=== PATIENT | female | born 1985 ===

== ENCOUNTER 2019-12-12 15:04 | Outpatient (REF) | payer MEDICAID, SELFPAY ==
--- NOTE | 2019-12-12 | MR_ITS ---
EXAMINATION: MR BRAIN WITHOUT CONTRAST CLINICAL INFORMATION: Arnold-Chiari malformation. COMPARISON: Brain MRI 06/09/2018. TECHNIQUE: Multiplanar, multisequence imaging of the brain was performed without intravenous contrast. FINDINGS: There is redemonstration of Chiari low-lying cerebellar tonsils which mildly narrow the cervicomedullary CSF. The appearance is stable compared with 06/09/2018. No upper cervical cord syrinx is seen. There is no acute infarction, hemorrhage, or extra-axial fluid collection. The ventricles are normal in size and configuration without evidence of hydrocephalus. Allowing for a stable punctate focus of T2 hyperintensity within the left parietal lobe the brain parenchyma signal appears normal. The major arterial flow voids are preserved at the skull base. The orbital contents appear normal. The paranasal sinuses and mastoid air cells are clear. IMPRESSION: Stable exam compared with 06/09/2018. Low-lying cerebellar tonsils.
== END 2019-12-12 15:05 | disposition home or self-care (01) ==
LOC: HO.MRI 15:04
PROVIDERS: PCP Internal Medicine; Visit Provider Internal Medicine
DX: Q07.00 Arnold-Chiari syndrome without spina bifida or hydrocephalus (principal)
CPT/HCPCS: 70551

== ENCOUNTER 2020-03-29 09:21 | Outpatient (REF) | payer OTHER, SELFPAY ==
[2020-03-29 09:59] LABS: MANUAL DIFF FLAG NO
[2020-03-29 10:12] LABS: Basophils Percent Auto 0.3 % (0-2); Eosinophils Absolute Auto 0.1 X10*3/uL (0.0-0.4); Eosinophils Percent Auto 1.2 % (0-4); Hematocrit 43.4 % (37-47); Imm Gran Abs Auto 0.01 X10*3/uL (0.00-0.03); Imm Gran Pct Auto 0.1 % (0.0-0.4); Lymphocytes Absolute Auto 2.1 X10*3/uL (1.2-4.9); Lymphocytes Percent Auto 27.2 % (20-40); Mean Corpuscular HGB Conc 32.3 g/dl (31.0-35.0); Mean Corpuscular Hemoglobin 28.4 pg (27.0-33.0); Mean Platelet Volume 9.4 fL (9.4-12.3); Monocytes Absolute Auto 0.6 X10*3/uL (0.1-1.2); Monocytes Percent Auto 7.2 % (2-11); Platelet Count 272 X10*3/uL (160-400); Red Blood Count 4.93 X10*6/uL (4.20-5.50); Red Cell Distribution Width 13.2 % (11.0-16.0); White Blood Count 7.8 X10*3/uL (4.8-10.8)
== END 2020-03-29 09:22 | disposition home or self-care (01) ==
LOC: HO.LAB 09:21
PROVIDERS: PCP Internal Medicine; Visit Provider Internal Medicine
DX: G62.9 Polyneuropathy, unspecified (principal)
CPT/HCPCS: 36415; 85025

== ENCOUNTER 2020-04-01 11:09 | Outpatient (REF) | payer OTHER, SELFPAY ==
--- NOTE | ~2020-04-01 | XR_ITS ---
EXAMINATION: XR LUMBOSACRAL SPINE CLINICAL INFORMATION: Right-sided sciatica. COMPARISON: Most recent lumbar spine radiographs dated 11/12/2017. TECHNIQUE: Three views of the lumbosacral spine. FINDINGS: Normal vertebral body alignment. The lumbar lordosis is maintained. No acute fracture or subluxation. No loss of vertebral body or intervertebral disc height. Tiny anterior endplate osteophytes at L2-L3, new when compared to the prior examination. No lytic or blastic osseous lesion. Right upper quadrant surgical clips. XR/XR lumbar spine 2-3V IMPRESSION: Minimal degenerative disc disease at L2-L3, new when compared to the prior examination.
== END 2020-04-01 11:10 | disposition home or self-care (01) ==
LOC: HO.XRAY 11:09
PROVIDERS: PCP Internal Medicine; Visit Provider Internal Medicine
DX: M54.31 Sciatica, right side (principal)
CPT/HCPCS: 72100

== ENCOUNTER 2020-07-31 08:04 | Outpatient (REF) | payer OTHER, SELFPAY ==
--- NOTE | 2020-07-31 08:07 | EMG_ITS ---
This is a 35-year-old woman with a 4-year history of right upper extremity pain and numbness with the recent symptoms that are milder affecting the left upper extremity. Neurological examination is normal. IMPRESSION: Rule out carpal tunnel syndrome. Nerve conduction EMG study: Normal electrodiagnostic study of both upper extremities with no evidence of carpal tunnel syndrome. Normal EMG of the right C5-T1 innervated muscles. MD TUCKER Singer/[place] / [id number]
== END 2020-07-31 08:05 | disposition home or self-care (01) ==
LOC: HO.NEURO 08:04
PROVIDERS: Visit Provider Internal Medicine
DX: G56.00 Carpal tunnel syndrome, unspecified upper limb (principal)
CPT/HCPCS: 95885; 95913

== ENCOUNTER 2020-12-14 15:11 | Emergency (ER) | payer OTHER, SELFPAY ==
[2020-12-14 16:03] VITALS: BP 143/92; PULSE 91; RESP 18; TEMP 37; O2SAT 97; BMI 44.4
--- NOTE | 2020-12-14 16:48 | ED_ITS ---
HPI - General Adult General Chief complaint: Ear Problems Stated complaint: Earache Time Seen by Provider: 12/14/20 16:48 Source: patient Mode of arrival: ambulatory Limitations: language barrier History of Present Illness HPI narrative: 35-year-old female is here today for complaining of sore throat and right ear pain. 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 Patient denies any ill contacts. Patient reports that she has a history of ear infections usually around that time. Patient reports rhinorrhea and mild congestion. Denies any hearing difficulties. Patient reports that she is allergic to prednisone and had a history of swelling with that and some rash. Patient denies dysphagia, odynophagia. Denies any shortness of breath or any respiratory symptoms. Patient has not taking anything for it. Patient denies any dizziness, headache, nausea or vomiting. Onset (ago): day(s) Related Data Home Medications Medication Instructions Recorded Confirmed alcohol swabs pad TOPICAL QID PRN 01/15/20 09/03/20 blood sugar diagnostic #10 ea 01/15/20 09/03/20 clonazepam 1 mg tablet 1 mg PO BID PRN 01/15/20 09/03/20 lancets 33 gauge #100 ea 01/15/20 09/03/20 amitriptyline 25 mg tablet 75 mg PO DAILY tab 09/03/20 09/03/20 Previous Rx's Medication Instructions Recorded lisinopril 10 mg tablet 10 mg PO DAILY 90 Days #90 tab 01/15/20 folic acid 1 mg tablet 1 mg PO DAILY 90 Days #90 tab 04/03/20 pregabalin 150 mg capsule 150 mg PO BID 30 Days #60 cap 08/20/20 cyanocobalamin (vitamin B-12) 1,000 mcg PO DAILY #30 tab 11/03/20 1,000 mcg tablet (Vitamin B-12) amoxicillin 875 mg-potassium 1 tab PO BID 10 Days #20 tab 12/14/20 clavulanate 125 mg tablet (Augmentin) fluticasone propionate 50 1 spray INTRANASAL BID #16 g 12/14/20 mcg/actuation nasal spray,suspension (Flonase Allergy Relief) ibuprofen 600 mg tablet 600 mg PO Q8H PRN #20 tab 12/14/20 loratadine 10 mg tablet (Claritin) 10 mg PO DAILY PRN #20 tab 12/14/20 Allergies Allergy/AdvReac Type Severity Reaction Status Date / Time aspirin [ASPIRIN] Allergy Intermediate SWELLING Verified 09/03/20 16:01 latex [LATEX] Allergy Intermediate Rash Verified 09/03/20 16:01 prednisone [PREDNISONE] Allergy Intermediate swelling Verified 09/03/20 16:01 and hives, swelling tramadol Allergy Intermediate loopiness Verified 09/03/20 16:01 Review of Systems Review of Systems: Constitutional : No Weight loss, No Fever, No Chills, No Night Sweats, No Fatigue, No Malaise ENT/Mouth : No Hearing loss, R Ear Pain, Nasal Congestion, No Sinus Pain, No Hoarseness, sore throat, Rhinorrhea, No Swallowing Difficulty Eyes: No Eye Pain, No Swelling, No Redness, No Foreign Body, No Discharge, No Vision Changes Cardiovascular : No Chest Pain, No SOB, No Dyspnea on Exertion, No Orthopnea, No Edema, No Palpitations Respiratory : No Cough, No Sputum, No Wheezing, No Smoke Exposure, No Dyspnea Gastrointestinal : No Nausea, No Vomiting, No Diarrhea, No Constipation, No abdominal Pain, No Hematochezia, No Melena Genitourinary : no irregular bleeding, No Dysuria, No Urinary Frequency, No Hematuria, No Urinary Incontinence, No Urgency, No Flank Pain, No Urinary Flow Changes, No Hesitancy Musculoskeletal : No joint pain, No Myalgias, No Joint Swelling Skin : No Skin Lesions, No rash Neuro : No Weakness, No Numbness, No Paresthesias, No Loss of Consciousness, No Dizziness, No Headache Yes all other systems are reviewed and are negative [facility] Past Medical History Medical History Anxiety Arnold-Chiari malformation B12 deficiency Carpal tunnel syndrome Chronic thoracic spine pain Essential hypertension Fibromyalgia Neck pain Neuropathy Right sided sciatica Surgical History History of section History of cholecystectomy History of D&C Family History Family History (Updated 09/03/20 @ 15:46 by SWATHI Kennedy) Father Hypertension CVD (cardiovascular disease) Diabetes Mother Hypertension Chronic mental illness Depression Mental health disorder Paternal Aunt Breast cancer Brother Colon cancer Stomach cancer Social History Social History Housing: Apartment Alcohol intake: never Patient Tobacco Use Status: Never used Tobacco e-Cigarette/Vaping Use: Never Used Second Hand Smoke Exposure: No Advance Directives: No Advance Directives Information Provided: No Patient : No service: No Current occupational status: employed Physical Exam Vital Signs: Vital Signs: Last Vital Signs Temp 98.6 F 12/14/20 16:03 Pulse 91 12/14/20 16:03 Resp 18 12/14/20 16:03 BP 143/92 H 12/14/20 16:03 Pulse Ox 97 12/14/20 16:03 Body Mass Index 44.4 Const: General: healthy appearing, no acute distress and well developed Nutritional Appearance: well nourished Orientation/consciousness: patient oriented x3 HENMT: Head: Yes normal to inspection, Yes normocephalic and Yes atraumatic Ears: hearing grossly normal bilaterally, TM normal on the left and TM abnormal (Right) with fluid behind the TM on the right General nose exam: Normal external nose present Face and sinus: Yes sinuses nontender Mouth: Normal oral and palatal mucosa present and tongue normal Throat: Yes uvula midline, Yes abnormal tonsil (Stage IV on the right stage III on the left, denies dysphagia.), No uvular edema and No cobblestoning Neck: Neck: Yes normal visual inspection, Yes full ROM and Yes trachea midline Thyroid: Thyroid normal Resp: Auscultation: clear to auscultation bilaterally Cardio: Rate: regular rate Rhythm: regular rhythm GI: Inspection: Yes normal to inspection and No distended Palpation (GI): No hepatosplenomegaly present Auscultation: normal bowel sounds Skin: General skin exam: elasticity normal, turgor normal and dry skin Neuro: General: patient oriented x3 Course Course Course Narrative: 35-year-old female is here today for complaining of right ear pain and sore throat. Patient has a history of enlarged tonsils and is awaiting to see ENT. Patient denies dysphagia or odynophagia. Patient denies any recent respiratory symptoms. Patient reports that she usually has your infection around that time every year. She reports that she is allergic to prednisone I will put her on Decadron will give her 1 time dose and will monitor her in the ER for hour after medicating her with that. She will get Augmentin and Claritin. I will send her home with Augmentin for 7 days, Claritin daily and Flonase twice a day for the next 7 days then daily. Patient is agreeable to this plan and verbalizes understanding of instructions. She was given the opportunity ask questions and all questions answered. Discharge Plan Discharge Clinical Impression: Tonsillitis Otitis media Qualifiers: Otitis media type: allergic Chronicity: unspecified Laterality: right Qualified Code(s): H65.91 - Unspecified nonsuppurative otitis media, right ear Patient Disposition: Home, Self-Care Instructions: Ear Infection (ED), Tonsillitis (ED) Additional Instructions: Lo vieron aqu? hoy por dolor de garganta y dolor de o?do derecho. Tiene eyad infecci?n del o?do medio y le comenzamos a jen antibi?ticos. Tambi?n le administraron medicamentos esteroides para ayudar con la inflamaci?n de las am?gdalas. Jackson antihistam?nicos ok Claritin a diario. Tambi?n le dieron un shazia?n para Flonase y puede tomarlo dos veces al d?a karlie 7 d?as y luego todos los d?as. Rashida un seguimiento con un especialista en o?do, nariz y garganta. Puede regresar al departamento de emergencias si praneeth s?ntomas empeoran o si experimenta alg?n s?ntoma preocupante adicional. Prescriptions: New ibuprofen 600 mg tablet 600 mg PO Q8H PRN (Reason: pain) Qty: 20 RF: 0 fluticasone propionate [Flonase Allergy Relief] 50 mcg/actuation spray,suspension 1 spray intranasal BID Qty: 16 RF: 0 loratadine [Claritin] 10 mg tablet 10 mg PO DAILY PRN (Reason: allergy symptoms) Qty: 20 RF: 0 amoxicillin-pot clavulanate [Augmentin] 875-125 mg tablet 1 tab PO BID 10 Days Qty: 20 RF: 0 No Action pregabalin 150 mg capsule 150 mg PO BID 30 Days Qty: 60 RF: 0 cyanocobalamin (vitamin B-12) [Vitamin B-12] 1,000 mcg tablet 1,000 mcg PO DAILY Qty: 30 RF: 5 folic acid 1 mg tablet 1 mg PO DAILY 90 Days Qty: 90 RF: 3 clonazepam 1 mg tablet 1 mg PO BID PRNRF: 0 (DME) lancets 33 gauge misc See Rx Instructions ea Not Applicable QID Qty: 100 RF: 0 alcohol swabs Pads, Medicated topical QID PRN (Reason: diabetes mellitus) RF: 0 (DME) FreeStyle Lite Strips Strip See Rx Instructions ea Not Applicable QID Qty: 10 RF: 0 lisinopril 10 mg tablet 10 mg PO DAILY 90 Days Qty: 90 RF: 3 amitriptyline 25 mg tablet 75 mg PO DAILY RF: 0 Referrals: Brian Leavitt MD [Physician] - 2 days (Tonsillitis) Mague Brantley MD [Primary Care Provider] - 2 days
[2020-12-14] MEDS: dexAMETHasone 2 MG TABLET 10 MG PO (17:18)
[2020-12-14] MEDS: Amoxicillin/Potassium Clav 875 MG TABLET PO (17:18)
[2020-12-14] MEDS: Loratadine 10 MG TABLET PO (17:19)
== END 2020-12-14 18:47 | disposition home or self-care (01) ==
PROVIDERS: Emergency Provider Emergency Medicine; PCP Internal Medicine
DX: J03.90 Acute tonsillitis, unspecified (principal); H65.91 Unspecified nonsuppurative otitis media, right ear; Z79.899 Other long term (current) drug therapy
CPT/HCPCS: 99283; J8540

== ENCOUNTER 2020-12-30 08:49 | Outpatient (REF) | payer OTHER, SELFPAY ==
--- NOTE | ~2020-12-30 | XR_ITS ---
EXAMINATION: XR C-SPINE XR THORACIC SPINE XR LUMBOSACRAL SPINE CLINICAL INFORMATION: Chronic cervical, thoracic and lumbar pain. COMPARISON: None TECHNIQUE: 5 views of the cervical spine, 2 views, 3 images of the thoracic spine and 2 views, 3 images of the lumbosacral spine were obtained. FINDINGS: Cervical spine: There is nonspecific straightening of the cervical spine present. The heights and alignments are intact. Intervertebral disc heights are well-maintained. The posterior appendages are intact. No evidence of any foraminal narrowing present on either side. The C1-C2 alignment is intact. The prespinal as well as paraspinal soft tissues are unremarkable. Thoracic spine: The heights of the thoracic vertebrae are well-maintained. Intervertebral disc heights are well-maintained. Endplate osteophyte formations are however present at the mid thoracic spine, consistent with mild degenerative spondylosis. The paraspinal soft tissues are unremarkable. Lumbosacral spine: Mild thoracolumbar levoscoliosis is present. The heights of the lumbar vertebrae are well-maintained. Intervertebral disc heights are well-maintained. The posterior appendages are intact. The paraspinal soft tissues are remarkable for postsurgical changes of prior cholecystectomy. XR/XR cervical spine 5V IMPRESSION: 1. The cervical spine shows nonspecific straightening, otherwise unremarkable. 2. The thoracic spine shows mild degenerative spondylosis at the mid thoracic spine. 3. The lumbosacral spine shows mild thoracolumbar levoscoliosis, otherwise unremarkable.
--- NOTE | ~2020-12-30 | XR_ITS ---
EXAMINATION: XR C-SPINE XR THORACIC SPINE XR LUMBOSACRAL SPINE CLINICAL INFORMATION: Chronic cervical, thoracic and lumbar pain. COMPARISON: None TECHNIQUE: 5 views of the cervical spine, 2 views, 3 images of the thoracic spine and 2 views, 3 images of the lumbosacral spine were obtained. FINDINGS: Cervical spine: There is nonspecific straightening of the cervical spine present. The heights and alignments are intact. Intervertebral disc heights are well-maintained. The posterior appendages are intact. No evidence of any foraminal narrowing present on either side. The C1-C2 alignment is intact. The prespinal as well as paraspinal soft tissues are unremarkable. Thoracic spine: The heights of the thoracic vertebrae are well-maintained. Intervertebral disc heights are well-maintained. Endplate osteophyte formations are however present at the mid thoracic spine, consistent with mild degenerative spondylosis. The paraspinal soft tissues are unremarkable. Lumbosacral spine: Mild thoracolumbar levoscoliosis is present. The heights of the lumbar vertebrae are well-maintained. Intervertebral disc heights are well-maintained. The posterior appendages are intact. The paraspinal soft tissues are remarkable for postsurgical changes of prior cholecystectomy. XR/XR lumbar spine 2-3V IMPRESSION: 1. The cervical spine shows nonspecific straightening, otherwise unremarkable. 2. The thoracic spine shows mild degenerative spondylosis at the mid thoracic spine. 3. The lumbosacral spine shows mild thoracolumbar levoscoliosis, otherwise unremarkable.
--- NOTE | ~2020-12-30 | XR_ITS ---
EXAMINATION: XR C-SPINE XR THORACIC SPINE XR LUMBOSACRAL SPINE CLINICAL INFORMATION: Chronic cervical, thoracic and lumbar pain. COMPARISON: None TECHNIQUE: 5 views of the cervical spine, 2 views, 3 images of the thoracic spine and 2 views, 3 images of the lumbosacral spine were obtained. FINDINGS: Cervical spine: There is nonspecific straightening of the cervical spine present. The heights and alignments are intact. Intervertebral disc heights are well-maintained. The posterior appendages are intact. No evidence of any foraminal narrowing present on either side. The C1-C2 alignment is intact. The prespinal as well as paraspinal soft tissues are unremarkable. Thoracic spine: The heights of the thoracic vertebrae are well-maintained. Intervertebral disc heights are well-maintained. Endplate osteophyte formations are however present at the mid thoracic spine, consistent with mild degenerative spondylosis. The paraspinal soft tissues are unremarkable. Lumbosacral spine: Mild thoracolumbar levoscoliosis is present. The heights of the lumbar vertebrae are well-maintained. Intervertebral disc heights are well-maintained. The posterior appendages are intact. The paraspinal soft tissues are remarkable for postsurgical changes of prior cholecystectomy. XR/XR thoracic spine 2V IMPRESSION: 1. The cervical spine shows nonspecific straightening, otherwise unremarkable. 2. The thoracic spine shows mild degenerative spondylosis at the mid thoracic spine. 3. The lumbosacral spine shows mild thoracolumbar levoscoliosis, otherwise unremarkable.
[2020-12-30 09:20] LABS: MANUAL DIFF FLAG NO
[2020-12-30 09:42] LABS: Basophils Percent Auto 0.2 % (0-2); Eosinophils Absolute Auto 0.1 X10*3/uL (0.0-0.4); Eosinophils Percent Auto 2.2 % (0-4); Hematocrit 41.1 % (37.0-47.0); Hemoglobin 13.3 g/dl (12.0-16.0); Imm Gran Abs Auto 0.03 X10*3/uL (0.00-0.03); Imm Gran Pct Auto 0.5 % (0.0-0.4); Lymphocytes Percent Auto 31.5 % (20-40); Mean Corpuscular HGB Conc 32.4 g/dl (31.0-35.0); Mean Corpuscular Hemoglobin 28.2 pg (27.0-33.0); Mean Corpuscular Volume 87.3 fL (80.0-98.0); Mean Platelet Volume 9.5 fL (9.4-12.3); Monocytes Absolute Auto 0.4 X10*3/uL (0.1-1.2); Neutrophils Absolute Auto 3.8 x10*3/uL (2.0-8.3); Neutrophils Percent Auto 59.6 % (45-73); Platelet Count 302 X10*3/uL (160-400); Red Blood Count 4.71 X10*6/uL (4.20-5.50); White Blood Count 6.4 X10*3/uL (4.8-10.8)
[2020-12-30 10:11] LABS: Alanine Aminotransferase 16 U/L (0-31); Albumin Level 3.8 g/dL (3.5-5.0); Alkaline Phosphatase 82 U/L (39-117); Anion Gap 11 (12-20); Aspartate Amino Transferase 11 U/L (5-31); Bilirubin Total 0.4 mg/dL (0.0-1.0); Blood Urea Nitrogen 10 mg/dL (9-16); Carbon Dioxide 25 mmol/L (22-29); Chloride 106 mmol/L (96-108); Cholesterol 208 mg/dL; Estimated Glomerular Filt Rate > 60; Glucose Fasting 107 mg/dL (60-99); HDL Cholesterol 42 mg/dL; LDL Cholesterol Calculated 147 mg/dl; Potassium 4.2 mmol/L (3.3-5.1); Sodium 138 mmol/L (135-145); Total Protein 6.9 g/dL (6.5-8.0); Triglycerides 99 mg/dL
[2020-12-30 11:15] LABS: Folate 13.8 ng/mL (> or = 4.0); Vitamin B12 371 pg/mL (200-900)
[2021-01-02 12:06] LABS: Parietal Cell Antibody <=20.0 Unit (<=20.0)
[2021-01-03 13:12] LABS: Vitamin D 25-OH, D2 <4 ng/mL; Vitamin D 25-OH, D3 19 ng/mL; Vitamin D 25-OH, Total 19 ng/mL (30-100)
[2021-01-03 23:36] LABS: Intrinsic Factor Antibodies Negative (Negative)
== END 2020-12-30 08:50 | disposition home or self-care (01) ==
LOC: HO.LAB 08:49
PROVIDERS: PCP Internal Medicine; Visit Provider Internal Medicine
DX: G89.29 Other chronic pain (principal); M54.2 Cervicalgia; M54.6 Pain in thoracic spine; M54.31 Sciatica, right side; D64.9 Anemia, unspecified; I10 Essential (primary) hypertension; E78.5 Hyperlipidemia, unspecified; E53.8 Deficiency of other specified B group vitamins
CPT/HCPCS: 36415; 72050; 72070; 72100; 80053; 80061; 82306; 82607; 82746; 83516; 85025; 86340

== ENCOUNTER 2021-01-22 12:38 | Outpatient (REF) | payer OTHER, SELFPAY ==
--- NOTE | ~2021-01-22 | MR_ITS ---
EXAMINATION: MRI OF THE BRAIN WITHOUT CONTRAST CLINICAL INFORMATION: Chiari malformation without spina bifida. COMPARISON: Multiple prior MRI scans, the most recent from 12/12/2019.. TECHNIQUE: MRI of the brain was obtained using routine sequences without contrast. FINDINGS: No diffusion abnormalities are identified to suggest an acute or subacute infarct. No mass effect or midline shift is seen. The ventricles and sulci appear normal. There is a small focus of increased T2/STIR signal bilaterally in the left parietal lobe, which is slightly less prominent compared to prior imaging. Brain parenchymal signal is otherwise unremarkable. No extra-axial fluid collections are seen. The brainstem appears normal. No pathologic magnetic susceptibility artifact is identified on the gradient refocused acquisition. The study redemonstrates low-lying cerebellar tonsil with mildly pointed configurations extending approximately 4 mm below the level of foramen magnum, unchanged. Marrow signal and midline structures are normal. The major intracranial flow-voids at the level of the [place] are preserved. The dural venous sinus flow-voids are maintained. The mastoid air cells and paranasal sinuses are well-aerated. MR/MR head/brain wo con IMPRESSION: 1. The study redemonstrates low-lying cerebellar tonsils which have slightly pointed configurations, consistent with Chiari I malformation. The findings are stable. 2. There are no acute bleeds or infarcts. No masses are demonstrated.
== END 2021-01-22 12:39 | disposition home or self-care (01) ==
LOC: HO.MRI 12:38
PROVIDERS: Visit Provider Internal Medicine
DX: Q07.00 Arnold-Chiari syndrome without spina bifida or hydrocephalus (principal)
CPT/HCPCS: 70551

== ENCOUNTER 2021-02-01 14:30 | Emergency (ER) | payer OTHER, SELFPAY ==
[2021-02-01 14:35] VITALS: BP 128/93; PULSE 93; RESP 18; TEMP 36.8; O2SAT 96; BMI 46.5
[2021-02-01 16:01] LABS: Basophils Percent Auto 0.2 % (0-2); Eosinophils Absolute Auto 0.1 X10*3/uL (0.0-0.4); Hematocrit 40.1 % (37.0-47.0); Hemoglobin 13.1 g/dl (12.0-16.0); Imm Gran Abs Auto 0.04 X10*3/uL (0.00-0.03); Imm Gran Pct Auto 0.4 % (0.0-0.4); Lymphocytes Absolute Auto 2.2 X10*3/uL (1.2-4.9); Lymphocytes Percent Auto 23.2 % (20-40); MANUAL DIFF FLAG SCAN; Mean Corpuscular HGB Conc 32.7 g/dl (31.0-35.0); Mean Corpuscular Hemoglobin 29.3 pg (27.0-33.0); Mean Corpuscular Volume 89.7 fL (80.0-98.0); Mean Platelet Volume 10.5 fL (9.4-12.3); Monocytes Absolute Auto 0.5 X10*3/uL (0.1-1.2); Monocytes Percent Auto 5.3 % (2-11); Neutrophils Absolute Auto 6.6 x10*3/uL (2.0-8.3); Neutrophils Percent Auto 69.9 % (45-73); PLT CLUMP 1; Red Blood Count 4.47 X10*6/uL (4.20-5.50); Red Cell Distribution Width 13.7 % (11.0-16.0); SCAN SMEAR FLAG 1
[2021-02-01 16:09] LABS: Alanine Aminotransferase 19 U/L (0-31); Albumin Level 3.8 g/dL (3.5-5.0); Alkaline Phosphatase 76 U/L (39-117); Anion Gap 11 (12-20); Aspartate Amino Transferase 16 U/L (5-31); Bilirubin Total 0.2 mg/dL (0.0-1.0); Blood Urea Nitrogen 10 mg/dL (9-16); Calcium 10.2 mg/dL (8.4-10.2); Carbon Dioxide 25 mmol/L (22-29); Chloride 106 mmol/L (96-108); Creatinine Clr Calc Pharmacy 143.7; Estimated Glomerular Filt Rate > 60; Glucose Fasting 87 mg/dL (60-99); Potassium 4.3 mmol/L (3.3-5.1); Sodium 138 mmol/L (135-145); Total Protein 7.1 g/dL (6.5-8.0)
[2021-02-01 16:20] LABS: SLIDE REVIEW VERIFIED; White Blood Count 9.4 X10*3/uL (4.8-10.8)
[2021-02-01 16:53] LABS: HCG Quantitative 30960 mIU/mL
== END 2021-02-01 22:31 | disposition left against medical advice (07) ==
LOC: HO.ED 22:30
PROVIDERS: Emergency Provider Emergency Medicine; PCP Internal Medicine
DX: R10.9 Unspecified abdominal pain (principal)
CPT/HCPCS: 36415; 80053; 84702; 85025; 99281; 99283

== ENCOUNTER 2022-02-01 12:30 | Emergency (ER) | payer OTHER, SELFPAY ==
--- NOTE | ~2022-02-01 | XR_ITS ---
EXAMINATION: XR CHEST CLINICAL INFORMATION: Chest discomfort, fever and cough. COMPARISON: Chest and rib radiographs dated 07/25/2018. TECHNIQUE: 2 views of the chest were obtained. FINDINGS: No significant abnormality is noted involving the heart, lungs, mediastinum, bony thorax or soft tissues. XR/XR chest 2V IMPRESSION: No acute cardiopulmonary process.
[2022-02-01 13:03] VITALS: BP 147/88; PULSE 98; RESP 18; TEMP 36.8; O2SAT 98; BMI 40.9
--- NOTE | 2022-02-01 13:05 | ED_ITS ---
HPI - General Adult General Chief complaint: Upper Respiratory Symptoms <JOSE CARLOS Ovalle - Last Filed: 02/01/22 13:07> Stated complaint: flu like symptoms. fever ,cp, cough <JOSE CARLOS Ovalle - Last Filed: 02/01/22 13:07> Time Seen by Provider: 02/01/22 16:00 <JOSE CARLOS Ovalle - Last Filed: 02/01/22 13:07> Source: patient and email designer <Gopal Miller MD - Last Filed: 02/01/22 16:07> Mode of arrival: ambulatory <Gopal Miller MD - Last Filed: 02/01/22 16:07> Limitations: no limitations <Gopal Miller MD - Last Filed: 02/01/22 16:07> History of Present Illness HPI narrative: 37-year-old female came in for evaluation of body aches, congestion, coughing, generalized joint pain, subjective low-grade fever. No known sick contact exposure. <Gopal Miller MD - Last Filed: 02/01/22 16:07> Related Data Home medications: Home Medications Medication Instructions Recorded Confirmed clonazepam 1 mg tablet 1 mg PO BID PRN 01/15/20 10/20/21 amitriptyline 25 mg tablet 100 mg PO DAILY 01/01/21 10/20/21 Previous Rx's Medication Instructions Recorded cholecalciferol (vitamin D3) 25 25 mcg PO DAILY 90 days #90 caps 01/03/21 mcg (1,000 unit) capsule cyanocobalamin (vitamin B-12) 1,000 mcg PO DAILY #30 tabs 05/06/21 1,000 mcg tablet (Vitamin B-12) oseltamivir 75 mg capsule (Tamiflu) 75 mg PO BID 5 days #10 caps 02/01/22 <JOSE CARLOS Ovalle - Last Filed: 02/01/22 13:07> Allergies/adverse reactions: Allergies Allergy/AdvReac Type Severity Reaction Status Date / Time aspirin [ASPIRIN] Allergy Intermediate SWELLING Verified 10/20/21 13:40 latex [LATEX] Allergy Intermediate Rash Verified 10/20/21 13:40 prednisone [PREDNISONE] Allergy Intermediate swelling Verified 10/20/21 13:40 and hives, swelling tramadol Allergy Intermediate loopiness Verified 10/20/21 13:40 <JOSE CARLOS Ovalle - Last Filed: 02/01/22 13:07> Review of Systems Review of Systems: All other systems are reviewed and are negative Constitutional: Reports as per HPI and Reports no additional constitutional complaints Eyes: Reports as per HPI and Reports no additional eye complaints Reports system reviewed and no additional complaints, except as documented Cardiovascular: Reports as per HPI and Reports no additional cardiovascular complaints Respiratory: Reports as per HPI and Reports no additional respiratory complaints Gastrointestinal: Reports as per HPI and Reports no additional gastrointestinal complaints Genitourinary: Reports no additional female genitourinary complaints Musculoskeletal: Reports no additional musculoskeletal complaints Skin/Breast: Reports system reviewed and no additional complaints, except as docu Psychiatric: Reports no additional psychiatric complaints Endocrine: Reports no additional endocrine complaints Hematologic/Lymphatic: Reports no additional hematologic/lymphatic complaints Allergic/Immunologic: Reports no additional allergic/immunologic complaints Reports system reviewed and no additional complaints, except as documented and Reports Abnormal speech present <Gopal Miller MD - Last Filed: 02/01/22 16:07> FOR[facility]LY [facility], [facility] Past Medical History Medical History: Medical History Anxiety Arnold-Chiari malformation B12 deficiency Carpal tunnel syndrome Chronic thoracic spine pain Essential hypertension Fibromyalgia Gestational diabetes mellitus Moderate recurrent major depression Morbid obesity due to excess calories Neck pain Neuropathy Right sided sciatica <JOSE CARLOS Ovalle - Last Filed: 02/01/22 13:07> Surgical History: Surgical History History of section History of cholecystectomy History of D&C <JOSE CARLOS Ovalle - Last Filed: 02/01/22 13:07> Family History Family History: Family History Father Hypertension CVD (cardiovascular disease) Diabetes Mother Hypertension Chronic mental illness Depression Mental health disorder Paternal Aunt Breast cancer Brother Colon cancer Stomach cancer <JOSE CARLOS Ovalle - Last Filed: 02/01/22 13:07> Social History Social History: Social History Housing: Apartment Alcohol intake: never Patient Tobacco Use Status: Never used Tobacco e-Cigarette/Vaping Use: Never Used Second Hand Smoke Exposure: No Advance Directives: No Advance Directives Information Provided: No service: No Current occupational status: unemployed Cognitive needs: No Hearing needs: No Vision needs: No <JOSE CARLOS Ovalle - Last Filed: 02/01/22 13:07> Physical Exam ED Vital Signs: Vital Signs - 24 hr 02/01/22 13:03 Temperature 98.3 F Pulse Rate 98 Respiratory Rate 18 Blood Pressure 147/88 H Pulse Oximetry 98 Oxygen Delivery Method Room Air BMI result Body Mass Index 40.9 <JOSE CARLOS Ovalle - Last Filed: 02/01/22 13:07> Vital Signs - 24 hr 02/01/22 13:03 Temperature 98.3 F Pulse Rate 98 Respiratory Rate 18 Blood Pressure 147/88 H Pulse Oximetry 98 Oxygen Delivery Method Room Air BMI result Body Mass Index 40.9 Vital signs have been reviewed as appeared to be correct. Blood pressure normal. Heart rate normal. Respiration rate normal. Temperature normal. Oxygen saturation normal. <Gopal Miller MD - Last Filed: 02/01/22 16:07> Appearance: Alert. Oriented X3. No acute distress. Head: Normal external exam. Normocephalic. Atraumatic. No Theodore signs noted. No raccoon eyes noted Eyes: PERRLA. EOMI. Conjunctiva and sclera normal. Eyelids normal. ENT: TM's Normal. Pharynx normal. Uvula midline. Moist mucous membranes. No trismus noted. No drooling noted. No muffled voice noted. Neck: Normal inspection. Neck supple. FROM. No adenopathy. Thyroid Normal. No meningeal signs. No neck mass noted. CVS: Normal heart rate and rhythm. Heart sound normal. No murmurs noted. Pulses normal throughout. Respiratory: No respiratory distress. Painless inspiration. Breath sounds normal. No wheezes/rales/rhonchi noted. Chest nontender. No accessory muscle usage noted or decreased air movement noted. Abdomen: Soft and nontender. Bowel sounds normal in all 4 quadrants. No distention noted. No organomegaly noted. No visible injury noted. Back: No CVA tenderness. Full range of motion noted. Skin: Skin warm and dry. Normal skin color. Normal skin turgor. No rashes/lesions/lacerations noted. Extremities: No lower extremity edema. Extremities exhibit normal range of motion. Extremities nontender. Neuro: Oriented X 3. Cranial nerve exam: II-XII are grossly intact No motor deficit. No sensory deficit. Reflexes normal. <Gopal Miller MD - Last Filed: 02/01/22 16:07> Course Course Course Narrative: RME - 37 yo female with hx morbid obesity, depression, fibromyalgia, HTN, sciatica, anxiety presenting with flu like symptoms for 2 days. Afebrile and slightly tachycardic on arrival, lungs are clear. will get CXR and swabs. <JOSE CARLOS Ovalle - Last Filed: 02/01/22 13:07> Reevaluation(s) Reevaluation #1: Flu-like symptoms patient is positive for flu A, start the patient on Tamiflu. <Gopal Miller MD - Last Filed: 02/01/22 16:07> Time: 16:06 <Gopal Miller MD - Last Filed: 02/01/22 16:07> Medical Decision Making Medical Decision Making Differential Diagnoses: Differential diagnosis (Pneumonia, influenza, RSV, COVID-19 infection.) <Gopal Miller MD - Last Filed: 02/01/22 16:07> Lab Attestation: I reviewed the patient's lab results. <Gopal Miller MD - Last Filed: 02/01/22 16:07> Independent interpretation of EKG, rhythm strip, radiology study: Independent interp EKG,rhythm strip, radiology study I performed an independent interpretation of the: Plain X-Ray (Chest) My interpretation is no acute intra thoracic pathology. <Gopal Miller MD - Last Filed: 02/01/22 16:07> Discharge Plan Discharge Clinical Impression: Influenza A <JOSE CARLOS Ovalle - Last Filed: 02/01/22 13:07> Patient Disposition: Home, Self-Care <JOSE CARLOS Ovalle - Last Filed: 02/01/22 13:07> Instructions: Influenza (ED) <JOSE CARLOS Ovalle - Last Filed: 02/01/22 13:07> Prescriptions: New oseltamivir [Tamiflu] 75 mg capsule 75 mg PO BID 5 Days Qty: 10 0RF No Action cholecalciferol (vitamin D3) 25 mcg (1,000 unit) capsule 25 mcg PO DAILY 90 Days Qty: 90 2RF cyanocobalamin (vitamin B-12) [Vitamin B-12] 1,000 mcg tablet 1,000 mcg PO DAILY Qty: 30 5RF clonazepam 1 mg tablet 1 mg PO BID PRN amitriptyline 25 mg tablet 100 mg PO DAILY <JOSE CARLOS Ovalle - Last Filed: 02/01/22 13:07> Referrals: Mague Brantley MD [Primary Care Provider] - <JOSE CARLOS Ovalle - Last Filed: 02/01/22 13:07>
--- OUTSIDE RECORDS SUMMARY | 2022-02-01 15:35 | XMS_ITS | Continuity of Care Document ---
:1985 Author Organization [facility] ic Address [address] [place] [id number]- Care Team Providers Name Role Phone Kelvin Irby MD, Mague Rodriguez Primary Care Physician Encounter [facility] [id number] Date(s): 08/13/20 - 09/12/[address] [address]- Allergies, Adverse Reactions, Alerts Substance Reaction Severity Status aspirin Swelling Active predniSONE Swelling Active Latex Rash Active traMADol Confusion Active Immunizations Given and Recorded Vaccine Date Status Refusal Reason tetanus/diphtheria/pertussis, acel(Tdap) 07/12/19 Given Medications amiTRIPTYLINE By Mouth, Daily at bedtime, 0 Refills, Maintenance, 09/22/19 16:34:00 EDT Start Date: 09/22/19 Status: OrderedClonazepam = 1 mg, By Mouth, 2 times a day, 0 Refills, Maintenance, 09/22/19 16:33:00 EDT Start Date: 09/22/19 Status: Orderedlabetalol 100 mg oral tablet 1 tablet, By Mouth, Daily, # 30 tablet, 1 Refills, Maintenance, 06/02/20 9:24:00 EDT, [facility], 160, cm, 10/25/19 12:24:00 EDT, Height, 128.4, kg, 09/13/19 21:34:00 EDT, Dry Weight Start Date: 06/02/20 Status: OrderedOrtho Micronor 0.35 mg oral tablet 1 tablet = 0.35 mg, By Mouth, Daily, # 28 tablet, 11 Refills, Maintenance, 09/17/19 12:26:00 EDT, Tablet, [facility], 160, cm, 09/17/19 9:49:00 EDT, Height, 128.4, kg, 09/13/19 21:34:00 EDT, Dry Weight Start Date: 09/17/19 Status: Ordered Problem List Condition Effective Dates Status Health Status Informant Carpal tunnel syndrome(Confirmed) Active Cervical radiculopathy(Confirmed) Active 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) H/O Macrosomia(Confirmed)1 Active Fibromyalgia(Confirmed) Active GERD (gastroesophageal reflux Active disease)(Confirmed) Gestational diabetes mellitus, class Active A1(Confirmed) Non-Greenlandic speaking Active patient(Confirmed)2 Migraine(Confirmed) Active Mild intermittent asthma(Confirmed) Active Obesity(Confirmed) Active Anxiety/depression/panic Active disorder(Confirmed) Chronic hypertension in Active (Confirmed) Retinopathy(Confirmed) Active Fatty liver(Confirmed) Active Fibroid uterus(Confirmed) Active 1Last baby 10 [id number] Speaking Social History Social History Type Response Smoking Status Never (less than 100 in life time) entered on: 07/04/19 Sex
--- OUTSIDE RECORDS SUMMARY | 2022-02-01 15:35 | XMS_ITS | Continuity of Care Document ---
:1985 Author Organization [facility] Address [address] [place] [id number]- Care Team Providers Name Role Phone Kelvin Irby MD, Kanika Rodriguez Primary Care Physician Encounter [facility] Date(s): 09/06/19 - 09/06/[address] [address]- [facility] Discharge Disposition: A-D/C Home Attending Physician: Jessi Ferrari MD Admitting Physician: Jessi Ferrari MD Referring Physician: Jessi Ferrari MD Allergies, Adverse Reactions, Alerts Substance Reaction Severity Status aspirin Swelling Active predniSONE Swelling Active Latex Rash Active traMADol Confusion Active Immunizations Given and Recorded Vaccine Date Status Refusal Reason tetanus/diphtheria/pertussis, acel(Tdap) 07/12/19 Given Medications albuterol 90 mcg/inh inhalation powder 2 puffs, Inhalation, Every 6 hours, PRN as needed, # 1 each, 0 Refills, Maintenance, 03/22/19 16:48:00 EST, Powder, [facility] - , 2 puffs Inhalation Every 6 hours,PRN:as needed, 165, cm, 03/22/19 15:11:00 EST, Height, 110.2, kg,... Start Date: 03/22/19 Status: OrderedAlcohol Pads See Instructions, # 1 pack/packet, Refills 2, Tot. Refills 2, Maintenance, Gestational diabetes: [id number] Please check blood sugars 4 times a day and as needed., 07/21/19 16:55:00 EDT, Supply, 160, cm, 07/12/19 13:14:00 EDT, Height, 118.4, kg, 05/... Start Date: 07/21/19 Status: OrderedBP Monitoring Unit BP Monitoring Unit, See Instructions, # 1 each, Refills 0, Tot. Refills 0, Maintenance, BP monitoring unit, 07/12/19 14:43:00 EDT, Supply Start Date: 07/12/19 Status: OrderedColace sodium 100 mg oral capsule 100 mg, 1, capsule, By Mouth, 2 times a day, PRN, # 20 capsule, Refills 3, Tot. Refills 3, Maintenance, for constipation, 06/30/19 17:34:00 EDT, Route to Pharmacy Electronically, [facility], 160, cm, 06/29/19 5:42:00 EDT, Height, 1... Start Date: 06/30/19 Status: OrderedFreestyle Lite Lancets See Instructions, # 1 pack/packet, Refills 2, Tot. Refills 2, Maintenance, Gestational diabetes: [id number] Please check blood sugars 4 times a day and as needed., 07/21/19 16:55:00 EDT, Supply, 160, cm, 07/12/19 13:14:00 EDT, Height, 118.4, kg, 05/... Start Date: 07/21/19 Status: OrderedFreestyle Lite Monitor See Instructions, # 1 each, Maintenance, Gestational diabetes: DX: 024.419 Please check blood sugars4 times a day and as needed., 07/21/19 16:55:00 EDT, Supply, 160, cm, 07/12/19 13:14:00 EDT, Height,118.4, kg, 06/29/19 5:49:00 EDT, Dry Weight Start Date: 07/21/19 Status: OrderedFreestyle Lite Test Strips See Instructions, # 1 pack/packet, Refills 2, Tot. Refills 2, Maintenance, Gestational diabetes: [id number] Please check blood sugars 4 times a day and as needed., 07/21/19 16:55:00 EDT, Supply, 160, cm, 07/12/19 13:14:00 EDT, Height, 118.4, kg, 05/... Start Date: 07/21/19 Status: Orderedlabetalol 100 mg oral tablet 1 tablet = 100 mg, By Mouth, Daily, # 30 tablet, 1 Refills, Maintenance, 08/14/19 9:57:00 EDT, Tablet, [facility], 160, cm, 08/14/19 9:04:00 EDT, Height, 122.2, kg, 08/01/19 11:39:00 EDT, Dry Weight Start Date: 08/14/19 Status: OrderedMultivitamin, 1, By Mouth, Daily, 0 Refills, Maintenance, 08/01/19 12:12:00 EDT Start Date: 08/01/19 Status: OrderedPeak Flow Meter (Adult) See Instructions, # 1 each, Maintenance, Check once a day., 03/22/19 16:47:00 EST, Compound, 165, cm, 03/22/19 15:11:00 EST, Height, 110.2, kg, 09/14/17 1:17:00 EDT, Dry Weight Start Date: 03/22/19 Status: OrderedRx: LSO for lower back pain Rx: LSO for lower back pain, See Instructions, # 1 each, Refills 0, Tot. Refills 0, Maintenance, [employer] prosthetic and orthotic solutions, 07/12/19 14:41:00 EDT, Supply Start Date: 07/12/19 Status: OrderedVistaril pamoate 25 mg oral capsule 1 capsule = 25 mg, By Mouth, 4 times a day, PRN for anxiety, # 40 capsule, 0 Refills, Maintenance, 07/12/19 17:29:00 EDT, Capsule, [facility], 160, cm, 07/12/19 13:14:00 EDT, Height, 118.4, kg, 06/29/19 5:49:00 EDT, Dry Weight Start Date: 07/12/19 Status: Ordered Problem List Condition Effective Dates Status Health Status Informant Elevated glucose tolerance Active test(Confirmed) Carpal tunnel syndrome(Confirmed) Active Cervical radiculopathy(Confirmed) Active 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) H/O Macrosomia(Confirmed)1 Active Fibromyalgia(Confirmed) Active GERD (gastroesophageal reflux Active disease)(Confirmed) 35 weeks gestation of Active (Confirmed) Non-Tuvaluan speaking Active patient(Confirmed)2 Migraine(Confirmed) Active Mild intermittent asthma(Confirmed) Active Advanced maternal age in Active multigravida(Confirmed) Obesity(Confirmed) Active Anxiety/depression/panic Active disorder(Confirmed) Chronic hypertension in Active (Confirmed) Retinopathy(Confirmed) Active Fatty liver(Confirmed) Active Uterine scar from previous Active delivery(Confirmed) 1Last baby 10 [id number] Speaking Vital Signs Most recent to oldest 1 2 3 [Reference Range]: Weight 126.8 kg (09/06/19 3:22 PM) Blood Pressure [90-138/55-84 mm 126/61 mm Hg 128/79 mm Hg 119/60 mm Hg Hg] (09/06/19 7:23 PM) (09/06/19 4:43 PM) (09/06/19 3:2 2 PM) Respiratory Rate [16-30 br/min] 18 br/min (09/06/19 6:05 PM) Temperature [96.8-100.4 DegF] 98.8 DegF 98.1 DegF (09/06/19 7:23 PM) (09/06/19 3:22 PM) Temperature Route Oral Oral (09/06/19 7:23 PM) (09/06/19 3:22 PM) Dry Weight 126.8 kg (09/06/19 3:22 PM) Weight Obtained Via Standing scale (09/06/19 3:22 PM) Dry Weight Obtained Via Standing scale (09/06/19 3:22 PM) Social History Social History Type Response Smoking Status Never (less than 100 in life time) entered on: 07/04/19 Sex Female
--- OUTSIDE RECORDS SUMMARY | 2022-02-01 15:35 | XMS_ITS | Continuity of Care Document ---
:1985 Author Organization [facility] ic Address [address] [place] [id number]- Care Team Providers Name Role Phone Kelvin Irby MD, Mague Rodriguez Primary Care Physician Encounter [facility] Date(s): 07/22/21 - 08/21/[address] [id number] Allergies, Adverse Reactions, Alerts Substance Reaction Severity Status aspirin Swelling Active Latex Rash Active traMADol Confusion Active predniSONE Swelling Active Immunizations Given and Recorded Vaccine Date Status Refusal Reason SARS-CoV-2 mRNA ([id number]) vax 08/04/21 Given tetanus/diphtheria/pertussis, acel(Tdap) 07/07/21 Given tetanus/diphtheria/pertussis, acel(Tdap) 07/12/19 Given SARS-CoV-2 (COVID-19) mRNA-1273 vaccine 07/10/20 Recorded SARS-CoV-2 (COVID-19) mRNA-1273 vaccine 06/12/20 Recorded Influenza Virus Vaccine (oldterm) 02/23/20 Recorded Medications Alcohol Wipes See Instructions, # 200 each, Refills 5, Tot. Refills 5, Maintenance, Please use as directed for four times daily blood glucose testing, 03/25/21 8:17:00 EST, Supply, 160, cm, 03/11/21 8:20:00 EST, Height, 128.4, kg, 09/13/19 21:34:00 EDT, Dry Weight Start Date: 03/25/21 Status: OrderedamiTRIPTYLINE By Mouth, Daily at bedtime, 0 Refills, Maintenance, 09/22/19 16:34:00 EDT Start Date: 09/22/19 Status: OrderedBD MINI PEN NDL [id number] 31 GX05/07 NEDL BD MINI PEN NDL [id number] 31 GX05/07 NEDL, See Instructions, # 100 Unknown, 1 Refills, USE KATE INDICADO CUATRO VECES AL RULA CON LA INSULINA, 160, cm, 08/04/21 10:35:00 EDT, Height, 128.4, kg, 09/13/19 21:34:00 EDT, Dry Weight Start Date: 08/21/21 Status: OrderedClonazepam = 1 mg, By Mouth, 2 times a day, 0 Refills, Maintenance, 09/22/19 16:33:00 EDT Start Date: 09/22/19 Status: Orderedfamotidine 10 mg oral tablet 1 tablet, By Mouth, 2 times a day, # 28 each, 0 Refills, [facility], 160, cm, 05/05/21 10:59:00 EDT, Height, 128.4, kg, 09/13/19 21:34:00 EDT, Dry Weight Start Date: 05/06/21 Status: OrderedFREESTYLE LITE GLUCOSE METER FREESTYLE LITE GLUCOSE METER, See Instructions, # 1 each, Refills 0, Tot. Refills 0, Maintenance, FOR GLUCOSE MONITORING DURING THE , 03/25/21 8:17:00 DERREK SUAREZ PATIENT, AFGHAN SPEAKING, PLEASE COMPLETE GLUCOMETER TEACHING WITH PATIENT, Supp... Start Date: 03/25/21 Status: OrderedFREESTYLE LITE LANCETS FREESTYLE LITE LANCETS, See Instructions, # 200 each, Refills 5, Tot. Refills 5, Maintenance, GLUCOSE MONITORING 4 TIMES A DAY DURING , 03/25/21 8:17:00 ESTDERREK PATIENT, AFGHAN SPEAKING, PLEASE COMPLETE GLUCOMETER TEACHING WITH PATIENT, Espinal... Start Date: 03/25/21 Status: OrderedFREESTYLE LITE STRIPS FREESTYLE LITE STRIPS, See Instructions, # 200 each, Refills 5, Tot. Refills 5, Maintenance, GLUCOSEMONITORING 4 TIMES PER DAY DURING THE , 03/25/21 8:17:00 DERREK SUAREZ PATIENT, AFGHAN SPEAKING, PLEASE COMPLETE GLUCOMETER TEACHING WITH PATIEN... Start Date: 03/25/21 Status: Orderedinsulin lispro 100 u/ml subcutaneous injection = 20 units, Subcutaneous Injection, 3 times a day before meals, # 10 mL, 6 Refills, Maintenance, 07/11/21 9:18:00 EDT, Solution, [facility], 160, cm, 07/07/21 10:22:00 EDT, Height, 128.4,kg, 09/13/19 21:34:00 EDT, Dry Weight Start Date: 07/11/21 Status: OrderedLantus 100 u/ml subcutaneous solution = 50 units, Subcutaneous Injection, Daily at bedtime, # 10 mL, 3 Refills, Maintenance, 07/11/21 13:39:00 EDT, Solution, [facility], Please do insulin teaching, 160, cm, 07/07/21 10:22:00 EDT, Height, 128.4, kg, 09/13/19 21:34:00 EDT, Dry... Start Date: 07/11/21 Status: OrderedPen [place], 31 G x 5 mm BD Ultra Fine III See Instructions, # 300 each, Refills 2, Tot. Refills 2, Maintenance, use as directed for Type 2 Diabetes Mellitus, 08/12/21 9:40:00 EDT, Supply, 160, cm, 08/04/21 10:35:00 EDT, Height, 128.4, kg, 09/13/19 21:34:00 EDT, Dry Weight Start Date: 08/12/21 Stop Date: 05/09/22 Status: OrderedPrenatal Multivitamins with Folic Acid 1 mg oral tablet 1 tablet, By Mouth, Daily, # 90 tablet, 2 Refills, Maintenance, 02/05/21 15:03:00 EST, Tablet, [facility], Partial fill upon patient request if the prescription is for a schedule IIopioid drug., 1 tablet By Mouth Daily, 160, cm, 1... Start Date: 02/05/21 Status: Ordered Problem List Condition Effective Dates Status Health Status Informant Anxiety(Confirmed) Active Carpal tunnel syndrome(Confirmed) Active Cervical radiculopathy(Confirmed) Active Chiari I malformation(Confirmed) Active Fibromyalgia(Confirmed) Active GERD (gastroesophageal reflux Active disease)(Confirmed) Gestational diabetes requiring Active insulin(Confirmed) H/O: (Confirmed) Active HTN (hypertension)(Confirmed) Active Non-Welsh speaking Active patient(Confirmed)1 Migraine(Confirmed) Active Mild intermittent asthma(Confirmed) Active AMA (advanced maternal age) Active multigravida 35+(Confirmed) Chronic hypertension in Active (Confirmed) Retinopathy(Confirmed) Active Rubella non-immune status, Active antepartum(Confirmed) Severe obesity(Confirmed) Active Request for sterilization(Confirmed) Active Fibroid uterus(Confirmed) Active 1Spanish Speaking Social History Social History Type Response Smoking Status Never smoker entered on: 12/29/14 Sex
--- OUTSIDE RECORDS SUMMARY | 2022-02-01 15:35 | XMS_ITS | Continuity of Care Document ---
:1985 Author Organization [facility] ic Address [address] [place] [address]- Care Team Providers Name Role Phone Kelvin Irby MD, Kanika Rodriguez [id number] 09/22/19 - 10/22/[address] [address]- [facility] Attending Physician: Romeo Carlisle Admitting Physician: AdmRomeo hernandez Referring Physician: AdmtrRomeo Allergies, Adverse Reactions, Alerts Substance Reaction Severity Status aspirin Swelling Active predniSONE Swelling Active Latex Rash Active traMADol Confusion Active Immunizations Given and Recorded Vaccine Date Status Refusal Reason tetanus/diphtheria/pertussis, acel(Tdap) 07/12/19 Given Medications albuterol 90 mcg/inh inhalation powder 2 puffs, Inhalation, Every 6 hours, PRN as needed, # 1 each, 0 Refills, Maintenance, 03/22/19 16:48:00 EST, Powder, [facility] - , 2 puffs Inhalation Every 6 hours,PRN:as needed, 165, cm, 03/22/19 15:11:00 EST, Height, 110.2, kg,... Start Date: 03/22/19 Status: OrderedamiTRIPTYLINE By Mouth, Daily at bedtime, 0 Refills, Maintenance, 09/22/19 16:34:00 EDT Start Date: 09/22/19 Status: OrderedBP Monitoring Unit BP Monitoring Unit, See Instructions, # 1 each, Refills 0, Tot. Refills 0, Maintenance, BP monitoring unit, 07/12/19 14:43:00 EDT, Supply Start Date: 07/12/19 Status: OrderedClonazepam = 1 mg, By Mouth, 2 times a day, 0 Refills, Maintenance, 09/22/19 16:33:00 EDT Start Date: 09/22/19 Status: OrderedColace sodium 100 mg oral capsule 100 mg, 1, capsule, By Mouth, 2 times a day, PRN, # 60 capsule, Refills 0, Tot. Refills 0, Maintenance, for constipation, 09/17/19 12:26:00 EDT, Route to Pharmacy Electronically, [facility], 160, cm, 09/17/19 9:49:00 EDT, Height, 1... Start Date: 09/17/19 Status: OrderedFioricet oral capsule 1 capsule, By Mouth, Every 4 hours, PRN Headache, # 30 capsule, 0 Refills, Maintenance, 09/08/19 9:17:00 EDT, Capsule, [facility], 1 capsule By Mouth Every 4 hours,PRN:Headache, 160, cm, 09/05/19 15:39:00 EDT, Height, 126.8, kg, 07... Start Date: 09/08/19 Status: OrderedHome Blood Pressure Monitor See Instructions, # 1 each, Maintenance, Use to monitor blood pressure as directed. Arm circumference 47 cm. Please dispense appropriate size cuff. Dx: chronic hypertension, 09/22/19 16:15:00 EDT, Supply Start Date: 09/22/19 Status: Orderedlabetalol 100 mg oral tablet 1 tablet = 100 mg, By Mouth, Daily, # 30 tablet, 1 Refills, Maintenance, 08/14/19 9:57:00 EDT, Tablet, [facility], 160, cm, 08/14/19 9:04:00 EDT, Height, 122.2, kg, 08/01/19 11:39:00 EDT, Dry Weight Start Date: 08/14/19 Status: OrderedMultivitamin, 1, By Mouth, Daily, 0 Refills, Maintenance, 08/01/19 12:12:00 EDT Start Date: 08/01/19 Status: OrderedOrtho Micronor 0.35 mg oral tablet 1 tablet = 0.35 mg, By Mouth, Daily, # 28 tablet, 11 Refills, Maintenance, 09/17/19 12:26:00 EDT, Tablet, [facility], 160, cm, 09/17/19 9:49:00 EDT, Height, 128.4, kg, 09/13/19 21:34:00 EDT, Dry Weight Start Date: 09/17/19 Status: OrderedVistaril pamoate 25 mg oral capsule 1 capsule = 25 mg, By Mouth, 4 times a day, PRN for anxiety, # 40 capsule, 0 Refills, Maintenance, 07/12/19 17:29:00 EDT, Capsule, [facility], 160, cm, 07/12/19 13:14:00 EDT, Height, [...] disease)(Confirmed) Gestational diabetes mellitus, class Active A1(Confirmed) 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 Non-Marshallese speaking Active patient(Confirmed)2 Migraine(Confirmed) Active Mild intermittent asthma(Confirmed) Active Advanced maternal age in Active multigravida(Confirmed) Obesity(Confirmed) Active Anxiety/depression/panic Active disorder(Confirmed) Chronic hypertension in Active (Confirmed) Retinopathy(Confirmed) Active Fatty liver(Confirmed) Active Fibroid uterus(Confirmed) Active Uterine scar from previous Active delivery(Confirmed) 1Last baby 10 [id number] Speaking Social History Social History Type Response Smoking Status Never (less than 100 in life time) entered on: 07/04/19 Sex
--- OUTSIDE RECORDS SUMMARY | 2022-02-01 15:35 | XMS_ITS | Continuity of Care Document ---
:1985 Author Organization [facility] Address [address] [place] [address]- Care Team Providers Name Role Phone Kelvin Irby MD, Mague Rodriguez Primary Care Physician [place] [facility] [place] Date[place]s): 07/10/21 - 07/10/[address] [id number] Discharge Disposition: A-D/C Home Attending Physician: Shashank Hayes MD Admitting Physician: Shashank Hayes MD Referring Physician: Suzette Menchaca DO Allergies, Adverse Reactions, Alerts Substance Reaction Severity Status aspirin Swelling Active predniSONE Swelling Active Latex Rash Active traMADol Confusion Active Immunizations Given and Recorded Vaccine Date Status Refusal Reason tetanus/diphtheria/pertussis, acel(Tdap) 07/07/21 Given tetanus/diphtheria/pertussis, acel(Tdap) 07/12/19 [...] a day, # 28 each, 0 Refills, [facility], 160, cm, 05/05/21 10:59:00 EDT, Height, 128.4, kg, 09/13/19 21:34:00 EDT, Dry Weight Start Date: 05/06/21 Status: OrderedFREESTYLE LITE GLUCOSE METER FREESTYLE LITE GLUCOSE METER, See Instructions, # 1 each, Refills 0, Tot. Refills 0, Maintenance, FOR GLUCOSE MONITORING DURING THE , 03/25/21 8:17:00 EST, WWCL PATIENT, CHADIAN SPEAKING, PLEASE COMPLETE GLUCOMETER TEACHING WITH PATIENT, Supp... Start Date: 03/25/21 Status: OrderedFREESTYLE LITE LANCETS FREESTYLE LITE LANCETS, See Instructions, # 200 each, Refills 5, Tot. Refills 5, Maintenance, GLUCOSE MONITORING 4 TIMES A DAY DURING , 03/25/21 8:17:00 EST, WWCL PATIENT, CHADIAN SPEAKING, PLEASE COMPLETE GLUCOMETER TEACHING WITH PATIENT, Espinal... Start Date: 03/25/21 Status: OrderedFREESTYLE LITE STRIPS FREESTYLE LITE STRIPS, See Instructions, # 200 each, Refills 5, Tot. Refills 5, Maintenance, GLUCOSEMONITORING 4 TIMES PER DAY DURING THE , 03/25/21 8:17:00 EST, WWCL PATIENT, CHADIAN SPEAKING, PLEASE COMPLETE GLUCOMETER TEACHING WITH PATIEN... Start Date: 03/25/21 Status: Orderedinsulin lispro 100 u/ml subcutaneous injection = 15 units, Subcutaneous Injection, 3 times a day before meals, # 3 mL, 1 Refills, Maintenance, 05/05/21 11:42:00 EDT, Solution, [facility], Please do insulin teaching. [facility], 160, cm, 05/05/21 10:59:00 EDT, Height, 128.4, kg, 09/13/19... Start Date: 05/05/21 Status: OrderedLantus 100 u/ml subcutaneous solution = 45 units, Subcutaneous Injection, Daily at bedtime, # 12 mL, 1 Refills, Maintenance, 05/05/21 11:42:00 EDT, Solution, [facility], Please do insulin teaching, 160, cm, 05/05/21 10:59:00 EDT, Height, 128.4, kg, 09/13/19 21:34:00 EDT, Dry... Start Date: 05/05/21 Status: OrderedPrenatal Multivitamins with Folic Acid 1 mg oral tablet 1 tablet, By Mouth, Daily, # 90 tablet, 2 Refills, Maintenance, 02/05/21 15:03:00 EST, Tablet, [facility], Partial fill upon patient request [...] insulin(Confirmed) H/O: (Confirmed) Active HTN (hypertension)(Confirmed) Active Non-Wolof speaking Active patient(Confirmed)1 Migraine(Confirmed) Active Mild intermittent asthma(Confirmed) Active Chronic hypertension in Active (Confirmed) Retinopathy(Confirmed) Active Rubella non-immune status, Active antepartum(Confirmed) Severe obesity(Confirmed) Active Request for sterilization(Confirmed) Active Fibroid uterus(Confirmed) Active 1Spanish Speaking Vital Signs Most recent to oldest 1 2 3 [Reference Range]: Oxygen Saturation [94-100 %] 97 % 96 % 96 % (07/10/21 12:05 PM) (07/10/21 11:41 AM) (07/10/21 1 1:26 AM) Social History Social History Type Response Smoking Status Never smoker entered on: 12/29/14 Sex
--- OUTSIDE RECORDS SUMMARY | 2022-02-01 15:36 | XMS_ITS | Continuity of Care Document ---
:1985 Author Organization [facility] ic Address [address] [place] [id number]- Care Team Providers Name Role Phone Kelvin Irby MD, Mague Rodriguez Primary Care Physician [place] [facility] [place] 10/12/[address] [address]- Attending Physician: Not on Staff, Attending MD Allergies, Adverse Reactions, Alerts Substance Reaction Severity Status aspirin Swelling Active predniSONE Swelling Active traMADol Confusion Active Latex Rash Active Immunizations Given and Recorded Vaccine Date Status Refusal Reason SARS-CoV-2 mRNA ([id number]) vax 08/04/21 Given tetanus/diphtheria/pertussis, acel(Tdap) 07/07/21 Given tetanus/diphtheria/pertussis, acel(Tdap) 07/12/19 Given SARS-CoV-2 (COVID-19) mRNA-1273 vaccine 07/10/20 Recorded SARS-CoV-2 (COVID-19) mRNA-1273 vaccine 06/12/20 Recorded Influenza Virus Vaccine (oldterm) 02/23/20 Recorded Medications acetaminophen 325 mg oral tablet 650 mg, 2, tablet, By Mouth, Every 4 hours, PRN, # 50 tablet, Refills 0, Tot. Refills 0, Maintenance, as needed for pain, 09/13/21 14:35:00 EDT, Route to Pharmacy Electronically, [facility][id number], Partial fill upon patient request if the prescriptio... Start Date: 09/13/21 Status: OrderedamiTRIPTYLINE By Mouth, Daily at bedtime, 0 Refills, Maintenance, 09/22/19 16:34:00 EDT Start Date: 09/22/19 Status: OrderedClonazepam = 1 mg, By Mouth, 2 times a day, 0 Refills, Maintenance, 09/22/19 16:33:00 EDT Start Date: 09/22/19 Status: OrderedColace sodium 100 mg oral capsule 100 mg, 1, capsule, By Mouth, 2 times a day, PRN, # 20 capsule, Refills 0, Tot. Refills 0, Maintenance, for constipation, 09/13/21 14:36:00 EDT, Route to Pharmacy Electronically, [id number], Partial fill upon patient request if the prescriptio... Start Date: 09/13/21 Status: Orderedibuprofen 600 mg oral tablet 600 mg, 1, tablet, By Mouth, Every 6 hours, # 50 tablet, Refills 0, Tot. Refills 0, Maintenance, 09/13/21 14:35:00 EDT, Route to Pharmacy Electronically, [id number], Partial fill upon patient request if the prescription is for a schedule II op... Start Date: 09/13/21 Status: OrderedoxyCODONE 5 mg oral tablet 5 mg, 1, tablet, By Mouth, Every 6 hours, PRN, # 10 tablet, Refills 0, Tot. Refills 0, Maintenance, as needed for pain, 09/13/21 14:35:00 EDT, Route to Pharmacy Electronically, [id number], Partial fill upon patient request if the prescription... Start Date: 09/13/21 Status: OrderedPrenatal Multivitamins with Folic Acid 1 mg oral tablet 1 tablet, By Mouth, Daily, # 90 tablet, 2 Refills, Maintenance, 02/05/21 15:03:00 EST, Tablet, [facility], Partial fill upon patient request if the prescription is for a schedule IIopioid drug., 1 tablet By Mouth Daily, 160, cm, 1... Start Date: 02/05/21 Status: Orderedsimethicone 80 mg oral tablet, chewable 80 mg, 1, tablet, Chew, 4 times a day, PRN, # 36 tablet, Refills 0, Tot. Refills 0, Maintenance, as needed for gas, 09/13/21 14:36:00 EDT, Route to Pharmacy Electronically, [id number], Partial fill upon patient request if the prescription is f... Start Date: 09/13/21 Status: Ordered Problem List Condition Effective Dates Status Health Status Informant Anxiety(Confirmed) Active Carpal tunnel syndrome(Confirmed) Active Cervical radiculopathy(Confirmed) Active Chiari I malformation(Confirmed) Active Fibromyalgia(Confirmed) Active GERD (gastroesophageal reflux Active disease)(Confirmed) Gestational diabetes requiring Active insulin(Confirmed) H/O: (Confirmed) Active HTN (hypertension)(Confirmed) Active Non-Israeli speaking Active patient(Confirmed)1 Migraine(Confirmed) Active Mild intermittent asthma(Confirmed) Active AMA (advanced maternal age) Active multigravida 35+(Confirmed) Chronic hypertension in Active (Confirmed) Retinopathy(Confirmed) Active Rubella non-immune status, Active antepartum(Confirmed) Severe obesity(Confirmed) Active Request for sterilization(Confirmed) Active Fibroid uterus(Confirmed) Active 1Spanish Speaking Social History Social History Type Response Smoking Status Never smoker entered on: 12/29/14 Sex
--- OUTSIDE RECORDS SUMMARY | 2022-02-01 15:36 | XMS_ITS | Continuity of Care Document ---
:1985 Author Organization [facility] ic Address [address] [place] [address]- Care Team Providers Name Role Phone Kelvin Irby MD, Chary Primary Care Physician Encounter [facility] [place] Date(s): 07/31/21 - 09/28/[address] [address]- Attending Physician: Not on Staff, Attending MD Allergies, Adverse Reactions, Alerts Substance Reaction Severity Status aspirin Swelling Active predniSONE Swelling Active Latex Rash Active traMADol Confusion Active Immunizations Given and Recorded Vaccine Date Status Refusal Reason SARS-CoV-2 mRNA ([id number]) vax 08/04/21 Given tetanus/diphtheria/pertussis, acel(Tdap) 07/07/21 Given [...] 09/13/21 14:35:00 EDT, Route to Pharmacy Electronically, [facility]acy #[id number], Partial fill upon patient request if the [...] 2 Refills, Maintenance, 02/05/21 15:03:00 EST, Tablet, [facility], Partial fill upon patient [...] insulin(Confirmed) H/O: (Confirmed) Active HTN (hypertension)(Confirmed) Active Non-Nigerien speaking Active patient(Confirmed)1 Migraine(Confirmed) Active Mild intermittent asthma(Confirmed) Active AMA (advanced maternal age) Active multigravida 35+(Confirmed) Chronic hypertension in Active (Confirmed) Retinopathy(Confirmed) Active Rubella non-immune status, Active antepartum(Confirmed) Severe obesity(Confirmed) Active Request for sterilization(Confirmed) Active Fibroid uterus(Confirmed) Active 1Spanish Speaking Social History Social History Type Response Smoking Status Never smoker entered on: 12/29/14 Sex
--- OUTSIDE RECORDS SUMMARY | 2022-02-01 15:36 | XMS_ITS | Continuity of Care Document ---
:1985 Author Organization [address] [address]- Care Team Providers Name Role Phone Kelvin Irby MD, Kanika Rodriguez Primary Care Physician [place] [facility] [place] - 12/01/19 [place] [address]- [facility] Allergies, Adverse Reactions, Alerts Substance Reaction Severity [...] Daily, # 30 tablet, 1 Refills, Maintenance, 11/08/19 21:03:00 EDT, [facility], 160, cm, 10/25/19 12:24:00 EDT, Height, 128.4, kg, 09/13/19 21:34:00 EDT, Dry Weight Start Date: 11/08/19 Status: OrderedOrtho Micronor 0.35 mg oral tablet 1 tablet = 0.35 mg, By Mouth, Daily, # 28 tablet, 11 Refills, Maintenance, 09/17/19 12:26:00 EDT, Tablet, [facility], 160, cm, 09/17/19 9:49:00 EDT, Height, 128.4, kg, 09/13/19 21:34:00 EDT, Dry Weight Start Date: 09/17/19 Status: Ordered Problem List Condition Effective Dates Status Health Status Informant Carpal tunnel syndrome(Confirmed) Active Cervical radiculopathy(Confirmed) Active 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) H/O Macrosomia(Confirmed)1 Active Fibromyalgia(Confirmed) Active GERD (gastroesophageal reflux Active disease)(Confirmed) Gestational diabetes mellitus, class Active A1(Confirmed) Non-Telugu speaking Active patient(Confirmed)2 Migraine(Confirmed) Active Mild intermittent asthma(Confirmed) Active Obesity(Confirmed) Active Anxiety/depression/panic Active disorder(Confirmed) Chronic hypertension in Active (Confirmed) Retinopathy(Confirmed) Active Fatty liver(Confirmed) Active Fibroid uterus(Confirmed) Active 1Last baby 10 [id number] Speaking Social History Social History Type Response Smoking Status Never (less than 100 in life time) entered on: 07/04/19 Sex
--- OUTSIDE RECORDS SUMMARY | 2022-02-01 15:36 | XMS_ITS | Continuity of Care Document ---
:1985 Author Organization [facility] Address [address] [place] [address]- Care Team Providers Name Role Phone Kelvin Irby MD, Mague Rodriguez Primary Care Physician Encounter [facility] [id number] Date(s): 07/28/21 - 07/28/[address] [address]- Discharge Disposition: A-D/C Walkout Attending Physician: Prince Cruz MD Admitting Physician: Prince Cruz MD Referring Physician: Prince Cruz MD Allergies, Adverse Reactions, Alerts Substance Reaction [...] a day, # 28 each, 0 Refills, [facility], 160, cm, 05/05/21 10:59:00 EDT, Height, 128.4, kg, 09/13/19 21:34:00 EDT, Dry Weight Start Date: 05/06/21 Status: OrderedFREESTYLE LITE GLUCOSE METER FREESTYLE LITE GLUCOSE METER, See Instructions, # 1 each, Refills 0, Tot. Refills 0, Maintenance, FOR GLUCOSE MONITORING DURING THE , 03/25/21 8:17:00 EST, WWCL PATIENT, SWAZI SPEAKING, PLEASE COMPLETE GLUCOMETER TEACHING WITH PATIENT, Supp... Start Date: 03/25/21 Status: OrderedFREESTYLE LITE LANCETS FREESTYLE LITE LANCETS, See Instructions, # 200 each, Refills 5, Tot. Refills 5, Maintenance, GLUCOSE MONITORING 4 TIMES A DAY DURING , 03/25/21 8:17:00 EST, WWCL PATIENT, SWAZI SPEAKING, PLEASE COMPLETE GLUCOMETER TEACHING WITH PATIENT, Espinal... Start Date: 03/25/21 Status: OrderedFREESTYLE LITE STRIPS FREESTYLE LITE STRIPS, See Instructions, # 200 each, Refills 5, Tot. Refills 5, Maintenance, GLUCOSEMONITORING 4 TIMES PER DAY DURING THE , 03/25/21 8:17:00 EST, WWCL PATIENT, SWAZI SPEAKING, PLEASE COMPLETE GLUCOMETER TEACHING WITH PATIEN... Start Date: 03/25/21 Status: Orderedinsulin lispro 100 u/ml subcutaneous injection = 20 units, Subcutaneous Injection, 3 times a day before meals, # 10 mL, 6 Refills, Maintenance, 07/11/21 9:18:00 EDT, Solution, [facility], 160, cm, 07/07/21 10:22:00 EDT, Height, 128.4,kg, 09/13/19 21:34:00 EDT, Dry Weight Start Date: 07/11/21 Status: OrderedLantus 100 u/ml subcutaneous solution = 50 units, Subcutaneous Injection, Daily at bedtime, # 10 mL, 3 Refills, Maintenance, 07/11/21 13:39:00 EDT, Solution, [facility], Please do insulin teaching, 160, cm, 07/07/21 10:22:00 EDT, Height, 128.4, kg, 09/13/19 21:34:00 EDT, Dry... Start Date: 07/11/21 Status: OrderedPrenatal Multivitamins with Folic Acid 1 mg oral tablet 1 tablet, By Mouth, Daily, # 90 tablet, 2 Refills, Maintenance, 02/05/21 15:03:00 EST, Tablet, [facility], Partial fill upon patient request [...] insulin(Confirmed) H/O: (Confirmed) Active HTN (hypertension)(Confirmed) Active Non-Tajik speaking Active patient(Confirmed)1 Migraine(Confirmed) Active Mild intermittent asthma(Confirmed) Active Chronic hypertension in Active (Confirmed) Retinopathy(Confirmed) Active Rubella non-immune status, Active antepartum(Confirmed) Severe obesity(Confirmed) Active Request for sterilization(Confirmed) Active Fibroid uterus(Confirmed) Active 1Spanish Speaking Social History Social History Type Response Smoking Status Never smoker entered on: 12/29/14 Sex
--- OUTSIDE RECORDS SUMMARY | 2022-02-01 15:36 | XMS_ITS | Continuity of Care Document ---
:1985 Author Organization [facility] ic Address [address] [place] [address]- Care Team Providers Name Role Phone Kelvin Irby MD, Mague Rodriguez Primary Care Physician Encounter [facility] Date(s): 08/12/21 - 09/11/[address] [address]- Allergies, Adverse Reactions, Alerts Substance Reaction Severity Status aspirin Swelling Active predniSONE Swelling Active Latex Rash Active traMADol Confusion Active Immunizations Given and Recorded Vaccine Date Status Refusal Reason SARS-CoV-2 mRNA ([id number]) vax 08/04/21 Given tetanus/diphtheria/pertussis, acel(Tdap) 07/07/21 Given [...] Date: 09/22/19 Status: OrderedBD MINI PEN NDL 01Hm5an 31 GX05/07 NEDL BD MINI PEN NDL 58At4og 31 GX05/07 NEDL, See Instructions, # 100 [...] a day, # 28 each, 0 Refills, [facility], 160, cm, 05/05/21 10:59:00 EDT, Height, 128.4, kg, 09/13/19 21:34:00 EDT, Dry Weight Start Date: 05/06/21 Status: OrderedFREESTYLE LITE GLUCOSE METER FREESTYLE LITE GLUCOSE METER, See Instructions, # 1 each, Refills 0, Tot. Refills 0, Maintenance, FOR GLUCOSE MONITORING DURING THE , 03/25/21 8:17:00 ESTDERREK PATIENT, [place]OOK ISLANDER SPEAKING, PLEASE COMPLETE GLUCOMETER TEACHING WITH PATIENT, Supp... Start Date: 03/25/21 Status: OrderedFREESTYLE LITE LANCETS FREESTYLE LITE LANCETS, See Instructions, # 200 each, Refills 5, Tot. Refills 5, Maintenance, GLUCOSE MONITORING 4 TIMES A DAY DURING , 03/25/21 8:17:00 ESTDERREK PATIENT, [place] SPEAKING, PLEASE COMPLETE GLUCOMETER TEACHING WITH PATIENT, Espinal... Start Date: 03/25/21 Status: OrderedFREESTYLE LITE STRIPS FREESTYLE LITE STRIPS, See Instructions, # 200 each, Refills 5, Tot. Refills 5, Maintenance, GLUCOSEMONITORING 4 TIMES PER DAY DURING THE , 03/25/21 8:17:00 ESTDERREK PATIENT, [place] SPEAKING, PLEASE COMPLETE GLUCOMETER TEACHING WITH PATIEN... Start Date: 03/25/21 Status: Orderedinsulin lispro 100 u/ml subcutaneous injection = 28 units, Subcutaneous Injection, 2 times a day with meals, 28u with lunch and diner. 24u with breakfast, # 10 mL, 6 Refills, Maintenance, 07/11/21 9:18:00 EDT, Solution, [facility], 160, cm, 07/07/21 10:22:00 EDT, Height, 128.4, kg, 0... Start Date: 07/11/21 Status: OrderedLantus 100 u/ml subcutaneous solution = 50 units, Subcutaneous Injection, Daily at bedtime, # 10 mL, 3 Refills, Maintenance, 07/11/21 13:39:00 EDT, Solution, [facility], Please do insulin teaching, 160, cm, 07/07/21 10:22:00 EDT, Height, 128.4, kg, 09/13/19 21:34:00 EDT, Dry... Start Date: 07/11/21 Status: OrderedPen Pray, 31 G x 5 mm BD Ultra [...] 2 Refills, Maintenance, 02/05/21 15:03:00 EST, Tablet, [facility], Partial fill upon patient [...] insulin(Confirmed) H/O: (Confirmed) Active HTN (hypertension)(Confirmed) Active Non-Macedonian speaking Active patient(Confirmed)1 Migraine(Confirmed) Active Mild intermittent asthma(Confirmed) Active AMA (advanced maternal age) Active multigravida 35+(Confirmed) Chronic hypertension in Active (Confirmed) Retinopathy(Confirmed) Active Rubella non-immune status, Active antepartum(Confirmed) Severe obesity(Confirmed) Active Request for sterilization(Confirmed) Active Fibroid uterus(Confirmed) Active 1Spanish Speaking Social History Social History Type Response Smoking Status Never smoker entered on: 12/29/14 Sex
--- OUTSIDE RECORDS SUMMARY | 2022-02-01 15:36 | XMS_ITS | Continuity of Care Document ---
:1985 Author Organization [facility] Address [address] [place] [id number]- Care Team Providers Name Role Phone Kelvin Irby MD, Mague Rodriguez Primary Care Physician Encounter [facility] [place] Date(s): 07/31/21 - 07/31/[address] [address] Discharge Disposition: A-D/C Home Attending Physician: Jessi Ferrari MD Admitting Physician: Jessi Ferrari MD Referring Physician: Suzette Menchaca DO Allergies, [...] a day, # 28 each, 0 Refills, [facility], 160, cm, 05/05/21 10:59:00 EDT, Height, 128.4, kg, 09/13/19 21:34:00 EDT, Dry Weight Start Date: 05/06/21 Status: OrderedFREESTYLE LITE GLUCOSE METER FREESTYLE LITE GLUCOSE METER, See Instructions, # 1 each, Refills 0, Tot. Refills 0, Maintenance, FOR GLUCOSE MONITORING DURING THE , 03/25/21 8:17:00 EST, WWANNIA PATIENT, CROATIAN SPEAKING, PLEASE COMPLETE GLUCOMETER TEACHING WITH PATIENT, Supp... Start Date: 03/25/21 Status: OrderedFREESTYLE LITE LANCETS FREESTYLE LITE LANCETS, See Instructions, # 200 each, Refills 5, Tot. Refills 5, Maintenance, GLUCOSE MONITORING 4 TIMES A DAY DURING , 03/25/21 8:17:00 EST, WWCL PATIENT, CROATIAN SPEAKING, PLEASE COMPLETE GLUCOMETER TEACHING WITH PATIENT, Espinal... Start Date: 03/25/21 Status: OrderedFREESTYLE LITE STRIPS FREESTYLE LITE STRIPS, See Instructions, # 200 each, Refills 5, Tot. Refills 5, Maintenance, GLUCOSEMONITORING 4 TIMES PER DAY DURING THE , 03/25/21 8:17:00 EST, WWCL PATIENT, CROATIAN SPEAKING, PLEASE COMPLETE GLUCOMETER TEACHING WITH PATIEN... Start Date: 03/25/21 Status: Orderedinsulin lispro 100 u/ml subcutaneous injection = 20 units, Subcutaneous Injection, 3 times a day before meals, # 10 mL, 6 Refills, Maintenance, 07/11/21 9:18:00 EDT, Solution, [facility], 160, cm, 07/07/21 10:22:00 EDT, Height, 128.4,kg, 09/13/19 21:34:00 EDT, Dry Weight Start Date: 07/11/21 Status: OrderedLantus 100 u/ml subcutaneous solution = 50 units, Subcutaneous Injection, Daily at bedtime, # 10 mL, 3 Refills, Maintenance, 07/11/21 13:39:00 EDT, Solution, [facility] [facility], Please do insulin teaching, 160, cm, 07/07/21 10:22:00 EDT, Height, 128.4, kg, 09/13/19 21:34:00 EDT, Dry... Start Date: 07/11/21 Status: OrderedPrenatal Multivitamins with Folic Acid 1 mg oral tablet 1 tablet, By Mouth, Daily, # 90 tablet, 2 Refills, Maintenance, 02/05/21 15:03:00 EST, Tablet, [facility], Partial fill upon patient request [...] insulin(Confirmed) H/O: (Confirmed) Active HTN (hypertension)(Confirmed) Active Non-Indonesian speaking Active patient(Confirmed)1 Migraine(Confirmed) Active Mild intermittent asthma(Confirmed) Active Chronic hypertension in Active (Confirmed) Retinopathy(Confirmed) Active Rubella non-immune status, Active antepartum(Confirmed) Severe obesity(Confirmed) Active Request for sterilization(Confirmed) Active Fibroid uterus(Confirmed) Active 1Spanish Speaking Social History Social History Type Response Smoking Status Never smoker entered on: 12/29/14 Sex
--- OUTSIDE RECORDS SUMMARY | 2022-02-01 15:36 | XMS_ITS | Continuity of Care Document ---
:1985 Author Organization [facility] Address [address] [place] [id number]- Care Team Providers Name Role Phone Kelvin Irby MD, Kanika Rodriguez Primary Care Physician En[place] [facility] [place] Date(s): 10/25/19 - 11/24/[address] [address]- [facility] Attending Physician: Romeo Carlisle Admitting Physician: AdmRomeo hernandez Referring Physician: AdmtrRomeo Allergies, Adverse Reactions, Alerts Substance Reaction Severity Status aspirin Swelling Active traMADol Confusion Active Latex Rash Active predniSONE Swelling Active Immunizations Given and [...] tablet, 1 Refills, Maintenance, 11/08/19 21:03:00 EDT, [facility], 160, cm, 10/25/19 12:24:00 EDT, Height, 128.4, kg, 09/13/19 21:34:00 EDT, Dry Weight Start Date: 11/08/19 Status: OrderedOrtho Micronor 0.35 mg oral tablet 1 tablet = 0.35 mg, By Mouth, Daily, # 28 tablet, 11 Refills, Maintenance, 09/17/19 12:26:00 EDT, Tablet, [facility], 160, cm, 09/17/19 9:49:00 EDT, Height, 128.4, kg, 09/13/19 21:34:00 EDT, Dry Weight Start Date: 09/17/19 Status: Ordered Problem List Condition Effective Dates Status Health Status Informant Carpal tunnel syndrome(Confirmed) Active Cervical radiculopathy(Confirmed) Active 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) H/O Macrosomia(Confirmed)1 Active Fibromyalgia(Confirmed) Active GERD (gastroesophageal reflux Active disease)(Confirmed) Gestational diabetes mellitus, class Active A1(Confirmed) Non-Portuguese speaking Active patient(Confirmed)2 Migraine(Confirmed) Active Mild intermittent asthma(Confirmed) Active Obesity(Confirmed) Active Anxiety/depression/panic Active disorder(Confirmed) Chronic hypertension in Active (Confirmed) Retinopathy(Confirmed) Active Fatty liver(Confirmed) Active Fibroid uterus(Confirmed) Active 1Last baby 10 [id number] Speaking Social History Social History Type Response Smoking Status Never (less than 100 in life time) entered on: 07/04/19 Sex
--- OUTSIDE RECORDS SUMMARY | 2022-02-01 15:36 | XMS_ITS | Continuity of Care Document ---
:1985 Author Organization [facility] Address [address] [place] [address]- Care Team Providers Name Role Phone Kelvin Irby MD, Kanika Rodriguez Primary Care Physician [place] [facility] [place] Date(s): 08/31/19 - 09/07/[address] [address]- [facility] Encounter Diagnosis False labor before 37 completed weeks of gestation, third trimester (Final) - Discharge Disposition: A-D/C Home Attending Physician: Jessi Ferrari MD Admitting Physician: Jessi Ferrari MD Allergies, Adverse Reactions, Alerts Substance Reaction Severity Status aspirin Swelling Active predniSONE Swelling Active Latex Rash Active traMADol Confusion Active Immunizations Given and Recorded Vaccine Date Status Refusal Reason tetanus/diphtheria/pertussis, acel(Tdap) 07/12/19 Given Medications albuterol 90 mcg/inh inhalation powder 2 puffs, Inhalation, Every 6 hours, PRN as needed, # 1 each, 0 Refills, Maintenance, 03/22/19 16:48:00 EST, Powder, [facility] - , 2 puffs Inhalation [...] 06/30/19 17:34:00 EDT, Route to Pharmacy Electronically, [facility], 160, cm, 06/29/19 5:42:00 EDT, [...] 1 Refills, Maintenance, 08/14/19 9:57:00 EDT, Tablet, [facility], 160, cm, 08/14/19 9:04:00 EDT, [...] 0 Refills, Maintenance, 07/12/19 17:29:00 EDT, Capsule, [facility], 160, cm, 07/12/19 13:14:00 EDT, [...] disease)(Confirmed) 35 weeks gestation of Active (Confirmed) Non-Niuean speaking Active patient(Confirmed)2 Migraine(Confirmed) Active Mild intermittent asthma(Confirmed) Active Advanced maternal age in Active multigravida(Confirmed) Obesity(Confirmed) Active Anxiety/depression/panic Active disorder(Confirmed) Chronic hypertension in Active (Confirmed) Retinopathy(Confirmed) Active Fatty liver(Confirmed) Active Uterine scar from previous Active delivery(Confirmed) 1Last baby 10 [id number] Speaking Vital Signs Most recent to oldest [Reference 1 2 3 Range]: Height 160 cm (08/31/19 1:45 PM) Weight 126.3 kg (08/31/19 1:45 PM) Oxygen Saturation [94-100 %] 99 % (08/31/19 1:45 PM) Pulse Rate [55-90 bpm] 98 bpm *H* (08/31/19 1:45 PM) Body Mass Index [18.5-24.99] 49.34 *>HHI* (08/31/19 1:45 PM) Blood Pressure [90-138/55-84 mm 129/70 mm Hg 128/71 mm Hg 128/86 mm Hg Hg] (08/31/19 6:38 PM) (08/31/19 6:02 PM) (08/31/19 5:36 P M) Respiratory Rate [16-30 br/min] 16 br/min (08/31/19 1:45 PM) Temperature [96.8-100.4 DegF] 98.1 DegF (08/31/19 1:45 PM) Blood pressure sites Arm, right (08/31/19 1:45 PM) Temperature Route Oral (08/31/19 1:45 PM) Social History Social History Type Response Smoking Status Never (less than 100 in life time) entered on: 07/04/19 Sex Female
--- OUTSIDE RECORDS SUMMARY | 2022-02-01 15:36 | XMS_ITS | Continuity of Care Document ---
:1985 Author Organization [facility] ic Address [address] [place] [id number]- Care Team Providers Name Role Phone Kelvin Irby MD, Mague Rodriguez Primary Care Physician [place] [facility] [place] - 10/19/[address] [address]- Attending Physician: Not on Staff, Attending MD Allergies, Adverse Reactions, Alerts Substance Reaction Severity Status aspirin Swelling Active traMADol Confusion Active predniSONE Swelling Active Latex Rash Active Immunizations Given and Recorded Vaccine Date Status Refusal Reason SARS-CoV-2 mRNA ([id number]) vax 08/04/21 Given tetanus/diphtheria/pertussis, acel(Tdap) 07/07/21 Given [...] 09/13/21 14:35:00 EDT, Route to Pharmacy Electronically, [facility]/pharmacy #[id number], Partial fill upon patient request if the [...] 2 Refills, Maintenance, 02/05/21 15:03:00 EST, Tablet, [facility], Partial fill upon patient request [...] insulin(Confirmed) H/O: (Confirmed) Active HTN (hypertension)(Confirmed) Active Non-Albanian speaking Active patient(Confirmed)1 Migraine(Confirmed) Active Mild intermittent asthma(Confirmed) Active AMA (advanced maternal age) Active multigravida 35+(Confirmed) Chronic hypertension in Active (Confirmed) Retinopathy(Confirmed) Active Rubella non-immune status, Active antepartum(Confirmed) Severe obesity(Confirmed) Active Request for sterilization(Confirmed) Active Fibroid uterus(Confirmed) Active 1Spanish Speaking Social History Social History Type Response Smoking Status Never smoker entered on: 12/29/14 Sex Care Team PersonnelName: Kelvin Irby MD , Mague Rodriguez Address: [address] [place] [address]
--- OUTSIDE RECORDS SUMMARY | 2022-02-01 15:36 | XMS_ITS | Continuity of Care Document ---
:1985 Author Organization [facility] ic Address [address] [place] [address]- Care Team Providers Name Role Phone Kelvin Irby MD, Chary Primary Care Physician [id number] Date(s): 08/16/20 - 09/15/[address] [address] Attending Physician: Romeo Carlisle Admitting Physician: AdmRomeo hernandze Referring Physician: AdmtrRomeo Allergies, Adverse Reactions, Alerts [...] tablet, 1 Refills, Maintenance, 06/02/20 9:24:00 EDT, [facility], 160, cm, 10/25/19 12:24:00 EDT, Height, 128.4, kg, 09/13/19 21:34:00 EDT, Dry Weight Start Date: 06/02/20 Status: OrderedOrtho Micronor 0.35 mg oral tablet 1 tablet = 0.35 mg, By Mouth, Daily, # 28 tablet, 11 Refills, Maintenance, 09/17/19 12:26:00 EDT, Tablet, [facility], 160, cm, 09/17/19 9:49:00 EDT, Height, 128.4, kg, 09/13/19 21:34:00 EDT, Dry Weight Start Date: 09/17/19 Status: Ordered Problem List Condition Effective Dates Status Health Status Informant Carpal tunnel syndrome(Confirmed) Active Cervical radiculopathy(Confirmed) Active 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) H/O Macrosomia(Confirmed)1 Active Fibromyalgia(Confirmed) Active GERD (gastroesophageal reflux Active disease)(Confirmed) Gestational diabetes mellitus, class Active A1(Confirmed) Non-Sami speaking Active patient(Confirmed)2 Migraine(Confirmed) Active Mild intermittent asthma(Confirmed) Active Obesity(Confirmed) Active Anxiety/depression/panic Active disorder(Confirmed) Chronic hypertension in Active (Confirmed) Retinopathy(Confirmed) Active Fatty liver(Confirmed) Active Fibroid uterus(Confirmed) Active 1Last baby 10 [id number] Speaking Social History Social History Type Response Smoking Status Never (less than 100 in life time) entered on: 07/04/19 Sex
--- OUTSIDE RECORDS SUMMARY | 2022-02-01 15:36 | XMS_ITS | Continuity of Care Document ---
:1985 Author Organization [facility] Address [address] [place] [address]- Care Team Providers Name Role Phone Kelvin Irby MD, Mague Rodriguez Primary Care Physician Encounter [facility] Date(s): 09/10/21 - 09/13/[address] [address] Discharge Disposition: A-D/C Home Attending Physician: Gloria Liriano DO Admitting Physician: Gloria Liriano DO Referring Physician: Gloria Liriano DO Allergies, Adverse Reactions, Alerts Substance Reaction Severity Status aspirin Swelling Active predniSONE Swelling Active Latex Rash Active traMADol Confusion Active Immunizations Given and Recorded Vaccine Date Status Refusal Reason SARS-CoV-2 mRNA ([id number]) vax 08/04/21 Given tetanus/diphtheria/pertussis, acel(Tdap) 07/07/21 Given [...] 09/13/21 14:35:00 EDT, Route to Pharmacy Electronically, [facility]/pharmacy #[id number], Partial fill upon patient request if the prescriptio... Start Date: 09/13/21 Status: OrderedAcetaminophen Tablet 650 mg, Tablet, By Mouth, (1-3), may give 325mg per patient preference and re- dose with 325mg within4 hours if needed. Patient should only receive a total of 650mg of Acetaminophen every 4 hours., 09/13/21 9:00:00 EDT Start Date: 09/13/21 Stop Date: 09/13/21 Status: CompletedamiTRIPTYLINE By Mouth, Daily at bedtime, 0 Refills, [...] 09/13/21 14:36:00 EDT, Route to Pharmacy Electronically, [facility]/pharmacy #[id number], Partial fill upon patient request if the prescriptio... Start Date: 09/13/21 Status: OrderedDilaudid 2 mg oral tablet 2 mg, Tablet, By Mouth, Every 3 hours, PRN for Pain , Moderate, Routine, 09/12/21 6:09:00 EDT Start Date: 09/12/21 Stop Date: 09/19/21 Status: Orderedibuprofen 600 mg oral tablet 600 mg, 1, tablet, By Mouth, Every 6 hours, # 50 tablet, Refills 0, Tot. Refills 0, Maintenance, 09/13/21 14:35:00 EDT, Route to Pharmacy Electronically, [facility]/pharmacy #[id number], Partial fill upon patient request if the prescription is for a schedule II op... Start Date: 09/13/21 Status: OrderedoxyCODONE 5 mg oral tablet 5 mg, 1, tablet, By Mouth, Every 6 hours, PRN, # 10 tablet, Refills 0, Tot. Refills 0, Maintenance, as needed for pain, 09/13/21 14:35:00 EDT, Route to Pharmacy Electronically, [facility]/pharmacy #[id number], Partial fill upon patient request if the prescription... Start Date: 09/13/21 Status: OrderedPrenatal Multivitamins with Folic Acid 1 mg oral tablet 1 tablet, By Mouth, Daily, # 90 tablet, 2 Refills, Maintenance, 02/05/21 15:03:00 EST, Tablet, [facility], Partial fill upon patient request if the prescription is for a schedule IIopioid drug., 1 tablet By Mouth Daily, 160, cm, 1... Start Date: 02/05/21 Status: Orderedsimethicone 80 mg oral tablet, chewable 80 mg, 1, tablet, Chew, 4 times a day, PRN, # 36 tablet, Refills 0, Tot. Refills 0, Maintenance, as needed for gas, 09/13/21 14:36:00 EDT, Route to Pharmacy Electronically, [facility]/pharmacy #[id number], Partial fill upon patient request if the prescription is f... Start Date: 09/13/21 Status: Ordered Problem List Condition Effective Dates Status Health Status Informant Anxiety(Confirmed) Active Carpal tunnel syndrome(Confirmed) Active Cervical radiculopathy(Confirmed) Active Chiari I malformation(Confirmed) Active Fibromyalgia(Confirmed) Active GERD (gastroesophageal reflux Active disease)(Confirmed) Gestational diabetes requiring Active insulin(Confirmed) H/O: (Confirmed) Active HTN (hypertension)(Confirmed) Active Non-Setswana speaking Active patient(Confirmed)1 Migraine(Confirmed) Active Mild intermittent asthma(Confirmed) Active AMA (advanced maternal age) Active multigravida 35+(Confirmed) Chronic hypertension in Active (Confirmed) Retinopathy(Confirmed) Active Rubella non-immune status, Active antepartum(Confirmed) Severe obesity(Confirmed) Active Request for sterilization(Confirmed) Active Fibroid uterus(Confirmed) Active 1Spanish Speaking Procedures Procedure Date Related Diagnosis Body Site Status delivery only; 09/10/21 Comp leted Vital Signs Most recent to oldest 1 2 3 [Reference Range]: Height 165 cm 165 cm 165 cm (09/13/21 12:49 PM) (09/13/21 10:30 AM) (09/13/21 8 :00 AM) Weight 131 kg (09/09/21 9:41 PM) Oxygen Saturation [94-100 %] 95 % 100 % 99 % (09/13/21 12:49 PM) (09/13/21 8:00 AM) (09/13/21 12 :05 AM) Pulse Rate [55-90 bpm] 92 bpm 87 bpm 108 bpm *H* (09/13/21 10:30 AM) *H* (09/13/21 12:49 PM) (09/13/21 8:00 AM) Body Mass Index [18.5-24.99] 48.12 *>HHI* (09/09/21 9:41 PM) Blood Pressure [90-138/55-84 140/84 mm Hg 148/90 mm Hg 152 /86 mm Hg mm Hg] *H* *H* *H* (09/13/21 12:49 PM) (09/13/21 10:30 AM) (09/13/21 8 :00 AM) Respiratory Rate [16-30 18 br/min 18 br/min 18 br/mi n br/min] (09/13/21 3:22 PM) (09/13/21 2:22 PM) (09/13/21 12: 57 PM) Temperature [96.8-100.4 98.3 DegF 98.3 DegF 98.1 Deg F DegF] (09/13/21 8:00 AM) (09/13/21 12:05 AM) (09/12/21 8: 36 PM) Mode of Delivery (Oxygen) Room air Room air Room a ir (09/13/21 8:00 AM) (09/13/21 12:05 AM) (09/12/21 8: 36 PM) Blood pressure sites Arm, right Arm, right Arm, left (09/13/21 8:00 AM) (09/13/21 12:05 AM) (09/12/21 8: 36 PM) Temperature Route Oral Oral Oral (09/13/21 8:00 AM) (09/13/21 12:05 AM) (09/12/21 8: 36 PM) Dry Weight 131 kg (09/09/21 9:41 PM) Social History Social History Type Response Smoking Status Never smoker entered on: 12/29/14 Sex
--- OUTSIDE RECORDS SUMMARY | 2022-02-01 15:36 | XMS_ITS | Continuity of Care Document ---
:1985 Author Organization [facility] ic Address [address] [place] [address]- Care Team Providers Name Role Phone Kelvin Irby MD, Kanika Rodriguez [id number] Date(s): 09/13/19 - 10/19/[address] [address] Attending Physician: Jf Armstrong MD Admitting Physician: Jf Armstrong MD Referring Physician: Thad MOREL, Jeannie New Allergies, Adverse Reactions, Alerts Substance Reaction Severity Status aspirin Swelling Active predniSONE Swelling Active traMADol Confusion Active Latex Rash Active Immunizations Given and Recorded Vaccine Date Status Refusal Reason tetanus/diphtheria/pertussis, acel(Tdap) 07/12/19 Given Medications albuterol 90 mcg/inh inhalation powder 2 puffs, Inhalation, Every 6 hours, PRN as needed, # 1 each, 0 Refills, Maintenance, 03/22/19 16:48:00 EST, Powder, [facility] - , 2 puffs Inhalation [...] 09/17/19 12:26:00 EDT, Route to Pharmacy Electronically, [facility], 160, cm, 09/17/19 9:49:00 EDT, Height, 1... Start Date: 09/17/19 Status: OrderedFioricet oral capsule 1 capsule, By Mouth, Every 4 hours, PRN Headache, # 30 capsule, 0 Refills, Maintenance, 09/08/19 9:17:00 EDT, Capsule, [facility], 1 capsule By Mouth Every [...] 1 Refills, Maintenance, 08/14/19 9:57:00 EDT, Tablet, [facility], 160, cm, 08/14/19 9:04:00 EDT, Height, 122.2, kg, 08/01/19 11:39:00 EDT, Dry Weight Start Date: 08/14/19 Status: OrderedMultivitamin, 1, By Mouth, Daily, 0 Refills, Maintenance, 08/01/19 12:12:00 EDT Start Date: 08/01/19 Status: OrderedOrtho Micronor 0.35 mg oral tablet 1 tablet = 0.35 mg, By Mouth, Daily, # 28 tablet, 11 Refills, Maintenance, 09/17/19 12:26:00 EDT, Tablet, [facility], 160, cm, 09/17/19 9:49:00 EDT, Height, 128.4, kg, 09/13/19 21:34:00 EDT, Dry Weight Start Date: 09/17/19 Status: OrderedVistaril pamoate 25 mg oral capsule 1 capsule = 25 mg, By Mouth, 4 times a day, PRN for anxiety, # 40 capsule, 0 Refills, Maintenance, 07/12/19 17:29:00 EDT, Capsule, 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
--- OUTSIDE RECORDS SUMMARY | 2022-02-01 15:36 | XMS_ITS | Continuity of Care Document ---
:1985 Author Organization [facility] Address [address] [place] [address]- Care Team Providers Name Role Phone Kelvin Irby MD, Kanika Rodriguez Primary Care Physician Encounter [facility] [place] Date(s): 09/13/19 - 09/17/[address] [address]- [facility] Discharge Disposition: A-D/C Home Attending Physician: Jah Mark MD Admitting Physician: Jah Mark MD Referring Physician: Jah Mark MD Allergies, Adverse Reactions, Alerts Substance Reaction [...] Height, 110.2, kg,... Start Date: 03/22/19 Status: OrderedBP Monitoring Unit BP Monitoring Unit, [...] 126.8, kg, 07... Start Date: 09/08/19 Status: Orderedibuprofen 600 mg oral tablet 600 mg, 1, tablet, By Mouth, 4 times a day, PRN, # 40 tablet, Refills 0, Tot. Refills 0, Acute 10/19/19 12:26:00 EDT, for pain, 09/17/19 12:26:00 EDT, Route to Pharmacy Electronically, [facility], 160, cm, 09/17/19 9:49:00 EDT, Hei... Start Date: 09/17/19 Stop Date: 10/19/19 Status: Orderedlabetalol 100 mg oral tablet 1 [...] EDT, Dry Weight Start Date: 09/17/19 Status: OrderedTylenol 325 mg oral capsule 2 capsule = 650 mg, By Mouth, Every 4 hours, PRN as needed for pain, not to exceed 4000 mg/day, # 90capsule, 0 Refills, Acute 10/19/19 12:26:00 EDT, 09/17/19 12:26:00 EDT, Capsule, [facility], 160, cm, 09/17/19 9:49:00 EDT, Height... 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 Non-Bruneian speaking Active patient(Confirmed)2 Migraine(Confirmed) Active Mild intermittent asthma(Confirmed) Active Advanced maternal age in Active multigravida(Confirmed) Obesity(Confirmed) Active Anxiety/depression/panic Active disorder(Confirmed) Chronic hypertension in Active (Confirmed) Retinopathy(Confirmed) Active Fatty liver(Confirmed) Active Fibroid uterus(Confirmed) Active Uterine scar from previous Active delivery(Confirmed) 1Last baby 10 [id number] Speaking Vital Signs Most recent to oldest 1 2 3 4 [Reference Range]: Height 160 cm 160 cm 160 cm (09/17/19 9:00 AM) (09/17/19 12:00 AM) (09/16/19 5:06 PM) Weight 128.4 kg (09/13/19 9:34 PM) Oxygen Saturation 99 % 97 % 95 % [94-100 %] (09/17/19 12:00 AM) (09/15/19 6:42 AM) (09/15/19 2:45 AM) Pulse Rate [55-90 bpm] 102 bpm 102 bpm 85 bpm *H* *H* (09/17/19 12:00 AM) (09/17/19 9:02 AM) (09/17/19 9:00 AM) Body Mass Index 50.16 [18.5-24.99] *>HHI* (09/13/19 9:34 PM) Blood Pressure 140/67 mm Hg 140/67 mm Hg 120/66 mm Hg [90-138/55-84 mm Hg] *H* *H* (09/17/19 12:00 AM) (09/17/19 9:02 AM) (09/17/19 9:00 AM) Respiratory Rate [16-30 18 br/min 18 br/min 18 br/min 18 b r/min br/min] (09/17/19 12:55 PM) (09/17/19 9:00 AM) (09/17/19 9:00 AM) (09/17/19 9:00 AM) Temperature [96.8-100.4 98.6 DegF 98.5 DegF 97.8 DegF DegF] (09/17/19 9:00 AM) (09/17/19 12:00 AM) (09/16/19 5:06 PM) Mode of Delivery Room air Room air Room air (Oxygen) (09/17/19 12:00 AM) (09/15/19 6:42 AM) (09/15/19 2:45 AM) Blood pressure sites Arm, left Arm, right Arm, right (09/17/19 9:00 AM) (09/16/19 5:06 PM) (09/16/19 8:30 AM) Temperature Route Oral Oral Oral (09/17/19 9:00 AM) (09/17/19 12:00 AM) (09/16/19 5:06 PM) Dry Weight 128.4 kg (09/13/19 9:34 PM) Social History Social History Type Response Smoking Status Never (less than 100 in life time) entered on: 07/04/19 Sex Female
--- OUTSIDE RECORDS SUMMARY | 2022-02-01 15:36 | XMS_ITS | Continuity of Care Document ---
:1985 Author Organization [facility] ic Address [address] [place] [address]- Care Team Providers Name Role Phone Kelvin Irby MD, Kanika Rodriguez Primary Care Physician Encounter [facility] Date(s): 09/06/19 - 10/06/[address] [address]- [facility] Allergies, Adverse Reactions, Alerts Substance Reaction Severity Status aspirin Swelling Active predniSONE Swelling Active Latex Rash Active traMADol Confusion Active Immunizations Given and Recorded Vaccine Date Status Refusal Reason tetanus/diphtheria/pertussis, acel(Tdap) 07/12/19 Given Medications albuterol 90 mcg/inh inhalation powder 2 puffs, Inhalation, Every 6 hours, PRN as needed, # 1 each, 0 Refills, Maintenance, 03/22/19 16:48:00 EST, Powder, [facility] - , 2 puffs Inhalation Every [...] 09/17/19 12:26:00 EDT, Route to Pharmacy Electronically, [facility], 160, cm, 09/17/19 9:49:00 EDT, Height, 1... Start Date: 09/17/19 Status: OrderedFioricet oral capsule 1 capsule, By Mouth, Every 4 hours, PRN Headache, # 30 capsule, 0 Refills, Maintenance, 09/08/19 9:17:00 EDT, Capsule, [facility], 1 capsule By Mouth Every 4 hours,PRN:Headache, 160, cm, 09/05/19 15:39:00 EDT, Height, 126.8, kg, 07... Start Date: 09/08/19 Status: OrderedHome Blood Pressure Monitor See Instructions, # 1 each, Maintenance, Use to monitor blood pressure as directed. Arm circumference 47 cm. Please dispense appropriate size cuff. Dx: chronic hypertension, 09/22/19 16:15:00 EDT, Supply Start Date: 09/22/19 Status: Orderedibuprofen 600 mg oral tablet 600 mg, 1, tablet, By Mouth, 4 times a day, PRN, # 40 tablet, Refills 0, Tot. Refills 0, Acute 10/19/19 12:26:00 EDT, for pain, 09/17/19 12:26:00 EDT, Route to Pharmacy Electronically, [facility], 160, cm, 09/17/19 9:49:00 EDT, Hei... Start Date: 09/17/19 Stop Date: 10/19/19 Status: Orderedlabetalol 100 mg oral tablet 1 tablet = 100 mg, By Mouth, Daily, # 30 tablet, 1 Refills, Maintenance, 08/14/19 9:57:00 EDT, Tablet, [facility], 160, cm, 08/14/19 9:04:00 EDT, Height, 122.2, kg, 08/01/19 11:39:00 EDT, Dry Weight Start Date: 08/14/19 Status: OrderedMultivitamin, 1, By Mouth, Daily, 0 Refills, Maintenance, 08/01/19 12:12:00 EDT Start Date: 08/01/19 Status: OrderedOrtho Micronor 0.35 mg oral tablet 1 tablet = 0.35 mg, By Mouth, Daily, # 28 tablet, 11 Refills, Maintenance, 09/17/19 12:26:00 EDT, Tablet, [facility], 160, cm, 09/17/19 9:49:00 EDT, Height, 128.4, kg, 09/13/19 21:34:00 EDT, Dry Weight Start Date: 09/17/19 Status: OrderedTylenol 325 mg oral capsule 2 capsule = 650 mg, By Mouth, Every 4 hours, PRN as needed for pain, not to exceed 4000 mg/day, # 90capsule, 0 Refills, Acute 10/19/19 12:26:00 EDT, 09/17/19 12:26:00 EDT, Capsule, [facility], 160, cm, 09/17/19 9:49:00 EDT, Height... 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 Non-[place] Islander speaking Active patient(Confirmed)2 Migraine(Confirmed) Active Mild intermittent asthma(Confirmed) Active Advanced maternal age in Active multigravida(Confirmed) Obesity(Confirmed) Active Anxiety/depression/panic Active disorder(Confirmed) Chronic hypertension in Active (Confirmed) Retinopathy(Confirmed) Active Fatty liver(Confirmed) Active Fibroid uterus(Confirmed) Active Uterine scar from previous Active delivery(Confirmed) 1Last baby 10 [id number] Speaking Social History Social History Type Response Smoking Status Never (less than 100 in life time) entered on: 07/04/19 Sex
--- OUTSIDE RECORDS SUMMARY | 2022-02-01 15:36 | XMS_ITS | Continuity of Care Document ---
:1985 Author Organization [facility] ic Address [address] [place] [address]- Care Team Providers Name Role Phone Kelvin Irby MD, Mague Rodriguez Primary Care Physician Encounter [facility] [place] Date(s): 10/13/21 - 11/12/[address] [address]- Attending Physician: Romeo Carlisle Admitting Physician: AdmRomeo hernandez Referring Physician: AdmtrRomeo Allergies, Adverse Reactions, Alerts Substance Reaction Severity Status aspirin Swelling Active predniSONE Swelling Active Latex Rash Active traMADol Confusion Active Immunizations Given and Recorded Vaccine Date Status Refusal Reason SARS-CoV-2 mRNA ([id number]) vax 08/04/21 Given tetanus/diphtheria/pertussis, acel(Tdap) 07/07/21 Given [...] 09/13/21 14:35:00 EDT, Route to Pharmacy Electronically, [facility]/pharmacy #[id number], Partial fill upon patient request if the [...] 09/13/21 14:36:00 EDT, Route to Pharmacy Electronically, [facility]/pharmacy #[id number], Partial fill upon patient request if the prescriptio... Start Date: 09/13/21 Status: Orderedibuprofen 600 mg oral tablet 600 mg, 1, tablet, By Mouth, Every 6 hours, # 50 tablet, Refills 0, Tot. Refills 0, Maintenance, 09/13/21 14:35:00 EDT, Route to Pharmacy Electronically, [facility]/pharmacy #[id number], Partial fill upon patient request if the prescription is for a schedule II op... Start Date: 09/13/21 Status: OrderedoxyCODONE 5 mg oral tablet 5 mg, 1, tablet, By Mouth, Every 6 hours, PRN, # 10 tablet, Refills 0, Tot. Refills 0, Maintenance, as needed for pain, 09/13/21 14:35:00 EDT, Route to Pharmacy Electronically, [facility]/pharmacy #[id number], Partial fill upon patient request if the prescription... Start Date: 09/13/21 Status: OrderedPrenatal Multivitamins with Folic Acid 1 mg oral tablet 1 tablet, By Mouth, Daily, # 90 tablet, 2 Refills, Maintenance, 02/05/21 15:03:00 EST, Tablet, [facility], Partial fill upon patient request if the prescription is for a schedule IIopioid drug., 1 tablet By Mouth Daily, 160, cm, 1... Start Date: 02/05/21 Status: Orderedsimethicone 80 mg oral tablet, chewable 80 mg, 1, tablet, Chew, 4 times a day, PRN, # 36 tablet, Refills 0, Tot. Refills 0, Maintenance, as needed for gas, 09/13/21 14:36:00 EDT, Route to Pharmacy Electronically, [facility]/pharmacy #[id number], Partial fill upon patient request if the prescription is f... Start Date: 09/13/21 Status: Ordered Problem List Condition Effective Dates Status Health Status Informant Anxiety(Confirmed) Active Carpal tunnel syndrome(Confirmed) Active Cervical radiculopathy(Confirmed) Active Chiari I malformation(Confirmed) Active Fibromyalgia(Confirmed) Active GERD (gastroesophageal reflux Active disease)(Confirmed) Gestational diabetes requiring Active insulin(Confirmed) H/O: (Confirmed) Active HTN (hypertension)(Confirmed) Active Non-Burkinan speaking Active patient(Confirmed)1 Migraine(Confirmed) Active Mild intermittent [...] Kelvin Irby MD , Mague Rodriguez Address: [address] [place] [address]
--- OUTSIDE RECORDS SUMMARY | 2022-02-01 15:36 | XMS_ITS | Continuity of Care Document ---
:1985 Author Organization [facility] ic Address [address] [place] [address]- Care Team Providers Name Role Phone Kelvin Irby MD, Mague Rodriguez Primary Care Physician Encounter [facility] [place] Date(s): 07/14/21 - 08/13/[address] [address]- Allergies, Adverse Reactions, Alerts Substance Reaction Severity Status aspirin Swelling Active predniSONE Swelling Active Latex Rash Active traMADol Confusion Active Immunizations Given and Recorded Vaccine Date Status Refusal Reason SARS-CoV-2 mRNA ([id number]) vax 08/04/21 Given tetanus/diphtheria/pertussis, acel(Tdap) 07/07/21 Given [...] a day, # 28 each, 0 Refills, [facility], 160, cm, 05/05/21 10:59:00 EDT, Height, 128.4, kg, 09/13/19 21:34:00 EDT, Dry Weight Start Date: 05/06/21 Status: OrderedFREESTYLE LITE GLUCOSE METER FREESTYLE LITE GLUCOSE METER, See Instructions, # 1 each, Refills 0, Tot. Refills 0, Maintenance, FOR GLUCOSE MONITORING DURING THE , 03/25/21 8:17:00 EST, WWCL PATIENT, ICELANDIC SPEAKING, PLEASE COMPLETE GLUCOMETER TEACHING WITH PATIENT, Supp... Start Date: 03/25/21 Status: OrderedFREESTYLE LITE LANCETS FREESTYLE LITE LANCETS, See Instructions, # 200 each, Refills 5, Tot. Refills 5, Maintenance, GLUCOSE MONITORING 4 TIMES A DAY DURING , 03/25/21 8:17:00 EST, WWCL PATIENT, ICELANDIC SPEAKING, PLEASE COMPLETE GLUCOMETER TEACHING WITH PATIENT, Espinal... Start Date: 03/25/21 Status: OrderedFREESTYLE LITE STRIPS FREESTYLE LITE STRIPS, See Instructions, # 200 each, Refills 5, Tot. Refills 5, Maintenance, GLUCOSEMONITORING 4 TIMES PER DAY DURING THE , 03/25/21 8:17:00 EST, WWCL PATIENT, ICELANDIC SPEAKING, PLEASE COMPLETE GLUCOMETER TEACHING WITH PATIEN... Start Date: 03/25/21 Status: Orderedinsulin lispro 100 u/ml subcutaneous injection = 20 units, Subcutaneous Injection, 3 times a day before meals, # 10 mL, 6 Refills, Maintenance, 07/11/21 9:18:00 EDT, Solution, [facility], 160, cm, 07/07/21 10:22:00 EDT, Height, 128.4,kg, 09/13/19 21:34:00 EDT, Dry Weight Start Date: 07/11/21 Status: OrderedLantus 100 u/ml subcutaneous solution = 50 units, Subcutaneous Injection, Daily at bedtime, # 10 mL, 3 Refills, Maintenance, 07/11/21 13:39:00 EDT, Solution, [facility], Please do insulin teaching, 160, cm, 07/07/21 10:22:00 EDT, Height, 128.4, kg, 09/13/19 21:34:00 EDT, Dry... Start Date: 07/11/21 Status: OrderedPen [place], 31 G x 5 mm BD Ultra [...] 2 Refills, Maintenance, 02/05/21 15:03:00 EST, Tablet, [facility], Partial fill upon patient request if [...] insulin(Confirmed) H/O: (Confirmed) Active HTN (hypertension)(Confirmed) Active Non-Kinyarwanda speaking Active patient(Confirmed)1 Migraine(Confirmed) Active Mild intermittent asthma(Confirmed) Active AMA (advanced maternal age) Active multigravida 35+(Confirmed) Chronic hypertension in Active (Confirmed) Retinopathy(Confirmed) Active Rubella non-immune status, Active antepartum(Confirmed) Severe obesity(Confirmed) Active Request for sterilization(Confirmed) Active Fibroid uterus(Confirmed) Active 1Spanish Speaking Social History Social History Type Response Smoking Status Never smoker entered on: 12/29/14 Sex
--- OUTSIDE RECORDS SUMMARY | 2022-02-01 15:36 | XMS_ITS | Continuity of Care Document ---
:1985 Author Organization [facility] Address [address] [place] [address]- Care Team Providers Name Role Phone Kelvin Irby MD, Mague Rodriguez Primary Care Physician Encounter [facility] [place] Date(s): 08/18/21 - 08/18/[address] [id number] Discharge Disposition: A-D/C Home Attending Physician: Shashank Hayes MD Admitting Physician: Shashank Hayes MD Referring Physician: Suzette Menchaca DO Allergies, Adverse Reactions, Alerts Substance Reaction Severity Status aspirin Swelling Active traMADol Confusion Active predniSONE Swelling Active Latex Rash Active Immunizations Given and Recorded Vaccine Date Status Refusal Reason SARS-CoV-2 mRNA ([id number]) vax 08/04/21 Given tetanus/diphtheria/pertussis, acel(Tdap) 07/07/21 Given [...] a day, # 28 each, 0 Refills, [facility], 160, cm, 05/05/21 10:59:00 EDT, Height, 128.4, kg, 09/13/19 21:34:00 EDT, Dry Weight Start Date: 05/06/21 Status: OrderedFREESTYLE LITE GLUCOSE METER FREESTYLE LITE GLUCOSE METER, See Instructions, # 1 each, Refills 0, Tot. Refills 0, Maintenance, FOR GLUCOSE MONITORING DURING THE , 03/25/21 8:17:00 EST, WWCL PATIENT, CHILEAN SPEAKING, PLEASE COMPLETE GLUCOMETER TEACHING WITH PATIENT, Supp... Start Date: 03/25/21 Status: OrderedFREESTYLE LITE LANCETS FREESTYLE LITE LANCETS, See Instructions, # 200 each, Refills 5, Tot. Refills 5, Maintenance, GLUCOSE MONITORING 4 TIMES A DAY DURING , 03/25/21 8:17:00 EST, WWCL PATIENT, CHILEAN SPEAKING, PLEASE COMPLETE GLUCOMETER TEACHING WITH PATIENT, Espinal... Start Date: 03/25/21 Status: OrderedFREESTYLE LITE STRIPS FREESTYLE LITE STRIPS, See Instructions, # 200 each, Refills 5, Tot. Refills 5, Maintenance, GLUCOSEMONITORING 4 TIMES PER DAY DURING THE , 03/25/21 8:17:00 EST, WWCL PATIENT, CHILEAN SPEAKING, PLEASE COMPLETE GLUCOMETER TEACHING WITH PATIEN... Start Date: 03/25/21 Status: Orderedinsulin lispro 100 u/ml subcutaneous injection = 20 units, Subcutaneous Injection, 3 times a day before meals, # 10 mL, 6 Refills, Maintenance, 07/11/21 9:18:00 EDT, Solution, [facility], 160, cm, 07/07/21 10:22:00 EDT, Height, 128.4,kg, 09/13/19 21:34:00 EDT, Dry Weight Start Date: 07/11/21 Status: OrderedLantus 100 u/ml subcutaneous solution = 50 units, Subcutaneous Injection, Daily at bedtime, # 10 mL, 3 Refills, Maintenance, 07/11/21 13:39:00 EDT, Solution, [facility], Please do insulin teaching, 160, cm, 07/07/21 10:22:00 EDT, Height, 128.4, kg, 09/13/19 21:34:00 EDT, Dry... Start Date: 07/11/21 Status: OrderedPen [place], 31 G x 5 mm BD Ultra [...] 2 Refills, Maintenance, 02/05/21 15:03:00 EST, Tablet, [facility], Partial fill upon patient request [...] insulin(Confirmed) H/O: (Confirmed) Active HTN (hypertension)(Confirmed) Active Non-Paraguayan speaking Active patient(Confirmed)1 Migraine(Confirmed) Active Mild intermittent asthma(Confirmed) Active AMA (advanced maternal age) Active multigravida 35+(Confirmed) Chronic hypertension in Active (Confirmed) Retinopathy(Confirmed) Active Rubella non-immune status, Active antepartum(Confirmed) Severe obesity(Confirmed) Active Request for sterilization(Confirmed) Active Fibroid uterus(Confirmed) Active 1Spanish Speaking Social History Social History Type Response Smoking Status Never smoker entered on: 12/29/14 Sex
--- OUTSIDE RECORDS SUMMARY | 2022-02-01 15:36 | XMS_ITS | Continuity of Care Document ---
:1985 Author Organization [facility] Address [address] [place] [id number]- Care Team Providers Name Role Phone Kelvin Irby MD, Kanika Rodriguez Primary Care Physician Encounter [facility] Date(s): 11/01/19 - 12/01/[address] [address]- [facility] Attending Physician: Romeo Carlisle Admitting Physician: AdmtrRomeo Referring Physician: Admtr, Ar8 Allergies, Adverse Reactions, Alerts Substance Reaction Severity [...] tablet, 1 Refills, Maintenance, 11/08/19 21:03:00 EDT, [facility], 160, cm, 10/25/19 12:24:00 EDT, Height, 128.4, kg, 09/13/19 21:34:00 EDT, Dry Weight Start Date: 11/08/19 Status: OrderedOrtho Micronor 0.35 mg oral tablet 1 tablet = 0.35 mg, By Mouth, Daily, # 28 tablet, 11 Refills, Maintenance, 09/17/19 12:26:00 EDT, Tablet, [facility], 160, cm, 09/17/19 9:49:00 EDT, Height, 128.4, kg, 09/13/19 21:34:00 EDT, Dry Weight Start Date: 09/17/19 Status: Ordered Problem List Condition Effective Dates Status Health Status Informant Carpal tunnel syndrome(Confirmed) Active Cervical radiculopathy(Confirmed) Active 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) H/O Macrosomia(Confirmed)1 Active Fibromyalgia(Confirmed) Active GERD (gastroesophageal reflux Active disease)(Confirmed) Gestational diabetes mellitus, class Active A1(Confirmed) Non-Burmese speaking Active patient(Confirmed)2 Migraine(Confirmed) Active Mild intermittent asthma(Confirmed) Active Obesity(Confirmed) Active Anxiety/depression/panic Active disorder(Confirmed) Chronic hypertension in Active (Confirmed) Retinopathy(Confirmed) Active Fatty liver(Confirmed) Active Fibroid uterus(Confirmed) Active 1Last baby 10 [id number] Speaking Social History Social History Type Response Smoking Status Never (less than 100 in life time) entered on: 07/04/19 Sex
--- OUTSIDE RECORDS SUMMARY | 2022-02-01 15:36 | XMS_ITS | Continuity of Care Document ---
:1985 Author Organization [facility] Address [address] [place] [id number]- Care Team Providers Name Role Phone Kelvin Irby MD, Chary Primary Care Physician Encounter [facility] [place] Date(s): 11/27/21 - 01/12/[address] [address] Attending Physician: Not On Staff , [place] MOREL Admitting Physician: Not On Staff , [place] MOREL Referring Physician: Juana Miguel MD Allergies, Adverse Reactions, Alerts Substance Reaction Severity Status aspirin Swelling Active predniSONE Swelling Active Latex Rash Active traMADol Confusion Active Immunizations Given and Recorded Vaccine Date Status Refusal Reason SARS-CoV-2 mRNA ([id number]) vax 08/04/21 Given tetanus/diphtheria/pertussis, acel(Tdap) 07/07/21 Given [...] 09/13/21 14:35:00 EDT, Route to Pharmacy Electronically, [facility]/pharmacy #[id number], Partial fill upon patient request if the [...] 09/13/21 14:36:00 EDT, Route to Pharmacy Electronically, [facility]/pharmacy #[id number], Partial fill upon patient request if the prescriptio... Start Date: 09/13/21 Status: Orderedibuprofen 600 mg oral tablet 600 mg, 1, tablet, By Mouth, Every 6 hours, # 50 tablet, Refills 0, Tot. Refills 0, Maintenance, 09/13/21 14:35:00 EDT, [id number] Partial fill upon patient request if the prescription is for a schedule II op... Start Date: 09/13/21 Status: OrderedoxyCODONE 5 mg oral tablet 5 mg, 1, tablet, By Mouth, Every 6 hours, PRN, # 10 tablet, Refills 0, Tot. Refills 0, Maintenance, as needed for pain, 09/13/21 14:35:00 EDT, Route to Pharmacy Electronically, [facility]/pharmacy #[id number], Partial fill upon patient request if the prescription... Start Date: 09/13/21 Status: OrderedPrenatal Multivitamins with Folic Acid 1 mg oral tablet 1 tablet, By Mouth, Daily, # 90 tablet, 2 Refills, Maintenance, 02/05/21 15:03:00 EST, Tablet, [facility], Partial fill upon patient request [...] 14:36:00 EDT, Route to Pharmacy Electronically, [facility][id number], Partial fill upon patient request if the prescription is f... Start Date: 09/13/21 Status: Ordered Problem List Condition Confirmation Course Effective Dates Status Health I nformant Status Anxiety Confirmed Active Carpal tunnel Confirmed Active syndrome Cervical Confirmed Active radiculopathy Chiari I Confirmed Active malformation Fibromyalgia Confirmed Active GERD Confirmed Active (gastroesophageal reflux disease) Gestational diabetes Confirmed Active requiring insulin H/O: Confirmed Active HTN (hypertension) Confirmed Active Non-Romansh speaking Confirmed Active patient1 Migraine Confirmed Active Mild intermittent Confirmed Active asthma AMA (advanced Confirmed Active maternal age) multigravida 35+ Chronic hypertension Confirmed Active in Retinopathy Confirmed Active Rubella non-immune Confirmed Active status, antepartum Severe obesity Confirmed Active Request for Confirmed Active sterilization Fibroid uterus Confirmed Active 1Spanish Speaking Social History Social History Type Response Smoking Status Never smoker entered on: 12/29/14 Sex Patient Care team information Care Team PersonnelName: Kelvin Irby MD , Mague Rodriguez Position: Reference Physician Member Role: PCP Address: Address: [address] [place] [address]- Care Team Related PersonsName: LUCIANO RAO Address: [address] Address: home [address] [place] [address] [place] Name: LUCAS RAO Address: [address] Address: [address] [place] [address] [place] Name: DEMARCUS RAMIRES Address: [address] [place] [address] Name: DEMARCUS ORTIZ Address: home [address] [place] [address]
--- OUTSIDE RECORDS SUMMARY | 2022-02-01 15:36 | XMS_ITS | Continuity of Care Document ---
:1985 Author Organization [facility] Address [address] [place] [address]- Care Team Providers Name Role Phone Kelvin Irby MD, Kanika Rodriguez Primary Care Physician Encounter [facility] [place] Date(s): 09/20/19 - 09/20/[address] [address]- [facility] Discharge Disposition: A-D/C Home Attending Physician: Brigida Kelly MD Admitting Physician: Brigida Kelly MD Referring Physician: Brigida Kelly MD Allergies, Adverse Reactions, Alerts Substance Reaction Severity Status aspirin Swelling Active predniSONE Swelling Active Latex Rash Active traMADol Confusion Active Immunizations Given and Recorded Vaccine Date Status Refusal Reason tetanus/diphtheria/pertussis, acel(Tdap) 07/12/19 Given Medications albuterol 90 mcg/inh inhalation powder 2 puffs, Inhalation, Every 6 hours, PRN as needed, # 1 each, 0 Refills, Maintenance, 03/22/19 16:48:00 EST, Powder, [facility] - , 2 puffs Inhalation [...] 09/17/19 12:26:00 EDT, Route to Pharmacy Electronically, [facility], 160, cm, 09/17/19 9:49:00 EDT, Height, 1... Start Date: 09/17/19 Status: OrderedFioricet oral capsule 1 capsule, By Mouth, Every 4 hours, PRN Headache, # 30 capsule, 0 Refills, Maintenance, 09/08/19 9:17:00 EDT, Capsule, [facility], 1 capsule By Mouth Every 4 hours,PRN:Headache, 160, cm, 09/05/19 15:39:00 EDT, Height, 126.8, kg, 07... Start Date: 09/08/19 Status: Orderedibuprofen 600 mg oral tablet 600 mg, 1, tablet, By Mouth, 4 times a day, PRN, # 40 tablet, Refills 0, Tot. Refills 0, Acute 10/19/19 12:26:00 EDT, for pain, 09/17/19 12:26:00 EDT, Route to Pharmacy Electronically, [facility], 160, cm, 09/17/19 9:49:00 EDT, Hei... Start Date: 09/17/19 Stop Date: 10/19/19 Status: Orderedlabetalol 100 mg oral tablet 1 tablet = 100 mg, By Mouth, Daily, # 30 tablet, 1 Refills, Maintenance, 08/14/19 9:57:00 EDT, Tablet, [facility], 160, cm, 08/14/19 9:04:00 EDT, Height, 122.2, kg, 08/01/19 11:39:00 EDT, Dry Weight Start Date: 08/14/19 Status: OrderedMultivitamin, 1, By Mouth, Daily, 0 Refills, Maintenance, 08/01/19 12:12:00 EDT Start Date: 08/01/19 Status: OrderedOrtho Micronor 0.35 mg oral tablet 1 tablet = 0.35 mg, By Mouth, Daily, # 28 tablet, 11 Refills, Maintenance, 09/17/19 12:26:00 EDT, Tablet, [facility], 160, cm, 09/17/19 9:49:00 EDT, Height, 128.4, kg, 09/13/19 21:34:00 EDT, Dry Weight Start Date: 09/17/19 Status: OrderedTylenol 325 mg oral capsule 2 capsule = 650 mg, By Mouth, Every 4 hours, PRN as needed for pain, not to exceed 4000 mg/day, # 90capsule, 0 Refills, Acute 10/19/19 12:26:00 EDT, 09/17/19 12:26:00 EDT, Capsule, [facility], 160, cm, 09/17/19 9:49:00 EDT, Height... 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 Non-Syriac speaking Active patient(Confirmed)2 Migraine(Confirmed) Active Mild intermittent asthma(Confirmed) Active Advanced maternal age in Active multigravida(Confirmed) Obesity(Confirmed) Active Anxiety/depression/panic Active disorder(Confirmed) Chronic hypertension in Active (Confirmed) Retinopathy(Confirmed) Active Fatty liver(Confirmed) Active Fibroid uterus(Confirmed) Active Uterine scar from previous Active delivery(Confirmed) 1Last baby 10 [id number] Speaking Vital Signs Most recent to oldest 1 2 3 [Reference Range]: Weight 120.1 kg (09/20/19 5:26 PM) Oxygen Saturation [94-100 %] 100 % (09/20/19 5:26 PM) Pulse Rate [55-90 bpm] 61 bpm 60 bpm 62 bpm (09/20/19 8:30 PM) (09/20/19 8:15 PM) (09/20/19 8:0 0 PM) Blood Pressure [90-138/55-84 mm 129/58 mm Hg 144/60 mm Hg 149/79 mm Hg Hg] (09/20/19 8:30 PM) *H* *H* (09/20/19 8:15 PM) (09/20/19 8:00 PM) Respiratory Rate [16-30 br/min] 18 br/min 18 br/min 18 br/min (09/20/19 8:01 PM) (09/20/19 7:01 PM) (09/20/19 5:2 6 PM) Temperature [96.8-100.4 DegF] 98.8 DegF (09/20/19 5:26 PM) Mode of Delivery (Oxygen) Room air (09/20/19 5:26 PM) Blood pressure sites Arm, right Arm, right Arm, right (09/20/19 8:30 PM) (09/20/19 8:15 PM) (09/20/19 8:0 0 PM) Temperature Route Oral (09/20/19 5:26 PM) Weight Obtained Via Standing scale (09/20/19 5:26 PM) Social History Social History Type Response Smoking Status Never (less than 100 in life time) entered on: 07/04/19 Sex
--- OUTSIDE RECORDS SUMMARY | 2022-02-01 15:36 | XMS_ITS | Continuity of Care Document ---
:1985 Author Organization [facility] Address [address] [place] [address]- Care Team Providers Name Role Phone Kelvin Irby MD, Mague Rodriguez Primary Care Physician Encounter [facility] [place] Date(s): 08/07/21 - 09/06/[address] [address]- Allergies, Adverse Reactions, Alerts Substance Reaction Severity Status aspirin Swelling Active predniSONE Swelling Active Latex Rash Active traMADol Confusion Active Immunizations Given and Recorded Vaccine Date Status Refusal Reason SARS-CoV-2 mRNA (xplhjhp-ncem-heegj) vax 08/04/21 Given tetanus/diphtheria/pertussis, acel(Tdap) 07/07/21 Given [...] Date: 09/22/19 Status: OrderedBD MINI PEN NDL [id number] 31 GX05/07 NEDL BD MINI PEN NDL [id number] 31 GX05/07 NEDL, See Instructions, # 100 [...] a day, # 28 each, 0 Refills, [facility], 160, cm, 05/05/21 10:59:00 EDT, Height, 128.4, kg, 09/13/19 21:34:00 EDT, Dry Weight Start Date: 05/06/21 Status: OrderedFREESTYLE LITE GLUCOSE METER FREESTYLE LITE GLUCOSE METER, See Instructions, # 1 each, Refills 0, Tot. Refills 0, Maintenance, FOR GLUCOSE MONITORING DURING THE , 03/25/21 8:17:00 ESTDERREK PATIENT, SOUTH SUDANESE SPEAKING, PLEASE COMPLETE GLUCOMETER TEACHING WITH PATIENT, Supp... Start Date: 03/25/21 Status: OrderedFREESTYLE LITE LANCETS FREESTYLE LITE LANCETS, See Instructions, # 200 each, Refills 5, Tot. Refills 5, Maintenance, GLUCOSE MONITORING 4 TIMES A DAY DURING , 03/25/21 8:17:00 ESTDERREK PATIENT, SOUTH SUDANESE SPEAKING, PLEASE COMPLETE GLUCOMETER TEACHING WITH PATIENT, Espinal... Start Date: 03/25/21 Status: OrderedFREESTYLE LITE STRIPS FREESTYLE LITE STRIPS, See Instructions, # 200 each, Refills 5, Tot. Refills 5, Maintenance, GLUCOSEMONITORING 4 TIMES PER DAY DURING THE , 03/25/21 8:17:00 ESTDERREK PATIENT, SOU[place]UDANESE SPEAKING, PLEASE COMPLETE GLUCOMETER TEACHING WITH PATIEN... Start Date: 03/25/21 Status: Orderedinsulin lispro 100 u/ml subcutaneous injection = 28 units, Subcutaneous Injection, 2 times a day with meals, 28u with lunch and diner. 24u with breakfast, # 10 mL, 6 Refills, Maintenance, 07/11/21 9:18:00 EDT, Solution, [facility], 160, cm, 07/07/21 10:22:00 EDT, Height, 128.4, kg, 0... Start Date: 07/11/21 Status: OrderedLantus 100 u/ml subcutaneous solution = 50 units, Subcutaneous Injection, Daily at bedtime, # 10 mL, 3 Refills, Maintenance, 07/11/21 13:39:00 EDT, Solution, [facility], Please do insulin teaching, 160, cm, 07/07/21 10:22:00 EDT, Height, 128.4, kg, 09/13/19 21:34:00 EDT, Dry... Start Date: 07/11/21 Status: OrderedPen Bath, 31 G x 5 mm BD Ultra [...] 2 Refills, Maintenance, 02/05/21 15:03:00 EST, Tablet, [facility], Partial fill upon patient [...] insulin(Confirmed) H/O: (Confirmed) Active HTN (hypertension)(Confirmed) Active Non-Occitan speaking Active patient(Confirmed)1 Migraine(Confirmed) Active Mild intermittent asthma(Confirmed) Active AMA (advanced maternal age) Active multigravida 35+(Confirmed) Chronic hypertension in Active (Confirmed) Retinopathy(Confirmed) Active Rubella non-immune status, Active antepartum(Confirmed) Severe obesity(Confirmed) Active Request for sterilization(Confirmed) Active Fibroid uterus(Confirmed) Active 1Spanish Speaking Social History Social History Type Response Smoking Status Never smoker entered on: 12/29/14 Sex
--- OUTSIDE RECORDS SUMMARY | 2022-02-01 15:36 | XMS_ITS | Continuity of Care Document ---
:1985 Author Organization [facility] Address [address] [place] [address]- Care Team Providers Name Role Phone Kelvin Irby MD, Mague Rodriguez Primary Care Physician [place] [facility] [place] Date(s): 09/09/21 - 10/09/[address] [address]- Allergies, Adverse Reactions, Alerts Substance Reaction Severity Status aspirin Swelling Active predniSONE Swelling Active Latex Rash Active traMADol Confusion Active Immunizations Given and Recorded Vaccine Date Status Refusal Reason SARS-CoV-2 mRNA ([id number]) vax 08/04/21 Given tetanus/diphtheria/pertussis, acel(Tdap) 07/07/21 Given [...] 09/13/21 14:35:00 EDT, Route to Pharmacy Electronically, [facility]/pharmacy #[id number], Partial fill upon patient request if the [...] 09/13/21 14:36:00 EDT, Route to Pharmacy Electronically, [facility]/pharmacy #[id number], Partial fill upon patient request if the prescriptio... Start Date: 09/13/21 Status: Orderedibuprofen 600 mg oral tablet 600 mg, 1, tablet, By Mouth, Every 6 hours, # 50 tablet, Refills 0, Tot. Refills 0, Maintenance, 09/13/21 14:35:00 EDT, Route to Pharmacy Electronically, [facility]/pharmacy #[id number], Partial fill upon patient request if the prescription is for a schedule II op... Start Date: 09/13/21 Status: OrderedoxyCODONE 5 mg oral tablet 5 mg, 1, tablet, By Mouth, Every 6 hours, PRN, # 10 tablet, Refills 0, Tot. Refills 0, Maintenance, as needed for pain, 09/13/21 14:35:00 EDT, Route to Pharmacy Electronically, [facility]/pharmacy #[id number], Partial fill upon patient request if the prescription... Start Date: 09/13/21 Status: OrderedPrenatal Multivitamins with Folic Acid 1 mg oral tablet 1 tablet, By Mouth, Daily, # 90 tablet, 2 Refills, Maintenance, 02/05/21 15:03:00 EST, Tablet, [facility], Partial fill upon patient request [...] 09/13/21 14:36:00 EDT, Route to Pharmacy Electronically, [facility]/pharmacy #[id number], Partial fill upon patient request if the prescription is f... Start Date: 09/13/21 Status: Ordered Problem List Condition Effective Dates Status Health Status Informant Anxiety(Confirmed) Active Carpal tunnel syndrome(Confirmed) Active Cervical radiculopathy(Confirmed) Active Chiari I malformation(Confirmed) Active Fibromyalgia(Confirmed) Active GERD (gastroesophageal reflux Active disease)(Confirmed) Gestational diabetes requiring Active insulin(Confirmed) H/O: (Confirmed) Active HTN (hypertension)(Confirmed) Active Non-Portuguese speaking Active patient(Confirmed)1 Migraine(Confirmed) Active Mild intermittent asthma(Confirmed) Active AMA (advanced maternal age) Active multigravida 35+(Confirmed) Chronic hypertension in Active (Confirmed) Retinopathy(Confirmed) Active Rubella non-immune status, Active antepartum(Confirmed) Severe obesity(Confirmed) Active Request for sterilization(Confirmed) Active Fibroid uterus(Confirmed) Active 1Spanish Speaking Social History Social History Type Response Smoking Status Never smoker entered on: 12/29/14 Sex
--- OUTSIDE RECORDS SUMMARY | 2022-02-01 15:37 | XMS_ITS | Continuity of Care Document ---
:1985 Author Organization [facility] Address [address] [place] [address]- Care Team Providers Name Role Phone Kelvin Irby MD, Mague Rodriguez Primary Care Physician [place] [facility] [place] Date(s): 08/11/21 - 08/11/[address] [address] Discharge Disposition: A-D/C Home Attending Physician: Shashank Hayes MD Admitting Physician: Shashank Hayes MD Referring Physician: Suzette Menchaca DO Allergies, Adverse Reactions, Alerts Substance Reaction Severity Status aspirin Swelling Active predniSONE Swelling Active Latex Rash Active traMADol Confusion Active Immunizations Given and Recorded Vaccine Date Status Refusal Reason SARS-CoV-2 mRNA (dyffxkh-qgce-aglsu) vax 08/04/21 Given tetanus/diphtheria/pertussis, acel(Tdap) 07/07/21 Given [...] a day, # 28 each, 0 Refills, [facility], 160, cm, 05/05/21 10:59:00 EDT, Height, 128.4, kg, 09/13/19 21:34:00 EDT, Dry Weight Start Date: 05/06/21 Status: OrderedFREESTYLE LITE GLUCOSE METER FREESTYLE LITE GLUCOSE METER, See Instructions, # 1 each, Refills 0, Tot. Refills 0, Maintenance, FOR GLUCOSE MONITORING DURING THE , 03/25/21 8:17:00 EST, WWCL PATIENT, BELARUSIAN SPEAKING, PLEASE COMPLETE GLUCOMETER TEACHING WITH PATIENT, Supp... Start Date: 03/25/21 Status: OrderedFREESTYLE LITE LANCETS FREESTYLE LITE LANCETS, See Instructions, # 200 each, Refills 5, Tot. Refills 5, Maintenance, GLUCOSE MONITORING 4 TIMES A DAY DURING , 03/25/21 8:17:00 EST, WWCL PATIENT, BELARUSIAN SPEAKING, PLEASE COMPLETE GLUCOMETER TEACHING WITH PATIENT, Espinal... Start Date: 03/25/21 Status: OrderedFREESTYLE LITE STRIPS FREESTYLE LITE STRIPS, See Instructions, # 200 each, Refills 5, Tot. Refills 5, Maintenance, GLUCOSEMONITORING 4 TIMES PER DAY DURING THE , 03/25/21 8:17:00 EST, WWCL PATIENT, BELARUSIAN SPEAKING, PLEASE COMPLETE GLUCOMETER TEACHING WITH PATIEN... Start Date: 03/25/21 Status: Orderedinsulin lispro 100 u/ml subcutaneous injection = 20 units, Subcutaneous Injection, 3 times a day before meals, # 10 mL, 6 Refills, Maintenance, 07/11/21 9:18:00 EDT, Solution, [facility], 160, cm, 07/07/21 10:22:00 EDT, Height, 128.4,kg, 09/13/19 21:34:00 EDT, Dry Weight Start Date: 07/11/21 Status: OrderedLantus 100 u/ml subcutaneous solution = 50 units, Subcutaneous Injection, Daily at bedtime, # 10 mL, 3 Refills, Maintenance, 07/11/21 13:39:00 EDT, Solution, [facility], Please do insulin teaching, 160, cm, 07/07/21 10:22:00 EDT, Height, 128.4, kg, 09/13/19 21:34:00 EDT, Dry... Start Date: 07/11/21 Status: OrderedPrenatal Multivitamins with Folic Acid 1 mg oral tablet 1 tablet, By Mouth, Daily, # 90 tablet, 2 Refills, Maintenance, 02/05/21 15:03:00 EST, Tablet, [facility], Partial fill upon patient [...] insulin(Confirmed) H/O: (Confirmed) Active HTN (hypertension)(Confirmed) Active Non-Turkish speaking Active patient(Confirmed)1 Migraine(Confirmed) Active Mild intermittent asthma(Confirmed) Active AMA (advanced maternal age) Active multigravida 35+(Confirmed) Chronic hypertension in Active (Confirmed) Retinopathy(Confirmed) Active Rubella non-immune status, Active antepartum(Confirmed) Severe obesity(Confirmed) Active Request for sterilization(Confirmed) Active Fibroid uterus(Confirmed) Active 1Spanish Speaking Social History Social History Type Response Smoking Status Never smoker entered on: 12/29/14 Sex
--- OUTSIDE RECORDS SUMMARY | 2022-02-01 15:37 | XMS_ITS | Continuity of Care Document ---
:1985 Author Organization [facility] Address [address] [place] [phone]- Care Team Providers Name Role Phone Kelvin Irby MD, Mague Rodriguez Primary Care Physician Encounter [facility] [place] Date(s): 08/04/21 - 08/04/[address] [email or web address] Discharge Disposition: A-D/C Home Attending Physician: Shashank Hayes MD Admitting Physician: Shashank Hayes MD Referring Physician: Suzette Menchaca DO Allergies, Adverse Reactions, Alerts Substance Reaction Severity Status aspirin Swelling Active predniSONE Swelling Active Latex Rash Active traMADol Confusion Active Immunizations Given and Recorded Vaccine Date Status Refusal Reason SARS-CoV-2 mRNA (ahrltyu-opgk-xyimh) vax 08/04/21 Given tetanus/diphtheria/pertussis, acel(Tdap) 07/07/21 Given [...] a day, # 28 each, 0 Refills, [facility], 160, cm, 05/05/21 10:59:00 EDT, Height, 128.4, kg, 09/13/19 21:34:00 EDT, Dry Weight Start Date: 05/06/21 Status: OrderedFREESTYLE LITE GLUCOSE METER FREESTYLE LITE GLUCOSE METER, See Instructions, # 1 each, Refills 0, Tot. Refills 0, Maintenance, FOR GLUCOSE MONITORING DURING THE , 03/25/21 8:17:00 EST, WWCL PATIENT, [place] SPEAKING, PLEASE COMPLETE GLUCOMETER TEACHING WITH PATIENT, Supp... Start Date: 03/25/21 Status: OrderedFREESTYLE LITE LANCETS FREESTYLE LITE LANCETS, See Instructions, # 200 each, Refills 5, Tot. Refills 5, Maintenance, GLUCOSE MONITORING 4 TIMES A DAY DURING , 03/25/21 8:17:00 EST, WWCL PATIENT, [place] SPEAKING, PLEASE COMPLETE GLUCOMETER TEACHING WITH PATIENT, Espinal... Start Date: 03/25/21 Status: OrderedFREESTYLE LITE STRIPS FREESTYLE LITE STRIPS, See Instructions, # 200 each, Refills 5, Tot. Refills 5, Maintenance, GLUCOSEMONITORING 4 TIMES PER DAY DURING THE , 03/25/21 8:17:00 EST, WWCL PATIENT, [place] SPEAKING, PLEASE COMPLETE GLUCOMETER TEACHING WITH PATIEN... Start Date: 03/25/21 Status: Orderedinsulin lispro 100 u/ml subcutaneous injection = 20 units, Subcutaneous Injection, 3 times a day before meals, # 10 mL, 6 Refills, Maintenance, 07/11/21 9:18:00 EDT, Solution, [facility], 160, cm, 07/07/21 10:22:00 EDT, Height, 128.4,kg, 09/13/19 21:34:00 EDT, Dry Weight Start Date: 07/11/21 Status: OrderedLantus 100 u/ml subcutaneous solution = 50 units, Subcutaneous Injection, Daily at bedtime, # 10 mL, 3 Refills, Maintenance, 07/11/21 13:39:00 EDT, Solution, [facility], Please do insulin teaching, 160, cm, 07/07/21 10:22:00 EDT, Height, 128.4, kg, 09/13/19 21:34:00 EDT, Dry... Start Date: 07/11/21 Status: OrderedPrenatal Multivitamins with Folic Acid 1 mg oral tablet 1 tablet, By Mouth, Daily, # 90 tablet, 2 Refills, Maintenance, 02/05/21 15:03:00 EST, Tablet, [facility], Partial fill upon patient request [...] insulin(Confirmed) H/O: (Confirmed) Active HTN (hypertension)(Confirmed) Active Non-Chinese speaking Active patient(Confirmed)1 Migraine(Confirmed) Active Mild intermittent asthma(Confirmed) Active AMA (advanced maternal age) Active multigravida 35+(Confirmed) Chronic hypertension in Active (Confirmed) Retinopathy(Confirmed) Active Rubella non-immune status, Active antepartum(Confirmed) Severe obesity(Confirmed) Active Request for sterilization(Confirmed) Active Fibroid uterus(Confirmed) Active 1Spanish Speaking Social History Social History Type Response Smoking Status Never smoker entered on: 12/29/14 Sex
--- OUTSIDE RECORDS SUMMARY | 2022-02-01 15:37 | XMS_ITS | Continuity of Care Document ---
:1985 Author Organization [facility] Address [address] [place] [phone]- Care Team Providers Name Role Phone Kelvin Irby MD, Mague Rodriguez Primary Care Physician Encounter [facility] [place] [id number] Date(s): 09/01/21 - 09/01/[address] [address] Discharge Disposition: A-D/C Home Attending Physician: Shashank Hayes MD Admitting Physician: Shashank Hayes MD Referring Physician: Suzette Menchaca DO Allergies, Adverse Reactions, Alerts Substance Reaction Severity Status aspirin Swelling Active predniSONE Swelling Active Latex Rash Active traMADol Confusion Active Immunizations Given and Recorded Vaccine Date Status Refusal Reason SARS-CoV-2 mRNA (usglcdk-chig-zeucr) vax 08/04/21 Given tetanus/diphtheria/pertussis, acel(Tdap) 07/07/21 Given [...] Date: 09/22/19 Status: OrderedBD MINI PEN NDL [id number] 31 GX05/07 NEDL BD MINI PEN NDL [id number] 31 GX05/07 NEDL, See Instructions, # 100 [...] a day, # 28 each, 0 Refills, [facility], 160, cm, 05/05/21 10:59:00 EDT, Height, 128.4, kg, 09/13/19 21:34:00 EDT, Dry Weight Start Date: 05/06/21 Status: OrderedFREESTYLE LITE GLUCOSE METER FREESTYLE LITE GLUCOSE METER, See Instructions, # 1 each, Refills 0, Tot. Refills 0, Maintenance, FOR GLUCOSE MONITORING DURING THE , 03/25/21 8:17:00 DERREK SUAREZ PATIENT, UZBEK SPEAKING, PLEASE COMPLETE GLUCOMETER TEACHING WITH PATIENT, Supp... Start Date: 03/25/21 Status: OrderedFREESTYLE LITE LANCETS FREESTYLE LITE LANCETS, See Instructions, # 200 each, Refills 5, Tot. Refills 5, Maintenance, GLUCOSE MONITORING 4 TIMES A DAY DURING , 03/25/21 8:17:00 ESTDERREK PATIENT, UZBEK SPEAKING, PLEASE COMPLETE GLUCOMETER TEACHING WITH PATIENT, Espinal... Start Date: 03/25/21 Status: OrderedFREESTYLE LITE STRIPS FREESTYLE LITE STRIPS, See Instructions, # 200 each, Refills 5, Tot. Refills 5, Maintenance, GLUCOSEMONITORING 4 TIMES PER DAY DURING THE , 03/25/21 8:17:00 EST, WWCL PATIENT, UZBEK SPEAKING, PLEASE COMPLETE GLUCOMETER TEACHING WITH PATIEN... Start Date: 03/25/21 Status: Orderedinsulin lispro 100 u/ml subcutaneous injection = 28 units, Subcutaneous Injection, 2 times a day with meals, 28u with lunch and diner. 24u with breakfast, # 10 mL, 6 Refills, Maintenance, 07/11/21 9:18:00 EDT, Solution, [facility], 160, cm, 07/07/21 10:22:00 EDT, Height, 128.4, kg, 0... Start Date: 07/11/21 Status: OrderedLantus 100 u/ml subcutaneous solution = 50 units, Subcutaneous Injection, Daily at bedtime, # 10 mL, 3 Refills, Maintenance, 07/11/21 13:39:00 EDT, Solution, [facility], Please do insulin teaching, 160, cm, 07/07/21 10:22:00 EDT, Height, 128.4, kg, 09/13/19 21:34:00 EDT, Dry... Start Date: 07/11/21 Status: OrderedPen [place], 31 G x 5 mm BD Ultra [...] 2 Refills, Maintenance, 02/05/21 15:03:00 EST, Tablet, [facility], Partial fill upon patient request [...] insulin(Confirmed) H/O: (Confirmed) Active HTN (hypertension)(Confirmed) Active Non-Austrian speaking Active patient(Confirmed)1 Migraine(Confirmed) Active Mild intermittent asthma(Confirmed) Active AMA (advanced maternal age) Active multigravida 35+(Confirmed) Chronic hypertension in Active (Confirmed) Retinopathy(Confirmed) Active Rubella non-immune status, Active antepartum(Confirmed) Severe obesity(Confirmed) Active Request for sterilization(Confirmed) Active Fibroid uterus(Confirmed) Active 1Spanish Speaking Social History Social History Type Response Smoking Status Never smoker entered on: 12/29/14 Sex
--- OUTSIDE RECORDS SUMMARY | 2022-02-01 15:37 | XMS_ITS | Continuity of Care Document ---
:1985 Author Organization [facility] ic Address [address] [place] [address]- Care Team Providers Name Role Phone Kanika Brantley MD [id number] - 11/22/[address] [address]- [facility] Attending Physician: Not on Staff, Attending MD Referring Physician: Kanika Brantley MD Allergies, Adverse Reactions, Alerts Substance Reaction [...] tablet, 1 Refills, Maintenance, 11/08/19 21:03:00 EDT, [facility], 160, cm, 10/25/19 12:24:00 EDT, Height, 128.4, kg, 09/13/19 21:34:00 EDT, Dry Weight Start Date: 11/08/19 Status: OrderedOrtho Micronor 0.35 mg oral tablet 1 tablet = 0.35 mg, By Mouth, Daily, # 28 tablet, 11 Refills, Maintenance, 09/17/19 12:26:00 EDT, Tablet, [facility], 160, cm, 09/17/19 9:49:00 EDT, Height, 128.4, kg, 09/13/19 21:34:00 EDT, Dry Weight Start Date: 09/17/19 Status: Ordered Problem List Condition Effective Dates Status Health Status Informant Carpal tunnel syndrome(Confirmed) Active Cervical radiculopathy(Confirmed) Active 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) H/O Macrosomia(Confirmed)1 Active Fibromyalgia(Confirmed) Active GERD (gastroesophageal reflux Active disease)(Confirmed) Gestational diabetes mellitus, class Active A1(Confirmed) Non-Bengali speaking Active patient(Confirmed)2 Migraine(Confirmed) Active Mild intermittent asthma(Confirmed) Active Obesity(Confirmed) Active Anxiety/depression/panic Active disorder(Confirmed) Chronic hypertension in Active (Confirmed) Retinopathy(Confirmed) Active Fatty liver(Confirmed) Active Fibroid uterus(Confirmed) Active 1Last baby 10 [id number] Speaking Social History Social History Type Response Smoking Status Never (less than 100 in life time) entered on: 07/04/19 Sex
--- OUTSIDE RECORDS SUMMARY | 2022-02-01 15:37 | XMS_ITS | Continuity of Care Document ---
:1985 Author Organization [facility] Address [address] [place] [address]- Care Team Providers Name Role Phone Kelvin Irby MD, Mague Rodriguez Primary Care Physician [place] [facility] [place]s): 04/29/21 - 05/29/21 [facility] [address] [place] [id number] Attending Physician: Admtr, Romeo Admitting Physician: Admtr, Ar8 Referring Physician: Admtr, Ar8 Allergies, Adverse Reactions, Alerts Substance Reaction Severity Status aspirin Swelling Active predniSONE Swelling Active Latex Rash Active traMADol Confusion Active Immunizations Given and Recorded Vaccine Date Status Refusal Reason SARS-CoV-2 (COVID-19) mRNA-1273 vaccine 07/10/20 Recorded SARS-CoV-2 (COVID-19) mRNA-1273 vaccine 06/12/20 Recorded Influenza Virus Vaccine (oldterm) 02/23/20 Recorded tetanus/diphtheria/pertussis, acel(Tdap) 07/12/19 Given Medications Alcohol Wipes See Instructions, # 200 [...] a day, # 28 each, 0 Refills, [facility], 160, cm, 05/05/21 10:59:00 EDT, Height, 128.4, kg, 09/13/19 21:34:00 EDT, Dry Weight Start Date: 05/06/21 Status: OrderedFREESTYLE LITE GLUCOSE METER FREESTYLE LITE GLUCOSE METER, See Instructions, # 1 each, Refills 0, Tot. Refills 0, Maintenance, FOR GLUCOSE MONITORING DURING THE , 03/25/21 8:17:00 EST, WWCL PATIENT, MONTENEGR[place] SPEAKING, PLEASE COMPLETE GLUCOMETER TEACHING WITH PATIENT, Supp... Start Date: 03/25/21 Status: OrderedFREESTYLE LITE LANCETS FREESTYLE LITE LANCETS, See Instructions, # 200 each, Refills 5, Tot. Refills 5, Maintenance, GLUCOSE MONITORING 4 TIMES A DAY DURING , 03/25/21 8:17:00 EST, WWCL PATIENT, MONTENEGR[place] SPEAKING, PLEASE COMPLETE GLUCOMETER TEACHING WITH PATIENT, Espinal... Start Date: 03/25/21 Status: OrderedFREESTYLE LITE STRIPS FREESTYLE LITE STRIPS, See Instructions, # 200 each, Refills 5, Tot. Refills 5, Maintenance, GLUCOSEMONITORING 4 TIMES PER DAY DURING THE , 03/25/21 8:17:00 EST, WWANNIA PATIENT, M[place]ENE[place] SPEAKING, PLEASE COMPLETE GLUCOMETER TEACHING WITH PATIEN... Start Date: 03/25/21 Status: Orderedinsulin lispro 100 u/ml subcutaneous injection = 15 units, Subcutaneous Injection, 3 times a day before meals, # 3 mL, 1 Refills, Maintenance, 05/05/21 11:42:00 EDT, Solution, [facility], Please do insulin teaching. [place], 160, cm, 05/05/21 10:59:00 EDT, Height, 128.4, kg, 09/13/19... Start Date: 05/05/21 Status: OrderedLantus 100 u/ml subcutaneous solution = 45 units, Subcutaneous Injection, Daily at bedtime, # 12 mL, 1 Refills, Maintenance, 05/05/21 11:42:00 EDT, Solution, [facility], Please do insulin teaching, 160, cm, 05/05/21 10:59:00 EDT, Height, 128.4, kg, 09/13/19 21:34:00 EDT, Dry... Start Date: 05/05/21 Status: OrderedPrenatal Multivitamins with Folic Acid 1 mg oral tablet 1 tablet, By Mouth, Daily, # 90 tablet, 2 Refills, Maintenance, 02/05/21 15:03:00 EST, Tablet, [facility], Partial fill upon patient request if the prescription is for a schedule IIopioid drug., 1 tablet By Mouth Daily, 160, cm, 1... Start Date: 02/05/21 Status: Ordered Problem List Condition Effective Dates Status Health Status Informant Carpal tunnel syndrome(Confirmed) Active Cervical radiculopathy(Confirmed) Active Chiari I malformation(Confirmed) Active H/O Macrosomia(Confirmed)1 Active Fibromyalgia(Confirmed) Active GERD (gastroesophageal reflux Active disease)(Confirmed) Gestational diabetes requiring Active insulin(Confirmed) HTN (hypertension)(Confirmed) Active Non-Niuean speaking Active patient(Confirmed)2 Migraine(Confirmed) Active Mild intermittent asthma(Confirmed) Active Chronic hypertension in Active (Confirmed) Retinopathy(Confirmed) Active Rubella non-immune status, Active antepartum(Confirmed) Severe obesity(Confirmed) Active Fibroid uterus(Confirmed) Active 1Last baby 10 [id number] Speaking Social History Social History Type Response Smoking Status Never smoker entered on: 12/29/14 Sex
--- OUTSIDE RECORDS SUMMARY | 2022-02-01 15:37 | XMS_ITS | Continuity of Care Document ---
:1985 Author Organization [facility] ic Address [address] [place] [address]- Care Team Providers Name Role Phone Kelvin Irby MD, Chary Primary Care Physician [place] [facility] [place] - 09/17/[address] [address]- Attending Physician: Not on Staff, Attending MD Allergies, Adverse Reactions, Alerts Substance Reaction Severity Status aspirin Swelling Active predniSONE Swelling Active Latex Rash Active traMADol Confusion Active Immunizations Given and Recorded Vaccine Date Status Refusal Reason SARS-CoV-2 mRNA ([id number]) vax 08/04/21 Given tetanus/diphtheria/pertussis, acel(Tdap) 07/07/21 Given [...] 09/13/21 14:35:00 EDT, Route to Pharmacy Electronically, [facility]/pharmacy #[id number], Partial fill upon patient request if the [...] 2 Refills, Maintenance, 02/05/21 15:03:00 EST, Tablet, [facility], Partial fill upon patient request [...] insulin(Confirmed) H/O: (Confirmed) Active HTN (hypertension)(Confirmed) Active Non-Serbian speaking Active patient(Confirmed)1 Migraine(Confirmed) Active Mild intermittent asthma(Confirmed) Active AMA (advanced maternal age) Active multigravida 35+(Confirmed) Chronic hypertension in Active (Confirmed) Retinopathy(Confirmed) Active Rubella non-immune status, Active antepartum(Confirmed) Severe obesity(Confirmed) Active Request for sterilization(Confirmed) Active Fibroid uterus(Confirmed) Active 1Spanish Speaking Social History Social History Type Response Smoking Status Never smoker entered on: 12/29/14 Sex
--- OUTSIDE RECORDS SUMMARY | 2022-02-01 15:37 | XMS_ITS | Continuity of Care Document ---
:1985 Author Organization [facility] Address [address] [place] [address]- Care Team Providers Name Role Phone Kelvin Irby MD, Mague Rodriguez Primary Care Physician Encounter [facility] [place] Date(s): 07/22/21 - 07/22/[address] [address] Discharge Disposition: A-D/C Home Attending Physician: [...] a day, # 28 each, 0 Refills, [facility], 160, cm, 05/05/21 10:59:00 EDT, Height, 128.4, kg, 09/13/19 21:34:00 EDT, Dry Weight Start Date: 05/06/21 Status: OrderedFREESTYLE LITE GLUCOSE METER FREESTYLE LITE GLUCOSE METER, See Instructions, # 1 each, Refills 0, Tot. Refills 0, Maintenance, FOR GLUCOSE MONITORING DURING THE , 03/25/21 8:17:00 EST, WWCL PATIENT, SERBIAN SPEAKING, PLEASE COMPLETE GLUCOMETER TEACHING WITH PATIENT, Supp... Start Date: 03/25/21 Status: OrderedFREESTYLE LITE LANCETS FREESTYLE LITE LANCETS, See Instructions, # 200 each, Refills 5, Tot. Refills 5, Maintenance, GLUCOSE MONITORING 4 TIMES A DAY DURING , 03/25/21 8:17:00 EST, WWCL PATIENT, SERBIAN SPEAKING, PLEASE COMPLETE GLUCOMETER TEACHING WITH PATIENT, Espinal... Start Date: 03/25/21 Status: OrderedFREESTYLE LITE STRIPS FREESTYLE LITE STRIPS, See Instructions, # 200 each, Refills 5, Tot. Refills 5, Maintenance, GLUCOSEMONITORING 4 TIMES PER DAY DURING THE , 03/25/21 8:17:00 EST, WWCL PATIENT, SERBIAN SPEAKING, PLEASE COMPLETE GLUCOMETER TEACHING WITH PATIEN... Start Date: 03/25/21 Status: Orderedinsulin lispro 100 u/ml subcutaneous injection = 20 units, Subcutaneous Injection, 3 times a day before meals, # 10 mL, 6 Refills, Maintenance, 07/11/21 9:18:00 EDT, Solution, [facility], 160, cm, 07/07/21 10:22:00 EDT, Height, 128.4,kg, 09/13/19 21:34:00 EDT, Dry Weight Start Date: 07/11/21 Status: OrderedLantus 100 u/ml subcutaneous solution = 50 units, Subcutaneous Injection, Daily at bedtime, # 10 mL, 3 Refills, Maintenance, 07/11/21 13:39:00 EDT, Solution, [facility], Please do insulin teaching, 160, cm, 07/07/21 10:22:00 EDT, Height, 128.4, kg, 09/13/19 21:34:00 EDT, Dry... Start Date: 07/11/21 Status: OrderedPrenatal Multivitamins with Folic Acid 1 mg oral tablet 1 tablet, By Mouth, Daily, # 90 tablet, 2 Refills, Maintenance, 02/05/21 15:03:00 EST, Tablet, [facility], Partial fill upon patient request [...] insulin(Confirmed) H/O: (Confirmed) Active HTN (hypertension)(Confirmed) Active Non-Romansh speaking Active patient(Confirmed)1 Migraine(Confirmed) Active Mild intermittent asthma(Confirmed) Active Chronic hypertension in Active (Confirmed) Retinopathy(Confirmed) Active Rubella non-immune status, Active antepartum(Confirmed) Severe obesity(Confirmed) Active Request for sterilization(Confirmed) Active Fibroid uterus(Confirmed) Active 1Spanish Speaking Social History Social History Type Response Smoking Status Never smoker entered on: 12/29/14 Sex
--- OUTSIDE RECORDS SUMMARY | 2022-02-01 15:37 | XMS_ITS | Continuity of Care Document ---
:1985 Author Organization [facility] ic Address [address] [place] [address]- Care Team Providers Name Role Phone Kelvin Irby MD, Kanika Rodriguez [id number] Date(s): 08/04/19 - 09/20/[address] [address]- [facility] Attending Physician: Not on Staff, Attending MD [...] 0 Refills, Maintenance, 03/22/19 16:48:00 EST, Powder, [facility] - , 2 puffs Inhalation [...] 09/17/19 12:26:00 EDT, Route to Pharmacy Electronically, [facility], 160, cm, 09/17/19 9:49:00 EDT, Height, 1... Start Date: 09/17/19 Status: OrderedFioricet oral capsule 1 capsule, By Mouth, Every 4 hours, PRN Headache, # 30 capsule, 0 Refills, Maintenance, 09/08/19 9:17:00 EDT, Capsule, [facility], 1 capsule By Mouth Every 4 hours,PRN:Headache, 160, cm, 09/05/19 15:39:00 EDT, Height, 126.8, kg, 07... Start Date: 09/08/19 Status: Orderedibuprofen 600 mg oral tablet 600 mg, 1, tablet, By Mouth, 4 times a day, PRN, # 40 tablet, Refills 0, Tot. Refills 0, Acute 10/19/19 12:26:00 EDT, for pain, 09/17/19 12:26:00 EDT, Route to Pharmacy Electronically, [facility], 160, cm, 09/17/19 9:49:00 EDT, Hei... Start Date: 09/17/19 Stop Date: 10/19/19 Status: Orderedlabetalol 100 mg oral tablet 1 tablet = 100 mg, By Mouth, Daily, # 30 tablet, 1 Refills, Maintenance, 08/14/19 9:57:00 EDT, Tablet, [facility], 160, cm, 08/14/19 9:04:00 EDT, Height, 122.2, kg, 08/01/19 11:39:00 EDT, Dry Weight Start Date: 08/14/19 Status: OrderedMultivitamin, 1, By Mouth, Daily, 0 Refills, Maintenance, 08/01/19 12:12:00 EDT Start Date: 08/01/19 Status: OrderedOrtho Micronor 0.35 mg oral tablet 1 tablet = 0.35 mg, By Mouth, Daily, # 28 tablet, 11 Refills, Maintenance, 09/17/19 12:26:00 EDT, Tablet, [facility], 160, cm, 09/17/19 9:49:00 EDT, Height, 128.4, kg, 09/13/19 21:34:00 EDT, Dry Weight Start Date: 09/17/19 Status: OrderedTylenol 325 mg oral capsule 2 capsule = 650 mg, By Mouth, Every 4 hours, PRN as needed for pain, not to exceed 4000 mg/day, # 90capsule, 0 Refills, Acute 10/19/19 12:26:00 EDT, 09/17/19 12:26:00 EDT, Capsule, [facility], 160, cm, 09/17/19 9:49:00 EDT, Height... 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 Non-Vietnamese speaking Active patient(Confirmed)2 Migraine(Confirmed) Active Mild intermittent asthma(Confirmed) Active Advanced maternal age in Active multigravida(Confirmed) Obesity(Confirmed) Active Anxiety/depression/panic Active disorder(Confirmed) Chronic hypertension in Active (Confirmed) Retinopathy(Confirmed) Active Fatty liver(Confirmed) Active Fibroid uterus(Confirmed) Active Uterine scar from previous Active delivery(Confirmed) 1Last baby 10 [id number] Speaking Social History Social History Type Response Smoking Status Never (less than 100 in life time) entered on: 07/04/19 Sex
--- OUTSIDE RECORDS SUMMARY | 2022-02-01 15:37 | XMS_ITS | Continuity of Care Document ---
:1985 Author Organization [facility] ic Address [address] [place] [address]- Care Team Providers Name Role Phone Kelvin Irby MD, Chary Primary Care Physician [place] [facility] [place] Date(s): 07/31/21 - 10/26/[address] [address]- Attending Physician: Not on Staff, Attending MD Allergies, Adverse Reactions, Alerts Substance Reaction Severity Status aspirin Swelling Active predniSONE Swelling Active Latex Rash Active traMADol Confusion Active Immunizations Given and Recorded Vaccine Date Status Refusal Reason SARS-CoV-2 mRNA ([id number]) vax 08/04/21 Given tetanus/diphtheria/pertussis, acel(Tdap) 07/07/21 Given [...] 09/13/21 14:35:00 EDT, Route to Pharmacy Electronically, [facility]/pharmacy #[id number], Partial fill upon patient request if the [...] 2 Refills, Maintenance, 02/05/21 15:03:00 EST, Tablet, [facility], Partial fill upon patient request if [...] insulin(Confirmed) H/O: (Confirmed) Active HTN (hypertension)(Confirmed) Active Non-Telugu speaking Active patient(Confirmed)1 Migraine(Confirmed) Active Mild intermittent [...] Kelvin Irby MD , Mague Rodriguez Address: [address] [place] [address]
--- OUTSIDE RECORDS SUMMARY | 2022-02-01 15:37 | XMS_ITS | Continuity of Care Document ---
:1985 Author Organization [facility] Address [address] [place] [address]- Care Team Providers Name Role Phone Kelvin Irby MD, Mague Rodriguez Primary Care Physician [place] [facility] [place] 07[place] [id number] Discharge Disposition: A-D/C Home Attending Physician: [...] a day, # 28 each, 0 Refills, [facility], 160, cm, 05/05/21 10:59:00 EDT, Height, 128.4, kg, 09/13/19 21:34:00 EDT, Dry Weight Start Date: 05/06/21 Status: OrderedFREESTYLE LITE GLUCOSE METER FREESTYLE LITE GLUCOSE METER, See Instructions, # 1 each, Refills 0, Tot. Refills 0, Maintenance, FOR GLUCOSE MONITORING DURING THE , 03/25/21 8:17:00 EST, WWCL PATIENT, ROMANIAN SPEAKING, PLEASE COMPLETE GLUCOMETER TEACHING WITH PATIENT, Supp... Start Date: 03/25/21 Status: OrderedFREESTYLE LITE LANCETS FREESTYLE LITE LANCETS, See Instructions, # 200 each, Refills 5, Tot. Refills 5, Maintenance, GLUCOSE MONITORING 4 TIMES A DAY DURING , 03/25/21 8:17:00 EST, WWCL PATIENT, ROMANIAN SPEAKING, PLEASE COMPLETE GLUCOMETER TEACHING WITH PATIENT, Espinal... Start Date: 03/25/21 Status: OrderedFREESTYLE LITE STRIPS FREESTYLE LITE STRIPS, See Instructions, # 200 each, Refills 5, Tot. Refills 5, Maintenance, GLUCOSEMONITORING 4 TIMES PER DAY DURING THE , 03/25/21 8:17:00 EST, WWCL PATIENT, ROMANIAN SPEAKING, PLEASE COMPLETE GLUCOMETER TEACHING WITH PATIEN... Start Date: 03/25/21 Status: Orderedinsulin lispro 100 u/ml subcutaneous injection = 20 units, Subcutaneous Injection, 3 times a day before meals, # 10 mL, 6 Refills, Maintenance, 07/11/21 9:18:00 EDT, Solution, [facility], 160, cm, 07/07/21 10:22:00 EDT, Height, 128.4,kg, 09/13/19 21:34:00 EDT, Dry Weight Start Date: 07/11/21 Status: OrderedLantus 100 u/ml subcutaneous solution = 50 units, Subcutaneous Injection, Daily at bedtime, # 10 mL, 3 Refills, Maintenance, 07/11/21 13:39:00 EDT, Solution, [facility], Please do insulin teaching, 160, cm, 07/07/21 10:22:00 EDT, Height, 128.4, kg, 09/13/19 21:34:00 EDT, Dry... Start Date: 07/11/21 Status: OrderedPrenatal Multivitamins with Folic Acid 1 mg oral tablet 1 tablet, By Mouth, Daily, # 90 tablet, 2 Refills, Maintenance, 02/05/21 15:03:00 EST, Tablet, [facility], Partial fill upon patient request [...] insulin(Confirmed) H/O: (Confirmed) Active HTN (hypertension)(Confirmed) Active Non-Salvadorean speaking Active patient(Confirmed)1 Migraine(Confirmed) Active Mild intermittent asthma(Confirmed) Active Chronic hypertension in Active (Confirmed) Retinopathy(Confirmed) Active Rubella non-immune status, Active antepartum(Confirmed) Severe obesity(Confirmed) Active Request for sterilization(Confirmed) Active Fibroid uterus(Confirmed) Active 1Spanish Speaking Social History Social History Type Response Smoking Status Never smoker entered on: 12/29/14 Sex
--- OUTSIDE RECORDS SUMMARY | 2022-02-01 15:37 | XMS_ITS | Continuity of Care Document ---
:1985 Author Organization [facility] ic Address [address] [place] [address]- Care Team Providers Name Role Phone Kelvin Irby MD, Chary [id number] Date(s[facility] 08/13/20 - 09/15/[address] [address]- Attending Physician: Not on Staff, Attending MD [...] tablet, 1 Refills, Maintenance, 06/02/20 9:24:00 EDT, [facility], 160, cm, 10/25/19 12:24:00 EDT, Height, 128.4, kg, 09/13/19 21:34:00 EDT, Dry Weight Start Date: 06/02/20 Status: OrderedOrtho Micronor 0.35 mg oral tablet 1 tablet = 0.35 mg, By Mouth, Daily, # 28 tablet, 11 Refills, Maintenance, 09/17/19 12:26:00 EDT, Tablet, [facility], 160, cm, 09/17/19 9:49:00 [...] disease)(Confirmed) Gestational diabetes mellitus, class Active A1(Confirmed) Non-Welsh speaking Active patient(Confirmed)2 Migraine(Confirmed) Active Mild intermittent asthma(Confirmed) Active Obesity(Confirmed) Active Anxiety/depression/panic Active disorder(Confirmed) Chronic hypertension in Active (Confirmed) Retinopathy(Confirmed) Active Fatty liver(Confirmed) Active Fibroid uterus(Confirmed) Active 1Last baby 10 [id number] Speaking Social History Social History Type Response Smoking Status Never (less than 100 in life time) entered on: 07/04/19 Sex
--- OUTSIDE RECORDS SUMMARY | 2022-02-01 15:37 | XMS_ITS | Continuity of Care Document ---
:1985 Author Organization [facility] Address [address] [place] [address]- Care Team Providers Name Role Phone Kelvin Irby MD, Mague Rodriguez Primary Care Physician Encounter [facility] [place] [facility] R [id number] Date(s): 08/25/21 - 08/25/[address] [address] Discharge Disposition: A-D/C Home Attending Physician: Shashank Hayes MD Admitting Physician: Shashank Hayes MD Referring Physician: Suzette Menchaca DO Allergies, Adverse Reactions, Alerts Substance Reaction Severity Status aspirin Swelling Active Latex Rash Active traMADol Confusion Active predniSONE Swelling Active Immunizations Given and Recorded Vaccine Date Status Refusal Reason SARS-CoV-2 mRNA ([id number]) vax 08/04/21 Given tetanus/diphtheria/pertussis, acel(Tdap) 07/07/21 Given [...] Date: 09/22/19 Status: OrderedBD MINI PEN NDL [id number] 31 GX05/07 NEDL BD MINI PEN NDL [id number] 31 GX05/07 NEDL, See Instructions, # 100 [...] a day, # 28 each, 0 Refills, [facility], 160, cm, 05/05/21 10:59:00 EDT, Height, 128.4, kg, 09/13/19 21:34:00 EDT, Dry Weight Start Date: 05/06/21 Status: OrderedFREESTYLE LITE GLUCOSE METER FREESTYLE LITE GLUCOSE METER, See Instructions, # 1 each, Refills 0, Tot. Refills 0, Maintenance, FOR GLUCOSE MONITORING DURING THE , 03/25/21 8:17:00 DERREK SUAREZ PATIENT, CITIZEN OF [place] SPEAKING, PLEASE COMPLETE GLUCOMETER TEACHING WITH PATIENT, Supp... Start Date: 03/25/21 Status: OrderedFREESTYLE LITE LANCETS FREESTYLE LITE LANCETS, See Instructions, # 200 each, Refills 5, Tot. Refills 5, Maintenance, GLUCOSE MONITORING 4 TIMES A DAY DURING , 03/25/21 8:17:00 ESTDERREK PATIENT, CITIZEN OF [place] SPEAKING, PLEASE COMPLETE GLUCOMETER TEACHING WITH PATIENT, Espinal... Start Date: 03/25/21 Status: OrderedFREESTYLE LITE STRIPS FREESTYLE LITE STRIPS, See Instructions, # 200 each, Refills 5, Tot. Refills 5, Maintenance, GLUCOSEMONITORING 4 TIMES PER DAY DURING THE , 03/25/21 8:17:00 EST, WWCL PATIENT, CITIZEN OF [place] SPEAKING, PLEASE COMPLETE GLUCOMETER TEACHING WITH PATIEN... Start Date: 03/25/21 Status: Orderedinsulin lispro 100 u/ml subcutaneous injection = 28 units, Subcutaneous Injection, 2 times a day with meals, 28u with lunch and diner. 24u with breakfast, # 10 mL, 6 Refills, Maintenance, 07/11/21 9:18:00 EDT, Solution, [facility], 160, cm, 07/07/21 10:22:00 EDT, Height, 128.4, kg, 0... Start Date: 07/11/21 Status: OrderedLantus 100 u/ml subcutaneous solution = 50 units, Subcutaneous Injection, Daily at bedtime, # 10 mL, 3 Refills, Maintenance, 07/11/21 13:39:00 EDT, Solution, [facility], Please do insulin teaching, 160, cm, 07/07/21 10:22:00 EDT, Height, 128.4, kg, 09/13/19 21:34:00 EDT, Dry... Start Date: 07/11/21 Status: OrderedPen [place], 31 G x 5 mm BD Ultra [...] 2 Refills, Maintenance, 02/05/21 15:03:00 EST, Tablet, [facility], Partial fill upon patient [...] insulin(Confirmed) H/O: (Confirmed) Active HTN (hypertension)(Confirmed) Active Non-Amharic speaking Active patient(Confirmed)1 Migraine(Confirmed) Active Mild intermittent asthma(Confirmed) Active AMA (advanced maternal age) Active multigravida 35+(Confirmed) Chronic hypertension in Active (Confirmed) Retinopathy(Confirmed) Active Rubella non-immune status, Active antepartum(Confirmed) Severe obesity(Confirmed) Active Request for sterilization(Confirmed) Active Fibroid uterus(Confirmed) Active 1Spanish Speaking Social History Social History Type Response Smoking Status Never smoker entered on: 12/29/14 Sex
--- OUTSIDE RECORDS SUMMARY | 2022-02-01 15:37 | XMS_ITS | Continuity of Care Document ---
:1985 Author Organization [facility] Address [address] [place] [address]- Care Team Providers Name Role Phone Kelvin Irby MD, Kanika Rodriguez Primary Care Physician En[place] [facility] [place](s): 06/29/19 - 06/30/[address] [address]- [facility] Discharge Disposition: A-D/C Home Attending Physician: Mateo Barksdale MD Admitting Physician: Mateo Barksdale MD Referring Physician: Mateo Barksdale MD Allergies, Adverse Reactions, Alerts Substance Reaction Severity Status aspirin Active Latex Active Medications albuterol 90 mcg/inh inhalation powder 2 puffs, Inhalation, Every 6 hours, PRN as needed, # 1 each, 0 Refills, Maintenance, 03/22/19 16:48:00 EST, Powder, [facility] - , 2 puffs Inhalation Every 6 hours,PRN:as needed, 165, cm, 03/22/19 15:11:00 EST, Height, 110.2, kg,... Start Date: 03/22/19 Status: OrderedColace sodium 100 mg oral capsule 100 mg, 1, capsule, By Mouth, 2 times a day, PRN, # 20 capsule, Refills 3, Tot. Refills 3, Maintenance, for constipation, 06/30/19 17:34:00 EDT, Route to Pharmacy Electronically, [facility], 160, cm, 06/29/19 5:42:00 EDT, Height, 1... Start Date: 06/30/19 Status: Orderedlabetalol 100 mg oral tablet 1 tablet = 100 mg, By Mouth, Daily, 0 Refills, Maintenance, 09/14/17 2:34:25 EDT Start Date: 09/14/17 Status: OrderedMiraLax oral powder for reconstitution = 17 Gm, By Mouth, Daily, dissolve in water before taking, # 255 Gm, 0 Refills, Acute 08/01/19 0:00:00 EDT, 06/30/19 17:34:00 EDT, REC Powder, [facility], 17 Gm By Mouth Daily,Instr:dissolve in water before taking, 160, cm, ... Start Date: 06/30/19 Stop Date: 08/01/19 Status: OrderedPeak Flow Meter (Adult) See Instructions, # 1 each, Maintenance, Check once a day., 03/22/19 16:47:00 EST, Compound, 165, cm, 03/22/19 15:11:00 EST, Height, 110.2, kg, 09/14/17 1:17:00 EDT, Dry Weight Start Date: 03/22/19 Status: Ordered Problem List Condition Effective Dates Status Health Status Informant Carpal tunnel syndrome(Confirmed) Active Chiari I malformation(Confirmed) Active Fibromyalgia(Confirmed) Active Migraine(Confirmed) Active Mild intermittent asthma(Confirmed) Active Obesity(Confirmed) Active Anxiety/depression/panic Active disorder(Confirmed) Chronic hypertension in Active (Confirmed) Fatty liver(Confirmed) Active Uterine scar from previous Active delivery(Confirmed) Results Orders for Microbiology Reports Name Date Urine Culture 06/29/19 Microbiology Reports TEST:Urine Culture STATUS:Auth (Verified) BODY SITE: SOURCE:URINE COLLECTED DATE/TIME:06/29/19 3:03 AMUrine Culture SPECIMEN DESCRIPTION : URINE CLEAN CATCH/MIDSTREAM SPECIAL REQUESTS : NONE CULTURE : Mixed bacterial chris, indicative of urogenital contamination. REPORT STATUS : FINAL 06/30/2019 Vital Signs Most recent to oldest [Reference 1 2 3 Range]: Height 160 cm 160 cm 160 cm (06/29/19 5:42 AM) (06/29/19 5:03 AM) (06/29/19 2:01 A M) Weight 118.4 kg 118.4 kg (06/29/19 9:20 AM) (06/29/19 5:42 AM) Oxygen Saturation [94-100 %] 98 % 100 % 97 % (06/30/19 8:39 AM) (06/30/19 7:45 AM) (06/29/19 8:16 P M) Pulse Rate [55-90 bpm] 94 bpm 105 bpm 110 bpm *H* *H* *H* (06/30/19 8:39 AM) (06/29/19 12:55 PM) (06/29/19 5:42 AM) Body Mass Index [18.5-24.99] 46.25 *>HHI* (06/29/19 5:42 AM) Blood Pressure [90-138/55-84 mm 100/62 mm Hg 114/56 mm Hg 110/72 mm Hg Hg] (06/30/19 1:00 PM) (06/30/19 8:39 AM) (06/30/19 7:45 A M) Respiratory Rate [16-30 br/min] 18 br/min 17 br/min 17 br/min (06/30/19 12:58 PM) (06/30/19 8:39 AM) (06/30/19 7:45 AM) Temperature [96.8-100.4 DegF] 99 DegF 98.5 DegF 98 .6 DegF (06/30/19 5:21 PM) (06/30/19 12:58 PM) (06/30/19 8:39 AM) Mode of Delivery (Oxygen) Room air (06/29/19 5:42 AM) Blood pressure sites Arm, right (06/29/19 5:42 AM) Temperature Route Oral Oral Oral (06/30/19 5:21 PM) (06/30/19 12:58 PM) (06/30/19 8:39 AM) Dry Weight 118.4 kg (06/29/19 5:42 AM) Social History Social History Type Response Smoking Status Never smoker entered on: 12/29/14 Sex
--- OUTSIDE RECORDS SUMMARY | 2022-02-01 15:37 | XMS_ITS | Continuity of Care Document ---
:1985 Author Organization [facility] Address [address] [place] [phone]- Care Team Providers Name Role Phone Kelvin Irby MD, Kanika Rodriguez Primary Care Physician [place] [facility] [place] 03/22/19 - 04/01/19 [facility] [address] [place] [address]- [facility] Attending Physician: Admmary, Romeo Admitting Physician: Admtr, Romeo Referring Physician: Admtr, Ar8 Allergies, Adverse Reactions, Alerts Substance Reaction Severity Status aspirin Active Medications albuterol 90 mcg/inh inhalation powder 2 puffs, Inhalation, Every 6 hours, PRN as needed, # 1 each, 0 Refills, Maintenance, 03/22/19 16:48:00 EST, Powder, [facility], 2 puffs Inhalation Every 6 hours,PRN:as needed, 165, cm, 03/22/19 15:11:00 EST, Height, 110.2, kg,... Start Date: 03/22/19 Status: OrderedCitalopram By Mouth, Daily, 0 Refills, Maintenance, 09/14/17 2:34:20 EDT Start Date: 09/14/17 Status: OrderedClonidine 0 Refills, Maintenance, 09/14/17 2:33:54 EDT Start Date: 09/14/17 Status: Orderedduloxetine 30 mg oral enteric coated capsule 1 capsule = 30 mg, By Mouth, Daily, # 60 capsule, 0 Refills, Maintenance, 09/14/17 2:34:07 EDT, EC Capsule Start Date: 09/14/17 Status: Orderedgabapentin 600 mg oral tablet 1 tablet = 600 mg, By Mouth, 3 times a day, 0 Refills, Maintenance, 02/10/17 20:19:52 Start Date: 02/10/17 Status: Orderedlabetalol 100 mg oral tablet 1 tablet = 100 mg, By Mouth, Daily, 0 Refills, Maintenance, 09/14/17 2:34:25 EDT Start Date: 09/14/17 Status: OrderedLyrica 50 mg oral capsule 1 capsule = 50 mg, By Mouth, 2 times a day, 0 Refills, Maintenance, 02/10/17 20:19:38 Start Date: 02/10/17 Status: OrderedPeak Flow Meter (Adult) See Instructions, # 1 each, Maintenance, Check once a day., 03/22/19 16:47:00 EST, Compound, 165, cm, 03/22/19 15:11:00 EST, Height, 110.2, kg, 09/14/17 1:17:00 EDT, Dry Weight Start Date: 03/22/19 Status: Ordered Problem List Condition Effective Dates Status Health Status Informant Carpal tunnel syndrome(Confirmed) Active Chiari I malformation(Confirmed) Active Fibromyalgia(Confirmed) Active HTN (hypertension)(Confirmed) Active Migraine(Confirmed) Active Mild intermittent asthma(Confirmed) Active Obesity(Confirmed) Active Anxiety/depression/panic Active disorder(Confirmed) Fatty liver(Confirmed) Active Social History Social History Type Response Smoking Status Never smoker entered on: 12/29/14 Sex
--- OUTSIDE RECORDS SUMMARY | 2022-02-01 15:37 | XMS_ITS | Continuity of Care Document ---
:1985 Author Organization [facility] Address [address] [place] [phone]- Care Team Providers Name Role Phone Kelvin Irby MD, Mague Rodriguez Primary Care Physician Encounter [facility] Date(s): 03/24/21 - 04/23/[address] [address]- Allergies, Adverse Reactions, Alerts Substance Reaction Severity [...] Status: Orderedfamotidine 10 mg oral tablet 1 tablet = 10 mg, By Mouth, 2 times a day, # 28 tablet, 0 Refills, Maintenance, 03/11/21 12:07:00 EST, Tablet, [facility], Partial fill upon patient request if the prescription is for a schedule II opioid drug., 160, cm, 03/11/21 8... Start Date: 03/11/21 Status: OrderedFREESTYLE LITE GLUCOSE METER FREESTYLE LITE GLUCOSE METER, See Instructions, # 1 each, Refills 0, Tot. Refills 0, Maintenance, FOR GLUCOSE MONITORING DURING THE , 03/25/21 8:17:00 EST, WWCL PATIENT, INDIAN SPEAKING, PLEASE COMPLETE GLUCOMETER TEACHING WITH PATIENT, Supp... Start Date: 03/25/21 Status: OrderedFREESTYLE LITE LANCETS FREESTYLE LITE LANCETS, See Instructions, # 200 each, Refills 5, Tot. Refills 5, Maintenance, GLUCOSE MONITORING 4 TIMES A DAY DURING , 03/25/21 8:17:00 EST, WW PATIENT, INDIAN SPEAKING, PLEASE COMPLETE GLUCOMETER TEACHING WITH PATIENT, Espinal... Start Date: 03/25/21 Status: OrderedFREESTYLE LITE STRIPS FREESTYLE LITE STRIPS, See Instructions, # 200 each, Refills 5, Tot. Refills 5, Maintenance, GLUCOSEMONITORING 4 TIMES PER DAY DURING THE , 03/25/21 8:17:00 EST, [facility] PATIENT, INDIAN SPEAKING, PLEASE COMPLETE GLUCOMETER TEACHING WITH PATIEN... Start Date: 03/25/21 Status: Orderedlabetalol 100 mg oral tablet 1 tablet, By Mouth, Daily, # 30 tablet, 1 Refills, Maintenance, 06/02/20 9:24:00 EDT, [facility], 160, cm, 10/25/19 12:24:00 EDT, Height, 128.4, kg, 09/13/19 21:34:00 EDT, Dry Weight Start Date: 06/02/20 Status: OrderedPrenatal Multivitamins with Folic Acid 1 mg oral tablet 1 tablet, By Mouth, Daily, # 90 tablet, 2 Refills, Maintenance, 02/05/21 15:03:00 EST, Tablet, [facility], Partial fill upon patient request if the prescription is for a schedule IIopioid drug., 1 tablet By Mouth Daily, 160, cm, 1... Start Date: 02/05/21 Status: Ordered Problem List Condition Effective Dates Status Health Status Informant Carpal tunnel syndrome(Confirmed) Active Cervical radiculopathy(Confirmed) Active Chiari I malformation(Confirmed) Active H/O Macrosomia(Confirmed)1 Active Fibromyalgia(Confirmed) Active GERD (gastroesophageal reflux Active disease)(Confirmed) HTN (hypertension)(Confirmed) Active Non-Portuguese speaking Active patient(Confirmed)2 Migraine(Confirmed) Active Mild intermittent asthma(Confirmed) Active Chronic hypertension in Active (Confirmed) Retinopathy(Confirmed) Active Rubella non-immune status, Active antepartum(Confirmed) Severe obesity(Confirmed) Active Fibroid uterus(Confirmed) Active 1Last baby 10 [id number] Speaking Social History Social History Type Response Smoking Status Never smoker entered on: 12/29/14 Sex
--- OUTSIDE RECORDS SUMMARY | 2022-02-01 15:37 | XMS_ITS | Continuity of Care Document ---
:1985 Author Organization [facility] ic Address [address] [place] [phone]- Care Team Providers Name Role Phone Kelvin Irby MD, Mague Rodriguez Primary Care Physician Encounter [facility] Date(s): 07/11/21 - 08/10/[address] [address]- Allergies, Adverse Reactions, Alerts Substance Reaction Severity Status aspirin Swelling Active predniSONE Swelling Active Latex Rash Active traMADol Confusion Active Immunizations Given and Recorded Vaccine Date Status Refusal Reason SARS-CoV-2 mRNA ([id number]) vax 08/04/21 Given tetanus/diphtheria/pertussis, acel(Tdap) 07/07/21 Given [...] a day, # 28 each, 0 Refills, [facility], 160, cm, 05/05/21 10:59:00 EDT, Height, 128.4, kg, 09/13/19 21:34:00 EDT, Dry Weight Start Date: 05/06/21 Status: OrderedFREESTYLE LITE GLUCOSE METER FREESTYLE LITE GLUCOSE METER, See Instructions, # 1 each, Refills 0, Tot. Refills 0, Maintenance, FOR GLUCOSE MONITORING DURING THE , 03/25/21 8:17:00 EST, WWCL PATIENT, LAO SPEAKING, PLEASE COMPLETE GLUCOMETER TEACHING WITH PATIENT, Supp... Start Date: 03/25/21 Status: OrderedFREESTYLE LITE LANCETS FREESTYLE LITE LANCETS, See Instructions, # 200 each, Refills 5, Tot. Refills 5, Maintenance, GLUCOSE MONITORING 4 TIMES A DAY DURING , 03/25/21 8:17:00 EST, WWCL PATIENT, LAO SPEAKING, PLEASE COMPLETE GLUCOMETER TEACHING WITH PATIENT, Espinal... Start Date: 03/25/21 Status: OrderedFREESTYLE LITE STRIPS FREESTYLE LITE STRIPS, See Instructions, # 200 each, Refills 5, Tot. Refills 5, Maintenance, GLUCOSEMONITORING 4 TIMES PER DAY DURING THE , 03/25/21 8:17:00 EST, WWCL PATIENT, LAO SPEAKING, PLEASE COMPLETE GLUCOMETER TEACHING WITH PATIEN... Start Date: 03/25/21 Status: Orderedinsulin lispro 100 u/ml subcutaneous injection = 20 units, Subcutaneous Injection, 3 times a day before meals, # 10 mL, 6 Refills, Maintenance, 07/11/21 9:18:00 EDT, Solution, [facility], 160, cm, 07/07/21 10:22:00 EDT, Height, 128.4,kg, 09/13/19 21:34:00 EDT, Dry Weight Start Date: 07/11/21 Status: OrderedLantus 100 u/ml subcutaneous solution = 50 units, Subcutaneous Injection, Daily at bedtime, # 10 mL, 3 Refills, Maintenance, 07/11/21 13:39:00 EDT, Solution, [facility], Please do insulin teaching, 160, cm, 07/07/21 10:22:00 EDT, Height, 128.4, kg, 09/13/19 21:34:00 EDT, Dry... Start Date: 07/11/21 Status: OrderedPrenatal Multivitamins with Folic Acid 1 mg oral tablet 1 tablet, By Mouth, Daily, # 90 tablet, 2 Refills, Maintenance, 02/05/21 15:03:00 EST, Tablet, [facility], Partial fill upon patient request [...] insulin(Confirmed) H/O: (Confirmed) Active HTN (hypertension)(Confirmed) Active Non-Bengali speaking Active patient(Confirmed)1 Migraine(Confirmed) Active Mild intermittent asthma(Confirmed) Active AMA (advanced maternal age) Active multigravida 35+(Confirmed) Chronic hypertension in Active (Confirmed) Retinopathy(Confirmed) Active Rubella non-immune status, Active antepartum(Confirmed) Severe obesity(Confirmed) Active Request for sterilization(Confirmed) Active Fibroid uterus(Confirmed) Active 1Spanish Speaking Social History Social History Type Response Smoking Status Never smoker entered on: 12/29/14 Sex
--- OUTSIDE RECORDS SUMMARY | 2022-02-01 15:37 | XMS_ITS | Continuity of Care Document ---
:1985 Author Organization [facility] Address [address] [place] [phone]- Care Team Providers Name Role Phone Kelvin Irby MD, Kanika Rodriguez Primary Care Physician Encounter [facility] [place] Date(s): 08/01/19 - 08/01/[address] [address]- [facility] Discharge Disposition: A-D/C Home Attending Physician: Alanis Stafford MD Admitting Physician: Alanis Stafford MD Referring Physician: Alanis Stafford MD Allergies, Adverse Reactions, Alerts Substance Reaction Severity Status aspirin Swelling Active predniSONE Swelling Active Latex Rash Active traMADol Confusion Active Immunizations Given and Recorded Vaccine Date Status Refusal Reason tetanus/diphtheria/pertussis, acel(Tdap) 07/12/19 Given Medications albuterol 90 mcg/inh inhalation powder 2 puffs, Inhalation, Every 6 hours, PRN as needed, # 1 each, 0 Refills, Maintenance, 03/22/19 16:48:00 EST, Powder, [facility] - , 2 puffs Inhalation [...] 118.4, kg, 05/... Start Date: 07/21/19 Status: OrderedamiTRIPTYLINE By Mouth, 0 Refills, Maintenance, 07/04/19 15:14:00 EDT Start Date: 07/04/19 Status: OrderedBP Monitoring Unit BP Monitoring Unit, See Instructions, # 1 each, Refills 0, Tot. Refills 0, Maintenance, BP monitoring unit, 07/12/19 14:43:00 EDT, Supply Start Date: 07/12/19 Status: OrderedClonazepam By Mouth, 0 Refills, Maintenance, 07/04/19 15:14:00 EDT Start Date: 07/04/19 Status: OrderedColace sodium 100 mg oral capsule 100 mg, 1, capsule, By Mouth, 2 times a day, PRN, # 20 capsule, Refills 3, Tot. Refills 3, Maintenance, for constipation, 06/30/19 17:34:00 EDT, Route to Pharmacy Electronically, [facility], 160, cm, 06/29/19 5:42:00 EDT, [...] cm, 07/12/19 13:14:00 EDT, Height, 118.4, kg, ... Start Date: 07/21/19 Status: Orderedlabetalol 100 mg oral tablet 1 tablet = 100 mg, By Mouth, Daily, 0 Refills, Maintenance, 09/14/17 2:34:25 EDT Start Date: 09/14/17 Status: OrderedMultivitamin, 1, By Mouth, Daily, 0 [...] 0 Refills, Maintenance, 07/12/19 17:29:00 EDT, Capsule, [facility], 160, cm, 07/12/19 13:14:00 EDT, Height, 118.4, kg, 06/29/19 5:49:00 EDT, Dry Weight Start Date: 07/12/19 Status: Ordered Problem List Condition Effective Dates Status Health Status Informant Elevated glucose tolerance Active test(Confirmed) Carpal tunnel syndrome(Confirmed) Active Cervical radiculopathy(Confirmed) Active 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) H/O Macrosomia(Confirmed)1 Active Fibromyalgia(Confirmed) Active GERD (gastroesophageal reflux Active disease)(Confirmed) Non-Danish speaking Active patient(Confirmed)2 Migraine(Confirmed) Active Mild intermittent asthma(Confirmed) Active Advanced maternal age in Active multigravida(Confirmed) Obesity(Confirmed) Active Anxiety/depression/panic Active disorder(Confirmed) Chronic hypertension in Active (Confirmed) Retinopathy(Confirmed) Active Fatty liver(Confirmed) Active Uterine scar from previous Active delivery(Confirmed) 1Last baby 10 [id number] Speaking Vital Signs Most recent to oldest [Reference Range]: 1 2 Weight 122.2 kg (08/01/19 11:39 AM) Oxygen Saturation [94-100 %] 97 % (08/01/19 12:10 PM) Pulse Rate [55-90 bpm] 99 bpm *H* (08/01/19 12:10 PM) Blood Pressure [90-138/55-84 mm Hg] 104/64 mm Hg 94/2 9 mm Hg (08/01/19 12:24 PM) (08/01/19 12:10 PM) Respiratory Rate [16-30 br/min] 18 br/min (08/01/19 12:10 PM) Temperature [96.8-100.4 DegF] 98.5 DegF (08/01/19 12:10 PM) Mode of Delivery (Oxygen) Room air (08/01/19 12:10 PM) Blood pressure sites Arm, left (08/01/19 12:10 PM) Temperature Route Oral (08/01/19 12:10 PM) Dry Weight 122.2 kg (08/01/19 11:39 AM) Weight Obtained Via Standing scale (08/01/19 11:39 AM) Dry Weight Obtained Via Standing scale (08/01/19 11:39 AM) Social History Social History Type Response Smoking Status Never (less than 100 in life time) entered on: 07/04/19 Sex Female
--- OUTSIDE RECORDS SUMMARY | 2022-02-01 15:37 | XMS_ITS | Continuity of Care Document ---
:1985 Author Organization [facility] ic Address [address] [place] [id number]- Care Team Providers Name Role Phone Kelvin Irby MD, Mague Rodriguez Primary Care Physician [place] [facility] [place] - 10/[place]/[address] [address]- Allergies, Adverse Reactions, Alerts Substance Reaction Severity Status aspirin Swelling Active predniSONE Swelling Active Latex Rash Active traMADol Confusion Active Immunizations Given and Recorded Vaccine Date Status Refusal Reason SARS-CoV-2 mRNA ([id number]) vax 08/04/21 Given tetanus/diphtheria/pertussis, acel(Tdap) 07/07/21 Given [...] 09/13/21 14:35:00 EDT, Route to Pharmacy Electronically, [facility]/pharmacy #[id number], Partial fill upon patient request if the [...] 09/13/21 14:36:00 EDT, Route to Pharmacy Electronically, [facility]/pharmacy #[id number], Partial fill upon patient request if the prescriptio... Start Date: 09/13/21 Status: Orderedibuprofen 600 mg oral tablet 600 mg, 1, tablet, By Mouth, Every 6 hours, # 50 tablet, Refills 0, Tot. Refills 0, Maintenance, 09/13/21 14:35:00 EDT, Route to Pharmacy Electronically, [facility]/pharmacy #[id number], Partial fill upon patient request if the prescription is for a schedule II op... Start Date: 09/13/21 Status: OrderedoxyCODONE 5 mg oral tablet 5 mg, 1, tablet, By Mouth, Every 6 hours, PRN, # 10 tablet, Refills 0, Tot. Refills 0, Maintenance, as needed for pain, 09/13/21 14:35:00 EDT, Route to Pharmacy Electronically, [facility]/pharmacy #[id number], Partial fill upon patient request if the prescription... Start Date: 09/13/21 Status: OrderedPrenatal Multivitamins with Folic Acid 1 mg oral tablet 1 tablet, By Mouth, Daily, # 90 tablet, 2 Refills, Maintenance, 02/05/21 15:03:00 EST, Tablet, [facility], Partial fill upon patient [...] 09/13/21 14:36:00 EDT, Route to Pharmacy Electronically, [facility]/pharmacy #[id number], Partial fill upon patient request if the prescription is f... Start Date: 09/13/21 Status: Ordered Problem List Condition Effective Dates Status Health Status Informant Anxiety(Confirmed) Active Carpal tunnel syndrome(Confirmed) Active Cervical radiculopathy(Confirmed) Active Chiari I malformation(Confirmed) Active Fibromyalgia(Confirmed) Active GERD (gastroesophageal reflux Active disease)(Confirmed) Gestational diabetes requiring Active insulin(Confirmed) H/O: (Confirmed) Active HTN (hypertension)(Confirmed) Active Non-Japanese speaking Active patient(Confirmed)1 Migraine(Confirmed) Active Mild intermittent asthma(Confirmed) Active AMA (advanced maternal age) Active multigravida 35+(Confirmed) Chronic hypertension in Active (Confirmed) Retinopathy(Confirmed) Active Rubella non-immune status, Active antepartum(Confirmed) Severe obesity(Confirmed) Active Request for sterilization(Confirmed) Active Fibroid uterus(Confirmed) Active 1Spanish Speaking Social History Social History Type Response Smoking Status Never smoker entered on: 12/29/14 Sex
--- OUTSIDE RECORDS SUMMARY | 2022-02-01 15:37 | XMS_ITS | Continuity of Care Document ---
:1985 Author Organization [facility] ic Address [address] [place] [phone]- Care Team Providers Name Role Phone Kelvin Irby MD, Mague Rodriguez Primary Care Physician Encounter [facility] Date(s): 02/18/21 - 03/20/[address] [address]- Allergies, Adverse Reactions, Alerts Substance Reaction Severity Status aspirin Swelling Active predniSONE Swelling Active Latex Rash Active traMADol Confusion Active Immunizations Given and Recorded Vaccine Date Status Refusal Reason SARS-CoV-2 (COVID-19) mRNA-1273 vaccine 07/10/20 Recorded SARS-CoV-2 (COVID-19) mRNA-1273 vaccine 06/12/20 Recorded Influenza Virus Vaccine (oldterm) 02/23/20 Recorded tetanus/diphtheria/pertussis, acel(Tdap) 07/12/19 Given Medications amiTRIPTYLINE By [...] 0 Refills, Maintenance, 03/11/21 12:07:00 EST, Tablet, [facility], Partial fill upon patient request if the prescription is for a schedule II opioid drug., 160, cm, 03/11/21 8... Start Date: 03/11/21 Status: Orderedlabetalol 100 mg oral tablet 1 tablet, By Mouth, Daily, # 30 tablet, 1 Refills, Maintenance, 06/02/20 9:24:00 EDT, [facility], 160, cm, 10/25/19 12:24:00 EDT, Height, 128.4, kg, 09/13/19 21:34:00 EDT, Dry Weight Start Date: 06/02/20 Status: OrderedPrenatal Multivitamins with Folic Acid 1 mg oral tablet 1 tablet, By Mouth, Daily, # 90 tablet, 2 Refills, Maintenance, 02/05/21 15:03:00 EST, Tablet, [facility], Partial fill upon patient request if the prescription is for a schedule IIopioid drug., 1 tablet By Mouth Daily, 160, cm, 1... Start Date: 02/05/21 Status: Ordered Problem List Condition Effective Dates Status Health Status Informant Carpal tunnel syndrome(Confirmed) Active Cervical radiculopathy(Confirmed) Active Chiari I malformation(Confirmed) Active H/O Macrosomia(Confirmed)1 Active Fibromyalgia(Confirmed) Active GERD (gastroesophageal reflux Active disease)(Confirmed) COVID-19 vaccine series Active completed(Confirmed) HTN (hypertension)(Confirmed) Active Non-Mohawk speaking Active patient(Confirmed)2 Migraine(Confirmed) Active Mild intermittent asthma(Confirmed) Active Obesity(Confirmed) Active Chronic hypertension in Active (Confirmed) Retinopathy(Confirmed) Active Rubella non-immune status, Active antepartum(Confirmed) Severe obesity(Confirmed) Active Fibroid uterus(Confirmed) Active 1Last baby 10 [id number] Speaking Social History Social History Type Response Smoking Status Never smoker entered on: 12/29/14 Sex
--- OUTSIDE RECORDS SUMMARY | 2022-02-01 15:37 | XMS_ITS | Continuity of Care Document ---
:1985 Author Organization [facility] ic Address [address] [place] [id number]- Care Team Providers Name Role Phone Kelvin Ibry MD, Mague Rodriguez Primary Care Physician [place] [facility] [place] 10/02/[address] [address]- Attending Physician: Not on Staff, Attending MD Allergies, Adverse Reactions, Alerts Substance Reaction Severity Status aspirin Swelling Active predniSONE Swelling Active Latex Rash Active traMADol Confusion Active Immunizations Given and Recorded Vaccine Date Status Refusal Reason SARS-CoV-2 mRNA ([id number]) vax 08/04/21 Given tetanus/diphtheria/pertussis, acel(Tdap) 07/07/21 Given [...] 09/13/21 14:35:00 EDT, Route to Pharmacy Electronically, [facility]/pharmacy #[id number], Partial fill upon patient request if the [...] 2 Refills, Maintenance, 02/05/21 15:03:00 EST, Tablet, [facility], Partial fill upon patient request [...] insulin(Confirmed) H/O: (Confirmed) Active HTN (hypertension)(Confirmed) Active Non-Romanian speaking Active patient(Confirmed)1 Migraine(Confirmed) Active Mild intermittent asthma(Confirmed) Active AMA (advanced maternal age) Active multigravida 35+(Confirmed) Chronic hypertension in Active (Confirmed) Retinopathy(Confirmed) Active Rubella non-immune status, Active antepartum(Confirmed) Severe obesity(Confirmed) Active Request for sterilization(Confirmed) Active Fibroid uterus(Confirmed) Active 1Spanish Speaking Social History Social History Type Response Smoking Status Never smoker entered on: 12/29/14 Sex
--- OUTSIDE RECORDS SUMMARY | 2022-02-01 15:37 | XMS_ITS | Continuity of Care Document ---
:1985 Author Organization [facility] ic Address [address] [place] [address]- Care Team Providers Name Role Phone Kelvin Irby MD, Mague Rodriguez Primary Care Physician Encounter [facility] [place] Date(s): 03/03/21 - 04/02/[address] [address] Allergies, Adverse Reactions, Alerts Substance Reaction [...] 0 Refills, Maintenance, 03/11/21 12:07:00 EST, Tablet, [facility], Partial fill upon patient request if the prescription is for a schedule II opioid drug., 160, cm, 03/11/21 8... Start Date: 03/11/21 Status: OrderedFREESTYLE LITE GLUCOSE METER FREESTYLE LITE GLUCOSE METER, See Instructions, # 1 each, Refills 0, Tot. Refills 0, Maintenance, FOR GLUCOSE MONITORING DURING THE , 03/25/21 8:17:00 EST, [facility] PATIENT, CROATIAN SPEAKING, PLEASE COMPLETE GLUCOMETER TEACHING WITH PATIENT, Supp... Start Date: 03/25/21 Status: OrderedFREESTYLE LITE LANCETS FREESTYLE LITE LANCETS, See Instructions, # 200 each, Refills 5, Tot. Refills 5, Maintenance, GLUCOSE MONITORING 4 TIMES A DAY DURING , 03/25/21 8:17:00 EST, [facility] PATIENT, CROATIAN SPEAKING, PLEASE COMPLETE GLUCOMETER TEACHING WITH PATIENT, Espinal... Start Date: 03/25/21 Status: OrderedFREESTYLE LITE STRIPS FREESTYLE LITE STRIPS, See Instructions, # 200 each, Refills 5, Tot. Refills 5, Maintenance, GLUCOSEMONITORING 4 TIMES PER DAY DURING THE , 03/25/21 8:17:00 EST, [facility] PATIENT, CROATIAN SPEAKING, PLEASE COMPLETE GLUCOMETER TEACHING WITH PATIEN... Start Date: 03/25/21 Status: Orderedlabetalol 100 mg oral tablet 1 tablet, By Mouth, Daily, # 30 tablet, 1 Refills, Maintenance, 06/02/20 9:24:00 EDT, [facility], 160, cm, 10/25/19 12:24:00 EDT, Height, 128.4, kg, 09/13/19 21:34:00 EDT, Dry Weight Start Date: 06/02/20 Status: OrderedPrenatal Multivitamins with Folic Acid 1 mg oral tablet 1 tablet, By Mouth, Daily, # 90 tablet, 2 Refills, Maintenance, 02/05/21 15:03:00 EST, Tablet, [facility], Partial fill upon patient request if [...] vaccine series Active completed(Confirmed) HTN (hypertension)(Confirmed) Active Non-Moroccan speaking Active patient(Confirmed)2 Migraine(Confirmed) Active Mild intermittent asthma(Confirmed) Active Obesity(Confirmed) Active Chronic hypertension in Active (Confirmed) Retinopathy(Confirmed) Active Rubella non-immune status, Active antepartum(Confirmed) Severe obesity(Confirmed) Active Fibroid uterus(Confirmed) Active 1Last baby 10 [id number] Speaking Social History Social History Type Response Smoking Status Never smoker entered on: 12/29/14 Sex
[2022-02-01 15:55] LABS: COVID-19 Test Negative (Negative); IDNOW Serial# 16C4AD1C
[2022-02-01 15:58] LABS: IDNOW Serial# BCCEAD1C; Influenza A Positive (Negative); Influenza B2 Negative (Negative)
== END 2022-02-01 16:37 | disposition home or self-care (01) ==
PROVIDERS: Physician Assistant; Emergency Provider Emergency Medicine; PCP Internal Medicine
DX: J10.1 Influenza due to other identified influenza virus with other respiratory manifestations (principal); R50.9 Fever, unspecified; R05.9 Cough, unspecified; R07.89 Other chest pain; Z20.822 Contact with and (suspected) exposure to COVID-19
CPT/HCPCS: 71046; 87502; 87635; 99282; 99283

== ENCOUNTER 2022-02-21 12:52 | Emergency (ER) | payer OTHER, SELFPAY ==
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
[2022-02-21 13:52] VITALS: BP 148/96; PULSE 99; RESP 18; TEMP 36.6; O2SAT 94; BMI 46.7
--- OUTSIDE RECORDS SUMMARY | 2022-02-21 15:13 | XMS_ITS | Continuity of Care Document ---
:1985 Author Organization [facility] ic Address [address] [place] [address]- Care Team Providers Name Role Phone Kelvin Irby MD, Mague Rodriguez Primary Care Physician Encounter [facility] Date(s): 01/09/22 - 02/08/[address] [address] Attending Physician: Romeo Carlisle Admitting Physician: Romeo Carlisle Referring Physician: AdmtrRomeo Allergies, Adverse Reactions, Alerts Substance Reaction Severity Status aspirin Swelling Active Latex Rash Active traMADol Confusion Active predniSONE Swelling Active Immunizations Given and Recorded Vaccine Date Status Refusal Reason SARS-CoV-2 mRNA ([id number]) vax 08/04/21 Given tetanus/diphtheria/pertussis, acel(Tdap) 07/07/21 Given [...] 09/13/21 14:35:00 EDT, Route to Pharmacy Electronically, [facility]/pharmacy #[id number], Partial fill upon patient request if the [...] 09/13/21 14:36:00 EDT, Route to Pharmacy Electronically, [facility]/pharmacy #[id number], Partial fill upon patient request if the prescriptio... Start Date: 09/13/21 Status: Orderedibuprofen 600 mg oral tablet 600 mg, 1, tablet, By Mouth, Every 6 hours, # 50 tablet, Refills 0, Tot. Refills 0, Maintenance, 09/13/21 14:35:00 EDT, Route to Pharmacy Electronically, [facility]/pharmacy #[id number], Partial fill upon patient request if the prescription is for a schedule II op... Start Date: 09/13/21 Status: OrderedoxyCODONE 5 mg oral tablet 5 mg, 1, tablet, By Mouth, Every 6 hours, PRN, # 10 tablet, Refills 0, Tot. Refills 0, Maintenance, as needed for pain, 09/13/21 14:35:00 EDT, Route to Pharmacy Electronically, [facility]/pharmacy #[id number], Partial fill upon patient request if the prescription... Start Date: 09/13/21 Status: OrderedPrenatal Multivitamins with Folic Acid 1 mg oral tablet 1 tablet, By Mouth, Daily, # 90 tablet, 2 Refills, Maintenance, 02/05/21 15:03:00 EST, Tablet, [facility], Partial fill upon patient [...] 09/13/21 14:36:00 EDT, Route to Pharmacy Electronically, [facility]/pharmacy #[id number], Partial fill upon patient request if the [...] H/O: Confirmed Active HTN (hypertension) Confirmed Active Non-Yakut speaking Confirmed Active patient1 Migraine Confirmed Active Mild intermittent Confirmed Active asthma AMA (advanced Confirmed Active maternal age) multigravida 35+ Chronic hypertension Confirmed Active in Retinopathy Confirmed Active Rubella non-immune Confirmed Active status, antepartum Severe obesity Confirmed Active Request for Confirmed Active sterilization Fibroid uterus Confirmed Active 1Spanish Speaking Social History Social History Type Response Smoking Status Never smoker entered on: 12/29/14 Sex Note Event Display: Ultrasound Obstetric, Non-BH Authored Date: Event Display: Non BH Lab Results Authored Date: Event Display: Ultrasound Obstetric, Non-BH Authored Date: Event Display: Ultrasound Obstetric, Non-BH Authored Date: Event Display: Ultrasound Neck, Non-BH Authored Date: Patient Care team information Care Team PersonnelName: Kelvin Irby MD , Mague Rodriguez Position: Reference Physician Member Role: PCP Address: Address: [address] [place] [address]- Care Team Related PersonsName: LUCIANO RAO Address: Address: home [address] [place] [address] [place] Name: LUCAS RAO Address: [address] Address: home [address] [place] [address] [place] Name: DEMARCUS RAMIRES Address: home [address] [place] [address] Name: DEMARCUS ORTIZ Address: home [address] [place] [address]
--- OUTSIDE RECORDS SUMMARY | 2022-02-21 15:13 | XMS_ITS | Continuity of Care Document ---
:1985 Author Organization [facility] ic Address [address] [place] [address]- Care Team Providers Name Role Phone Kelvin Irby MD, Chary Primary Care Physician [id number] Date(s): 11/27/21 - 02/08/[address] [address] Attending Physician: Not on Staff, Attending MD Allergies, Adverse Reactions, Alerts Substance Reaction Severity Status aspirin Swelling Active predniSONE Swelling Active Latex Rash Active traMADol Confusion Active Immunizations Given and Recorded Vaccine Date Status Refusal Reason SARS-CoV-2 mRNA ([id number]) vax 08/04/21 Given tetanus/diphtheria/pertussis, acel(Tdap) 07/07/21 Given [...] 14:35:00 EDT, Route to Pharmacy Electronically, [facility]/pharmacy #[id number], Partial fill upon patient request if the [...] 09/13/21 14:36:00 EDT, Route to Pharmacy Electronically, [facility]/pharmacy #[id number], Partial fill upon patient request if the prescriptio... Start Date: 09/13/21 Status: Orderedibuprofen 600 mg oral tablet 600 mg, 1, tablet, By Mouth, Every 6 hours, # 50 tablet, Refills 0, Tot. Refills 0, Maintenance, 09/13/21 14:35:00 EDT, Route to Pharmacy Electronically, [facility]/pharmacy #[id number], Partial fill upon patient request if the prescription is for a schedule II op... Start Date: 09/13/21 Status: OrderedoxyCODONE 5 mg oral tablet 5 mg, 1, tablet, By Mouth, Every 6 hours, PRN, # 10 tablet, Refills 0, Tot. Refills 0, Maintenance, as needed for pain, 09/13/21 14:35:00 EDT, Route to Pharmacy Electronically, [facility]/pharmacy #[id number], Partial fill upon patient request if the prescription... Start Date: 09/13/21 Status: OrderedPrenatal Multivitamins with Folic Acid 1 mg oral tablet 1 tablet, By Mouth, Daily, # 90 tablet, 2 Refills, Maintenance, 02/05/21 15:03:00 EST, Tablet, [facility], Partial fill upon patient request if [...] 14:36:00 EDT, Route to Pharmacy Electronically, [facility]/pharmacy #[id number], Partial fill upon patient request if the [...] H/O: Confirmed Active HTN (hypertension) Confirmed Active Non-Spanish speaking Confirmed Active patient1 Migraine Confirmed Active [...] Physician Member Role: PCP Address: Address: [address] [place] [address]- Care Team Related PersonsName: LUCIANO RAO Address: [id number] Address: home [address] [place] [address] [place] Name: LUCAS RAO Address: [address] Address: home [address] [place] [address] [place] Name: DEMARCUS RAMIRES Address: home [address] [place] [address] Name: DEMARCUS ORTIZ Address: home [address] [place] [address]
== END 2022-02-21 16:00 | disposition home or self-care (01) ==
PROVIDERS: Emergency Provider Emergency Medicine; PCP Internal Medicine
DX: S83.92XA Sprain of unspecified site of left knee, initial encounter (principal); V43.62XA Car passenger injured in collision with other type car in traffic accident, initial encounter; Y93.89 Activity, other specified; Y92.414 Local residential or business street as the place of occurrence of the external cause; Y99.9 Unspecified external cause status
CPT/HCPCS: 73560; 99283

== ENCOUNTER 2022-03-25 11:59 | Emergency (ER) | payer OTHER, SELFPAY ==
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
[2022-03-25 12:02] VITALS: BP 153/78; PULSE 118; RESP 20; TEMP 36.8; O2SAT 98; BMI 47.2
[2022-03-25 12:28] LABS: MANUAL DIFF FLAG NO
[2022-03-25 12:31] LABS: Basophils Percent Auto 0.1 % (0-2); Eosinophils Percent Auto 0.2 % (0-4); Hematocrit 46.6 % (37.0-47.0); Hemoglobin 14.7 g/dl (12.0-16.0); Imm Gran Abs Auto 0.03 X10*3/uL (0.00-0.03); Imm Gran Pct Auto 0.4 % (0.0-0.4); Lymphocytes Absolute Auto 0.8 X10*3/uL (1.2-4.9); Mean Corpuscular HGB Conc 31.5 g/dl (31.0-35.0); Mean Corpuscular Hemoglobin 27.6 pg (27.0-33.0); Mean Corpuscular Volume 87.6 fL (80.0-98.0); Mean Platelet Volume 9.2 fL (9.4-12.3); Monocytes Absolute Auto 0.4 X10*3/uL (0.1-1.2); Monocytes Percent Auto 4.7 % (2-11); Neutrophils Absolute Auto 7.1 x10*3/uL (2.0-8.3); Neutrophils Percent Auto 85.6 % (45-73); Platelet Count 309 X10*3/uL (160-400); Red Blood Count 5.32 X10*6/uL (4.20-5.50); Red Cell Distribution Width 14.2 % (11.0-16.0); White Blood Count 8.3 X10*3/uL (4.8-10.8)
[2022-03-25 12:46] LABS: Alanine Aminotransferase 13 U/L (0-31); Alkaline Phosphatase 92 U/L (39-117); Anion Gap 11 (12-20); Aspartate Amino Transferase 11 U/L (5-31); Bilirubin Direct 0.2 mg/dL (0.0-0.5); Bilirubin Total 0.6 mg/dL (0.0-1.0); Blood Urea Nitrogen 12 mg/dL (9-16); Calcium 8.9 mg/dL (8.4-10.2); Carbon Dioxide 28 mmol/L (22-29); Chloride 104 mmol/L (96-108); Creatinine Clr Calc Pharmacy 134.6; Estimated Glomerular Filt Rate > 60; Glucose Random 112 mg/dL (60-115); Lipase 9 U/L (8-78); Potassium 4.2 mmol/L (3.3-5.1); Sodium 139 mmol/L (135-145); Total Protein 7.4 g/dL (6.5-8.0)
[2022-03-25 13:07] LABS: Influenza A PCR NEGATIVE (Negative); Influenza B PCR NEGATIVE (Negative); Resp Syncy Virus RNA Qual PCR NEGATIVE (Negative); SARS COV2 PCR INHOUSE NEGATIVE (Negative)
[2022-03-25 15:03] VITALS: BP 133/85; PULSE 108; RESP 18; TEMP 36.8; O2SAT 99
[2022-03-25 15:56] VITALS: BP 136/83; PULSE 108; RESP 16; TEMP 37.1; O2SAT 98
== END 2022-03-25 16:54 | disposition home or self-care (01) ==
PROVIDERS: Nurse Practitioner Family; Emergency Provider Emergency Medicine; PCP Internal Medicine
DX: S80.02XA Contusion of left knee, initial encounter (principal); R11.2 Nausea with vomiting, unspecified; M54.50 Low back pain, unspecified; V43.62XA Car passenger injured in collision with other type car in traffic accident, initial encounter; Y93.9 Activity, unspecified; Y92.410 Unspecified street and highway as the place of occurrence of the external cause; Y99.9 Unspecified external cause status; Z20.822 Contact with and (suspected) exposure to COVID-19; Z20.828 Contact with and (suspected) exposure to other viral communicable diseases; Z79.899 Other long term (current) drug therapy
CPT/HCPCS: 0241U; 36415; 72100; 73564; 80048; 80076; 83690; 85025; 99283

== ENCOUNTER 2022-10-01 08:40 | Outpatient (AMB) | payer OTHER, SELFPAY ==
[2022-10-01 08:44] VITALS: BP 156/95; PULSE 93; RESP 17; TEMP 36.2; O2SAT 97; BMI 55.5
--- NOTE | 2022-10-01 08:44 | MHC.OFFVIS ---
Intake Vital Signs 10/01/22 08:44 Height 5 ft 3 in Weight 313 lb 7.957 oz BMI 55.5 BP 156/95 H Blood Pressure Location Lt brachial Position Sitting Respiration 17 Pulse 93 Pulse Source Pulse Oximeter Temp 97.2 F Temp Source Tympanic Pulse Oximetry (%) 97 Oxygen Delivery Method Room Air Intake Visit Reasons: Joint Pain General Office Dispatcher Required: Yes General Office Dispatcher Name: jatinder #[id number] Accompanied by: Self / Same As Patient Allergies aspirin [ASPIRIN] Allergy (Intermediate, Verified 10/01/22 08:45) SWELLING latex [LATEX] Allergy (Intermediate, Verified 10/01/22 08:45) Rash prednisone [PREDNISONE] Allergy (Intermediate, Verified 10/01/22 08:45) swelling and hives, swelling tramadol Allergy (Intermediate, Verified 10/01/22 08:45) loopiness Medication List - Last Reconciled 10/01/22 by Misty Mehta RN amitriptyline 100 mg PO DAILY cholecalciferol (vitamin D3) 25 mcg PO DAILY 90 days clonazepam 1 mg PO BID PRN cyanocobalamin (vitamin B-12) (Vitamin B-12) 1,000 mcg PO DAILY lisinopril 10 mg PO DAILY 90 days pregabalin 50 mg PO BEDTIME 30 days HPI HPI Comments History of Present Illness Details The patient presents for evaluation of her fibromyalgia. She reports that for about 5-10 years she has been having various muscle, bone and joint pains. There is occasional swelling in the hands and feet. She was diagnosed with fibromyalgia in the past. She was taking amitriptyline 100 mg at night, clonazepam 1 b.i.d. p.r.n., and Lyrica 50 mg twice a day. For the past month she has been without the Lyrica. She admits that the relief with Lyrica was not 100% but she feels worse without it. It did not seem to cause any daytime sedation when she took it at that dose. In the past she had a trial with gabapentin but it did not seem is affective. She also describes numbness in her hands and feet, this is more prominent in the right hand. She did have a nerve conduction study done about 2 years ago that was normal. It sounds like she might have had another one done with Dr. Pinto in [place]. I do not see any copies of that in the chart. She has significant problems with obesity and hypertension. She does have an appointment to see the doctors to consult on weight loss.Review of her history, exam and discussion of treatment options took 48 minutes. [facility] Medical History (Updated 10/01/22 @ 09:05 by Shashank Perez MD) Anxiety Arnold-Chiari malformation B12 deficiency Carpal tunnel syndrome Chronic thoracic spine pain Essential hypertension Fibromyalgia Gestational diabetes mellitus Moderate recurrent major depression Morbid obesity due to excess calories Neck pain Neuropathy Right sided sciatica Surgical History History of section History of cholecystectomy History of D&C Family History Father Hypertension CVD (cardiovascular disease) Diabetes Mother Hypertension Chronic mental illness Depression Mental health disorder Paternal Aunt Breast cancer Brother Colon cancer Stomach cancer Social History Housing: Apartment Alcohol intake: never Patient Tobacco Use Status: Never used Tobacco e-Cigarette/Vaping Use: Never Used Second Hand Smoke Exposure: No service: No Current occupational status: unemployed Cognitive needs: No Hearing needs: No Vision needs: No Review of Systems Const Details: Low energy but she does take care of her children and home. Negative for appetite change, weight change, fever, chills, malaise Eyes Details: Occasional headache. Negative for vision change, dry eyes and dizziness ENT Details: Negative for hearing change, tinnitus, oral ulcer, nose bleeds and oral dryness. Card Details: Negative chest pain, edema and syncope Resp Details: Negative for SOB, cough and wheezing GI Details: Some constipation. Negative indigestion/heartburn, nausea, abdominal pain, bowel changes, diarrhea and bloody stool. Details: Negative for dysuria, hematuria, nocturia, decreased force/flow and genital discharge Skin/Breast Details: Negative for itching, rash, hives, Raynaud's symptoms, sun sensitivity, and skin cancer Neuro Details: Negative for epilepsy, palsy, stroke, changes in speech, tingling and weakness Psych Details: Negative for anxiety, depression and stress Endo Details: Negative for polyuria and polydypsia Rell/Lymph Details: Negative for excessive bruising or bleeding. Physical Exam Vital Signs: Last Vital Signs Temp 97.2 F 08/10/23 08:44 Pulse 93 10/01/22 08:44 Resp 17 10/01/22 08:44 BP 156/95 H 10/01/22 08:44 Pulse Ox 97 10/01/22 08:44 Oxygen Delivery Method Room Air 10/01/22 08:44 BMI result Body Mass Index 55.5 APPEARANCE: Patient in no acute distress EYES no redness, pupils equal and reactive to light, eyelids normal EARS: External ear normal, canal clear and tympanic membrane normal. NOSE/SINUS: Airflow through both nares, no nasal discharge, no bleeding THROAT: Oral mucosa moist, no ulcerations NECK: No thyromegaly or masses, no adenopathy, trachea midline. HEART: Regulrar rhythm, S1-S2 heard, no murmurs, rubs or gallops. LUNG: Clear to percussion and auscultation ABD: Normal bowel sounds, no organomegaly, masses or tenderness. EXTREMITIES: No edema, no calf tenderness, normal peripheral pulses. NEURO: Oriented and alert x3. No focal weakness. Reflexes symmetric. Gait normal. No sensory loss apparent. SKIN: No inflammatory or neoplastic lesions. Normal color and turgor; the time the disease JOINT EXAM:?? Cervical Spine:.? Full range of motion with mild pain at the extremes. There is some posterior cervical muscle tenderness. Thoracic Spine:.? No scoliosis.? No tenderness on palpation. Lumbar Spine:.? Alignment normal.? Lumbar pain with flexion at 60 degrees. Some paraspinal muscle tenderness. Chest Wall:.? No tenderness, swelling, increased warmth or erythema. Hands:.? Normal pain-free range of motion with slight tenderness across the PIP joints. Otherwise there is no other tenderness. There is no flexor tendon triggering or tenderness, soft tissue swelling, increased warmth or erythema. There is no thenar eminence atrophy or sensory loss. Wrists:.? Normal pain-free range of motion without tenderness, swelling, increased warmth or erythema. Elbows:. Normal pain-free range of motion without tenderness, swelling, increased warmth or erythema. Shoulders:.?? Full range of motion without pain. No tenderness, weakness, swelling, increased warmth or erythema. Hips:? Full range of motion without pain. Hip bursa:? No tenderness. Knees:?? Normal pain-free range of motion with some valgus deformity. There is some slight patellofemoral crepitus and medial compartment tenderness but no effusion,swelling, increased warmth or erythema.? Ankles:.? Normal pain-free range of motion without tenderness, swelling, increased warmth or erythema. Feet:? Normal pain-free range of motion without tenderness, swelling, increased warmth or erythema. Tender points:.? mild tenderness to digital palpation at the occiput, trapezius, second rib, lateral epicondyle, knees, greater trochanter and gluteal area bilaterally. ? Results Reviewed Results Reviewed: Laboratory Tests 03/25/22 03/25/22 12:24 12:24 Hgb 14.7 Creatinine 0.74 AST 11 ALT 13 Alkaline Phosphatase [address] [place] [id number] EMG / Nerve Conduction Report Signed Patient: Beth Morelos MR#: [id number] : 1985 Acct:[id number] Age/Sex: 35 / F ADM Date: 07/31/[address]: Mague Irby MD Ordering Physician: Mague Brantley MD Date of Service: 07/31/20 Procedure(s): NE electromyogram (EMG); NE nerve conduction velocity Accession Number(s): [id number]; [id number] cc: Mague Brantley MD~ ? This is a 35-year-old woman with a 4-year history of right upper extremity pain and numbness with the recent symptoms that are milder affecting the left upper extremity.? Neurological examination is normal. ? IMPRESSION:? Rule out carpal tunnel syndrome. ? Nerve conduction EMG study:? Normal electrodiagnostic study of both upper extremities with no evidence of carpal tunnel syndrome. ? Normal EMG of the right C5-T1 innervated muscles. ? ? Kristin Loco MD ? TUCKER/MODL DD:? 07/31/2020 08:58:31 DT:? 07/31/2020 23:12:40 Job #:? [id number] / [id number] Dictated By: KRISTIN LOCO MD Assessment & Plan Assessment & Plan (1) Polyarthralgia: Code(s): M25.50 - Pain in unspecified joint (2) Fibromyalgia: Code(s): M79.7 - Fibromyalgia Plan The patient has years of muscle pain and joint pain. There is no sign today on exam of an active inflammatory picture. She likely has some degenerative disc disease and osteoarthritis in the lumbar spine and knees. I do not think that degenerative disease is contributing to much of her pain syndrome. Since she had some symptomatic improvement on the Lyrica we will started up again at 50 mg at night for week and then 50 mg b.i.d.. I told her if it does make her sedated to cut back to the previous dose for a bit longer before she tries the take a daytime dose. She was encouraged to continue with light aerobic activity and efforts at weight reduction. I will check C had rate, CRP and TSH today. We will try to get information on the nerve conduction study done by Dr. Pinto. We will plan a follow-up in 3-4 months. Orders: Orders TSH reflex Free T4 Today M25.50 - Pain in unspecified joint Erythrocyte Sedimentation Rate Today M25.50 - Pain in unspecified joint, M79.7 - Fibromyalgia C Reactive Protein Today M25.50 - Pain in unspecified joint, M79.7 - Fibromyalgia Medications: New pregabalin (Lyrica) start with one cap at night for the first week 50 mg PO BID 60 caps 2RF M79.7 - Fibromyalgia Changed From pregabalin 50 mg PO BEDTIME 30 days 30 caps 0RF M79.7 - Fibromyalgia To pregabalin Start with just 1 capsule at night for the 1st week 50 mg PO BID 60 caps 2RF 30 days M79.7 - Fibromyalgia Coding Level of Care Code New Pt Level 4 (93212) Diagnoses Polyarthralgia M25.50 Fibromyalgia M79.7
== END 2022-10-01 09:41 | disposition home or self-care (01) ==
PROVIDERS: PCP Internal Medicine; Visit Provider Internal Medicine Rheumatology
DX: M25.50 Pain in unspecified joint (principal); M79.7 Fibromyalgia
CPT/HCPCS: 99204

== ENCOUNTER → 2022-10-01 08:40 | Outpatient (BNVA) | payer OTHER, SELFPAY | PROVIDERS: Visit Provider Internal Medicine Rheumatology | DX: M25.50 Pain in unspecified joint (principal); M79.7 Fibromyalgia | CPT/HCPCS: 99202 ==

== ENCOUNTER → 2022-10-12 10:20 | Outpatient (BNVA) | payer OTHER, SELFPAY | PROVIDERS: PCP Internal Medicine; Visit Provider Physician Assistant ==

== ENCOUNTER 2022-11-05 12:37 | Outpatient (AMB) | payer OTHER, SELFPAY ==
--- NOTE | 2022-11-05 12:58 | MHC.OFFVISWM ---
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 51.6 Allergies aspirin [ASPIRIN] Allergy (Intermediate, Verified 11/05/22 13:04) SWELLING latex [LATEX] Allergy (Intermediate, Verified 11/05/22 13:04) Rash prednisone [PREDNISONE] Allergy (Intermediate, Verified 11/05/22 13:04) swelling and hives, swelling tramadol Allergy (Intermediate, Verified 11/05/22 13:04) loopiness Medication List - Last Reconciled 11/05/22 by Chantale Vega PA-C amitriptyline 100 mg PO DAILY Brace,wrist Use at nighttime only for both wrists cholecalciferol (vitamin D3) 25 mcg PO DAILY 90 days clonazepam 1 mg PO BID PRN cyanocobalamin (vitamin B-12) (Vitamin B-12) 1,000 mcg PO DAILY lisinopril 10 mg PO DAILY 90 days pregabalin 50 mg PO BID 30 days pregabalin (Lyrica) 50 mg PO BID HPI HPI Comments History of Present Illness Details This is a 37 year old woman who is here to start SWL program with SWL classes. Her goal is lose weight and have better BP control. She reports first being concerned about her weight 2021, last child. She has tried multiple methods of weight loss including low carb diet, our WMP program over 3 years ago without permanent results. She lives with her 2 children. She is unemployed. She has lost 20 lbs over last few weeks - changed her diet She wakes at: 5 am, bed at 9pm Breakfast: 1 cup coffee with half and half and diet sugar. 10am - 2 boiled eggs and crackers with cheese and ham. Lunch: 3pm - rice/beans/chicken and salad. Coke Dinner: 6pm - corn flakes, UAM After dinner: Keto bar or cereal Other snacks: fruit multiple times per day Liquids:Coke with lunch every day and fruit juice daily Alcohol intake: none, tobacco: none, marijuana: none Exercise:treadmill at home, started 2 weeks ago. speed - medium, incline - flat, 45 minutes- 200 calories Last mammogram: never Last pap smear: 1 year ago - up to date control method: BTL RYAN: 0 ESS:6 GERD: 0 QOL:75 PFSH Medical History (Updated 11/05/22 @ 13:02 by Chantale Vega PA-C) Gestational diabetes mellitus Moderate recurrent major depression Morbid obesity due to excess calories Chronic thoracic spine pain Carpal tunnel syndrome Neck pain Fibromyalgia B12 deficiency Anxiety Right sided sciatica Neuropathy Essential hypertension Arnold-Chiari malformation Surgical History History of D&C History of cholecystectomy History of section Family History Father Hypertension CVD (cardiovascular disease) Diabetes Mother Hypertension Chronic mental illness Depression Mental health disorder Paternal Aunt Breast cancer Brother Colon cancer Stomach cancer Social History Housing: Apartment Alcohol intake: never Patient Tobacco Use Status: Never used Tobacco e-Cigarette/Vaping Use: Never Used Second Hand Smoke Exposure: No service: No Current occupational status: unemployed Cognitive needs: No Hearing needs: No Vision needs: No Physical Exam Const General: cooperative, no acute distress and well developed Nutritional Appearance: obese Orientation/consciousness: patient oriented x3 HEENT Head: Yes normal to inspection Neck Neck: Yes normal visual inspection Thyroid: Thyroid normal Resp Effort & Inspection: normal respiratory effort Auscultation: clear to auscultation bilaterally Cardio Rate: regular rate Rhythm: regular rhythm Heart sounds: S1 normal heart sound present, S2 normal heart sound present and no murmurs GI Inspection: No distended, Yes incision (laparoscopic scars and low transverse abd scar) and Yes obesity Palpation (GI): Soft to palpation, nontender and no guarding Skin General skin exam: no rashes or lesions noted and other (warm and dry) Wounds: no wounds Hair: normal Neuro General: patient oriented x3 Extrem General: Yes no pedal edema and Yes no calf tenderness Psych Attitude: cooperative Thought process: Normal thought process present Thought content: Normal thought content present Insight: Good insight present (Psych) Judgement: Good judgement present (Psych) Assessment & Plan Assessment & Plan (1) Morbid obesity due to excess calories: Code(s): E66.01 - Morbid (severe) obesity due to excess calories Plan: This is a 37 yo woman with morbid obesity who will start SWL program to prepare for bariatric surgery. Blood work, h pylori , CXR, ECG, Abd ULS and UGI have been ordered. She is being scheduled for RD and BH initial consultations. She will start SWL classes and watch at 3 classes before her next appt with Sherry. 1. Adequate sleep of 7-8 hours per night discussed 2. Healthy meal plan - stop skipping meals and stop all sweetened drinks, stop Coke All meals/MR's need to take 20 minutes to complete coffee with UAM and diet sugar 10am - 30 gram shake 2 pm- dinner of 6 oz lean protein, 6 oz vegetable, 1 serving fruit 5 pm- bar or yogurt 8 pm - 30 gram shake Exercise - Alterate between LS 2 mile or treadmill at 2.8, incline medium for 300 calories The importance of avoiding and breast feeding for at least 18 months after bariatric surgery was discussed in the information session and was reinforced today. Has BTL. Pt will purchase body composition analyzer (recommended list given to patient) and weight herself weekly. Next appt with me in 3 weeks. Text me with any questions and weekly weights. Patient is morbidly obese and is not considered stable at this time.?I spent a total of 60 minutes reviewing/updating records, examining the patient and counseling the patient on weight management as detailed above. (2) Essential hypertension: Code(s): I10 - Essential (primary) hypertension (3) Arnold-Chiari malformation: Code(s): Q07.00 - Arnold-Chiari syndrome without spina bifida or hydrocephalus (4) Fibromyalgia: Code(s): M79.7 - Fibromyalgia Coding Level of Care Code New Pt Level 5 (12468) Diagnoses Morbid obesity due to excess calories E66.01 Essential hypertension I10 Arnold-Chiari malformation Q07.00 Fibromyalgia M79.7
[2022-11-05 13:09] VITALS: PULSE 105; TEMP 36.8; O2SAT 96; BMI 52.3
== END 2022-11-05 13:55 | disposition home or self-care (01) ==
PROVIDERS: PCP Internal Medicine; Visit Provider Physician Assistant
DX: E66.01 Morbid (severe) obesity due to excess calories (principal); Z68.43 Body mass index [BMI] 50.0-59.9, adult; I10 Essential (primary) hypertension; Q07.00 Arnold-Chiari syndrome without spina bifida or hydrocephalus; M79.7 Fibromyalgia
CPT/HCPCS: 99205

== ENCOUNTER → 2022-11-05 12:37 | Outpatient (BNVA) | payer OTHER, SELFPAY | PROVIDERS: PCP Internal Medicine; Visit Provider Physician Assistant | DX: E66.01 Morbid (severe) obesity due to excess calories (principal); Z68.43 Body mass index [BMI] 50.0-59.9, adult; I10 Essential (primary) hypertension; Q07.00 Arnold-Chiari syndrome without spina bifida or hydrocephalus; M79.7 Fibromyalgia; Z11.0 Encounter for screening for intestinal infectious diseases | CPT/HCPCS: 83013; 99202; 99211 ==

== ENCOUNTER 2022-11-17 15:06 | Outpatient (AMB) | payer OTHER, SELFPAY ==
--- NOTE | 2022-11-17 14:57 | A.OFFVIS_ITS ---
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 She states it is going well, feeling like it's managable to follow. Was sick with covid has several questions ; wanted reiteration of the plan, wondering about panamanian yogurt options. ?She lives with her 2 children. She is unemployed.? L online classes: none, pt reports she did not know abotu these. Exercise: none, due to covid illness Previous weight loss methods attempted Her goal is lose weight and have better BP control. She reports first being concerned about her weight 2021, last child. She has tried multiple methods of weight loss including low carb diet, our WMP program over 3 years ago without permanent results.She has lost 20 lbs over last few weeks - changed her diet Dietary counseling reduction Who buys your food self Who prepares/cooks your food self Diagnosis Nutrition problem #1 overweight/obesity As related to (etiology) #1 excess energy intake and physical inactivity As evidenced by (sign/symptom) #1 high BMI Monitoring/Goals Nutrition problem monitoring total energy intake, level of knowledge/skill, total PRO intake, total CHO intake and weight Outcome progress applied knowledge Learning/Education Readiness to learn good Stages of change action Educational materials provided Yes Most Recent Diabetes Results: No Data to Display [facility] Medical History (Updated 11/05/22 @ 13:02 by Chantale Vega PA-C) Gestational diabetes mellitus Moderate recurrent major depression Morbid obesity due to excess calories Chronic thoracic spine pain Carpal tunnel syndrome Neck pain Fibromyalgia B12 deficiency Anxiety Right sided sciatica Neuropathy Essential hypertension Arnold-Chiari malformation Surgical History History of D&C History of cholecystectomy History of section Family History Father Hypertension CVD (cardiovascular disease) Diabetes Mother Hypertension Chronic mental illness Depression Mental health disorder Paternal Aunt Breast cancer Brother Colon cancer Stomach cancer Social History Housing: Apartment Alcohol intake: never Patient Tobacco Use Status: Never used Tobacco e-Cigarette/Vaping Use: Never Used Second Hand Smoke Exposure: No service: No Current occupational status: unemployed Cognitive needs: No Hearing needs: No Vision needs: No Assessment & Plan Assessment & Plan (1) Morbid obesity due to excess calories: Code(s): E66.01 - Morbid (severe) obesity due to excess calories Patient Instructions: reviewed pts nutrition plan, explained the rationale . sent education via email. Complete online classes and f/u 12/23 3pm TV Telehealth Telehealth Location of provider rendering services: practice address Location of patient: address on file Patient Identification confirmed using: Name, : Yes Telehealth method: voice only Patient verbally consented to treatment: Yes Patient verbally consented to billing insurance company: Yes Patient informed of any privacy concerns related to visit: Yes Minutes spent on Phone/Video with Pt.: 25 Coding Level of Care Code Nutr Indiv Intake (94169) Diagnoses Morbid obesity due to excess calories E66.01 Time Spent (min) 25
== END 2022-11-17 15:11 | disposition home or self-care (01) ==
LOC: HO.HBS 15:06
PROVIDERS: PCP Internal Medicine; Visit Provider Dietitian, Registered
DX: E66.01 Morbid (severe) obesity due to excess calories (principal)

== ENCOUNTER → 2022-11-17 15:06 | Outpatient (BNVA) | payer OTHER, SELFPAY | PROVIDERS: PCP Internal Medicine; Visit Provider Dietitian, Registered | DX: E66.01 Morbid (severe) obesity due to excess calories (principal) | CPT/HCPCS: 97802 ==

== ENCOUNTER 2022-11-18 11:00 | Outpatient (AMB) | payer OTHER, SELFPAY ==
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
== END 2022-11-18 12:00 | disposition home or self-care (01) ==
LOC: HO.HBST 11:26
PROVIDERS: PCP Internal Medicine; Visit Provider Counselor Mental Health
DX: F41.0 Panic disorder [episodic paroxysmal anxiety] (principal); F32.9 Major depressive disorder, single episode, unspecified; F43.9 Reaction to severe stress, unspecified
CPT/HCPCS: 90791

== ENCOUNTER → 2022-11-18 11:00 | Outpatient (BNVA) | payer OTHER, SELFPAY | PROVIDERS: PCP Internal Medicine; Visit Provider Counselor Mental Health ==

== ENCOUNTER 2022-12-14 12:00 | Outpatient (AMB) | payer OTHER, SELFPAY ==
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
== END 2022-12-14 13:00 | disposition home or self-care (01) ==
LOC: HO.HBST 13:01
PROVIDERS: PCP Internal Medicine; Visit Provider Counselor Mental Health
DX: F41.0 Panic disorder [episodic paroxysmal anxiety] (principal); F32.9 Major depressive disorder, single episode, unspecified; F43.9 Reaction to severe stress, unspecified
CPT/HCPCS: 90834

== ENCOUNTER → 2022-12-14 12:00 | Outpatient (BNVA) | payer OTHER, SELFPAY | PROVIDERS: PCP Internal Medicine; Visit Provider Counselor Mental Health | DX: F41.0 Panic disorder [episodic paroxysmal anxiety] (principal); F32.9 Major depressive disorder, single episode, unspecified; F43.9 Reaction to severe stress, unspecified ==

== ENCOUNTER 2022-12-22 13:48 | Outpatient (AMB) | payer OTHER, SELFPAY ==
--- NOTE | 2022-12-22 13:53 | MHC.PC.OV ---
Vital Signs 12/22/22 13:54 Height 5 ft 3 in Weight 298 lb BMI 52.8 BP 150/98 H Blood Pressure Location Lt brachial Position Sitting Pulse 108 H Pulse Source Pulse Oximeter Pulse Oximetry (%) 98 Oxygen Delivery Method Room Air Intake Visit Reasons: bp Intake Note: Patient here for a follow up BP Senior Controller Required: No Accompanied by: Self / Same As Patient Allergies aspirin [ASPIRIN] Allergy (Intermediate, Verified 12/22/22 14:12) SWELLING latex [LATEX] Allergy (Intermediate, Verified 12/22/22 14:12) Rash prednisone [PREDNISONE] Allergy (Intermediate, Verified 12/22/22 14:12) swelling and hives, swelling tramadol Allergy (Intermediate, Verified 12/22/22 14:12) loopiness Medication List - Last Reconciled 12/22/22 by Mague Irby MD amitriptyline 100 mg PO DAILY Brace,wrist Use at nighttime only for both wrists cholecalciferol (vitamin D3) 25 mcg PO DAILY 90 days clonazepam 1 mg PO BID PRN cyanocobalamin (vitamin B-12) (Vitamin B-12) 1,000 mcg PO DAILY lisinopril 10 mg PO DAILY 90 days pregabalin (Lyrica) 50 mg PO BID Tobacco use date assessed: 06/22/22 Dental Screening Dental Screen Date: 12/22/22 Did you have a dental visit in the last 12 months?: Yes Did you have a dental problem in the last 6 months where you did not have access to dental care?: No Was dental information given to patient?: Patient has dentist HPI HPI Comments History of Present Illness Details This is a 37-year-old female with morbid obesity, moderate major depression and hypertension that comes today complaining of low back pain radiating to the left leg associated with left leg numbness and tingling that has been present for about a month. No bowel or bladder incontinence. X-ray will be order and physical therapy. She is morbidly obese with a BMI of 52.8 and is enroll in weight management. Has moderate major depression follow by Psychiatry. Blood pressure is elevated and will be recheck in 3 weeks by nurse navigator. Patient is compliant with her medications. [facility] Medical History (Updated 12/22/22 @ 14:16 by Mague Irby MD) Gestational diabetes mellitus Moderate recurrent major depression Morbid obesity due to excess calories Chronic thoracic spine pain Carpal tunnel syndrome Neck pain Fibromyalgia B12 deficiency Anxiety Right sided sciatica Neuropathy Essential hypertension Arnold-Chiari malformation Surgical History History of D&C History of cholecystectomy History of section Family History Father Hypertension CVD (cardiovascular disease) Diabetes Mother Hypertension Chronic mental illness Depression Mental health disorder Paternal Aunt Breast cancer Brother Colon cancer Stomach cancer Social History Housing: Apartment Alcohol intake: never Patient Tobacco Use Status: Never used Tobacco e-Cigarette/Vaping Use: Never Used Second Hand Smoke Exposure: No service: No Current occupational status: unemployed Cognitive needs: No Hearing needs: No Vision needs: No Questionnaire Thrive Questionnaire Date Thrive assessed: 06/22/22 PAULETTE-7 AMB Questionnaire PAULETTE-7 Date PAULETTE - 7 assessed: 06/22/22 Source: Developed by Drs. Mateo Riojas, Gale Patel, Zac Quintero and colleagues, with an educational mireya from [employer]. Review of Systems Const All systems reviewed & are unremarkable except as noted in HPI and below Eyes Reports no additional complaints, Denies change in vision and Denies other visual disturbances Card Denies chest pain at rest, Denies chest pain with activity, Denies edema, Denies irregular heart rhythm, Denies claudication, Denies dyspnea, Denies dyspnea on exertion, Denies orthopnea, Denies paroxysmal nocturnal dyspnea and Denies slow heart rate Resp Denies cough, Denies dyspnea and Denies dyspnea on exertion GI Denies abdominal pain, Denies change in bowel habits, Denies excessive flatus, Denies nausea and Denies vomiting Denies urinary incontinence, Denies urinary hesitancy and Denies urinary urgency Musc Denies abnormal gait, Reports back pain, Denies atrophy, Denies deformity, Denies limited range of motion, Reports numbness and Reports tingling Skin/Breast Denies bleeding lesions, Denies changing lesions and Denies rash Neuro Denies abnormal gait, Denies lack of coordination, Reports numbness and Reports tingling Physical exam (Primary Care) Vital Signs: Last Vital Signs Pulse 108 H 12/22/22 13:54 BP 150/98 H 12/22/22 13:54 Pulse Ox 98 12/22/22 13:54 Oxygen Delivery Method Room Air 12/22/22 13:54 BMI result Body Mass Index 52.8 Tobacco/Smoking Status: Tobacco use Status Tobacco use date assessed 06/22/22 12/22/22 14:07 Patient Tobacco Use Status Never used Tobacco 12/22/22 14:07 e-Cigarette/Vaping Use Never Used 12/22/22 14:07 Thrive Assessment: Date of Thrive Assessment Date Thrive assessed 06/22/22 12/22/22 14:07 Eyes General: appearance normal, both eyes and all related structures Eyelids: Yes eyelids normal Conjunctivae: conjunctivae normal Neck Neck: Yes normal visual inspection and Yes supple Resp Effort & Inspection: normal respiratory effort Auscultation: clear to auscultation bilaterally Cardio Jugular venous distension: no JVD Rate: regular rate Rhythm: regular rhythm Heart sounds: S1 normal heart sound present and S2 normal heart sound present Extrem General: Yes full ROM Office Procedures Flu Questionnaire Does the patient have a severe egg allergy?: No Immunizations flu vacc [id number] 6mos up(PF) 60 mcg(15 mcgx4)/0.5 mL IM syringe Performing Provider: Mague Irby MD [facility] Documented (not given) by: SWATHI Kennedy on 12/22/22 14:08 Reason Not Given: Patient Refused Assessment and Plan Assessment & Plan (1) Morbid obesity due to excess calories: Code(s): E66.01 - Morbid (severe) obesity due to excess calories Plan: Follow-up with weight management (2) Moderate recurrent major depression: Code(s): F33.1 - Major depressive disorder, recurrent, moderate Plan: Continue amitriptyline. Follow-up with psychiatry. (3) Left sided sciatica: Code(s): M54.32 - Sciatica, left side Plan: Start physical therapy. (4) Essential hypertension: Code(s): I10 - Essential (primary) hypertension Plan: Continue lisinopril. Recheck blood pressure with nurse navigator in 3 weeks. Blood pressure goal is equal or less than 130/80. Orders: Orders Influenza [id number] Immunization Today Z23 - Encounter for immunization XR lumbar spine 2-3V Today M54.32 - Sciatica, left side PT Evaluation and Treatment Today M54.32 - Sciatica, left side Coding Level of Care Code Est Pt Level 4 (18181) Diagnoses Morbid obesity due to excess calories E66.01 Moderate recurrent major depression F33.1 Left sided sciatica M54.32 Essential hypertension I10 Time Spent (min) 23
[2022-12-22 13:54] VITALS: BP 150/98; PULSE 108; O2SAT 98; BMI 52.8
== END 2022-12-22 14:18 | disposition home or self-care (01) ==
PROVIDERS: PCP Internal Medicine; Visit Provider Internal Medicine
DX: I10 Essential (primary) hypertension (principal); F33.1 Major depressive disorder, recurrent, moderate; M54.32 Sciatica, left side
CPT/HCPCS: 99214

== ENCOUNTER → 2022-12-23 15:27 | Outpatient (BNVA) | payer OTHER, SELFPAY | PROVIDERS: PCP Internal Medicine; Visit Provider Dietitian, Registered | DX: E66.9 Obesity, unspecified (principal); Z71.3 Dietary counseling and surveillance | CPT/HCPCS: 97803 ==

== ENCOUNTER 2022-12-28 13:54 | Outpatient (REF) | payer OTHER, SELFPAY ==
--- NOTE | ~2022-12-28 | XR_ITS ---
EXAMINATION: XR CHEST CLINICAL INFORMATION: Morbid obesity COMPARISON: 02/01/2022 TECHNIQUE: 2 views of the chest were obtained. FINDINGS: No significant abnormality is noted involving the heart, lungs, mediastinum, bony thorax or soft tissues. XR/XR chest 2V IMPRESSION: Unremarkable examination, without interval change.
--- NOTE | ~2022-12-28 | XR_ITS ---
EXAMINATION: XR LUMBOSACRAL SPINE CLINICAL INFORMATION: Sciatica on the left COMPARISON: 03/25/2022 TECHNIQUE: Three views of the lumbosacral spine. FINDINGS: The vertebral bodies and posterior elements are normal. The disc spaces are preserved and the vertebral alignment is normal. The paraspinal soft tissues are normal. XR/XR lumbar spine 2-3V IMPRESSION: Unremarkable examination, without interval change.
--- NOTE | 2022-12-28 14:17 | ECG_ITS ---
Test Reason : morbid obesity Blood Pressure : / mmHG Vent. Rate : 097 BPM Atrial Rate : 097 BPM P-R Int : 166 ms QRS Dur : 084 ms QT Int : 354 ms P-R-T Axes : 042 034 030 degrees QTc Int : 449 ms Normal sinus rhythm Normal ECG When compared with ECG of 21-APR-2019 08:07, No significant change was found Referred By: Chantale Vega Electronically Signed By:FRANSICO MAR MD
== END 2022-12-28 13:55 | disposition home or self-care (01) ==
LOC: HO.XRAY 13:54
PROVIDERS: Absent Provider Internal Medicine; PCP Internal Medicine; Visit Provider Physician Assistant
DX: Z01.818 Encounter for other preprocedural examination (principal); E66.01 Morbid (severe) obesity due to excess calories; I10 Essential (primary) hypertension; M79.7 Fibromyalgia; Q07.00 Arnold-Chiari syndrome without spina bifida or hydrocephalus; M54.32 Sciatica, left side
CPT/HCPCS: 71046; 72100; 93005

== ENCOUNTER 2023-01-04 14:53 | Outpatient (REF) | payer OTHER, SELFPAY ==
[2023-01-04 15:14] LABS: MANUAL DIFF FLAG NO
[2023-01-04 15:30] LABS: Basophils Percent Auto 0.2 % (0-2); Eosinophils Absolute Auto 0.2 X10*3/uL (0.0-0.4); Eosinophils Percent Auto 1.8 % (0-4); Hematocrit 40.2 % (37.0-47.0); Hemoglobin 12.9 g/dl (12.0-16.0); Imm Gran Abs Auto 0.03 X10*3/uL (0.00-0.03); Imm Gran Pct Auto 0.4 % (0.0-0.4); Lymphocytes Absolute Auto 2.3 X10*3/uL (1.2-4.9); Lymphocytes Percent Auto 27.7 % (20-40); Mean Corpuscular HGB Conc 32.1 g/dl (31.0-35.0); Mean Corpuscular Hemoglobin 27.4 pg (27.0-33.0); Mean Corpuscular Volume 85.4 fL (80.0-98.0); Mean Platelet Volume 9.1 fL (9.4-12.3); Monocytes Absolute Auto 0.4 X10*3/uL (0.1-1.2); Monocytes Percent Auto 5.2 % (2-11); Neutrophils Absolute Auto 5.3 x10*3/uL (2.0-8.3); Neutrophils Percent Auto 64.7 % (45-73); Platelet Count 297 X10*3/uL (160-400); Red Blood Count 4.71 X10*6/uL (4.20-5.50); Red Cell Distribution Width 13.6 % (11.0-16.0); White Blood Count 8.3 X10*3/uL (4.8-10.8)
[2023-01-04 15:45] LABS: Estimated Average Glucose 131 mg/dL; Hemoglobin A1c % 6.2 % (<6.0)
[2023-01-04 16:00] LABS: Alanine Aminotransferase 14 U/L (0-31); Albumin Level 3.7 g/dL (3.5-5.0); Alkaline Phosphatase 98 U/L (39-117); Anion Gap 11 (12-20); Aspartate Amino Transferase 11 U/L (5-31); Bilirubin Total 0.1 mg/dL (0.0-1.0); Blood Urea Nitrogen 12 mg/dL (9-16); C Reactive Protein 1.33 mg/dL (< or = 0.50); Calcium 9.5 mg/dL (8.4-10.2); Carbon Dioxide 27 mmol/L (22-29); Chloride 105 mmol/L (96-108); Cholesterol 179 mg/dL (<200); Estimated Glomerular Filt Rate > 60; Glucose Random 183 mg/dL (60-115); HDL Cholesterol 32 mg/dL (>40); Iron 32 mcg/dL (30-160); LDL Cholesterol Calculated 106 mg/dL (<100); Percent Iron Saturation 12 % (15-50); Potassium 3.7 mmol/L (3.3-5.1); Sodium 139 mmol/L (135-145); Total Iron Binding Capacity 270 mcg/dL (228-428); Total Protein 7.3 g/dL (6.5-8.0); Triglycerides 205 mg/dL (<150); Unsaturated Iron Binding 238 ug/dL
[2023-01-04 16:16] LABS: Ferritin 49 ng/mL (10-122); Insulin 171 uU/mL (2-29); Vitamin D 25-OH Total 18.2 ng/mL (>30)
[2023-01-04 16:28] LABS: Folate 8.3 ng/mL (> or = 4.0); Vitamin B12 302 pg/mL (200-900)
[2023-01-05 16:29] LABS: Calcium (PTHI) 9.4 mg/dL (8.6-10.2); PTHI 39 pg/mL (16-77)
[2023-01-06 15:23] LABS: Zinc 52 mcg/dL (60-130)
[2023-01-07 04:44] LABS: Vitamin A 27 mcg/dL (38-98)
[2023-01-08 16:29] LABS: Vitamin B1 10 nmol/L (8-30)
== END 2023-01-04 14:54 | disposition home or self-care (01) ==
LOC: HO.LAB 14:53
PROVIDERS: Physician Assistant; PCP Internal Medicine; Visit Provider Internal Medicine Rheumatology
DX: Z01.818 Encounter for other preprocedural examination (principal); E66.01 Morbid (severe) obesity due to excess calories; I10 Essential (primary) hypertension; M79.7 Fibromyalgia; Q07.00 Arnold-Chiari syndrome without spina bifida or hydrocephalus
CPT/HCPCS: 36415; 80053; 80061; 82306; 82607; 82728; 82746; 83036; 83525; 83540; 83970; 84425; 84443; 84590; 84630; 85025; 86140

== ENCOUNTER 2023-01-11 13:51 | Outpatient (AMB) | payer OTHER, SELFPAY ==
[2023-01-11 13:55] VITALS: BP 114/80; PULSE 114; TEMP 36.1; O2SAT 99; BMI 53.1
--- NOTE | 2023-01-11 13:55 | A.OFFVIS_ITS ---
Intake Vital Signs 01/11/23 13:55 Height 5 ft 3 in Weight 300 lb 0.786 oz BMI 53.1 BP 114/80 Blood Pressure Location Rt radial Position Sitting Pulse 114 H Pulse Source Pulse Oximeter Temp 97 F Temp Source Skin Pulse Oximetry (%) 99 Oxygen Delivery Method Room Air Intake Visit Reasons: fm Intake Note: Patient presents today to follow up on fibromyalgia. Apprentice Plumber Required: Yes Apprentice Plumber Language: Cutting Machine Operator Name: Rubén [id number] Accompanied by: Self / Same As Patient Allergies aspirin [ASPIRIN] Allergy (Intermediate, Verified 01/11/23 13:57) SWELLING latex [LATEX] Allergy (Intermediate, Verified 01/11/23 13:57) Rash prednisone [PREDNISONE] Allergy (Intermediate, Verified 01/11/23 13:57) swelling and hives, swelling tramadol Allergy (Intermediate, Verified 01/11/23 13:57) loopiness Medication List - Last Reconciled 01/11/23 by Shashank Perez MD amitriptyline 100 mg PO BEDTIME Brace,wrist Use at nighttime only for both wrists buspirone 7.5 mg PO TID cholecalciferol (vitamin D3) 50 mcg PO DAILY clonazepam 1 mg PO BID PRN cyanocobalamin (vitamin B-12) (Vitamin B-12) 1,000 mcg PO DAILY fluoxetine 20 mg PO DAILY lisinopril 10 mg PO DAILY 90 days pregabalin (Lyrica) 50 mg PO BID vitamin A palmitate 3,000 mcg PO DAILY 2 weeks zinc sulfate (Orazinc) 25 mg PO DAILY zolpidem 10 mg PO BEDTIME PRN HPI HPI Comments History of Present Illness Details The patient returns for evaluation of her widespread pains. She is thought to have fibromyalgia and some osteoarthritis in the knees. She recently had some lower back films that were read as being normal. Overall she still has widespread pains involving muscles, bones and joints. It seems to be the worst in the back. This is in the lower thoracic and lumbar region. That seems to be worse when she is resting at night. It does seem to improve when she has been a bit more active. She has a history of allergy to aspirin so has not really tried NSAIDs in the past. She thinks the hands are puffy at times. She did have some physical therapy for the back last year that was not helpful. She remains on fluoxetine 20 mg daily, Lyrica 50 b.i.d., Ambien 10 mg at night, amitriptyline 100 mg at night and p.r.n. clonazepam. [facility] Medical History (Updated 01/10/23 @ 17:32 by Shashank Perez MD) Gestational diabetes mellitus Moderate recurrent major depression Morbid obesity due to excess calories Chronic thoracic spine pain Carpal tunnel syndrome Neck pain Fibromyalgia B12 deficiency Anxiety Right sided sciatica Neuropathy Essential hypertension Arnold-Chiari malformation Surgical History History of D&C History of cholecystectomy History of section Family History Father Hypertension CVD (cardiovascular disease) Diabetes Mother Hypertension Chronic mental illness Depression Mental health disorder Paternal Aunt Breast cancer Brother Colon cancer Stomach cancer Social History Housing: Apartment Alcohol intake: never Patient Tobacco Use Status: Never used Tobacco e-Cigarette/Vaping Use: Never Used Second Hand Smoke Exposure: No service: No Current occupational status: unemployed Cognitive needs: No Hearing needs: No Vision needs: No Review of Systems Const Details: Low energy. Negative for appetite change, weight change, fever, chills, malaise Eyes Details: Negative for vision change, dry eyes,headaches and dizziness GI Details: Negative indigestion/heartburn, nausea, abdominal pain, bowel changes, diarrhea, constipation and bloody stool. Skin/Breast Details: Negative for itching, rash, hives, Raynaud's symptoms, sun sensitivity, and skin cancer Psych Details: anxiety, depression stable with current medication. Endo Details: Negative for polyuria and polydypsia Rell/Lymph Details: Negative for excessive bruising or bleeding. Physical Exam Vital Signs: Last Vital Signs Temp 97 F 01/11/23 13:55 Pulse 114 H 01/11/23 13:55 BP 114/80 01/11/23 13:55 Pulse Ox 99 01/11/23 13:55 Oxygen Delivery Method Room Air 01/11/23 13:55 BMI result Body Mass Index 53.1 APPEARANCE: Patient in no acute distress EYES no redness, pupils equal and reactive to light, eyelids normal ABD: Normal bowel sounds, no organomegaly, masses or tenderness. EXTREMITIES: No edema, no calf tenderness, normal peripheral pulses. SKIN: No inflammatory or neoplastic lesions. Normal color and turgor JOINT EXAM: Cervical Spine:.? Full range of motion with mild pain at the extremes. There is some posterior cervical muscle tenderness. Thoracic Spine:.? No scoliosis.? No tenderness on palpation. Lumbar Spine:.? Alignment normal.? Lumbar pain with flexion at 60 degrees. Some paraspinal muscle tenderness. Chest Wall:.? No tenderness, swelling, increased warmth or erythema. Hands:.? Normal pain-free range of motion with slight tenderness across the PIP joints. Otherwise there is no other tenderness. There is no flexor tendon triggering or tenderness, soft tissue swelling, increased warmth or erythema. There is no thenar eminence atrophy or sensory loss. Wrists:.? Normal pain-free range of motion without tenderness, swelling, increased warmth or erythema. Elbows:. Normal pain-free range of motion without tenderness, swelling, increased warmth or erythema. Shoulders:.?? Full range of motion without pain. No tenderness, weakness, swelling, increased warmth or erythema. Hips:? Full range of motion without pain. Hip bursa:? No tenderness. Knees:?? Normal pain-free range of motion with some valgus deformity. There is some slight patellofemoral crepitus and medial compartment tenderness but no effusion,swelling, increased warmth or erythema.? Ankles:.? Normal pain-free range of motion without tenderness, swelling, increased warmth or erythema. Feet:? Normal pain-free range of motion without tenderness, swelling, increased warmth or erythema. Tender points: mild tenderness to digital palpation at the occiput, trapezius, second rib, lateral epicondyle, knees, greater trochanter and gluteal area bilaterally. ? Results Reviewed Results Reviewed: Laboratory Tests 01/04/23 15:13 WBC 8.3 Hgb 12.9 Creatinine 0.70 C-Reactive Protein 1.[address] [address] XRay Report Signed Patient: Beth Morelos : 1985 Acct:[id number] Age/Sex: 37 / F ADM Date: 12/28/[address]: Chantale Vega PA-C Ordering Physician: Mague Brantley MD Date of Service: 12/28/22 Procedure(s): XR lumbar spine 2-3V Accession Number(s): [id number] cc: Mague Brantley MD~ EXAMINATION: XR LUMBOSACRAL SPINE CLINICAL INFORMATION: Sciatica on the left COMPARISON: 03/25/2022 TECHNIQUE: Three views of the lumbosacral spine. FINDINGS: The vertebral bodies and posterior elements are normal. The disc spaces are preserved and the vertebral alignment is normal. The paraspinal soft tissues are normal. XR/XR lumbar spine 2-3V IMPRESSION: Unremarkable examination, without interval change. Dictated By: Cedrick May MD Signed By: <Electronically signed by Cedrick May MD in OV> 12/30/22 1435 DD/ 1458 Assessment & Plan Assessment & Plan (1) Fibromyalgia: Code(s): M79.7 - Fibromyalgia Plan She again has widespread pains but no signs on exam of synovitis in peripheral joints. The characteristic of her back pain being worse at night and improved with X exercise does suggest inflammatory back problem such as a spondyloarthritis. I do not see any signs of inflammatory eye disease, skin disease or GI disease however. Additionally I am not sure the SI joints are totally normal; on her x-ray, there seems to be some degree of the SI joint sclerosis. We will see if we get a response to a regular use of meloxicam 15 mg daily in terms of her back pain. A recheck in 2 months would be reasonable. She has already had physical therapy so if the meloxicam is not helpful we may consider MRI of the SI joints looking for inflammatory changes. Orders: Orders C Reactive Protein Today M79.7 - Fibromyalgia Erythrocyte Sedimentation Rate Today M79.7 - Fibromyalgia Medications: New meloxicam 15 mg PO DAILY 30 tabs 1RF M79.7 - Fibromyalgia Discontinued zinc sulfate (Orazinc) Discontinued Reason: Duplicate 25 mg PO DAILY 30 tabs 4RF Coding Level of Care Code Est Pt Level 3 (64214) Diagnoses Fibromyalgia M79.7
== END 2023-01-11 14:25 | disposition home or self-care (01) ==
LOC: HO.RHE 13:51
PROVIDERS: PCP Internal Medicine; Visit Provider Internal Medicine Rheumatology
DX: M79.7 Fibromyalgia (principal)
CPT/HCPCS: 99213

== ENCOUNTER → 2023-01-11 13:51 | Outpatient (BNVA) | payer OTHER, SELFPAY | PROVIDERS: PCP Internal Medicine; Visit Provider Internal Medicine Rheumatology | DX: M79.7 Fibromyalgia (principal) | CPT/HCPCS: 99212 ==

== ENCOUNTER 2023-02-08 13:15 | Outpatient (AMB) | payer OTHER, SELFPAY ==
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
== END 2023-02-08 14:00 | disposition home or self-care (01) ==
LOC: HO.HBST 13:27
PROVIDERS: PCP Internal Medicine; Visit Provider Counselor Mental Health
DX: F41.0 Panic disorder [episodic paroxysmal anxiety] (principal); F32.9 Major depressive disorder, single episode, unspecified; F43.9 Reaction to severe stress, unspecified
CPT/HCPCS: 90834

== ENCOUNTER → 2023-02-08 13:15 | Outpatient (BNVA) | payer OTHER, SELFPAY | PROVIDERS: PCP Internal Medicine; Visit Provider Counselor Mental Health ==

== ENCOUNTER 2023-02-08 15:54 | Outpatient (AMB) | payer OTHER, SELFPAY ==
--- NOTE | 2023-02-08 12:51 | A.OFFVIS_ITS ---
Intake VS Expanded 02/08/23 15:40 Height 5 ft 3 in Weight 292 lb 4 oz BMI 51.8 Intake Visit Reasons: VIDEO F/U SWL Allergies aspirin [ASPIRIN] Allergy (Intermediate, Verified 01/11/23 13:57) SWELLING latex [LATEX] Allergy (Intermediate, Verified 01/11/23 13:57) Rash prednisone [PREDNISONE] Allergy (Intermediate, Verified 01/11/23 13:57) swelling and hives, swelling tramadol Allergy (Intermediate, Verified 01/11/23 13:57) loopiness Medication List - Last Reconciled 02/08/23 by Chantale Vega PA-C amitriptyline 100 mg PO BEDTIME Brace,wrist Use at nighttime only for both wrists buspirone 7.5 mg PO TID cholecalciferol (vitamin D3) 50 mcg PO DAILY clonazepam 1 mg PO BID PRN cyanocobalamin (vitamin B-12) (Vitamin B-12) 1,000 mcg PO DAILY fluoxetine 20 mg PO DAILY lisinopril 10 mg PO DAILY 90 days meloxicam 15 mg PO DAILY pregabalin (Lyrica) 50 mg PO BID vitamin A 3,000 mcg PO DAILY 14 days zinc gluconate 30 mg PO DAILY zolpidem 10 mg PO BEDTIME PRN HPI HPI Comments History of Present Illness Details This is the patients second appt for SWL. Starting weight was 295 lbs on 11/05/22. TBWL is 2.6 lbs Has chronic back pain, saw radiation oncology nurse and was started on an inflammatory. States she can not exercise but can walk up to 40 minutes per day. Meal plan: coffee with UAM, diet sugar 10am - 2 eggs with peppers and onions an d tomato, 1 piece of ham. water 12 pm- yogurt 4 -5 pm- (hand size) salad /broccoli and protein- 6 oz 8 pm - 30 gram shake Exercise - was referred to PT - no call back yet. Pre op work up completed as follows: SWL classes - - no access to internet?? NIRAJ appts - seen by Lucia galvez 2, follow up was scheduled for 01/18 - missed appt, had appt today cleared. has her own therapist and prescriber also. RD appts -seen on 12/23 - no weight that day, no follow up yet H pylori - negative Labs - HgbA1C 6.2, vit D and A deficient CXR and ECG - both normal ULS and UGI - were on 12/28 and 01/25 - missed both Contraception- BTL [facility] Medical History (Updated 01/10/23 @ 17:32 by Shashank Perez MD) Gestational diabetes mellitus Moderate recurrent major depression Morbid obesity due to excess calories Chronic thoracic spine pain Carpal tunnel syndrome Neck pain Fibromyalgia B12 deficiency Anxiety Right sided sciatica Neuropathy Essential hypertension Arnold-Chiari malformation Surgical History History of D&C History of cholecystectomy History of section Family History Father Hypertension CVD (cardiovascular disease) Diabetes Mother Hypertension Chronic mental illness Depression Mental health disorder Paternal Aunt Breast cancer Brother Colon cancer Stomach cancer Social History Housing: Apartment Alcohol intake: never Patient Tobacco Use Status: Never used Tobacco e-Cigarette/Vaping Use: Never Used Second Hand Smoke Exposure: No service: No Current occupational status: unemployed Cognitive needs: No Hearing needs: No Vision needs: No Assessment & Plan Assessment & Plan (1) Morbid obesity due to excess calories: Code(s): E66.01 - Morbid (severe) obesity due to excess calories Plan: Pt has been in our program for 3 months and has only lost 2.6 lbs. She is not following our meal plan and has not made an attempt to get any exercise. She missed bothof her UGI and ULS appt and has not watched any SWL classes, she has not communicated with me since her ROD BENDING MACHINE OPERATOR appt. Meal plan - 10am shake - stop eggs in am 2pm bar 5pm - meal of 12 forks each protein and vegetables 8pm - shake Exercise - call PT for appt. Walk at her pace for 30 minutes daily. Text me weekly weights and will discuss her exercise. Will not reorder any missed studies until she show progess. Will be scheduled to watch SWL classes in the office. Next appt with me in 3 weeks. Patient is still morbidly obese and is not considered stable at this time. I spent 28 minutes in total speaking with the patient via video conference counseling , reviewing records and charting in patients chart. . (2) Fibromyalgia: Code(s): M79.7 - Fibromyalgia (3) Essential hypertension: Code(s): I10 - Essential (primary) hypertension (4) Arnold-Chiari malformation: Code(s): Q07.00 - Arnold-Chiari syndrome without spina bifida or hydrocephalus Plan see above Telehealth Telehealth Location of provider rendering services: practice address Location of patient: address on file Patient Identification confirmed using: Name, : Yes Telehealth method: video Patient verbally consented to treatment: Yes Patient verbally consented to billing insurance company: Yes Patient informed of any privacy concerns related to visit: Yes Coding Level of Care Code Tele Est Pt Level 4 (83417) Diagnoses Morbid obesity due to excess calories E66.01 Fibromyalgia M79.7 Essential hypertension I10 Arnold-Chiari malformation Q07.00
[2023-02-08 15:40] VITALS: BMI 51.8
== END 2023-02-08 16:04 | disposition home or self-care (01) ==
LOC: HO.HBS 15:54
PROVIDERS: PCP Internal Medicine; Visit Provider Physician Assistant
DX: E66.01 Morbid (severe) obesity due to excess calories (principal); M79.7 Fibromyalgia; I10 Essential (primary) hypertension; Q07.00 Arnold-Chiari syndrome without spina bifida or hydrocephalus
CPT/HCPCS: 99214

== ENCOUNTER 2023-03-15 15:30 | Outpatient (AMB) | payer OTHER, SELFPAY ==
--- NOTE | 2023-03-15 13:25 | MHC.OFFVISWM ---
Intake VS Expanded 03/15/23 15:32 Height 5 ft 3 in Weight 289 lb BMI 51.2 Intake Visit Reasons: (TV) F/U SWL Allergies aspirin [ASPIRIN] Allergy (Intermediate, Verified 01/11/23 13:57) SWELLING latex [LATEX] Allergy (Intermediate, Verified 01/11/23 13:57) Rash prednisone [PREDNISONE] Allergy (Intermediate, Verified 01/11/23 13:57) swelling and hives, swelling tramadol Allergy (Intermediate, Verified 01/11/23 13:57) loopiness HPI HPI Comments History of Present Illness Details Starting weight was 295 lbs on 11/05/22. TBWL is 6 lbs. Has chronic back pain, saw antenna specialist and was started on an inflammatory. minutes per day. Meal plan: coffee with UAM, diet sugar 10am - [employer] shake 1:30 pm- 6 oz chicken breast and 6 oz brocolli (only vegetable she likes0 and 1 egg (not measured) 5 pm - yogurt 7:30 pm - [employer] Exercise - back hurts a lot. Every other day - stretching only. Pre op work up completed as follows: SWL classes - - poor access to internet. - Has appt on Mar 26 appts - seen by Lucia galvez 2, follow up was scheduled for 01/18 - missed appt, had appt today cleared. has her own therapist and prescriber also. RD appts -seen on 12/23 - no weight that day, - will schedule appt after all classes watched. H pylori - negative Labs - HgbA1C 6.2, vit D and A deficient CXR and ECG - both normal ULS and UGI - were on 12/28 and 01/25 - missed both, ULS now scheduled for 04/07. Contraception- [facility] Medical History (Updated 01/10/23 @ 17:32 by Shashank Perez MD) Gestational diabetes mellitus Moderate recurrent major depression Morbid obesity due to excess calories Chronic thoracic spine pain Carpal tunnel syndrome Neck pain Fibromyalgia B12 deficiency Anxiety Right sided sciatica Neuropathy Essential hypertension Arnold-Chiari malformation Surgical History History of D&C History of cholecystectomy History of section Family History Father Hypertension CVD (cardiovascular disease) Diabetes Mother Hypertension Chronic mental illness Depression Mental health disorder Paternal Aunt Breast cancer Brother Colon cancer Stomach cancer Social History Housing: Apartment Alcohol intake: never Patient Tobacco Use Status: Never used Tobacco e-Cigarette/Vaping Use: Never Used Second Hand Smoke Exposure: No service: No Current occupational status: unemployed Cognitive needs: No Hearing needs: No Vision needs: No Assessment & Plan Assessment & Plan (1) Morbid obesity due to excess calories: Code(s): E66.01 - Morbid (severe) obesity due to excess calories Plan: Has only lost 6 lbs since October, no classes yet and missed both UGI and ULS. She states she is now ready to adhere to the plans. Discussed the following changes Switch to powdered shake when needs to buy more. Premier or Orgain mixed with water 2 shakes per day 1 yogurt Meal to be measured in 12 forks each protein and vegetables Exercise - LS 1 mile daily for 7 days. ULS - 04/07 UGI - to be rescheduled by pt. Will watch SWL classes in office and tehn have follow up with Alpesh. Next appt with me in 3 weeks, pt told she MUST purchase the correct bluetooth scale and text me weekly weights. Patient is still morbidly obese and is not considered stable at this time. I spent 30 minutes in total speaking with the patient via video conference counseling , reviewing records and charting in patients chart. . Appt with me in 3 weeks. Telehealth Telehealth Location of provider rendering services: practice address Location of patient: address on file Patient Identification confirmed using: Name, : Yes Telehealth method: video Patient verbally consented to treatment: Yes Patient verbally consented to billing insurance company: Yes Patient informed of any privacy concerns related to visit: Yes Coding Level of Care Code Tele Est Pt Level 4 (54859) Diagnoses Morbid obesity due to excess calories E66.01
[2023-03-15 15:32] VITALS: BMI 51.2
== END 2023-03-15 15:53 | disposition home or self-care (01) ==
LOC: HO.HBS 15:52
PROVIDERS: PCP Internal Medicine; Visit Provider Physician Assistant
DX: E66.01 Morbid (severe) obesity due to excess calories (principal)
CPT/HCPCS: 99214

== ENCOUNTER → 2023-03-15 15:30 | Outpatient (BNVA) | payer OTHER, SELFPAY | PROVIDERS: PCP Internal Medicine; Visit Provider Physician Assistant | DX: E66.01 Morbid (severe) obesity due to excess calories (principal) ==

== ENCOUNTER → 2023-03-22 13:48 | Outpatient (BNVA) | payer OTHER, SELFPAY | PROVIDERS: PCP Internal Medicine; Visit Provider Physician Assistant ==

== ENCOUNTER 2023-04-07 08:55 | Outpatient (REF) | payer OTHER, SELFPAY ==
--- NOTE | ~2023-04-07 | US_ITS ---
EXAMINATION: US COMPLETE ABDOMEN WITH LIVER ELASTOGRAPHY CLINICAL INFORMATION: Morbid obesity. COMPARISON: Abdominal ultrasound dated 05/01/2019. TECHNIQUE: Real-time imaging of the abdominal viscera. Noninvasive ultrasound liver fibrosis assessment is performed using [employer] ElastPQ point quantification shear wave elastography (2D-SWE) with a C5-2 MHz transducer. Multiple elastography samples are obtained. FINDINGS: PANCREAS: Limited. The visualized pancreatic head and body are normal in appearance. The remainder of the pancreas is obscured from visualization by the overlying bowel gas. ABDOMINAL AORTA: The proximal, middle, and distal aortic segments are normal in caliber. INFERIOR VENA CAVA: Visualized portions are normal. LIVER: The liver demonstrates normal size, contour and increased echogenicity. No focal lesion or intrahepatic biliary duct dilatation. The right lobe measures 18.4 cm in length. The left lobe measures 11.4 cm in length. Portal flow is towards the liver (hepatopetal). Shear wave liver elastography median stiffness is 1.88 m/s (reference: normal median stiffness is 1.3 m/s or less). IQR/median stiffness to assess sampling precision is 0.11 (reference: good quality data set is IQR/median stiffness of 0.15 or less). GALLBLADDER: Surgically absent. COMMON BILE DUCT: Normal in caliber measuring 0.3 cm in diameter. RIGHT KIDNEY: Normal. No hydronephrosis. No renal calculi or focal parenchymal lesions. The kidney measures 10.3 cm in maximum dimension. LEFT KIDNEY: Normal. No hydronephrosis. No renal calculi or focal parenchymal lesions. The kidney measures 11.1 cm in maximum dimension. SPLEEN: Normal. The spleen measures 10.4 cm in maximum dimension. FREE FLUID: None. US/US abdomen comp w elastography IMPRESSION: 1. There is generalized increase in hepatic echotexture, consistent with fatty infiltration or hepatocellular disease. Please correlate clinically. No focal hepatic mass or intrahepatic biliary dilatation is seen. 2. Liver elastography: Measurements are suggestive of compensated advanced chronic liver disease but need further test for confirmation. 3. The gallbladder surgically absent. REFERENCE: Society of Radiologists in Ultrasound Liver Stiffness Thresholds (2020): LIVER STIFFNESS THRESHOLDS: *Liver Stiffness equal or less than 1.3 m/s: High probability of being normal. *Liver Stiffness less than 1.7 m/s: In the absence of other known clinical signs, rules out compensated advanced chronic liver disease. *Liver Stiffness 1.7-2.1 m/s: Suggestive of compensated advanced chronic liver disease but need further test for confirmation. *Liver Stiffness over 2.1 m/s: Rules in compensated advanced chronic liver disease. *Liver Stiffness over 2.4 m/s: Suggestive of clinically significant portal hypertension. QUALITY OF DATA SET: *IQR/Median value equal or less than 0.15 implies a quality data set. *IQR/Median value over 0.15 implies a poor quality data set. SIGNIFICANT CHANGE FROM PRIOR EXAM: Significant change if liver stiffness measurement is 10% or greater from prior exam. OTHER CONSIDERATIONS: The stage of liver fibrosis may be overestimated in the setting of acute hepatitis, liver inflammation, elevated liver function tests, hepatic vascular congestion, obstructive cholestasis, non-fasting state, and infiltrative diseases such as amyloidosis and lymphoma. In some patients with NAFLD, the liver stiffness thresholds for compensated advanced chronic liver disease may be lower. In causes other than viral hepatitis and NAFLD, liver stiffness thresholds are not well established.
== END 2023-04-07 08:56 | disposition home or self-care (01) ==
LOC: HO.US 08:55
PROVIDERS: PCP Internal Medicine; Visit Provider Physician Assistant
DX: Z01.818 Encounter for other preprocedural examination (principal); E66.01 Morbid (severe) obesity due to excess calories; Q07.00 Arnold-Chiari syndrome without spina bifida or hydrocephalus; I10 Essential (primary) hypertension; M79.7 Fibromyalgia
CPT/HCPCS: 76700; 76981

== ENCOUNTER 2023-04-19 13:40 | Outpatient (AMB) | payer OTHER, SELFPAY ==
--- NOTE | 2023-04-19 13:37 | A.OFFVIS_ITS ---
Intake Intake Visit Reasons: (TV) F/U SWL Network Operations Center Engineer Required: Yes Network Operations Center Engineer Name: Ramakrishna [id number] Information Interpreted: non-clinical & clinical Allergies aspirin [ASPIRIN] Allergy (Intermediate, Verified 01/11/23 13:57) SWELLING latex [LATEX] Allergy (Intermediate, Verified 01/11/23 13:57) Rash prednisone [PREDNISONE] Allergy (Intermediate, Verified 01/11/23 13:57) swelling and hives, swelling tramadol Allergy (Intermediate, Verified 01/11/23 13:57) loopiness HPI Nutrition Presentation Reason for consult elevated BMI Diet Assmnt Details We did not discuss her current intake due to time constraints of the appt. [facility] online classes: completed but today pt is unable to verbalize anything covered. Unable to verbalize first foods unable to verbalize mashed potatoes or applesauce as carbs and inappropriate in early stages . inaccurately categorizes foods by macronutrient Exercise: none, pt reports she has pain in her back, legs, and entire body Previous weight loss methods attempted Her goal is lose weight and have better BP control. She reports first being concerned about her weight 2021, last child. She has tried multiple methods of weight loss including low carb diet, our WMP program over 3 years ago without permanent results.She has lost 20 lbs over last few weeks - changed her diet Dietary counseling reduction Who buys your food self Who prepares/cooks your food self Diagnosis Nutrition problem #1 overweight/obesity As related to (etiology) #1 excess energy intake and physical inactivity As evidenced by (sign/symptom) #1 high BMI Monitoring/Goals Nutrition problem monitoring total energy intake, level of knowledge/skill, total PRO intake, total CHO intake and weight Outcome progress applied knowledge Learning/Education Readiness to learn good Stages of change action Educational materials provided Yes Most Recent Diabetes Results: No Data to Display [facility] Medical History (Updated 01/10/23 @ 17:32 by Shashank Perez MD) Gestational diabetes mellitus Moderate recurrent major depression Morbid obesity due to excess calories Chronic thoracic spine pain Carpal tunnel syndrome Neck pain Fibromyalgia B12 deficiency Anxiety Right sided sciatica Neuropathy Essential hypertension Arnold-Chiari malformation Surgical History History of D&C History of cholecystectomy History of section Family History Father Hypertension CVD (cardiovascular disease) Diabetes Mother Hypertension Chronic mental illness Depression Mental health disorder Paternal Aunt Breast cancer Brother Colon cancer Stomach cancer Social History Housing: Apartment Alcohol intake: never Patient Tobacco Use Status: Never used Tobacco e-Cigarette/Vaping Use: Never Used Second Hand Smoke Exposure: No service: No Current occupational status: unemployed Cognitive needs: No Hearing needs: No Vision needs: No Assessment & Plan Assessment & Plan (1) Morbid obesity due to excess calories: Code(s): E66.01 - Morbid (severe) obesity due to excess calories Plan would really benefit from more education. Provided education today in the appt and also via email. continue follow ups as scheduled. Telehealth Telehealth Location of provider rendering services: practice address Location of patient: address on file Patient Identification confirmed using: Name, : Yes Telehealth method: voice only Patient verbally consented to treatment: Yes Patient verbally consented to billing insurance company: Yes Patient informed of any privacy concerns related to visit: Yes Minutes spent on Phone/Video with Pt.: 30 Coding Level of Care Code Nutr Indiv Subseq (27365) Diagnoses Morbid obesity due to excess calories E66.01 Time Spent (min) 30
== END 2023-04-19 13:51 | disposition home or self-care (01) ==
LOC: HO.HBS 13:41
PROVIDERS: PCP Internal Medicine; Visit Provider Dietitian, Registered
DX: E66.01 Morbid (severe) obesity due to excess calories (principal)

== ENCOUNTER → 2023-04-19 13:40 | Outpatient (BNVA) | payer OTHER, SELFPAY | PROVIDERS: PCP Internal Medicine; Visit Provider Dietitian, Registered | DX: E66.01 Morbid (severe) obesity due to excess calories (principal) | CPT/HCPCS: 97803 ==

== ENCOUNTER 2023-04-26 08:59 | Outpatient (REF) | payer OTHER, SELFPAY ==
[2023-04-26 09:22] LABS: MANUAL DIFF FLAG NO
[2023-04-26 09:45] LABS: Basophils Percent Auto 0.3 % (0-2); Eosinophils Absolute Auto 0.1 X10*3/uL (0.0-0.4); Eosinophils Percent Auto 1.1 % (0-4); Hematocrit 42.3 % (37.0-47.0); Hemoglobin 13.5 g/dl (12.0-16.0); Imm Gran Abs Auto 0.01 X10*3/uL (0.00-0.03); Imm Gran Pct Auto 0.2 % (0.0-0.4); Lymphocytes Absolute Auto 1.8 X10*3/uL (1.2-4.9); Lymphocytes Percent Auto 27.6 % (20-40); Mean Corpuscular HGB Conc 31.9 g/dl (31.0-35.0); Mean Corpuscular Hemoglobin 27.7 pg (27.0-33.0); Mean Corpuscular Volume 86.7 fL (80.0-98.0); Monocytes Absolute Auto 0.4 X10*3/uL (0.1-1.2); Monocytes Percent Auto 5.8 % (2-11); Neutrophils Absolute Auto 4.1 x10*3/uL (2.0-8.3); Platelet Count 253 X10*3/uL (160-400); Red Blood Count 4.88 X10*6/uL (4.20-5.50); Red Cell Distribution Width 13.7 % (11.0-16.0); White Blood Count 6.4 X10*3/uL (4.8-10.8)
[2023-04-26 10:26] LABS: Alanine Aminotransferase 17 U/L (0-31); Albumin Level 3.9 g/dL (3.5-5.0); Alkaline Phosphatase 81 U/L (39-117); Anion Gap 9 (12-20); Aspartate Amino Transferase 13 U/L (5-31); Bilirubin Total 0.3 mg/dL (0.0-1.0); Blood Urea Nitrogen 16 mg/dL (9-16); Calcium 8.8 mg/dL (8.4-10.2); Carbon Dioxide 24 mmol/L (22-29); Chloride 110 mmol/L (96-108); Cholesterol 180 mg/dL (<200); Estimated Glomerular Filt Rate > 60; Glucose Fasting 102 mg/dL (60-99); HDL Cholesterol 35 mg/dL (>40); LDL Cholesterol Calculated 132 mg/dL (<100); Sodium 139 mmol/L (135-145); Total Protein 7.3 g/dL (6.5-8.0); Triglycerides 68 mg/dL (<150)
[2023-04-26 10:47] LABS: Thyroid Stimulating Hormone 0.84 uIU/mL (0.32-4.0); Vitamin D 25-OH Total 16.1 ng/mL (>30)
[2023-04-26 10:52] LABS: Vitamin B12 331 pg/mL (200-900)
== END 2023-04-26 09:00 | disposition home or self-care (01) ==
LOC: HO.LAB 08:59
PROVIDERS: Absent Provider Internal Medicine Rheumatology; PCP Internal Medicine; Referring Provider Physician Assistant; Visit Provider Internal Medicine
DX: I10 Essential (primary) hypertension (principal); E66.01 Morbid (severe) obesity due to excess calories; E55.9 Vitamin D deficiency, unspecified; E53.8 Deficiency of other specified B group vitamins; E78.5 Hyperlipidemia, unspecified
CPT/HCPCS: 36415; 80053; 80061; 82306; 82607; 82746; 84443; 85025

== ENCOUNTER 2023-04-27 14:13 | Outpatient (AMB) | payer OTHER, SELFPAY ==
--- NOTE | 2023-04-27 14:53 | A.OFFVIS_ITS ---
Intake Vital Signs 04/27/23 14:54 Height 5 ft 3 in Weight 284 lb 6.341 oz BMI 50.4 BP 124/82 Blood Pressure Location Rt brachial Pulse 91 Pulse Source Pulse Oximeter Temp 97.4 F Temp Source Skin Pulse Oximetry (%) 96 Oxygen Delivery Method Room Air Intake Visit Reasons: lbp, fm with associate professor of kinesiology Intake Note: Patient last seen 01/11/[address] Perez, presents today for follow up and test results. Reports Meloxicam helped with sx's. c/ back pain and shoulder pain x 1.5 mo Power Barker Operator Required: Yes Power Barker Operator Language: Devulcanizer Tender Name: Pippa [id number] Information Interpreted: clinical only Accompanied by: Self / Same As Patient Allergies aspirin [ASPIRIN] Allergy (Intermediate, Verified 04/27/23 14:54) SWELLING latex [LATEX] Allergy (Intermediate, Verified 04/27/23 14:54) Rash prednisone [PREDNISONE] Allergy (Intermediate, Verified 04/27/23 14:54) swelling and hives, swelling tramadol Allergy (Intermediate, Verified 04/27/23 14:54) loopiness HPI HPI Comments History of Present Illness Details Ms. Campos 38yoF returns for follow up. She is thought to have fibromyalgia and some osteoarthritis in the knees. Overall she still has widespread pains involving muscles, bones and joints. She reports that it is worst in the back and shoulders This is in the lower thoracic and lumbar region. That seems to be worse when she is resting at night. It does seem to improve when she has been a bit more active. She has a history of allergy to aspirin so has not really tried NSAIDs in the past. She thinks the hands are puffy in the mornings but improves as she gets active. She did have some physical therapy for the back last year that was not helpful. She remains on fluoxetine 20 mg daily, Lyrica 50 b.i.d., Ambien 10 mg at night, amitriptyline 100 mg at night and p.r.n. clonazepam. [facility] Medical History (Updated 04/29/23 @ 00:59 by Christina Estrella, EVITA-GILDA) Lumbar pain with radiation down both legs Shoulder pain, bilateral Bilateral shoulder tendinopathy Gestational diabetes mellitus Moderate recurrent major depression Morbid obesity due to excess calories Chronic thoracic spine pain Carpal tunnel syndrome Neck pain Fibromyalgia B12 deficiency Anxiety Right sided sciatica Neuropathy Essential [facility] History History of D&C History of cholecystectomy History of section Family History Father Hypertension CVD (cardiovascular disease) Diabetes Mother Hypertension Chronic mental illness Depression Mental health disorder Paternal Aunt Breast cancer Brother Colon cancer Stomach cancer Social History Housing: Apartment Alcohol intake: never Patient Tobacco Use Status: Never used Tobacco e-Cigarette/Vaping Use: Never Used Second Hand Smoke Exposure: No service: No Current occupational status: unemployed Cognitive needs: No Hearing needs: No Vision needs: No Review of Systems Const All systems reviewed & are unremarkable except as noted in HPI and below Physical Exam Vital Signs: Last Vital Signs Temp 97.4 F 04/27/23 14:54 Pulse 91 04/27/23 14:54 BP 124/82 04/27/23 14:54 Pulse Ox 96 04/27/23 14:54 Oxygen Delivery Method Room Air 04/27/23 14:54 BMI result Body Mass Index 50.4 APPEARANCE: Patient in no acute distress EYES no redness, pupils equal and reactive to light, eyelids normal ABD: Normal bowel sounds, no organomegaly, masses or tenderness. EXTREMITIES: No edema, no calf tenderness, normal peripheral pulses. SKIN: No inflammatory or neoplastic lesions. Normal color and turgor JOINT EXAM: Cervical Spine:.? Full range of motion with mild pain at the extremes. There is some posterior cervical muscle tenderness. Thoracic Spine:.? No scoliosis.? No tenderness on palpation. Lumbar Spine:.? Alignment normal.? Lumbar pain with flexion at 60 degrees. Some paraspinal muscle tenderness. Chest Wall:.? No tenderness, swelling, increased warmth or erythema. Hands:.? Normal pain-free range of motion with slight tenderness across the PIP joints. Otherwise there is no other tenderness. There is no flexor tendon triggering or tenderness, soft tissue swelling, increased warmth or erythema. There is no thenar eminence atrophy or sensory loss. Wrists:.? Normal pain-free range of motion without tenderness, swelling, increased warmth or erythema. Elbows:. Normal pain-free range of motion without tenderness, swelling, increased warmth or erythema. Shoulders:.?? Decreased range of motion with pain and tenderness but no weakness, swelling, increased warmth or erythema. Unable to lifet past 90 degrees. Hips:? Full range of motion without pain. Hip bursa:? No tenderness. Knees:?? Normal pain-free range of motion with some valgus deformity. There is some slight patellofemoral crepitus and medial compartment tenderness but no effusion,swelling, increased warmth or erythema.? Ankles:.? Normal pain-free range of motion without tenderness, swelling, increased warmth or erythema. Feet:? Normal pain-free range of motion without tenderness, swelling, increased warmth or erythema. Tender points: mild tenderness to digital palpation at the occiput, trapezius, second rib, lateral epicondyle, knees, greater trochanter and gluteal area bilaterally. ? Results Reviewed Results Reviewed: Laboratory Tests 01/04/23 15:13 WBC 8.3 Hgb 12.9 Creatinine 0.70 C-Reactive Protein 1.33 H [place] [id number] XRay Report Signed Patient: Beth Morelos : 1985 Acct:[id number] Age/Sex: 37 / F ADM Date: 12/28/[address]: Chantale Vega PA-C Ordering Physician: Mague Brantley MD Date of Service: 12/28/22 Procedure(s): XR lumbar spine 2-3V Accession Number(s): [id number] cc: Mague Brantley MD~ EXAMINATION: XR LUMBOSACRAL SPINE CLINICAL INFORMATION: Sciatica on the left COMPARISON: 03/25/2022 TECHNIQUE: Three views of the lumbosacral spine. FINDINGS: The vertebral bodies and posterior elements are normal. The disc spaces are preserved and the vertebral alignment is normal. The paraspinal soft tissues are normal. XR/XR lumbar spine 2-3V IMPRESSION: Unremarkable examination, without interval change. Dictated By: Cedrick May MD Signed By: <Electronically signed by Cedrick May MD in OV> 12/30/22 1435 DD/ 1458 Assessment & Plan Assessment & Plan (1) Fibromyalgia: Code(s): M79.7 - Fibromyalgia (2) Bilateral shoulder tendinopathy: Code(s): M67.911 - Unspecified disorder of synovium and tendon, right shoulder; M67.912 - Unspecified disorder of synovium and tendon, left shoulder (3) Shoulder pain, bilateral: Code(s): M25.511 - Pain in right shoulder; M25.512 - Pain in left shoulder (4) Lumbar pain with radiation down both legs: Code(s): M54.50 - Low back pain, unspecified; M79.604 - Pain in right leg; M79.605 - Pain in left leg Plan #Fibromyalgia: Ms Campos continues with widespread pains but no signs on exam of synovitis in peripheral joints. The characteristic of her back pain being worse at night and improved with exercise does suggest inflammatory back problem such as a spondyloarthritis. I do not see any signs of inflammatory eye disease, skin disease or GI concerns however. The report says the SI joints are blas on her x-ray but visually there seems to be some degree of the SI joint sclerosis. She reports that meloxicam 15 mg daily in terms of her back pain helps a little. She has an elevated CRP. She is being worked up for weightloss surgery and has lost 15 lbs. After this we can revaluate and see if her joint pains improved and consider if any further intervention is needed. I recommend PT for her shoulders given it was helpful for her back. F/u in 6 months Orders: Orders PT Evaluation and Treatment 04/27/23 M25.511 - Pain in right shoulder, M25.512 - Pain in left shoulder, M67.911 - Unspecified disorder of synovium and tendon, right shoulder, M67.912 - Unspecified disorder of synovium and tendon, left shoulder Coding Level of Care Code Est Pt Level 4 (42776) Diagnoses Fibromyalgia M79.7 Bilateral shoulder tendinopathy M67.911; M67.912 Shoulder pain, bilateral M25.511; M25.512 Lumbar pain with radiation down both legs M54.50; M79.604; M79.605
[2023-04-27 14:54] VITALS: BP 124/82; PULSE 91; TEMP 36.3; O2SAT 96; BMI 50.4
== END 2023-04-27 15:19 | disposition home or self-care (01) ==
PROVIDERS: PCP Internal Medicine; Visit Provider Nurse Practitioner Family
DX: M79.7 Fibromyalgia (principal); M67.911 Unspecified disorder of synovium and tendon, right shoulder; M67.912 Unspecified disorder of synovium and tendon, left shoulder; M25.511 Pain in right shoulder; M25.512 Pain in left shoulder; M54.50 Low back pain, unspecified; M79.604 Pain in right leg; M79.605 Pain in left leg
CPT/HCPCS: 99214

== ENCOUNTER → 2023-04-27 14:13 | Outpatient (BNVA) | payer OTHER, SELFPAY | PROVIDERS: PCP Internal Medicine; Visit Provider Nurse Practitioner Family | DX: M79.7 Fibromyalgia (principal); M67.911 Unspecified disorder of synovium and tendon, right shoulder; M67.912 Unspecified disorder of synovium and tendon, left shoulder; M25.511 Pain in right shoulder; M25.512 Pain in left shoulder; M54.50 Low back pain, unspecified; M79.604 Pain in right leg; M79.605 Pain in left leg | CPT/HCPCS: 99212 ==

== ENCOUNTER 2023-04-29 14:00 | Outpatient (AMB) | payer OTHER, SELFPAY ==
--- NOTE | 2023-04-29 13:59 | MHC.OFFVISWM ---
Intake VS Expanded 04/29/23 14:05 Height 5 ft 3 in Weight 282 lb 6 oz BMI 50.0 Intake Visit Reasons: (TV) F/U SWL Allergies aspirin [ASPIRIN] Allergy (Intermediate, Verified 04/27/23 14:54) SWELLING latex [LATEX] Allergy (Intermediate, Verified 04/27/23 14:54) Rash prednisone [PREDNISONE] Allergy (Intermediate, Verified 04/27/23 14:54) swelling and hives, swelling tramadol Allergy (Intermediate, Verified 04/27/23 14:54) loopiness Medication List - Last Reconciled 04/29/23 by Chantale Vega PA-C amitriptyline 100 mg PO BEDTIME Brace,wrist Use at nighttime only for both wrists buspirone 7.5 mg PO TID cholecalciferol (vitamin D3) 50 mcg PO DAILY clonazepam 1 mg PO BID PRN cyanocobalamin (vitamin B-12) (Vitamin B-12) 1,000 mcg PO DAILY fluoxetine 20 mg PO DAILY lisinopril 10 mg PO DAILY 90 days meloxicam 15 mg PO DAILY pregabalin (Lyrica) 50 mg PO BID vitamin A 3,000 mcg PO DAILY 14 days zinc gluconate 30 mg PO DAILY zolpidem 10 mg PO BEDTIME PRN HPI HPI Comments History of Present Illness Details SWL follow up started in Oct 2022 at 295 lbs, TBWL is 12.4 lbs, 4.2%. 7am - coffee with UAM and splenda 10am - Orgain powder with UAM or water 2pm - 12 forks each of protein and vegetable 5pm - Oikos yogurt 8pm - if hungry has another shake. Doesn't like any bars she tried Exercise - videos- 30 minutes 4 d/ week Seen by rheumatology recently and PT recommended for her shoulders. Pre op work up completed as follows: SWL classes - 09/29 - [facility] x 2, follow up was scheduled for 01/18 - missed appt, had appt today cleared. has her own therapist and prescriber also. RD appts -seen on 12/23 - no weight that day, had follow, up still not cleared H pylori - negative Labs - HgbA1C 6.2, vit D and A deficient CXR and ECG - both normal ULS - fatty liver R 18.4, L 11.4 cms UGI -missed x 2, now rescheduled for 06/09 Contraception- BTL [facility] Medical History (Updated 04/29/23 @ 00:59 [facility] Lumbar pain with radiation down both legs Shoulder pain, bilateral Bilateral shoulder tendinopathy Gestational diabetes mellitus Moderate recurrent major depression Morbid obesity due to excess calories Chronic thoracic spine pain Carpal tunnel syndrome Neck pain Fibromyalgia B12 deficiency Anxiety Right sided sciatica Neuropathy Essential hypertension Arnold-Chiari malformation Surgical History History of D&C History of cholecystectomy History of section Family History Father Hypertension CVD (cardiovascular disease) Diabetes Mother Hypertension Chronic mental illness Depression Mental health disorder Paternal Aunt Breast cancer Brother Colon cancer Stomach cancer Social History Housing: Apartment Alcohol intake: never Patient Tobacco Use Status: Never used Tobacco e-Cigarette/Vaping Use: Never Used Second Hand Smoke Exposure: No service: No Current occupational status: unemployed Cognitive needs: No Hearing needs: No Vision needs: No Assessment & Plan Assessment & Plan (1) Morbid obesity due to excess calories: Code(s): E66.01 - Morbid (severe) obesity due to excess calories Plan: Pt is doing much better in our program now. Seems to understand the meal plan now. TBWL is 12.4 lbs or 4.2 %. Needs follow up with Sherry this month. UGI on 06/09. Meal plan - only chnge - stop yogurt and try Zone Perfect and/or Celebrate bars Exercise - buy treadmill or elliptical or stationary bike for home use, until then continue videos 4 d/week. Will schedule her with Sherry now and Kyra will schedule her with Dr New. Will continue to text me weights this month. Once she has exercise machine at home will text me for instructions for use. Patient is still morbidly obese and is not considered stable at this time. I spent 26 minutes in total speaking with the patient via video conference counseling , reviewing records and charting in patients chart. . (2) Arnold-Chiari malformation: Code(s): Q07.00 - Arnold-Chiari syndrome without spina bifida or hydrocephalus (3) Fibromyalgia: Code(s): M79.7 - Fibromyalgia (4) Essential hypertension: Code(s): I10 - Essential (primary) hypertension Plan see above Telehealth Telehealth Location of provider rendering services: practice address Location of patient: address on file Patient Identification confirmed using: Name, : Yes Telehealth method: video Patient verbally consented to treatment: Yes Patient verbally consented to billing insurance company: Yes Patient informed of any privacy concerns related to visit: Yes Coding Level of Care Code Est Pt Level 4 (08227) Diagnoses Morbid obesity due to excess calories E66.01 Arnold-Chiari malformation Q07.00 Fibromyalgia M79.7 Essential hypertension I10
[2023-04-29 14:05] VITALS: BMI 50.0
== END 2023-04-29 14:23 | disposition home or self-care (01) ==
LOC: HO.HBS 14:09
PROVIDERS: PCP Internal Medicine; Visit Provider Physician Assistant
DX: E66.01 Morbid (severe) obesity due to excess calories (principal); Z68.43 Body mass index [BMI] 50.0-59.9, adult; Q07.00 Arnold-Chiari syndrome without spina bifida or hydrocephalus; I10 Essential (primary) hypertension
CPT/HCPCS: 99214

== ENCOUNTER → 2023-04-29 14:00 | Outpatient (BNVA) | payer OTHER, SELFPAY | PROVIDERS: PCP Internal Medicine; Visit Provider Physician Assistant | DX: E66.01 Morbid (severe) obesity due to excess calories (principal) ==

== ENCOUNTER 2023-05-19 14:53 | Outpatient (AMB) | payer OTHER, SELFPAY ==
--- NOTE | 2023-05-19 14:45 | MHC.AMNUTRGE ---
Intake Intake Visit Reasons: (TV) F/U SWL Production Checker Required: Yes Production Checker Name: Ramakrishna [id number] Information Interpreted: non-clinical & clinical Allergies aspirin [ASPIRIN] Allergy (Intermediate, Verified 04/27/23 14:54) SWELLING latex [LATEX] Allergy (Intermediate, Verified 04/27/23 14:54) Rash prednisone [PREDNISONE] Allergy (Intermediate, Verified 04/27/23 14:54) swelling and hives, swelling tramadol Allergy (Intermediate, Verified 04/27/23 14:54) loopiness HPI Nutrition Presentation Reason for consult elevated BMI Diet Assmnt Details Todays she is able to accurately name meat, seafood, eggs as sources of protein. lists oil, avocado, cheese, red meat as food sources of fat. We reviewed after surgery nutrition expectations short term and director long term care. She seems to understand the surgery in general Last Nutrition appt : [facility] online classes: completed but today pt is unable to verbalize anything covered. Unable to verbalize first foods unable to verbalize mashed potatoes or applesauce as carbs and inappropriate in early stages . inaccurately categorizes foods by macronutrient. I sent her handouts to review Previous weight loss methods attempted Her goal is lose weight and have better BP control. She reports first being concerned about her weight 2021, last child. She has tried multiple methods of weight loss including low carb diet, our WMP program over 3 years ago without permanent results.She has lost 20 lbs over last few weeks - changed her diet Dietary counseling reduction Who buys your food self Who prepares/cooks your food self Diagnosis Nutrition problem #1 overweight/obesity As related to (etiology) #1 excess energy intake and physical inactivity As evidenced by (sign/symptom) #1 high BMI Monitoring/Goals Nutrition problem monitoring total energy intake, level of knowledge/skill, total PRO intake, total CHO intake and weight Outcome progress verbalized understanding Learning/Education Readiness to learn good Stages of change action Educational materials provided Yes Most Recent Diabetes Results: Cholesterol 180 mg/dL (<200) 04/26/23 HDL Cholesterol 35 mg/dL (>40) L 04/26/23 Triglycerides 68 mg/dL (<150) 04/26/23 Creatinine 0.67 mg/dL (0.5-1.4) 04/26/23 Blood Urea Nitrogen 16 mg/dL (9-16) 04/26/23 Sodium 139 mmol/L (135-145) 04/26/23 Potassium 4.0 mmol/L (3.3-5.1) 04/26/23 Chloride 110 mmol/L (96-108) H 04/26/23 Carbon Dioxide 24 mmol/L (22-29) 04/26/23 Calcium 8.8 mg/dL (8.4-10.2) 04/26/23 AST 13 U/L (5-31) 04/26/23 ALT 17 U/L (0-31) 04/26/23 Total Protein 7.3 g/dL (6.5-8.0) 04/26/23 Albumin 3.9 g/dL (3.5-5.0) 04/26/23 [facility] Medical History (Updated 04/29/23 @ 00:59 by EVITA Novoa-) Lumbar pain with radiation down both legs Shoulder pain, bilateral Bilateral shoulder tendinopathy Gestational diabetes mellitus Moderate recurrent major depression Morbid obesity due to excess calories Chronic thoracic spine pain Carpal tunnel syndrome Neck pain Fibromyalgia B12 deficiency Anxiety Right sided sciatica Neuropathy Essential hypertension Arnold-Chiari malformation Surgical History History of D&C History of cholecystectomy History of section Family History Father Hypertension CVD (cardiovascular disease) Diabetes Mother Hypertension Chronic mental illness Depression Mental health disorder Paternal Aunt Breast cancer Brother Colon cancer Stomach cancer Social History Housing: Apartment Alcohol intake: never Patient Tobacco Use Status: Never used Tobacco e-Cigarette/Vaping Use: Never Used Second Hand Smoke Exposure: No service: No Current occupational status: unemployed Cognitive needs: No Hearing needs: No Vision needs: No Assessment & Plan Assessment & Plan (1) Morbid obesity due to excess calories: Code(s): E66.01 - Morbid (severe) obesity due to excess calories Plan Pt is cleared, but she will require extra guidance. recommend continued education. Telehealth Telehealth Location of provider rendering services: practice address Location of patient: address on file Patient Identification confirmed using: Name, : Yes Telehealth method: voice only Patient verbally consented to treatment: Yes Patient verbally consented to billing insurance company: Yes Patient informed of any privacy concerns related to visit: Yes Minutes spent on Phone/Video with Pt.: 30 Coding Level of Care Code Nutr Indiv Subseq (19214) Diagnoses Morbid obesity due to excess calories E66.01 Time Spent (min) 30
== END 2023-05-19 15:02 | disposition home or self-care (01) ==
LOC: HO.HBS 14:53
PROVIDERS: PCP Internal Medicine; Visit Provider Dietitian, Registered
DX: E66.01 Morbid (severe) obesity due to excess calories (principal)

== ENCOUNTER → 2023-05-19 14:53 | Outpatient (BNVA) | payer OTHER, SELFPAY | PROVIDERS: PCP Internal Medicine; Visit Provider Dietitian, Registered | DX: E66.01 Morbid (severe) obesity due to excess calories (principal); Z71.3 Dietary counseling and surveillance | CPT/HCPCS: 97803 ==

== ENCOUNTER 2023-05-31 08:10 | Outpatient (AMB) | payer OTHER, SELFPAY ==
--- NOTE | 2023-05-29 11:15 | A.OFFVIS_ITS ---
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* Allergies aspirin [ASPIRIN] Allergy (Intermediate, Verified 05/29/23 11:18) SWELLING latex [LATEX] Allergy (Intermediate, Verified 05/29/23 11:18) Rash prednisone [PREDNISONE] Allergy (Intermediate, Verified 05/29/23 11:18) swelling and hives, swelling tramadol Allergy (Intermediate, Verified 05/29/23 11:18) loopiness Medication List - Last Reconciled 05/29/23 by Rikki Browne MD amitriptyline 100 mg PO BEDTIME Brace,wrist Use at nighttime only for both wrists buspirone 7.5 mg PO TID cholecalciferol (vitamin D3) 50 mcg PO DAILY clonazepam 1 mg PO BID PRN cyanocobalamin (vitamin B-12) (Vitamin B-12) 1,000 mcg PO DAILY fluoxetine 20 mg PO DAILY lisinopril 10 mg PO DAILY 90 days meloxicam 15 mg PO DAILY pregabalin (Lyrica) 50 mg PO BID vitamin A 3,000 mcg PO DAILY 14 days zinc gluconate 30 mg PO DAILY zolpidem 10 mg PO BEDTIME PRN HPI TV Consult/Transfer 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* HPI Details Start time: 10.55am, End time: 11.45am ?I spent 45 minutes speaking with the patient on the phone plus an additional 5 minutes reviewing and updating records for a total of 50 minutes HPI Comments History of Present Illness Details Overall weight loss: 17lbs, or 5.83% TBWL 7am - coffee with UAM and splenda 10am - Orgain powder (2 scoops in 8oz al mond milk) 2pm - 12 forks each of protein and 12 fo rks of vegetables 5pm - Oikos yogurt 8pm - Orgain shake (2 scoops in 8oz almo nd milk) Exercise: home videos [facility] Medical History (Updated 05/29/23 @ 11:17 by Rikki Browne MD) Lumbar pain with radiation down both legs Shoulder pain, bilateral Bilateral shoulder tendinopathy Gestational diabetes mellitus Moderate recurrent major depression Morbid obesity due to excess calories Chronic thoracic spine pain Carpal tunnel syndrome Neck pain Fibromyalgia B12 deficiency Anxiety Right sided sciatica Neuropathy Essential hypertension Arnold-Chiari malformation Surgical History History of D&C History of cholecystectomy History of section Family History Father Hypertension CVD (cardiovascular disease) Diabetes Mother Hypertension Chronic mental illness Depression Mental health disorder Paternal Aunt Breast cancer Brother Colon cancer Stomach cancer Social History Housing: Apartment Alcohol intake: never Patient Tobacco Use Status: Never used Tobacco e-Cigarette/Vaping Use: Never Used Second Hand Smoke Exposure: No service: No Current occupational status: unemployed Cognitive needs: No Hearing needs: No Vision needs: No Physical Exam Vital Signs: BMI result Body Mass Index 48.6 Assessment & Plan Assessment & Plan (1) Morbid obesity due to excess calories: Code(s): E66.01 - Morbid (severe) obesity due to excess calories Plan: 1.? Plan for lap sleeve gastrectomy. If diaphragmatic or ventral hernias are present at time of surgery, these will be repaired laparoscopically as well. Risks and complications were discussed in detail including possible conversion to an open procedure, anastomotic leak, bleeding requiring transfusion, small bowel obstruction, , DVT and pulmonary embolism, cardiac, or pulmonary complications, as residential complications such as anastomotic ulcer, insufficient weight loss and vitamin deficiencies. I emphasized the importance of close follow-up, adherence to instructions and good communication. 2. Nutritional counseling. Start with 2 Orgain protein shakes (ONE scoop EACH in 8oz low fat unsweetened almond milk each) at 7am-9am and 10am-12pm, 12 protein bars (CELEBRATE protein bars, buy at [facility]) at 1pm-3pm and 4pm- 6pm, dinner at 7pm (12 forks of protein and 12 forks of salad/vegetables) AND one more protein shake after dinner at 9pm-11pm. So you do 3 protein shakes, 2 protein bars and one meal per day. Meal to include lean meat (beef, fish, pork, turkey, chicken), or amharic yogurt, or egg whites, or beans with a salad with olive oil and fruits (berries, pears, apples, kiwi). Avoid salt, breads, potatoes, rice, pasta, desserts. 3. Each shake would be drunk slowly, like coffee in a period of 2 hours. 4. Cut each bar in 4 pieces and eat each piece in 30min ?to make each bar last 2 hours. 5. I emphasized the importance of measuring accurately the food portion and measure it when serving the food in plate 6. The meal portions include 12 full-size forks of meat and 12 full-size forks of salad. You always eat the meat portion but you can replace up to 6 forks for salad/vegetables with rice, potatoes or pasta, or a fruit ?if you like. The less you do it the better weight loss will be. 7. One full-size fork is what it can be scooped on the fork without falling aside and not what can be bit with the fork. Use regular forks like those you find in a typical restaurant. 8.? Please send me weight measurements weekly on Fridays 9. The best choice would be to purchase a stationary bike, elliptical or treadmill at home that can track calories. Let me know if you do so I can give you an exercise plan.Start stationary bike at a resistance level of 4.0 Increase level by 1.0 every 3 min to a max level of 10.0. Stay at this level for 3 min and then return to level 4.0 and repeat same steps until 300 calories are burned. Velocity target is 12mph and heart rate is 145 bpm. Goal is to burn 2000 calories per week on exercise 10.?It is important of avoiding and for at least 18 months postoperatively and has been discussed at the infosession. 11. Goal is to lose at least 1.5-2lbs per week Orders: Orders Hemoglobin A1c 05/29/23 E11.9 - Type 2 diabetes mellitus without complications Insulin 05/29/23 E11.9 - Type 2 diabetes mellitus without complications Comprehensive Met. Panel 05/29/23 E11.9 - Type 2 diabetes mellitus without complications Telehealth Telehealth Location of provider rendering services: practice address Location of patient: address on file Patient Identification confirmed using: Name, : Yes Telehealth method: voice only Patient verbally consented to treatment: Yes Patient verbally consented to billing insurance company: Yes Patient informed of any privacy concerns related to visit: Yes Minutes spent on Phone/Video with Pt.: 50 Coding Level of Care Code Tele Est Pt Level 5 (62179) Diagnoses Morbid obesity due to excess calories E66.01 Time Spent (min) 50 Comment With a [place] speaking interpeter
[2023-05-29 11:38] VITALS: BMI 48.6
== END 2023-05-31 23:19 | disposition home or self-care (01) ==
LOC: HO.HBS 08:10
PROVIDERS: PCP Internal Medicine; Visit Provider Surgery
DX: E66.01 Morbid (severe) obesity due to excess calories (principal); Z68.42 Body mass index [BMI] 45.0-49.9, adult
CPT/HCPCS: 99215

== ENCOUNTER → 2023-05-31 08:10 | Outpatient (BNVA) | payer OTHER, SELFPAY | PROVIDERS: PCP Internal Medicine; Visit Provider Surgery | DX: E11.9 Type 2 diabetes mellitus without complications (principal) ==

== ENCOUNTER 2023-06-09 08:33 | Outpatient (REF) | payer OTHER, SELFPAY ==
[2023-06-09 09:22] LABS: Estimated Average Glucose 111 mg/dL; Hemoglobin A1c % 5.5 % (<6.0)
[2023-06-09 10:52] LABS: Alanine Aminotransferase 19 U/L (0-31); Albumin Level 3.8 g/dL (3.5-5.0); Alkaline Phosphatase 75 U/L (39-117); Anion Gap 9 (12-20); Aspartate Amino Transferase 12 U/L (5-31); Bilirubin Total 0.2 mg/dL (0.0-1.0); Blood Urea Nitrogen 17 mg/dL (9-16); Calcium 9.5 mg/dL (8.4-10.2); Carbon Dioxide 26 mmol/L (22-29); Chloride 108 mmol/L (96-108); Estimated Glomerular Filt Rate > 60; Glucose Random 114 mg/dL (60-115); Potassium 4.4 mmol/L (3.3-5.1); Sodium 139 mmol/L (135-145); Total Protein 7.4 g/dL (6.5-8.0)
[2023-06-09 11:17] LABS: Insulin 20 uU/mL (2-29)
== END 2023-06-09 08:34 | disposition home or self-care (01) ==
LOC: HO.LAB 08:33
PROVIDERS: PCP Internal Medicine; Visit Provider Surgery
DX: E11.9 Type 2 diabetes mellitus without complications (principal)
CPT/HCPCS: 36415; 80053; 83036; 83525

== ENCOUNTER 2023-08-16 08:13 | Outpatient (AMB) | payer OTHER, SELFPAY ==
--- NOTE | 2023-08-16 09:39 | MHC.OFFVISWM ---
VS Expanded 08/16/23 10:04 Height 5 ft 3 in Weight 262 lb 8 oz BMI 46.5 Body Fat % 57.7 Body Fat Mass 151.6 Fat Free Mass 111.1 Visceral Fat Rating 24.5 Body Water % 29 Body Water Mass 76.2 Basal Metabolic Rate/Score 1,458 Intake Visit Reasons: TV Pre Op LSG 08/25/23 *[employer]* Allergies aspirin [ASPIRIN] Allergy (Intermediate, Verified 08/16/23 09:51) SWELLING latex [LATEX] Allergy (Intermediate, Verified 08/16/23 09:51) Rash prednisone [PREDNISONE] Allergy (Intermediate, Verified 08/16/23 09:51) swelling and hives, swelling tramadol Allergy (Intermediate, Verified 08/16/23 09:51) loopiness Medication List - Last Reconciled 08/16/23 by Rikki Browne MD amitriptyline 100 mg PO BEDTIME Brace,wrist Use at nighttime only for both wrists buspirone 7.5 mg PO TID cholecalciferol (vitamin D3) 50 mcg PO DAILY clonazepam 1 mg PO BID PRN cyanocobalamin (vitamin B-12) (Vitamin B-12) 1,000 mcg PO DAILY fluoxetine 20 mg PO DAILY lisinopril 10 mg PO DAILY 90 days meloxicam 15 mg PO DAILY pregabalin (Lyrica) 50 mg PO BID vitamin A 3,000 mcg PO DAILY 14 days zinc gluconate 30 mg PO DAILY zolpidem 10 mg PO BEDTIME PRN HPI HPI TV Pre Op LSG 08/25/23 *[employer]*: Details: Start time: 9.37am, End time: 10.24am ?I spent 42 minutes speaking with the patient on the phone plus an additional 5 minutes reviewing and updating records for a total of 47 minutes HPI Comments Details: Overall weight loss: 28.8lbs, or 9.88% TBWL 7am - coffee with UAM and splenda 10am - Orgain powder (2 scoops in 8oz almond milk) 2pm - 12 forks each of protein and 12 forks of vegetables 5pm - Oikos yogurt 8pm - Orgain shake (2 scoops in 8oz almond milk) [facility] Medical History (Updated 05/29/23 @ 11:17 by Rikki Browne MD) Lumbar pain with radiation down both legs Shoulder pain, bilateral Bilateral shoulder tendinopathy Gestational diabetes mellitus Moderate recurrent major depression Morbid obesity due to excess calories Chronic thoracic spine pain Carpal tunnel syndrome Neck pain Fibromyalgia B12 deficiency Anxiety Right sided sciatica Neuropathy Essential hypertension Arnold-Chiari malformation Surgical History History of D&C History of cholecystectomy History of section Family History Father Hypertension CVD (cardiovascular disease) Diabetes Mother Hypertension Chronic mental illness Depression Mental health disorder Paternal Aunt Breast cancer Brother Colon cancer Stomach cancer Social History Housing: Apartment Alcohol intake: never Patient Tobacco Use Status: Never used Tobacco e-Cigarette/Vaping Use: Never Used Second Hand Smoke Exposure: No service: No Current occupational status: unemployed Cognitive needs: No Hearing needs: No Vision needs: No Telehealth Telehealth Telehealth Platform: Telephone Location of provider rendering services: practice address Location of patient: address on file Patient Identification confirmed using: Name, : Yes Telehealth method: voice only Patient verbally consented to treatment: Yes Patient verbally consented to billing insurance company: Yes Patient informed of any privacy concerns related to visit: Yes Minutes spent on Phone/Video with Pt.: 47 Assessment & Plan Assessment & Plan (1) Morbid obesity due to excess calories: Code(s): E66.01 - Morbid (severe) obesity due to excess calories Category: Medical Plan: 1. Plan for lap sleeve gastrectomy including upper GI endoscopy. All tests has been completed and reviewed and the patient is cleared for the surgery. ?If diaphragmatic or ventral hernias are present at time of surgery, these will be repaired laparoscopically as well. Risks and complications were discussed in detail including possible conversion to an open procedure, anastomotic leak, bleeding requiring transfusion, small bowel obstruction, , DVT and pulmonary embolism, cardiac, or pulmonary complications, as chcf complications such as anastomotic ulcer, insufficient weight loss and vitamin deficiencies. I emphasized the importance of close follow-up, adherence to instructions and good communication. So far she has proven to be an excellent communicator and very compliant with all our directions accomplishing a great weight loss. I believe that she is an excellent candidate and she is ready. 2. Preop prescriptions were provided and explained the purpose of each one. Need to be purchased preop. Start Pantoprazole now as you get it from the pharmacy, 1 pill per day. Sucralfate and Zofran are for after surgery as needed. 3. Bowel prep: please do 7 packets ?of Miralax mixing each one with a an 8oz glass of water, crystal light, gatorade zero, or propel ?on 08/22/23 and the same amount on 08/23/23. The Miralax you begin with one packet at a time in 8oz water or crystal light, gatorade zero, or propel ?as early in the day as you can and you do them back to back until you finish them. Continue the protein shakes during? the bowel prep. 4. Needs to purchase 1oz medicine cups . 5. Needs to purchase Children's liquid Tylenol for postop pain control. 6. She needs to stop the Meloxicam and Lyrica as of today. Avoid aspirin, motrin, Advil, Aleve, Ibuprofen, Naproxyn. Tylenol is OK. 7. She needs to purchase the Celebrate 4:1 protein shakes from the hospital's gift shop. 8. Will do basic preop blood work-up any day between Wednesday08/17/23 and Wednesday08/20/23 fasting for 12 hours and is scheduled to see the Anesthesiologist prior to the day of surgery. 9. Importance of adherence to postop folllow-up and recommendations was underscored and she understands that. 10. Stop food and bars as of today 08/16/23 and continue with 5 Orgain protein shakes (TWO scoops EACH in 8oz almond milk) at 8am-10am, 11am-1pm, 2pm-4pm, 5pm-7pm and at 8pm-10pm 11. No soups, broths or V8 12. The patient's?medical?history has been reviewed and they are considered low risk for post op DVT and therefore DVT prophylaxis is not considered necessary. Travel after surgery was reviewed. The patient has not disclosed any travel plans during the first 30 days after surgery and they have been advised that within the first 30 days after surgery any bus, plane, train or car travel over 2 hours in duration is contraindicated due to the possibility of developing blood clots from immobility. Any travel, needs to include periods of ambulation of 10 minutes in duration every 2 hours.? Patient was instructed to discuss any plans for travel during this period with their bariatric surgeon.? 13. As of tomorrow, please measure your blood pressure daily in the morning. If the blood pressure is: Less than 120/70: do not take the Lisinopril 121/71 to 130/85: take HALF pill of Lisinopril Over 131/86: take the WHOLE pill of Lisinopril Please follow the above parameters until the surgery date and the only medication you may use at the day of surgery 14. Stop any control pills and don't use them for one month after surgery 15. Absolutely no smoking or vaping, or marijuana until the surgery and for at least the first 4 weeks. Only nicotine patches are allowed. 16. Send me weight measurements on Wednesday08/20/23 and then on Wednesday08/24/23, the day of surgery before you go to the hospital. 17. Avoid any steroids by mouth for any reason. Let me know if someone prescribes them to you 18. These instructions supersede anything else you read in the handbook, anything you watched in videos or classes or you were told by any other provider. If there is any conflict, you follow the above instructions and nothing else. Orders: Orders Comprehensive Met. Panel Today E11.9 - Type 2 diabetes mellitus without complications, E66.01 - Morbid (severe) obesity due to excess calories Prothrombin Time INR Today E11.9 - Type 2 diabetes mellitus without complications, E66.01 - Morbid (severe) obesity due to excess calories Hemoglobin A1c Today E11.9 - Type 2 diabetes mellitus without complications, E66.01 - Morbid (severe) obesity due to excess calories Partial Thromboplastin Time Today E11.9 - Type 2 diabetes mellitus without complications, E66.01 - Morbid (severe) obesity due to excess calories C Reactive Protein Today E11.9 - Type 2 diabetes mellitus without complications, E66.01 - Morbid (severe) obesity due to excess calories Insulin Today E11.9 - Type 2 diabetes mellitus without complications, E66.01 - Morbid (severe) obesity due to excess calories TSH reflex Free T4 Today E11.9 - Type 2 diabetes mellitus without complications, E66.01 - Morbid (severe) obesity due to excess calories Lipid Panel Today E11.9 - Type 2 diabetes mellitus without complications, E66.01 - Morbid (severe) obesity due to excess calories Type and Screen Today E11.9 - Type 2 diabetes mellitus without complications, E66.01 - Morbid (severe) obesity due to excess calories Complete Blood Count Auto Diff Today E11.9 - Type 2 diabetes mellitus without complications, E66.01 - Morbid (severe) obesity due to excess calories Medications: New pantoprazole 40 mg PO DAILY 90 tabs 0RF K21.9 - Gastro-esophageal reflux disease without esophagitis ondansetron Only take one every 12 hours as needed if you have nausea 4 mg PO Q12H 20 tabs 0RF nausea and vomiting R11.0 - Nausea polyethylene glycol 3350 Mix each measuring cup with 8oz of water, Crystal light, or Gatorade zero, or Propel and do 7 measuring cups on 08/22/23 and another 7 measuring cups on 08/23/23 17 grams PO DAILY 238 grams 0RF Z01.818 - Encounter for other preprocedural examination sucralfate 10 mL PO BID 600 mL 2RF K21.9 - Gastro-esophageal reflux disease without esophagitis
[2023-08-16 10:04] VITALS: BMI 46.5
== END 2023-08-16 10:27 | disposition home or self-care (01) ==
LOC: HO.HBS 08:13
PROVIDERS: PCP Internal Medicine; Visit Provider Surgery
DX: E66.01 Morbid (severe) obesity due to excess calories (principal); Z68.42 Body mass index [BMI] 45.0-49.9, adult
CPT/HCPCS: 99499

== ENCOUNTER → 2023-08-16 08:13 | Outpatient (BNVA) | payer OTHER, SELFPAY | PROVIDERS: PCP Internal Medicine; Visit Provider Surgery ==

== ENCOUNTER → 2023-08-18 09:39 | Outpatient (BNVA) | payer OTHER, SELFPAY | PROVIDERS: PCP Internal Medicine; Visit Provider Physician Assistant Surgical ==

== ENCOUNTER 2023-08-24 07:49 | Outpatient (REF) | payer OTHER, SELFPAY ==
--- NOTE | ~2023-08-24 | FL_ITS ---
EXAMINATION: XR FLUOROSCOPY UPPER GI WITH AIR CLINICAL INFORMATION: Preop evaluation prior to bariatric surgery COMPARISON: None TECHNIQUE: Fluoroscopic air contrast upper GI examination was performed utilizing standard techniques with thin and thick barium and effervescent granules. Numerous spot images were obtained. FINDINGS: Dual and single contrast images of the esophagus demonstrate normal caliber, contour, and mucosal pattern. No evidence of stricture, mass, or ulcerations identified. Esophageal peristalsis is mildly disorganized. Cholecystectomy clips are present in the right upper quadrant. No evidence of hiatus hernia identified. No significant gastroesophageal reflux was seen during the course of the examination and on reflux views. Dual contrast and single contrast images of the stomach demonstrated normal contour and mucosal pattern without evidence of mass, ulceration, or other abnormality. Contrast freely passed into the gastric antrum and duodenal bulb without delay. Single and air-contrast images of the duodenal bulb demonstrate no abnormality. The duodenal sweep has a normal appearance, course, and mucosal fold appearance. The imaged proximal jejunum has a normal fold pattern and caliber. FLUOROSCOPY TIME: 3 minutes 26 seconds Number of Spot Images: 8 Number of Cine: 11 DOSE AREA PRODUCT: 3059 uGy-m2 (microgray-meter squared) FL/FL upper GI w air IMPRESSION: 1. Mildly disorganized esophageal peristalsis, otherwise unremarkable examination. 2. Status post cholecystectomy This procedure was performed by Rubén Cho PA-C, and supervised by Dr. Lockett
== END 2023-08-24 07:50 | disposition home or self-care (01) ==
LOC: HO.XRAY 07:49
PROVIDERS: PCP Internal Medicine; Visit Provider Physician Assistant
DX: Z01.818 Encounter for other preprocedural examination (principal); E66.01 Morbid (severe) obesity due to excess calories; Q07.00 Arnold-Chiari syndrome without spina bifida or hydrocephalus; I10 Essential (primary) hypertension; M79.7 Fibromyalgia
CPT/HCPCS: 74246

== ENCOUNTER → 2023-08-24 07:50 | Outpatient (BNV) | payer OTHER, SELFPAY | PROVIDERS: PCP Internal Medicine; Visit Provider Physician Assistant Surgical | DX: E66.01 Morbid (severe) obesity due to excess calories (principal); Z01.818 Encounter for other preprocedural examination | CPT/HCPCS: 74246 ==

== ENCOUNTER 2023-08-25 06:15 | Inpatient (IN) | payer OTHER, SELFPAY ==
[2023-08-16 12:30] VITALS: BMI 46.5
[2023-08-18 08:27] LABS: MANUAL DIFF FLAG NO
[2023-08-18 08:53] LABS: Basophils Percent Auto 0.2 % (0-2); Eosinophils Absolute Auto 0.1 X10*3/uL (0.0-0.4); Eosinophils Percent Auto 1.4 % (0-4); Hemoglobin 13.7 g/dl (12.0-16.0); Imm Gran Abs Auto 0.01 X10*3/uL (0.00-0.03); Imm Gran Pct Auto 0.2 % (0.0-0.4); Lymphocytes Absolute Auto 1.5 X10*3/uL (1.2-4.9); Lymphocytes Percent Auto 26.5 % (20-40); Mean Corpuscular HGB Conc 32.6 g/dl (31.0-35.0); Mean Corpuscular Hemoglobin 28.5 pg (27.0-33.0); Mean Corpuscular Volume 87.5 fL (80.0-98.0); Mean Platelet Volume 9.4 fL (9.4-12.3); Monocytes Absolute Auto 0.3 X10*3/uL (0.1-1.2); Monocytes Percent Auto 5.2 % (2-11); Neutrophils Absolute Auto 3.8 x10*3/uL (2.0-8.3); Neutrophils Percent Auto 66.5 % (45-73); Platelet Count 269 X10*3/uL (160-400); Red Cell Distribution Width 13.5 % (11.0-16.0); White Blood Count 5.7 X10*3/uL (4.8-10.8)
[2023-08-18 09:01] LABS: Estimated Average Glucose 105 mg/dL; Hemoglobin A1c % 5.3 % (<6.0)
[2023-08-18 09:41] LABS: Alanine Aminotransferase 15 U/L (0-31); Albumin Level 4.1 g/dL (3.5-5.0); Alkaline Phosphatase 77 U/L (39-117); Anion Gap 12 (12-20); Aspartate Amino Transferase 12 U/L (5-31); Bilirubin Total 0.4 mg/dL (0.0-1.0); Blood Urea Nitrogen 13 mg/dL (9-16); C Reactive Protein 1.57 mg/dL (< or = 0.50); Calcium 9.4 mg/dL (8.4-10.2); Carbon Dioxide 26 mmol/L (22-29); Chloride 106 mmol/L (96-108); Cholesterol 193 mg/dL (<200); Estimated Glomerular Filt Rate > 60; Glucose Random 99 mg/dL (60-115); HDL Cholesterol 36 mg/dL (>40); LDL Cholesterol Calculated 140 mg/dL (<100); Potassium 4.1 mmol/L (3.3-5.1); Sodium 140 mmol/L (135-145); Total Protein 7.7 g/dL (6.5-8.0); Triglycerides 85 mg/dL (<150)
[2023-08-18 09:52] LABS: TSH reflex Free T4 0.67 uIU/mL (0.32-4.0)
[2023-08-18 10:45] LABS: Insulin 15 uU/mL (2-29)
[2023-08-25] VITALS (11 sets, daily range): BP systolic 110–155; BP diastolic 68–97; PULSE 75–106; RESP 16–22; TEMP 35–36.8; O2SAT 94–99
[2023-08-25 06:49] LABS: UPreg QC Valid YES; Urine Pregnancy NEGATIVE (NEGATIVE)
[2023-08-25] MEDS: Lactated Ringers 1,000 ML 999 ML IV (07:06)
--- NOTE | 2023-08-25 07:15 | P.CONAN_ITS ---
HPI - Anesthesia Eval Consult details Narrative: 38 yo female patient for EGD, Laparoscopic Sleeve Gastrectomy, possible diaphragmatic hernia repair, possible ventral hernia repair, possible open PMFSH Active Problems Active Problems: All Active Problems Non-insulin dependent type 2 diabetes mellitus (Acute)- patient denies Left sided sciatica (Acute) Panic disorder (Acute) Lumbar pain with radiation down both legs (Acute) Shoulder pain, bilateral (Acute) Bilateral shoulder tendinopathy (Acute) Moderate recurrent major depression (Acute) Morbid obesity due to excess calories BMI 46.5 Carpal tunnel syndrome (Acute) Fibromyalgia (Acute) B12 deficiency (Acute) Anxiety (Acute) Right sided sciatica (Acute) Essential hypertension (Acute) Arnold-Chiari malformation (Acute)- symptoms of headaches, dizziness. None today. No surgery Past Medical History Medical History Insomnia Liver fibrosis Steatosis, liver DJD (degenerative joint disease) Panic disorder Diabetes Lumbar pain with radiation down both legs Shoulder pain, bilateral Bilateral shoulder tendinopathy Gestational diabetes mellitus Moderate recurrent major depression Morbid obesity due to excess calories Chronic thoracic spine pain Carpal tunnel syndrome Neck pain Fibromyalgia B12 deficiency Anxiety Right sided sciatica Neuropathy Essential hypertension Arnold-Chiari malformation Family History Family History Father Hypertension CVD (cardiovascular disease) Diabetes Mother Hypertension Chronic mental illness Depression Mental health disorder Paternal Aunt Breast cancer Brother Colon cancer Stomach cancer Family history of problems with anesthesia: No Surgical History Surgical History History of D&C History of cholecystectomy History of section History of Problems with Anesthesia: Yes (Headache with spinal for ) Social History Social History Housing: Apartment 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 If so, by whom?: No Are you DNR?: No Advance Directives: No Advance Directives Information Provided: No Advance Directives on File: No Recently lost weight without trying: No Eating poorly because of decreased appetite: No Nutrition Risks: No Nutritional Risk Patient : No FDLMP: 08/16/23 : No Poor oral hygiene: No service: No Current occupational status: unemployed Cognitive needs: No Hearing needs: No Vision needs: No Meds Allergies Allergy/AdvReac Type Severity Reaction Status Date / Time aspirin [ASPIRIN] Allergy Intermediate SWELLING Verified 08/25/23 06:23 latex [LATEX] Allergy Intermediate Rash Verified 08/25/23 06:23 prednisone [PREDNISONE] Allergy Intermediate swelling Verified 08/25/23 06:23 and hives, swelling tramadol Allergy Intermediate loopiness Verified 08/25/23 06:23 Active Medications: Current Medications Lactated Ringer's (Lr) 1,000 mls @ 999 mls/hr IV .Q1H1M TAO Stop: 08/25/23 08:15 Last Admin: 08/25/23 07:06 Dose: 999 mls/hr Home Medications ?Medication ?Instructions ?Recorded ?Confirmed ?Last Taken ?Type clonazepam 1 mg tablet 1 mg PO BID PRN Anxiety 01/15/20 08/16/23 08/23/23 History amitriptyline 100 mg tablet 100 mg PO BEDTIME 01/11/23 08/16/23 08/23/23 History buspirone 7.5 mg tablet 7.5 mg PO TID 01/11/23 08/16/23 08/23/23 History fluoxetine 20 mg capsule 20 mg PO DAILY 01/11/23 08/16/23 08/23/23 History zolpidem 10 mg tablet 10 mg PO BEDTIME PRN Insomnia 01/11/23 08/16/23 08/23/23 History meloxicam 15 mg tablet 15 mg PO DAILY 08/25/23 Unknown History sucralfate 100 mg/mL oral 10 ml PO BID 08/25/23 Unknown History suspension (Carafate) topiramate 25 mg tablet 25 mg PO BID 08/25/23 Unknown History Exam Height,Weight and Vital Signs: Height 5 ft 3 in Weight 119.068 kg Last Vital Signs Temp 95.0 F L 08/25/23 06:41 Pulse 94 08/25/23 06:41 Resp 16 08/25/23 06:41 BP 155/97 H 08/25/23 06:41 Pulse Ox 95 08/25/23 06:41 O2 Del Method Room Air 08/25/23 06:41 Pertinent Lab Results Pertinent Lab Results: Laboratory Tests 08/18/23 08/18/23 08/25/23 08:16 08:25 06:15 WBC 5.7 RBC 4.80 Hgb 13.7 Hct 42.0 MCV 87.5 MCH 28.5 MCHC 32.6 RDW 13.5 Plt Count 269 MPV 9.4 Immature Gran % (Auto) 0.2 Neut % (Auto) 66.5 Lymph % (Auto) 26.5 [place] % (Auto) 5.2 Eos % (Auto) 1.4 Baso % (Auto) 0.2 Lymph # (Auto) 1.5 [place] # (Auto) 0.3 Eos # (Auto) 0.1 Baso # (Auto) 0.0 Abs Immat Gran (auto) 0.01 Absolute Neuts (auto) 3.8 Absolute Nucleated RBC 0.000 Nucleated RBC % (auto) 0.0 PT 12.0 INR 1.0 APTT 32.0 Sodium 140 Potassium 4.1 Chloride 106 Carbon Dioxide 26 Anion Gap 12 BUN 13 Creatinine 0.62 Estim Creat Clear Calc 152.0 Estimated GFR > 60 Random Glucose 99 Estimat Average Glucose 105 Hemoglobin A1c % 5.3 Insulin Level 15 Calcium 9.4 Total Bilirubin 0.4 AST 12 ALT 15 Alkaline Phosphatase 77 C-Reactive Protein 1.57 H Total Protein 7.7 Albumin 4.1 Triglycerides 85 Cholesterol 193 LDL Cholesterol, Calc 140 H HDL Cholesterol 36 L TSH 0.67 Urine Test NEGATIVE Blood Type O Positive Antibody Screen NEGATIVE Lab Results 08/18/23 08/18/23 08/25/23 Range/Units 08:16 08:25 06:15 WBC 5.7 (4.8-10.8) X10*3/uL RBC 4.80 (4.20-5.50) X10*6/uL Hgb 13.7 (12.0-16.0) g/dl Hct 42.0 (37.0-47.0) % MCV 87.5 (80.0-98.0) fL MCH 28.5 (27.0-33.0) pg MCHC 32.6 (31.0-35.0) g/dl RDW 13.5 (11.0-16.0) % Plt Count 269 (160-400) X10*3/uL MPV 9.4 (9.4-12.3) fL Immature Gran % (Auto) 0.2 (0.0-0.4) % Neut % (Auto) 66.5 (45-73) % Lymph % (Auto) 26.5 (20-40) % [place] % (Auto) 5.2 (2-11) % Eos % (Auto) 1.4 (0-4) % Baso % (Auto) 0.2 (0-2) % Lymph # (Auto) 1.5 (1.2-4.9) X10*3/uL [place] # (Auto) 0.3 (0.1-1.2) X10*3/uL Eos # (Auto) 0.1 (0.0-0.4) X10*3/uL Baso # (Auto) 0.0 (0.0-0.2) X10*3/uL Abs Immat Gran (auto) 0.01 (0.00-0.03) X10*3/uL Absolute Neuts (auto) 3.8 (2.0-8.3) x10*3/uL Absolute Nucleated RBC 0.000 (0.0-0.012) X10*3/uL Nucleated RBC % (auto) 0.0 (0.0-0.2) /100WBC PT 12.0 (11.1-13.3) SEC INR 1.0 (0.9-1.1) APTT 32.0 (26.0-36.8) SEC Sodium 140 (135-145) mmol/L Potassium 4.1 (3.3-5.1) mmol/L Chloride 106 (96-108) mmol/L Carbon Dioxide 26 (22-29) mmol/L Anion Gap 12 (12-20) BUN 13 (9-16) mg/dL Creatinine 0.62 (0.5-1.4) mg/dL Estim Creat Clear Calc 152.0 Estimated GFR > 60 Random Glucose 99 (60-115) mg/dL Estimat Average Glucose 105 mg/dL Hemoglobin A1c % 5.3 (<6.0) % Insulin Level 15 (2-29) uU/mL Calcium 9.4 (8.4-10.2) mg/dL Total Bilirubin 0.4 (0.0-1.0) mg/dL AST 12 (5-31) U/L ALT 15 (0-31) U/L Alkaline Phosphatase 77 (39-117) U/L C-Reactive Protein 1.57 H (< or = 0.50) mg/dL Total Protein 7.7 (6.5-8.0) g/dL Albumin 4.1 (3.5-5.0) g/dL Triglycerides 85 (<150) mg/dL Cholesterol 193 (<200) mg/dL LDL Cholesterol, Calc 140 H (<100) mg/dL HDL Cholesterol 36 L (>40) mg/dL TSH 0.67 (0.32-4.0) uIU/mL Urine Test NEGATIVE (NEGATIVE) Blood Type O Positive Antibody Screen NEGATIVE Airway Mallampati Class: III TM Dist: >3cm Neck ROM: Full Loose/Missing/Broken Teeth: No (Denies broken, loose, missing teeth) Heart: RRR Lungs: CTAB Assessment and Plan Assessment Anesthesia Assessment: Anesthesia Plan Discussed and Chart Reviewed Final Anesthetic Review Family History of Problems with Anesthesia: No History of Problems with Anesthesia: Yes (Headache with spinal for ) NPO: Yes ASA Class: III Final Preanesthetic Review: No Changes in Pt Med Stat, Meds/Allgs Chart Reviewed, Consent Obtained/Reviewed and Anes Risks/Benef Reviewed Patient Risk: Intermediate Procedure Risk: Intermediate Assessment/Block/Sedation in SS: Assess/Block/Sedation-SS Anesthetic Plan Anesthetic Plan: GA Disposition: Standard PACU and Inp. Admit - Standard Bed
--- NOTE | 2023-08-25 07:35 | MHC.SHP ---
Pre-Procedural Eval Section A - 24 Hr Update-Section A only Date of Service: 08/25/23 The patient is an INPATIENT: Yes The patient has been examined within 24 hours of the surgical procedure. The History & Physical has been completed within 30 days and I have reviewed it.: Yes Section B - Complete if H&P > 30 days Chief Complaint: Morbid Obesity Relevant Family History (Specify if Yes): No Relevant Social History: None Present Medications: None Medical History: No relevant PMH History of Previous Operations: No relevant previous surgery Allergies: Allergies Allergy/AdvReac Type Severity Reaction Status Date / Time aspirin [ASPIRIN] Allergy Intermediate SWELLING Verified 08/25/23 06:23 latex [LATEX] Allergy Intermediate Rash Verified 08/25/23 06:23 prednisone [PREDNISONE] Allergy Intermediate swelling Verified 08/25/23 06:23 and hives, swelling tramadol Allergy Intermediate loopiness Verified 08/25/23 06:23 Review of Systems Sugical H&P ROS: Negative: Constitution, Cardiovascular, Respiratory, Neurological, Psychiatric, Hem-Onc, Allergic/Immunologic, Gastrointestinal, Genitourinary, Musculoskeletal, Integumentary, Endocrine and Eyes/Ears/Nose/Throat Exam Surgical H&P Exam: Normal: HEENT, Normal: Heart, Normal: Lungs, Normal: Extremities, Normal: Abdomen, Normal: Skin and Normal: Neurological Plan Diagnosis/Plan: Unchanged I have reviewed the history and physical and performed a pertinent physical examination on my patient. No changes have occurred unless specified. Time Spent With Patient Time: Total time managing care of this patient today ____ minutes.
[2023-08-25] MEDS: Aprepitant 32 MG/4.4 ML VIAL IVPUSH (07:41)
--- NOTE | 2023-08-25 07:53 | P.BOP_ITS ---
Brief Operative Note Date of Service: 08/25/23 Pre-op diagnosis: Morbid obesity with comorbidities (see below) Post-op diagnosis: same (& abdominal adhesions) Procedure: INITIAL PATIENT BMI ON PRESENTATION AT OUR OFFICE: 51.6 kg/m2 LAST BMI BEFORE SURGERY: 43.1 kg/m2 COMORBIDITIES: non-insulin dependent diabetes, hypertension, DJD, insomnia, depression, anxiety, liver steatosis, liver fibrosis ?The patient presented to the Weight Management Program with significant obesity that was negatively impacting the patient's comorbidities as listed above.? The program is a phased program with a special focus on preoperative medical weight management to promote substantial weight loss and prepare the patients for the second phase of the program: bariatric surgery. The patient participated in an intensive weekly lifestyle ?intervention and exercise program during which the patient ?has lost between the initial office visit and the last preoperative visit 32.7lbs, or 11.2% of initial actual body weight. It was deemed appropriate for the patient to now have bariatric surgery. In light of the current Covid-19 pandemic and the well documented strong association of obesity and increased risk of worse outcomes if infected with Covid-19 (REFERENCES: https://pubmed.ncbi.nlm.nih.gov/47556702/ ,? https://pubmed.ncbi.nlm.nih.gov/46460758/ ), any delay in undergoing bariatric surgery may lead to the patient's worsening health condition and increased?risk of more severe Covid-19 disease if infected. In addition a recent?study from [facility] published in LANE Surgery on 02/17/2021 ([email or web address]) found that, among patients with obesity, substantial weight loss achieved with surgery was associated with improved outcomes of COVID-19 infection. The findings suggest that obesity can be a modifiable risk factor for the severity of COVID-19 infection. In addition, the patient met the BMI-criteria for bariatric surgery based on the BMI on initial presentation. The patient should not be penalized for achieving such weight loss because ?it is not sustainable long-term without surgical intervention and it was achieved in preparation for bariatric surgery ?under my direction and based on my published research ([email or web address]).[email or web address] and? https://www.soard.org/article/[email or web address](10)56024-X/pdf ) ?that a 10% preoperative weight loss improves long-term weight loss after surgery and reduces perioperative complications.? Insurance carriers such as [facility] have endorsed my recommendations ?and have included in their policies criteria to include a 10% preoperative weight loss requirement. PROCEDURE: Esophago-gastroscopy, laparoscopic lysis of adhesions, laparoscopic sleeve gastrectomy and laparoscopic gastropexy INDICATIONS: This is a 38 year-old female who was electively scheduled for laparoscopic, possibly open sleeve gastrectomy. The risks and complications of the procedure were discussed with the patient in advance, particularly the possibility of ; pulmonary embolism; staple line leak; bleeding; GERD; cardiac, pulmonary, or renal complications; as well as long-term problems such as insufficient weight loss, vitamin deficiency, strictures, or ulcers. The patient understood all the risks, and was in agreement to proceed with surgery. DESCRIPTION OF PROCEDURE: After informed consent was obtained from the patient, the patient was given preoperative antibiotics, and was transferred to the operating room. After successful induction of general anesthesia, pneumatic compression devices were placed on both lower extremities. An upper endoscopy was performed next. The oropharynx and esophagus appeared to be within normal limits. There was no diaphragmatic hernia present consistent with the findings of the preoperative upper GI. The stomach was entered. Then after all fluid and air were suctioned and the stomach was fully decompressed, the scope was withdrawn and secured in the mid esophagus. The patient was then prepped and draped in the usual sterile manner, and abdominal access was established at the right upper quadrant with the Marivel technique. A 12 mm blunt port was inserted, and the abdomen was insufflated with CO2 to a pressure of 15 mmHg. Under direct visualization, additional ports were placed, specifically two 5 mm Versi-step ports to the left upper quadrant, and a 5 mm Versi-Step port to the right upper quadrant. 1% lidocaine plain was used to infiltrate all port sites as well as all fascia defects. Following that, the patient was placed in a steep reverse Trendelenburg position. An additional 5 mm port was placed to the right flank for the Mediflex retractor that was used to retract the left lobe of the liver. The gastro-esophageal fat pad was opened with the ultrasonic device (Thunderbeat, Olympus) and the anterior esophagus and hiatus were exposed. The angle of His was opened with the ultrasonic device the fundus of the stomach from any diaphragmatic and splenic attachments. I then opened the gastrocolic ligament between the transverse colon and the greater curvature of the stomach with the ultrasonic device to enter the lesser sac and facilitate the ligation of the short gastric vessels. I started at a mid-point along the greater curvature and using the Thunderbeat, all short gastric vessels were divided all the way to the angle of His until the left lona was completely dissected at its entirety. I then divided the gastro-colic ligament distally to a distance of about 3-4 cm proximal to the pylorus. There were extensive congenital adhesions between the pancreas and posterior gastric wall. Those were lysed completely with the ultrasonic device. Adhesiolysis took approximately 45 min to complete.? The stomach was then divided transversely with two Endo NEL-45 purple and four NEL-60 articulating purple loads using the AbsioIA stapler and loads. Every effor t was made that the gastric sleeve had a tubular shape and an even caliber throughout. Once the sleeve resection was completed, the staple line of the gastric sleeve was reinforced with Hemoclips. The resected stomach was retrieved without difficulty from the Marivel port. A gastropexy was then performed in order to prevent postoperative GERD and partial gastric volvulus. Several interrupted 2.0 Surgidac sutures were placed between the sleeve's staple line and the previously divided greater omentum and gastro-colic ligament using the Endo-Stitch device. ?An upper endoscopy was performed. There was no narrowing at the GE junction. The scope was easily advanced all the way to the pylorus which was clearly visualized. There was no narrowing anywhere and the sleeve's caliber was even throughout. The sleeve's staple line was inspected and there was no evidence of ischemia, bleeding or dehiscence. At that point the gastroscope was withdrawn from the patient?s mouth while we were decompressing the bowel and the stomach from any remaining air. I looked into the lesser sac to see how the sleeve was situating and it was situating well. There was no bleeding from the staple line, spleen, or short gastric vessels. The Mediflex retractor was removed, and the undersurface of the liver was inspected and there was no bleeding. The patient was placed in supine position. I closed the fascial defect of the 12 mm port site with a figure of eight #1 Polysorb suture. Then 30cc Ropivacaine plain with 10 mg of Dexamethasone were used to infiltrate the fascial closure as well as all skin incisions. A total of 7ml Zynrelef was applied in the Marivel wound. At this point, the abdomen was deflated, all ports were removed under direct vision, and no bleeding was noted from any of the port sites. The skin incisions were irrigated with saline and were closed with 4-0 absorbable monofilament sutures. Steri-Strips and OpSites were used to cover all incisions. The patient was extubated and was transferred in stable condition to the recovery room for further care. I was present and performed all novoa parts of the procedure. Ms. Palacios was the data analysis assistant. There were no residents to assist with this case. Atul Browne MD, PhD, FACS Surgeon: Rikki Browne MD Anesthesia: GETA, local and other (TAP block and 7ml Zynrelef) Was an Steward/Stewardess Dining Room used for this Procedure?: No Steward/Stewardess Dining Room: Aydee Palacios Estimated blood loss (mL): 10 IV fluids (mL): 2,600 Urine output (mL): 0 (No Russ to record output) Pathology: other (Stomach) Condition: stable Disposition: PACU
--- NOTE | 2023-08-25 07:57 | PM.PNGS ---
Subjective Subjective Date of Service: 08/25/23 Interval history: Feels well. Mild incisional pain. She is tolerating phase 1 bariatric diet Physical Exam Vital Signs: Vital Signs: Last Vital Signs Temp 95.0 F L 08/25/23 06:41 Pulse 94 08/25/23 06:41 Resp 16 08/25/23 06:41 BP 155/97 H 08/25/23 06:41 Pulse Ox 95 08/25/23 06:41 O2 Del Method Room Air 08/25/23 06:41 BMI result Body Mass Index 46.5 GI: Inspection: Yes normal to inspection, Yes incision (clean, dry and intact) and Yes obesity Palpation (GI): Soft to palpation Extrem: Right lower extremity: normal to inspection (no calf tenderness) Left lower extremity: normal to inspection (no calf tenderness) Objective Data Active Medications Lactated Ringer's (Lr) 1,000 mls @ 999 mls/hr IV .Q1H1M TAO Stop: 08/25/23 08:15 Last Admin: 08/25/23 07:06 Dose: 999 mls/hr Documented By: VIPIN Lactated Ringer's (Lr) 1,000 mls @ 100 mls/hr IVCONT .Q10H [facility] Labs 08/18/23 08:25 08/18/23 08:25 Labs: Laboratory Results - last 24 hr 08/25/23 06:15 Urine Test NEGATIVE Procedures Date of Service Date of Service: 08/25/23 Progress Note: A&P Assessment and plan (1) Morbid obesity due to excess calories: Status: Acute Assessment and Plan: s/p laparoscopic sleeve gastrectomy, lysis of adhesions and gastropexy Doing well Will check am labs and if OK the patient will be discharged home (2) Arnold-Chiari malformation: Status: Acute (3) Essential hypertension: Status: Acute (4) Non-insulin dependent type 2 diabetes mellitus: Status: Acute (5) Anxiety: Status: Acute (6) Fibromyalgia: Status: Acute (7) Moderate recurrent major depression: Status: Acute (8) DJD (degenerative joint disease): Status: Acute (9) Steatosis, liver: Status: Acute (10) Liver fibrosis: Status: Acute (11) Insomnia: Status: Acute (12) Congenital intra-abdominal adhesions: Status: Acute (13) S/P laparoscopic sleeve gastrectomy: Status: Acute Time Spent With Patient Time: Total time managing care of this patient today ____ minutes. Quality Stroke Does the patient have a stroke diagnosis?: No VTE Prior VTE?: No VTE Risk Level:: Surgical - moderate VTE Device Contraindication: N/A - Device Ordered VTE Drug Contraindication: Treatment Not Indicated
--- NOTE | 2023-08-25 10:47 | P.DS_ITS ---
DS: Providers Provider Date of Service: 08/26/23 Date of admission: 08/25/23 06:15 Primary care physician: Mague Irby MD DS: Diagnosis Discharge Diagnosis (1) Morbid obesity due to excess calories: Status: Acute (2) Arnold-Chiari malformation: Status: Acute (3) Essential hypertension: Status: Acute (4) Non-insulin dependent type 2 diabetes mellitus: Status: Acute (5) Anxiety: Status: Acute (6) Fibromyalgia: Status: Acute (7) Moderate recurrent major depression: Status: Acute (8) DJD (degenerative joint disease): Status: Acute (9) Steatosis, liver: Status: Acute (10) Liver fibrosis: Status: Acute (11) Insomnia: Status: Acute (12) Congenital intra-abdominal adhesions: Status: Acute (13) S/P laparoscopic sleeve gastrectomy: Status: Acute DS: Summary Hospital Course Hospital Course: ADMITTING DIAGNOSIS: morbid obesity,?liver steatosis, DJD, insomnia, sciatica, panic disorder, depression, anxiety, fibromyalgia, shoulder pain, back pain, HTN, Arnold-Chiari malformation ? DISCHARGE DIAGNOSIS: same, s/p laparoscopic sleeve gastrectomy and gastropexy ? PAST SURGICAL HISTORY:?cholecystectomy, , carpal tunnel, D&C ? PROCEDURE: upper endoscopy, laparoscopic sleeve gastrectomy and gastropexy ? DISCHARGE SUMMARY: ? History of Present Illness: ? The patient is a? 38? year-old woman with a BMI of? ?46.5 ? kg/m2 and associated co-morbidities as described above. The patient had extensive work-up, lost? ?32.5 ? lbs preoperatively and was electively scheduled for laparoscopic, possible open sleeve gastrectomy and gastropexy. Risks and complications of the surgery were discussed with the patient in advance, particularly the possibility of , pulmonary embolism, anastomotic leak, bleeding, bowel injury, GERD, cardiac, renal or pulmonary complications. The patient understood all the risks and was in agreement with the surgical plan. ? Hospital Course: ? The patient underwent an uneventful laparoscopic sleeve gastrectomy with gastropexy on the day of admission. Postoperatively, the patient was transferred to the surgical floor. The patient received IV Acetaminophen and IV dilaudid for pain control. Patient was started on bariatric phase 1 diet POD #0. On postoperative day one, the patient was feeling well without nausea, vomiting, fevers, or tachycardia. The patient had some mild incisional pain and the abdomen was soft.? ? On the morning of postoperative day one, the patient was continued on 1 ounce of water or ice every half hour. During the day, the patient did fairly well, having some incisional pain, but able to ambulate adequately and to tolerate liquids well. ? Since the patient is doing well, we decided that the patient was ready to be discharged. The patient was given instructions to follow-up with me next week and to call my office for any fever over 101, persistent abdominal pain, nausea, vomiting, GERD, symptoms of DVT such as calf tenderness, or leg swelling, or pulmonary embolism such as chest pain or shortness of breath.? The patient was also instructed to drink 40-60 ounces of liquids per day using the 1-ounce cups. The patient had been given prescriptions for Tylenol for pain, Zofran prn for nausea, and pantoprazole and carafate previously. The patient was encouraged to ambulate and use the incentive spirometer. The patient was allowed to shower, but no baths, and encouraged to stay active at home. All of these instructions were given to the patient personally. All questions were answered and the patient understood all instructions, the instructions were also given to the patient in print. Time Attestation Total time managing care of this patient today: 30 mintues. Discharge Coordination Time (in mins): 30 Quality: Safe Use of Opioids Does Pt have an Active Cancer Diagnosis on the Problem List?: No Quality: Stroke Does the patient have a stroke diagnosis?: No Physical Exam Vital Signs: Vital Signs: Last Vital Signs Temp 98.2 F 08/25/23 10:32 Pulse 94 08/25/23 10:42 Resp 21 H 08/25/23 10:42 BP 122/75 08/25/23 10:42 Pulse Ox 98 08/25/23 10:42 O2 Del Method Nasal Cannula 08/25/23 10:42 O2 Flow Rate 3 08/25/23 10:42 BMI result Body Mass Index 46.5 DS: Data Data Completed and Pending Pending studies at discharge: Pending at discharge 08/25/23 09:52 Surgical [PTH] Routine Labs on day of discharge: Laboratory Results - last 24 hr 08/25/23 06:15 Urine Test NEGATIVE Discharge Plan Discharge Anticipated Discharge Date/Time: 08/26/23 10:00 Patient Disposition: Home, Self-Care Discharge Diagnosis: s/p laparoscopic sleeve gastrectomy with gastropexy Referrals: Mague Brantley MD [Primary Care Provider] - 1 Week Discharge Medications: Continued (DME) Brace,wrist Misc See Rx Instructions .Route Qty: 2 0RF Rx Instructions: Use at nighttime only for both wrists sucralfate [Carafate] 100 mg/mL suspension 10 ml PO BID clonazepam 1 mg tablet 1 mg PO BID PRN (Reason: Anxiety) amitriptyline 100 mg tablet 100 mg PO BEDTIME fluoxetine 20 mg capsule 20 mg PO DAILY pantoprazole 40 mg tablet,delayed release (DR/EC) 40 mg PO DAILY Qty: 90 0RF ondansetron 4 mg tablet,disintegrating 4 mg PO Q12H Qty: 20 0RF Rx Instructions: Only take one every 12 hours as needed if you have nausea Held lisinopril 10 mg tablet 10 mg PO DAILY 90 Days Qty: 90 1RF Hold Instructions: Resume on 08/26/23. follow parameters provided by Dr. Browne for dosing Discontinued cyanocobalamin (vitamin B-12) [Vitamin B-12] 1,000 mcg tablet 1,000 mcg PO DAILY Qty: 30 5RF cholecalciferol (vitamin D3) 50 mcg (2,000 unit) capsule 50 mcg PO DAILY Qty: 30 5RF Discharge Orders: Discharge Order (Routine); Ordered 08/26/23 Ordered By: Aydee Palacios Activity on Discharge: No heavy lifting Stand Alone Forms: Patient Portal Discharge page Print Language: Sami Care Plan Goals: weight loss Health Concerns: morbid obesity Plan of Treatment: No tub baths, sex or returning to work until discussed at first post op appointment. No alcohol, tobacco or illegal drug use. Continue to use incentive spirometer hourly while awake. Walk in home for 5- 10 minutes every 2 hours during the first week. Wear abdominal binder with activity. Follow all meal plan instructions from your bariatric surgeon. Review bariatric handbook and call with any questions. Discharge Instructions 1. Please call your doctor or come back to the emergency room should any new symptoms arise. 2. Activity: abstain from alcohol,? limited stair climbing, no bending, no driving, no exercise, no illicit substances, no lifting, no sex, no tub bath, no work. 4. Diet: follow your bariatric surgeons recommendations for advancing diet. 5. Dressing Change/Wound Care: Your incisions are covered with waterproof dressings. You can shower with these and pat dry. Do not rub over dressings or incisions. If the area is tender, you may apply an ice pack for short intervals (no more than 20 minutes on, followed by at least 20 minutes off). Do not apply heat. Do not use creams, lotions, or topical antibiotics unless instructed to do so by your surgeon. 6. Call your doctor if: - Your temperature exceeds 101.5 F - You experience excessive pain or swelling - You have an unexpected reaction to medication - You have excessive bleeding - You experience continued vomiting/nausea - Your incision begins to separate - Your incision shows signs of infection such as increased redness, swelling, excessive pain, heat, or drainage (light blood or clear fluid is normal) General instructions: No lifting greater than 10 lbs for the next 6 weeks[address] within 24 hours of taking narcotic pain medications. If you do not move your bowels in the next 2 days, please take milk of magnesia over the counter. Please follow the post op diet and do not advance your diet until you are seen in the office in about 2 weeks. Please walk around your home every hour or two to prevent blood clots from forming in your legs. You do not need to wake from sleeping to walk. Please sleep in a bed or couch to prevent kinking at the hips and knees. Please take your incentive spirometer (your lung cotton weigher operator) home with you and use it for the next few days to prevent pneumonias. You may shower, no hot tubs, baths or swimming pools. Please call the office with any questions or concerns such as increasing abdominal pain, fever, chills, shortness of breath, chest pain, leg pain or swelling, or redness or drainage from your incisions. Please make sure you are consuming 40-60 ounces of total fluids per day. Avoid all carbonation. Do not hesitate to contact the office with any questions at . The patient's medical history has been reviewed and they are considered low risk for post op DVT and therefore DVT prophylaxis is not considered necessary. Travel after surgery was reviewed. The patient has not disclosed any travel plans during the first 30 days after surgery and they have been advised that within the first 30 days after surgery any bus, plane, train or car travel over 2 hours in duration is contraindicated due to the possibility of developing blood clots from immobility. Any travel, needs to include periods of ambulation of 10 minutes in duration every 2 hours.? The patient was instructed to discuss any plans for travel during this period with their bariatric surgeon. Assessment: s/p laparoscopic sleeve gastrectomy with gastropexy
[2023-08-25] MEDS: droPERidol 5 MG/2 ML VIAL 0.625 MG IVPUSH (10:59)
[2023-08-25 11:15] LABS: Hematocrit 39.4 % (37.0-47.0); Hemoglobin 12.9 g/dl (12.0-16.0)
[2023-08-25 11:26] LABS: Anion Gap 13 (12-20); Blood Urea Nitrogen 8 mg/dL (9-16); Calcium 8.9 mg/dL (8.4-10.2); Carbon Dioxide 23 mmol/L (22-29); Chloride 105 mmol/L (96-108); Creatinine Clr Calc Pharmacy 149.6; Estimated Glomerular Filt Rate > 60; Glucose Random 143 mg/dL (60-115); Potassium 4.1 mmol/L (3.3-5.1); Sodium 137 mmol/L (135-145)
[2023-08-25] MEDS: Lactated Ringers 1,000 ML 100 ML IVCONT ×2 (12:05→21:36)
[2023-08-25] MEDS: ceFAZolin Sodium/Dextrose,Iso 2 GM/50 ML PIGGYBACK IV (13:25)
--- NOTE | 2023-08-25 13:46 | PHA.MEDREC ---
Pharmacy Consult ? Medication Reconciliation Pharmacy has completed the medication reconciliation. Spoke to patient through director health Marissa. Patient states she is no longer on Buspirone 7.5 mg tid, claim date last filled is on 08-16-23, Meloxicam 15 mg daily, Topiramate 25 mg bid, Vitamin A 3,000mcg daily, Zinc Gluconate 30 mg daily, and zolpidem 10 mg at bedtime.Patient says she is on Lisinopril 10 mg daily, however last claim date was Nov-2022.
[2023-08-25] MEDS: Acetaminophen 1,000 MG/100 ML PIGGYBACK 16.7 MG IV ×2 (14:12→19:37)
[2023-08-25] MEDS: 0.9 % Sodium Chloride Flush 3 ML SYRINGE IVFLUSH (19:38)
[2023-08-25] MEDS: Famotidine/PF 20 MG/2 ML VIAL IVPUSH (19:38)
[2023-08-25] MEDS: HYDROmorphone HCl 0.5 MG/0.5 ML SYRINGE 0.25 MG IVPUSH (19:38)
[2023-08-25] MEDS: Amitriptyline HCl 50 MG TABLET 100 MG PO (21:35)
[2023-08-26] VITALS: BP 132/72; PULSE 110; RESP 16; TEMP 36.7; O2SAT 100
[2023-08-26] MEDS: Acetaminophen 1,000 MG/100 ML PIGGYBACK 16.7 MG IV ×2 (01:36→07:57)
[2023-08-26 04:00] VITALS: BP 140/73; PULSE 104; RESP 16; TEMP 36.7; O2SAT 98
[2023-08-26 06:20] LABS: Anion Gap 17 (12-20); Blood Urea Nitrogen 5 mg/dL (9-16); Calcium 8.7 mg/dL (8.4-10.2); Carbon Dioxide 18 mmol/L (22-29); Chloride 105 mmol/L (96-108); Creatinine Clr Calc Pharmacy 149.6; Estimated Glomerular Filt Rate > 60; Glucose Random 104 mg/dL (60-115); Potassium 4.2 mmol/L (3.3-5.1); Sodium 136 mmol/L (135-145)
--- NOTE | 2023-08-26 06:54 | PC.NURSE ---
Pt's HR at 0000 was 110, all other vital signs were good and pt was asymptomatic. [place] text sent to JOSE CARLOS Pull[place].
[2023-08-26 07:42] VITALS: BP 157/68; PULSE 108; RESP 20; TEMP 36.3; O2SAT 97
[2023-08-26] MEDS: FLUoxetine HCl 20 MG CAPSULE PO (07:57)
[2023-08-26] MEDS: Lactated Ringers 1,000 ML 100 ML IVCONT (07:58)
[2023-08-26] MEDS: 0.9 % Sodium Chloride Flush 3 ML SYRINGE IVFLUSH (07:59)
[2023-08-26] MEDS: Famotidine/PF 20 MG/2 ML VIAL IVPUSH (08:00)
[2023-08-26 08:23] LABS: Basophils Percent Auto 0.1 % (0-2); Hematocrit 41.4 % (37.0-47.0); Hemoglobin 13.4 g/dl (12.0-16.0); Imm Gran Abs Auto 0.03 X10*3/uL (0.00-0.03); Imm Gran Pct Auto 0.3 % (0.0-0.4); Lymphocytes Absolute Auto 1.6 X10*3/uL (1.2-4.9); Lymphocytes Percent Auto 14.1 % (20-40); Mean Corpuscular HGB Conc 32.4 g/dl (31.0-35.0); Mean Corpuscular Hemoglobin 28.2 pg (27.0-33.0); Mean Platelet Volume 9.4 fL (9.4-12.3); Monocytes Absolute Auto 0.7 X10*3/uL (0.1-1.2); Neutrophils Absolute Auto 9.1 x10*3/uL (2.0-8.3); Neutrophils Percent Auto 79.5 % (45-73); Platelet Count 269 X10*3/uL (160-400); Red Blood Count 4.76 X10*6/uL (4.20-5.50); Red Cell Distribution Width 13.2 % (11.0-16.0); White Blood Count 11.4 X10*3/uL (4.8-10.8)
[2023-08-26 09:06] LABS: MANUAL DIFF FLAG NO
[2023-08-26 09:37] VITALS: O2SAT 97
--- NOTE | 2023-08-26 10:39 | MHC.CM.PN ---
Addendum entered by Marly Malone 08/26/23 10:54: [facility] [employer] ASSISTED WITH INTAKE Original Note: PT REPORTS SHE LIVES WITH HER DAUGHTERS AND IS INDEPENDENT WITH CARE SHE HAS NO SERVICES OR DME COPY OF HCP REQUESTED PCP: GUILLE PATTERSON DCP: HOME TODAY WITH NO SERVICES PRIVATE TRANSPORT
--- NOTE | 2023-08-26 18:53 | HO.POSTANES ---
Post Anesthesia Evaluation Post Anesthesia Evaluation Date of Service: 08/26/23 Vital Signs: Vital Signs Temp Pulse Resp BP Pulse Ox O2 Del Method 08/26/23 09:37 97 Room Air 08/26/23 07:42 97.3 F 108 H 20 157/68 H 97 Room Air Anesthesia: General Endotracheal-GETA Mental Status: Awake Pain Control: Satisfactory Nausea/Vomiting: None Hydration: Adequate Anesthesia-Related Issues: No Anes. Related Issues
== END 2023-08-26 12:05 | disposition home or self-care (01) | DRG 403 ==
LOC: HO.SSSA 10:43 → HO.S3 11:05
PROVIDERS: Anesthesiology; Physician Assistant Surgical; Admitting Provider Surgery; PCP Internal Medicine; Visit Provider Surgery
PROC: 0DB64Z3 Excision of Stomach, Percutaneous Endoscopic Approach, Vertical (ICD-10-PCS; CPT 43845; principal; 2023-08-25 07:30)
DX: E66.01 Morbid (severe) obesity due to excess calories (principal); K74.00 Hepatic fibrosis, unspecified; F33.1 Major depressive disorder, recurrent, moderate; E11.9 Type 2 diabetes mellitus without complications; I10 Essential (primary) hypertension; M79.7 Fibromyalgia; M19.90 Unspecified osteoarthritis, unspecified site; Q43.3 Congenital malformations of intestinal fixation; G47.00 Insomnia, unspecified; K76.0 Fatty (change of) liver, not elsewhere classified; Z68.41 Body mass index [BMI] 40.0-44.9, adult; Z91.040 Latex allergy status; Z79.899 Other long term (current) drug therapy
CPT/HCPCS: 36415; 80048; 80053; 80061; 81025; 83036; 83525; 84443; 85014; 85018; 85025; 85610; 85730; 86140; 86850; 86900; 86901; 88304; 88305; 88307; 88342; A4649; C9088; C9145; J0131; J0690; J1100; J1170; J1596; J1790; J2250; J2371; J2405; J2704; J2795; J3010; J7120

== ENCOUNTER → 2023-08-25 06:15 | Outpatient (BNV) | payer OTHER, SELFPAY | PROVIDERS: Admitting Provider Surgery; PCP Internal Medicine; Visit Provider Surgery | DX: E66.01 Morbid (severe) obesity due to excess calories (principal); Z68.41 Body mass index [BMI] 40.0-44.9, adult; Z90.3 Acquired absence of stomach [part of]; Z98.84 Bariatric surgery status | CPT/HCPCS: 43659; 43775; 99499 ==

== ENCOUNTER 2023-09-01 14:05 | Outpatient (AMB) | payer OTHER, SELFPAY ==
--- NOTE | 2023-09-01 14:10 | A.OFFVIS_ITS ---
VS Expanded 09/01/23 14:22 BP 121/72 Blood Pressure Location Rt brachial Blood Pressure Position Sitting Pulse 105 H Pulse Source Pulse Oximeter Temp 97.0 F Temperature Source Temporal Artery Scan Pulse Oximetry 97 Oxygen Delivery Method Room Air Height 5 ft 3 in Weight 243 lb 6.4 oz BMI 43.1 Body Fat % 46.6 Body Fat Mass 113.4 Fat Free Mass 130.0 Visceral Fat Rating 13.0 Body Water % 38.2 Body Water Mass 93.0 Muscle Mass/Score 123.4 Basal Metabolic Rate/Score 1,849 Intake Visit Reasons: (OV) PO LSG 08/25/23 Allergies aspirin [ASPIRIN] Allergy (Intermediate, Verified 09/01/23 14:15) SWELLING latex [LATEX] Allergy (Intermediate, Verified 09/01/23 14:15) Rash prednisone [PREDNISONE] Allergy (Intermediate, Verified 09/01/23 14:15) swelling and hives, swelling tramadol Allergy (Intermediate, Verified 09/01/23 14:15) loopiness HPI Comments Details: Pleasant 38-year-old female returns to the office today in follow-up she is approximately 1 week post sleeve gastrectomy performed on 08/25/2023. She reports nausea because she was drinking 1 oz every 15 minutes, 1 oz at a time. I instructed her that is not the way the instructions are written. Additionally, she has moved her bowels. She has no pain. She is tolerating 3 orgain shakes with 1 scoop each and approximately 40 oz of water. [facility] Medical History (Updated 09/01/23 @ 00:02 by Mariella Jane) Insomnia Liver fibrosis Steatosis, liver DJD (degenerative joint disease) Panic disorder Diabetes Lumbar pain with radiation down both legs Shoulder pain, bilateral Bilateral shoulder tendinopathy Gestational diabetes mellitus Moderate recurrent major depression Morbid obesity due to excess calories Chronic thoracic spine pain Carpal tunnel syndrome Neck pain Fibromyalgia B12 deficiency Anxiety Right sided sciatica Neuropathy Essential hypertension Arnold-Chiari malformation Surgical History (Updated 09/01/23 @ 14:18 by Lory Infante CMA) S/P laparoscopic sleeve gastrectomy History of D&C History of cholecystectomy History of section Family History Father Hypertension CVD (cardiovascular disease) Diabetes Mother Hypertension Chronic mental illness Depression Mental health disorder Paternal Aunt Breast cancer Brother Colon cancer Stomach cancer Social History Household Members: Family Housing: House 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 Do you presently have visiting nurse or other home services: No Alcohol intake: never Patient Tobacco Use Status: Never used Tobacco e-Cigarette/Vaping Use: Never Used Second Hand Smoke Exposure: No service: No Current occupational status: unemployed Cognitive needs: No Hearing needs: No Vision needs: No Physical Exam GI Inspection: Yes incision (c/d/i) Assessment & Plan Assessment & Plan (1) S/P laparoscopic sleeve gastrectomy: Code(s): Z98.84 - Bariatric surgery status Category: Surgical Plan: POD 7 s/p LSG on 08/25/[address] Browne Weight loss prior to surgery was 33.2 pounds or 11.2 % TBWL. Original weight on 11/05/2022 was 295 pounds and op weight was 261.8 pounds. Be sure to text Dr Browne exactly 1 week after surgery your weight from your home scale so he can adjust your meal plan. Continue meal plan until f/u w Fernando in 2 weeks May shower, no submersion in bath for another week Continue abdominal binder with activity and exercise for the next 2 weeks. Exercise prior to surgery was treadmill and bike and may resume No abdominal exercises for 6 weeks post operatively Will be emailed link to post op video for review Reminded of the pace of drinking, 2 mL per minute, 1 oz/15 min. Reminded again how important it is to drink at the appropriate pace, following this, she will not have any further nausea
[2023-09-01 14:22] VITALS: BP 121/72; PULSE 105; TEMP 36.1; O2SAT 97; BMI 43.1
== END 2023-09-01 14:47 | disposition home or self-care (01) ==
PROVIDERS: PCP Internal Medicine; Visit Provider Physician Assistant Surgical
DX: Z98.84 Bariatric surgery status (principal)
CPT/HCPCS: 99024

== ENCOUNTER → 2023-09-01 14:05 | Outpatient (BNVA) | payer OTHER, SELFPAY | PROVIDERS: PCP Internal Medicine; Visit Provider Physician Assistant Surgical | DX: Z98.84 Bariatric surgery status (principal) | CPT/HCPCS: 99212 ==

== ENCOUNTER 2023-09-09 14:18 | Outpatient (AMB) | payer OTHER, SELFPAY ==
--- NOTE | 2023-09-09 14:28 | A.OFFPC_ITS ---
Vital Signs 09/09/23 14:29 Height 5 ft 3 in Weight 243 lb BMI 43.0 BP 118/80 Blood Pressure Location Lt brachial Position Sitting Intake Visit Reasons: bp Intake Note: Patient here for a follow up BP Physical Therapist Aide Required: No Accompanied by: Self / Same As Patient Allergies aspirin [ASPIRIN] Allergy (Intermediate, Verified 09/09/23 14:51) SWELLING latex [LATEX] Allergy (Intermediate, Verified 09/09/23 14:51) Rash prednisone [PREDNISONE] Allergy (Intermediate, Verified 09/09/23 14:51) swelling and hives, swelling tramadol Allergy (Intermediate, Verified 09/09/23 14:51) loopiness Medication List - Last Reconciled 09/09/23 by Mague Irby MD amitriptyline 100 mg PO BEDTIME Brace,wrist Use at nighttime only for both wrists clonazepam 1 mg PO BID PRN lisinopril 10 mg PO DAILY 90 days pantoprazole 40 mg PO DAILY sucralfate (Carafate) 10 mL PO BID Tobacco use date assessed: 09/09/23 Dental Screening Dental Screen Date: 09/09/23 Did you have a dental visit in the last 12 months?: Yes Did you have a dental problem in the last 6 months where you did not have access to dental care?: No Was dental information given to patient?: Patient has dentist HPI HPI Comments History of Present Illness Details This is a 38-year-old female with hypertension, chronic GERD, moderate recurrent major depression, anxiety and morbid obesity that comes today for follow-up on her conditions. Blood pressure has been well controlled without lisinopril and this will be discontinue at the moment. Chronic GERD stable with PPIs. Depression and anxiety well control with medications and this is follow by Psychiatry. She is morbidly obese and has intentionally lose weight by weight management. Recently had bariatric surgery and her BMI is 43. Denies any chest pain or shortness on breath. No fever or cough. [facility], [facility] Medical History (Updated 09/10/23 @ 09:53 by Mague Irby MD) Insomnia Liver fibrosis Steatosis, liver DJD (degenerative joint disease) Panic disorder Lumbar pain with radiation down both legs Shoulder pain, bilateral Bilateral shoulder tendinopathy Gestational diabetes mellitus Moderate recurrent major depression Morbid obesity due to excess calories Chronic thoracic spine pain Carpal tunnel syndrome Neck pain Fibromyalgia B12 deficiency Anxiety Right sided sciatica Neuropathy Essential hypertension Arnold-Chiari malformation Surgical History S/P laparoscopic sleeve gastrectomy History of D&C History of cholecystectomy History of section Family History Father Hypertension CVD (cardiovascular disease) Diabetes Mother Hypertension Chronic mental illness Depression Mental health disorder Paternal Aunt Breast cancer Brother Colon cancer Stomach cancer Social History Household Members: Family Housing: House 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 1. Little interest or pleasure in doing things: not at all 2. Feeling down, depressed, or hopeless: not at all 3. Trouble falling or staying asleep, or sleeping too much: not at all 4. Feeling tired or having little energy: not at all 5. Poor appetite or overeating: not at all 6. Feeling bad about yourself - or that you are a failure or have let yourself or your family down: not at all 7. Trouble concentrating on things, such as reading the newspaper or watching television: not at all 8. Moving or speaking so slowly that other people could have noticed. Or the opposite - being so fidgety or restless that you have been moving around a lot more than usual: not at all 9. Thoughts that you would be better off or of hurting yourself in some way: not at all Total score: 0 Depression Screening Interpretation: Negative Depression Screening Done: Yes 70662 - PHQ-9 Billing: Yes Source: Developed by Drs. Mateo Riojas, Gale Patel, Zac Quintero and colleagues, with an educational mireya from [employer]. Thrive Questionnaire Date Thrive assessed: 09/09/23 I am a: Patient What is your living situation today?: I have a steady place to live Within the past 12 months, did the food you bought not last and you didn't have the money to get more?: Never true Within the past 12 months, did you worry whether your food would run out before you got money to buy more?: Never true Do you have trouble paying for medicines?: No Do you have trouble getting transportation to medical appointments?: No Do you have trouble paying your heating and electricity bill?: No Do you have trouble taking care of your child, family member or friend?: No Do you have trouble with day-to-day activities such as bathing, preparing meals, shopping, managing finances, etc.?: No Are you currently unemployed and looking for a job?: No Are you interested in more education?: No Please select the resources that you would like help with: None Currently or been in a relationship where the following occur: No concerns reported THRIVE Score: 0 AUDIT C Alcohol Use Questionnaire (AUDIT-C) 1. How often do you have a drink containing alcohol?: Never Total Score: 0 PAULETTE-7 AMB Questionnaire APULETTE-7 Date PAULETTE - 7 assessed: 09/09/23 Feeling nervous, anxious, or on edge: 0 = Not at all Not being able to stop or control worryin = Not at all Worrying too much about different things: 0 = Not at all Trouble relaxin = Not at all Being so restless that it is hard to sit still: 0 = Not at all Becoming easily annoyed or irritable: 0 = Not at all Feeling afraid as if something awful might happen: 0 = Not at all Total PAULETTE-7 score (0-4 normal; 5-9 mild; 10-14 moderate; 15-21 severe): 0 Source: Developed by Drs. Mateo Riojas, Gale Patel, Zac Quintero and colleagues, with an educational mireya from [employer]. PAULETTE-7 Assessment Billing PAULETTE-7 Assessment Tool: PAULETTE-7 Assessment 50814 Review of Systems Const All systems reviewed & are unremarkable except as noted in HPI and below Card Denies chest pain at rest, Denies chest pain with activity, Denies edema, Denies irregular heart rhythm, Denies claudication, Denies dyspnea, Denies dyspnea on exertion, Denies orthopnea, Denies paroxysmal nocturnal dyspnea and Denies slow heart rate Resp Denies cough, Denies dyspnea and Denies dyspnea on exertion Physical exam (Primary Care) Vital Signs: Last Vital Signs BP 118/80 09/09/23 14:29 BMI result Body Mass Index 43.0 Tobacco/Smoking Status: Tobacco use Status Tobacco use date assessed 09/09/23 09/09/23 14:38 Patient Tobacco Use Status Never used Tobacco 09/09/23 14:38 e-Cigarette/Vaping Use Never Used 09/09/23 14:38 PHQ-9: PHQ-9 Score PHQ-9: Total score 0 09/09/23 14:53 Depression Screening Interpretation: Negative Thrive Assessment: Date of Thrive Assessment Date Thrive assessed 09/09/23 09/09/23 14:38 Currently or been in a relationship where the following occur: No concerns reported Resp Effort & Inspection: normal respiratory effort Auscultation: clear to auscultation bilaterally Cardio Jugular venous distension: no JVD Rate: regular rate Rhythm: regular rhythm Heart sounds: S1 normal heart sound present and S2 normal heart sound present Extrem General: Yes full ROM Assessment and Plan Assessment & Plan (1) Moderate recurrent major depression: Code(s): F33.1 - Major depressive disorder, recurrent, moderate Plan: Continue amitriptyline. Follow-up with psychiatry. (2) Morbid obesity due to excess calories: Code(s): E66.01 - Morbid (severe) obesity due to excess calories Plan: Continue diet and exercise. BMI goal is less than 30. (3) Essential hypertension: Code(s): I10 - Essential (primary) hypertension Plan: Discontinue lisinopril. Blood pressure goal is equal or less than 130/80. (4) Chronic GERD: Code(s): K21.9 - Gastro-esophageal reflux disease without esophagitis Plan: Continue PPIs. (5) Anxiety: Code(s): F41.9 - Anxiety disorder, unspecified Plan: Continue benzodiazepines as needed. Follow-up with psychiatry. Coding Level of Care Code Est Pt Level 4 (98071) Complex EM visit Add On G2211 Diagnoses Moderate recurrent major depression F33.1 Morbid obesity due to excess calories E66.01 Essential hypertension I10 Chronic GERD K21.9 Anxiety F41.9 Additional Codes PAULETTE-7 Assessment Billing - PAULETTE-7 Assessment Tool: PAULETTE-7 Assessment 50176 ([id number]) Time Spent (min) 25
[2023-09-09 14:29] VITALS: BP 118/80; BMI 43.0
== END 2023-09-09 15:00 | disposition home or self-care (01) ==
PROVIDERS: PCP Internal Medicine; Visit Provider Internal Medicine
DX: I10 Essential (primary) hypertension (principal); F33.1 Major depressive disorder, recurrent, moderate; E66.01 Morbid (severe) obesity due to excess calories; Z68.41 Body mass index [BMI] 40.0-44.9, adult; K21.9 Gastro-esophageal reflux disease without esophagitis; F41.9 Anxiety disorder, unspecified
CPT/HCPCS: 99214; G2211

== ENCOUNTER 2023-09-15 14:50 | Outpatient (AMB) | payer OTHER, SELFPAY ==
--- NOTE | 2023-09-15 14:54 | A.OFFVIS_ITS ---
VS Expanded 09/15/23 15:01 BP 132/82 Blood Pressure Location Rt radial Blood Pressure Position Sitting Pulse 76 Pulse Source Pulse Oximeter Temp 96.2 F L Temperature Source Tympanic Pulse Oximetry 98 Oxygen Delivery Method Room Air Height 5 ft 3 in Weight 238 lb 9.6 oz BMI 42.3 Body Fat % 46.0 Body Fat Mass 109.8 Fat Free Mass 128.8 Visceral Fat Rating 13.0 Body Water % 38.6 Body Water Mass 92.2 Muscle Mass/Score 122.4 Basal Metabolic Rate/Score 1,826 Intake Visit Reasons: (OV) PO LSG 08/25/23 Allergies aspirin [ASPIRIN] Allergy (Intermediate, Verified 09/15/23 14:55) SWELLING latex [LATEX] Allergy (Intermediate, Verified 09/15/23 14:55) Rash prednisone [PREDNISONE] Allergy (Intermediate, Verified 09/15/23 14:55) swelling and hives, swelling tramadol Allergy (Intermediate, Verified 09/15/23 14:55) loopiness HPI Comments Details: This?a?38?yo female who is s/p LSG without hiatal hernia repair on?08/25/2023. Presents for 3 week post op visit. Weight today is 238.6 pounds, with a BMI of 42.3. There has been a 56.4 pound weight loss,(initial weight 295 pounds) since starting the program on 11/05/2022 reflecting a 19.1 % total body weight loss and a weight loss of 23.2 pounds since surgery (operative weight 261.8 pounds) reflecting a 8.8 % TBWL since surgery. No complaints of nausea, emesis, abdominal pain or reflux. Reports infrequent but normal bowel movements every 1- 2 days and uses stool softeners regularly. She states she has been feeling lightheaded over the last 3-4 days. She has not had her 3rd shake as she felt too full. She has been drinking 16-32 oz of water. Present meal plan includes: Supposed to be doing 3 or gain shakes with 2 scoops, 2 scoops, 1 scoop and 1 pure protein bar. ? Exercise routine includes: walking outside stationary bike 2 x per week [facility] Medical History (Updated 09/10/23 @ 09:53 by Mague Irby MD) Insomnia Liver fibrosis Steatosis, liver DJD (degenerative joint disease) Panic disorder Lumbar pain with radiation down both legs Shoulder pain, bilateral Bilateral shoulder tendinopathy Gestational diabetes mellitus Moderate recurrent major depression Morbid obesity due to excess calories Chronic thoracic spine pain Carpal tunnel syndrome Neck pain Fibromyalgia B12 deficiency Anxiety Right sided sciatica Neuropathy Essential hypertension Arnold-Chiari malformation Surgical History S/P laparoscopic sleeve gastrectomy History of D&C History of cholecystectomy History of section Family History Father Hypertension CVD (cardiovascular disease) Diabetes Mother Hypertension Chronic mental illness Depression Mental health disorder Paternal Aunt Breast cancer Brother Colon cancer Stomach cancer Social History Household Members: Family Housing: House Are you a primary pediatric critical care nurse to a significant other at home: Yes Do you presently have visiting nurse or other home services: No Alcohol intake: never Patient Tobacco Use Status: Never used Tobacco e-Cigarette/Vaping Use: Never Used Second Hand Smoke Exposure: No service: No Current occupational status: unemployed Cognitive needs: No Hearing needs: No Vision needs: No Physical Exam Vital Signs: Last Vital Signs Temp 96.2 F L 09/15/23 15:01 Pulse 76 09/15/23 15:01 BP 132/82 09/15/23 15:01 Pulse Ox 98 09/15/23 15:01 Oxygen Delivery Method Room Air 09/15/23 15:01 BMI result Body Mass Index 42.3 Const General: healthy appearing and no acute distress Resp Effort & Inspection: normal respiratory effort Auscultation: clear to auscultation bilaterally Cardio Rate: regular rate Rhythm: regular rhythm GI Auscultation: normal bowel sounds Extrem General: Yes normal to inspection Assessment & Plan Assessment & Plan (1) S/P laparoscopic sleeve gastrectomy: Code(s): Z98.84 - Bariatric surgery status Category: Surgical Plan: Recommend patient change her meal plan to include Orgain, 2 shakes with 2 scoops each and 2 pure protein bars, 2 bottles of water to equal 32 oz and a 12 oz Gatorade bottle per day. She certainly may have slightly less water if needed. She is no longer taking her lisinopril as recommended by her primary care physician. She has been instructed to take a multivitamin but she had been taking this in the morning causing nausea, I suggested she take it in the evening. She will do this. She will return to the office in 2 weeks. She was encouraged to text with any questions or concerns.
[2023-09-15 15:01] VITALS: BP 132/82; PULSE 76; TEMP 35.7; O2SAT 98; BMI 42.3
== END 2023-09-15 15:38 | disposition home or self-care (01) ==
PROVIDERS: PCP Internal Medicine; Visit Provider Physician Assistant Surgical
DX: Z98.84 Bariatric surgery status (principal)
CPT/HCPCS: 99024

== ENCOUNTER → 2023-09-15 14:50 | Outpatient (BNVA) | payer OTHER, SELFPAY | PROVIDERS: PCP Internal Medicine; Visit Provider Physician Assistant Surgical | DX: Z48.815 Encounter for surgical aftercare following surgery on the digestive system (principal); Z98.84 Bariatric surgery status | CPT/HCPCS: 99212 ==

== ENCOUNTER 2023-10-06 11:39 | Outpatient (AMB) | payer OTHER, SELFPAY ==
--- NOTE | 2023-10-06 11:41 | MHC.OFFVISWM ---
VS Expanded 10/06/23 11:54 BP 117/59 L Blood Pressure Location Rt brachial Blood Pressure Position Sitting Pulse 92 Pulse Source Pulse Oximeter Temp 98.7 F Temperature Source Temporal Artery Scan Pulse Oximetry 95 Oxygen Delivery Method Room Air Height 5 ft 3 in Weight 230 lb 9.6 oz BMI 40.8 Body Fat % 43.2 Body Fat Mass 99.4 Fat Free Mass 131.0 Visceral Fat Rating 12.0 Body Water % 40.7 Body Water Mass 93.6 Muscle Mass/Score 124.4 Basal Metabolic Rate/Score 1,837 Intake Visit Reasons: (OV) PO LSG 08/25/23 Allergies aspirin [ASPIRIN] Allergy (Intermediate, Verified 10/06/23 11:49) SWELLING latex [LATEX] Allergy (Intermediate, Verified 10/06/23 11:49) Rash prednisone [PREDNISONE] Allergy (Intermediate, Verified 10/06/23 11:49) swelling and hives, swelling tramadol Allergy (Intermediate, Verified 10/06/23 11:49) loopiness HPI Comments Details: This?a?38?yo female who is s/p LSG without hiatal hernia repair on?08/25/2023. Presents for 1 month post op visit. Weight today is 230.6 pounds, with a BMI of 40.8. There has been a 64.4 pound weight loss,(initial weight 295 pounds) since starting the program on 11/05/2022 reflecting a 21.6 % total body weight loss and a weight loss of 31.2 pounds since surgery (operative weight 261.8 pounds) reflecting a 11.9 % TBWL since surgery. No complaints of nausea, emesis, abdominal pain or reflux. Reports infrequent but normal bowel movements every 1-2 days and uses stool softeners regularly. She states she does not have any further lightheadedness. She switched to Premier protein RTD shakes just yesterday without communicating. She needed to do this as she had changed jobs. Present meal plan includes: Supposed to be doing 2 orgain shakes with 2 scoops, 2 scoops, and 2 pure protein bars. Drinking 32 oz water 20 oz gatorade ? Exercise routine includes: walking outside stationary bike 40 min 5 x per week, 300-400 juan [facility] Medical History (Updated 09/10/23 @ 09:53 by Mague Irby MD) Insomnia Liver fibrosis Steatosis, liver DJD (degenerative joint disease) Panic disorder Lumbar pain with radiation down both legs Shoulder pain, bilateral Bilateral shoulder tendinopathy Gestational diabetes mellitus Moderate recurrent major depression Morbid obesity due to excess calories Chronic thoracic spine pain Carpal tunnel syndrome Neck pain Fibromyalgia B12 deficiency Anxiety Right sided sciatica Neuropathy Essential hypertension Arnold-Chiari malformation Surgical History S/P laparoscopic sleeve gastrectomy History of D&C History of cholecystectomy History of section Family History Father Hypertension CVD (cardiovascular disease) Diabetes Mother Hypertension Chronic mental illness Depression Mental health disorder Paternal Aunt Breast cancer Brother Colon cancer Stomach cancer Social History Household Members: Family Housing: House Are you a 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 childbirth and infant care teacher to a significant other at home: Yes Do you presently have visiting nurse or other home services: No Alcohol intake: never Patient Tobacco Use Status: Never used Tobacco e-Cigarette/Vaping Use: Never Used Second Hand Smoke Exposure: No service: No Current occupational status: unemployed Cognitive needs: No Hearing needs: No Vision needs: No Physical Exam Vital Signs: Last Vital Signs Temp 98.7 F 10/06/23 11:54 Pulse 92 10/06/23 11:54 BP 117/59 L 10/06/23 11:54 Pulse Ox 95 10/06/23 11:54 Oxygen Delivery Method Room Air 10/06/23 11:54 BMI result Body Mass Index 40.8 Const General: healthy appearing and no acute distress Resp Effort & Inspection: normal respiratory effort Auscultation: clear to auscultation bilaterally Cardio Rate: regular rate Rhythm: regular rhythm GI Auscultation: normal bowel sounds Extrem General: Yes normal to inspection Assessment & Plan Assessment & Plan (1) S/P laparoscopic sleeve gastrectomy: Code(s): Z98.84 - Bariatric surgery status Category: Surgical Plan: Discussed the importance of communicating weekly. Not to change meal plan without discussing it with us. Given her new job, we will change her meal plans slightly: Premier protein ready to drink shake x2 and 1 pure protein bar. She was encouraged to drink the shakes over 3 hours each. Increase exercise to consistently burn 400 calories. Return to clinic 1 month.
[2023-10-06 11:54] VITALS: BP 117/59; PULSE 92; TEMP 37.1; O2SAT 95; BMI 40.8
== END 2023-10-06 12:14 | disposition home or self-care (01) ==
PROVIDERS: PCP Internal Medicine; Visit Provider Physician Assistant Surgical
DX: Z98.84 Bariatric surgery status (principal)
CPT/HCPCS: 99024

== ENCOUNTER → 2023-10-06 11:39 | Outpatient (BNVA) | payer OTHER, SELFPAY | PROVIDERS: PCP Internal Medicine; Visit Provider Physician Assistant Surgical | DX: E66.01 Morbid (severe) obesity due to excess calories (principal); Z71.3 Dietary counseling and surveillance; Z68.41 Body mass index [BMI] 40.0-44.9, adult; Z98.84 Bariatric surgery status | CPT/HCPCS: 99212 ==

== ENCOUNTER 2024-01-05 13:04 | Outpatient (AMB) | payer OTHER, SELFPAY ==
--- NOTE | 2024-01-05 13:08 | MHC.OFFVISWM ---
VS Expanded 01/05/24 13:12 BP 142/80 H Blood Pressure Location Lt brachial Blood Pressure Position Sitting Pulse 89 Pulse Source Pulse Oximeter Temp 96.8 F Pulse Oximetry 100 Height 5 ft 3 in Weight 188 lb BMI 33.3 Body Fat % 38.0 Body Fat Mass 71.4 Fat Free Mass 116.4 Visceral Fat Rating 8.0 Body Water % 44.4 Body Water Mass 83.4 Muscle Mass/Score 110.4 Basal Metabolic Rate/Score 1,607 Neck Circumference 5 ft 3 in Intake Visit Reasons: (OV) PO LSG 08/25/23 Paid Search Manager Required: Yes Paid Search Manager Services: Paid Search Manager Present Paid Search Manager Name: hospital cmi Accompanied by: Self / Same As Patient Allergies aspirin [ASPIRIN] Allergy (Intermediate, Verified 01/05/24 13:13) SWELLING latex [LATEX] Allergy (Intermediate, Verified 01/05/24 13:13) Rash prednisone [PREDNISONE] Allergy (Intermediate, Verified 01/05/24 13:13) swelling and hives, swelling tramadol Allergy (Intermediate, Verified 01/05/24 13:13) loopiness Medication List - Last Reconciled 01/05/24 by JOSE CARLOS Elam amitriptyline 100 mg PO BEDTIME Brace,wrist Use at nighttime only for both wrists clonazepam 1 mg PO BID PRN HPI Comments Details: This?a?38?yo female who is s/p LSG without hiatal hernia repair on?08/25/2023. Presents for 4 month post op visit. She has not been seen in the office since 1 month post op. Weight today is 188 pounds, with a BMI of 33.3. There has been a 107 pound weight loss,(initial weight 295 pounds) since starting the program on 11/05/2022 reflecting a 36.2 % total body weight loss and a weight loss of 73.8 pounds since surgery (operative weight 261.8 pounds) reflecting a 28.1 % TBWL since surgery. No complaints of nausea, emesis, abdominal pain or reflux. Reports infrequent but normal bowel movements every 1-2 days and uses stool softeners regularly. She states she does not have any further lightheadedness. 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 At this point, she wants to add food. Present meal plan includes: Premier protein rtd shake x 2 1 pure protein bars. Drinking 48 oz water 20 oz gatorade ? Exercise routine includes: walking outside stationary bike 45 min 4 x per week, 500-600 juan [facility] Medical History Insomnia Liver fibrosis Steatosis, liver DJD (degenerative joint disease) Panic disorder Lumbar pain with radiation down both legs Shoulder pain, bilateral Bilateral shoulder tendinopathy Gestational diabetes mellitus Moderate recurrent major depression Morbid obesity due to excess calories Chronic thoracic spine pain Carpal tunnel syndrome Neck pain Fibromyalgia B12 deficiency Anxiety Right sided sciatica Neuropathy Essential hypertension Arnold-Chiari malformation Surgical History S/P laparoscopic sleeve gastrectomy History of D&C History of cholecystectomy History of section Family History Father Hypertension CVD (cardiovascular disease) Diabetes Mother Hypertension Chronic mental illness Depression Mental health disorder Paternal Aunt Breast cancer Brother Colon cancer Stomach cancer Social History Household Members: Family Housing: House Are you a primary respiratory care program director to a significant other at home: Yes Do you presently have visiting nurse or other home services: No Alcohol intake: never Patient Tobacco Use Status: Never used Tobacco e-Cigarette/Vaping Use: Never Used Second Hand Smoke Exposure: No service: No Current occupational status: unemployed Cognitive needs: No Hearing needs: No Vision needs: No Physical Exam Vital Signs: BMI result Body Mass Index 33.3 Const General: healthy appearing and no acute distress Resp Effort & Inspection: normal respiratory effort Auscultation: clear to auscultation bilaterally Cardio Rate: regular rate Rhythm: regular rhythm GI Auscultation: normal bowel sounds Extrem General: Yes normal to inspection Assessment & Plan Assessment & Plan (1) S/P laparoscopic sleeve gastrectomy: Code(s): Z98.84 - Bariatric surgery status Category: Surgical Plan: Patient has done well despite not coming into the office. She has been communicating with Dr. Browne on a weekly basis. She does want to change her meal plan to incorporate food. Premier protein ready to drink shake Atkins protein bar Meal with 6 forks of protein and 6 forks of cooked vegetables Add celebrate multivitamin daily
[2024-01-05 13:12] VITALS: BP 142/80; PULSE 89; TEMP 36; O2SAT 100; BMI 33.3
== END 2024-01-05 13:41 | disposition home or self-care (01) ==
PROVIDERS: PCP Internal Medicine; Visit Provider Physician Assistant Surgical
DX: E66.811 Obesity, class 1 (principal); Z68.33 Body mass index [BMI] 33.0-33.9, adult; Z90.3 Acquired absence of stomach [part of]; Z98.84 Bariatric surgery status
CPT/HCPCS: 99213

== ENCOUNTER → 2024-01-05 13:04 | Outpatient (BNVA) | payer OTHER, SELFPAY | PROVIDERS: PCP Internal Medicine; Visit Provider Physician Assistant Surgical | DX: E66.9 Obesity, unspecified (principal); Z71.3 Dietary counseling and surveillance; Z68.33 Body mass index [BMI] 33.0-33.9, adult; Z98.84 Bariatric surgery status | CPT/HCPCS: 99212 ==

== ENCOUNTER 2024-03-01 13:31 | Outpatient (AMB) | payer OTHER, SELFPAY ==
--- NOTE | 2024-03-01 13:40 | MHC.NURWM ---
Intake Intake Visit Reasons: (OV) PO LSG 08/25/23 Allergies aspirin [ASPIRIN] Allergy (Intermediate, Verified 01/05/24 13:13) SWELLING latex [LATEX] Allergy (Intermediate, Verified 01/05/24 13:13) Rash prednisone [PREDNISONE] Allergy (Intermediate, Verified 01/05/24 13:13) swelling and hives, swelling tramadol Allergy (Intermediate, Verified 01/05/24 13:13) loopiness Coding
[2024-03-01 13:44] VITALS: PULSE 84; O2SAT 100; BMI 30.9
--- NOTE | 2024-03-01 13:45 | A.OFFVIS_ITS ---
VS Expanded 03/01/24 13:44 Pulse 84 Pulse Oximetry 100 Height 5 ft 3 in Weight 174 lb 9.6 oz BMI 30.9 Body Fat % 33.9 Body Fat Mass 59.0 Fat Free Mass 115.4 Visceral Fat Rating 7.0 Body Water % 47.3 Body Water Mass 82.4 Muscle Mass/Score 109.6 Basal Metabolic Rate/Score 1,571 Intake Visit Reasons: (OV) PO LSG 08/25/23 Industrial Engineering Director Required: Yes Industrial Engineering Director Services: Industrial Engineering Director Present (telephone) Industrial Engineering Director Name: #[id number] Information Interpreted: non-clinical & clinical Allergies aspirin [ASPIRIN] Allergy (Intermediate, Verified 03/01/24 13:43) SWELLING latex [LATEX] Allergy (Intermediate, Verified 03/01/24 13:43) Rash prednisone [PREDNISONE] Allergy (Intermediate, Verified 03/01/24 13:43) swelling and hives, swelling tramadol Allergy (Intermediate, Verified 03/01/24 13:43) loopiness Medication List - Last Reconciled 03/01/24 by JOSE CARLOS Elam amitriptyline 100 mg PO BEDTIME Brace,wrist Use at nighttime only for both wrists clonazepam 1 mg PO BID PRN HPI Comments Details: This?a?38?yo female who is s/p LSG without hiatal hernia repair on?08/25/2023. Presents for 6 month post op visit. Weight today is 174.6 pounds, with a BMI of 30.9. There has been a 120.4 pound weight loss,(initial weight 295 pounds) since starting the program on 11/05/2022 reflecting a 36.2 % total body weight loss and a weight loss of 87.2 pounds since surgery (operative weight 261.8 pounds) reflecting a 33.3 % TBWL since surgery. No complaints of nausea, emesis, abdominal pain or reflux. Reports infrequent but normal bowel movements every 1-2 days and uses stool softeners regularly. She states she does not have any further lightheadedness. She is feeling great, she is following the meal plan. States the protein bar makes her feel nauseous tough and doesn't like it anymore. States 1.5 hrs to eat it. She has not tried another bar. Taking celebrate mvi and juan+ D Present meal plan includes: Premier protein rtd shake x 1 1 pure protein bars. meal with 6 forks protein and 6 forks veg Drinking 32 oz water 20 oz gatorade ? Exercise routine includes: treadmill at home, 30 min 3 x per week, stationary bike 30 min 3 x per week, 500-525 juan youtube videos Any post op complications: none FABIAN: never DM: never HTN: resolved Hyperlipidemia: never GERD:?0-5 scale ??0 = no symptoms ??1 = symptoms noticeable but not bothersome 2 =symptoms bothersome but not daily ? 3 = symptoms bothersome and daily 4 = symptoms affect daily activities 5 = symptoms are incapacitating, unable to do daily activities ? How bad is the heartburn: 0 ? Heartburn while lying down: 0 ? Heartburn when standing up: 0 ? Heartburn after meals: 0 ? Does heartburn change your diet: 0 ? Does heartburn wake you up from sleep: 0 ? Do you have difficulty swallowin ? Do you have pain with swallowin ? If you take medicine for your reflux, does this affect your daily life: 0 Satisfaction with present condition - satisfied or not satisfied: satisfied [facility] Medical History Insomnia Liver fibrosis Steatosis, liver DJD (degenerative joint disease) Panic disorder Lumbar pain with radiation down both legs Shoulder pain, bilateral Bilateral shoulder tendinopathy Gestational diabetes mellitus Moderate recurrent major depression Morbid obesity due to excess calories Chronic thoracic spine pain Carpal tunnel syndrome Neck pain Fibromyalgia B12 deficiency Anxiety Right sided sciatica Neuropathy Essential hypertension Arnold-Chiari malformation Surgical History S/P laparoscopic sleeve gastrectomy History of D&C History of cholecystectomy History of section Family History Father Hypertension CVD (cardiovascular disease) Diabetes Mother Hypertension Chronic mental illness Depression Mental health disorder Paternal Aunt Breast cancer Brother Colon cancer Stomach cancer Social History Household Members: Family Housing: House Are you a primary inpatient care manager rn to a significant other at home: Yes Do you presently have visiting nurse or other home services: No Alcohol intake: never Patient Tobacco Use Status: Never used Tobacco e-Cigarette/Vaping Use: Never Used Second Hand Smoke Exposure: No service: No Current occupational status: unemployed Cognitive needs: No Hearing needs: No Vision needs: No Physical Exam Vital Signs: BMI result Body Mass Index 30.9 Const General: cooperative and no acute distress Orientation/consciousness: patient oriented x3 Resp Effort & Inspection: normal respiratory effort Auscultation: clear to auscultation bilaterally Cardio Rate: regular rate Rhythm: regular rhythm GI Inspection: Yes normal to inspection and Yes incision (well healed) Palpation (GI): Soft to palpation and no masses Neuro General: patient oriented x3 Assessment & Plan Assessment & Plan (1) S/P laparoscopic sleeve gastrectomy: Code(s): Z98.84 - Bariatric surgery status Category: Surgical Plan: Would like to get rid of the protein bar within her meal plan. Premier protein ready to drink shake Kiswahili yogurt Meal with 6 forks protein and 6 forks vegetables Try to include 1 more day of exercise if able. Check six-month postop labs Continue multivitamin and calcium plus D Return to the office 3 months Orders: Orders Complete Blood Count Auto Diff Today E53.8 - Deficiency of other specified B group vitamins, I10 - Essential (primary) hypertension, K74.00 - Hepatic fibrosis, unspecified, Z98.84 - Bariatric surgery status Comprehensive Met. Panel Today E53.8 - Deficiency of other specified B group vitamins, I10 - Essential (primary) hypertension, K74.00 - Hepatic fibrosis, unspecified, Z98.84 - Bariatric surgery status Vitamin B12 and Folate Today E53.8 - Deficiency of other specified B group vitamins, I10 - Essential (primary) hypertension, K74.00 - Hepatic fibrosis, unspecified, Z98.84 - Bariatric surgery status Vitamin A Today E53.8 - Deficiency of other specified B group vitamins, I10 - Essential (primary) hypertension, K74.00 - Hepatic fibrosis, unspecified, Z98.84 - Bariatric surgery status Ferritin Today E53.8 - Deficiency of other specified B group vitamins, I10 - Essential (primary) hypertension, K74.00 - Hepatic fibrosis, unspecified, Z98.84 - Bariatric surgery status Insulin Today E53.8 - Deficiency of other specified B group vitamins, I10 - Essential (primary) hypertension, K74.00 - Hepatic fibrosis, unspecified, Z98.84 - Bariatric surgery status Hemoglobin A1c Today E53.8 - Deficiency of other specified B group vitamins, I10 - Essential (primary) hypertension, K74.00 - Hepatic fibrosis, unspecified, Z98.84 - Bariatric surgery status Lipid Panel Today E53.8 - Deficiency of other specified B group vitamins, I10 - Essential (primary) hypertension, K74.00 - Hepatic fibrosis, unspecified, Z98.84 - Bariatric surgery status IRON PROFILE Today E53.8 - Deficiency of other specified B group vitamins, I10 - Essential (primary) hypertension, K74.00 - Hepatic fibrosis, unspecified, Z98.84 - Bariatric surgery status Zinc Today E53.8 - Deficiency of other specified B group vitamins, I10 - Essential (primary) hypertension, K74.00 - Hepatic fibrosis, unspecified, Z98.84 - Bariatric surgery status C Reactive Protein Today E53.8 - Deficiency of other specified B group vitamins, I10 - Essential (primary) hypertension, K74.00 - Hepatic fibrosis, unspecified, Z98.84 - Bariatric surgery status Vitamin B1 Today E53.8 - Deficiency of other specified B group vitamins, I10 - Essential (primary) hypertension, K74.00 - Hepatic fibrosis, unspecified, Z98.84 - Bariatric surgery status TSH reflex Free T4 Today E53.8 - Deficiency of other specified B group vitamins, I10 - Essential (primary) hypertension, K74.00 - Hepatic fibrosis, unspecified, Z98.84 - Bariatric surgery status Vitamin D 25-OH Total Today E53.8 - Deficiency of other specified B group vitamins, I10 - Essential (primary) hypertension, K74.00 - Hepatic fibrosis, unspecified, Z98.84 - Bariatric surgery status
== END 2024-03-01 14:16 | disposition home or self-care (01) ==
PROVIDERS: PCP Internal Medicine; Visit Provider Physician Assistant Surgical
DX: E66.811 Obesity, class 1 (principal); Z68.30 Body mass index [BMI] 30.0-30.9, adult; Z90.3 Acquired absence of stomach [part of]; Z98.84 Bariatric surgery status
CPT/HCPCS: 99214; G2211

== ENCOUNTER → 2024-03-01 13:31 | Outpatient (BNVA) | payer OTHER, SELFPAY | PROVIDERS: PCP Internal Medicine; Visit Provider Physician Assistant Surgical | DX: Z98.84 Bariatric surgery status (principal) | CPT/HCPCS: 99212 ==

== ENCOUNTER 2024-03-02 15:10 | Emergency (ER) | payer OTHER, SELFPAY ==
--- NOTE | 2024-03-02 15:41 | ED_ITS ---
HPI - General Adult General Chief complaint: Fever Stated complaint: fever,headache,bodyaches Time Seen by Provider: 03/02/24 17:34 Source: patient Mode of arrival: ambulatory Limitations: no limitations History of Present Illness ED Provider: Fred BROWN narrative: Patient is a 39-year-old female pmhx of GERD, s/p lap sleeve gastrectomy, liver fibrosis and steatosis, fibromyalgia, HTN, Arnold-Chiari malformation presenting with complaint of fever and headache, bodyaches since Wednesday. Daughter sick with similar symptoms, other child recently tested positive for RSV. Denies chest pain or palpitations. Denies nausea, vomiting, diarrhea, abdominal pain. MD complaint: fever Onset (ago): day(s) Treatments prior to arrival: none Related Data Home Medications ?Medication ?Instructions ?Recorded ?Confirmed clonazepam 1 mg tablet 1 mg PO BID PRN Anxiety 01/15/20 03/01/24 amitriptyline 100 mg tablet 100 mg PO BEDTIME 01/11/23 03/01/24 Previous Rx's ?Medication ?Instructions ?Recorded Brace,wrist #2 ea 10/15/22 Allergies Allergy/AdvReac Type Severity Reaction Status Date / Time aspirin [ASPIRIN] Allergy Intermediate SWELLING Verified 03/02/24 15:44 latex [LATEX] Allergy Intermediate Rash Verified 03/02/24 15:44 prednisone [PREDNISONE] Allergy Intermediate swelling Verified 03/02/24 15:44 and hives, swelling tramadol Allergy Intermediate loopiness Verified 03/02/24 15:44 Review of Systems Review of Systems: As per HPI Yes all other systems are reviewed and are negative Constitutional: Constitutional: Reports as per HPI PMFSH Past Medical History Medical History Insomnia Liver fibrosis Steatosis, liver DJD (degenerative joint disease) Panic disorder Lumbar pain with radiation down both legs Shoulder pain, bilateral Bilateral shoulder tendinopathy Gestational diabetes mellitus Moderate recurrent major depression Morbid obesity due to excess calories Chronic thoracic spine pain Carpal tunnel syndrome Neck pain Fibromyalgia B12 deficiency Anxiety Right sided sciatica Neuropathy Essential hypertension Arnold-Chiari malformation Surgical History S/P laparoscopic sleeve gastrectomy History of D&C History of cholecystectomy History of section Family History Family History Father Hypertension CVD (cardiovascular disease) Diabetes Mother Hypertension Chronic mental illness Depression Mental health disorder Paternal Aunt Breast cancer Brother Colon cancer Stomach cancer Social History Social History Household Members: Family Housing: House Are you a primary professional healthcare representative to a significant other at home: Yes Do you presently have visiting nurse or other home services: No Alcohol intake: never Patient Tobacco Use Status: Never used Tobacco e-Cigarette/Vaping Use: Never Used Second Hand Smoke Exposure: No Advance Directives: No Advance Directives Information Provided: No service: No Current occupational status: unemployed Cognitive needs: No Hearing needs: No Vision needs: No Physical Exam ED Vital Signs: Vital Signs - 24 hr 03/02/24 15:42 Temperature 98.4 F Pulse Rate 78 Respiratory Rate 18 Blood Pressure 102/67 Pulse Oximetry 98 Oxygen Delivery Method Nasal Cannula BMI result Body Mass Index 31.6 Vital signs have been reviewed and appear to be correct. Blood pressure normal. Heart rate normal. Respiratory rate normal. Temperature normal. Oxygen saturation normal. Const General: cooperative, healthy appearing and no acute distress Orientation/consciousness: oriented to person, oriented to place, oriented to time and patient oriented x3 Limitations: no limitations HENMT Head: Yes normocephalic and Yes atraumatic Ears: external ears normal General nose exam: Normal external nose present Face and sinus: Yes face symmetric Mouth: oropharynx normal and moist mucous membranes Throat: Yes uvula midline Eyes Pupils: Equal, round and reactive pupils present Neck Neck: Yes normal visual inspection and Yes supple Resp Effort & Inspection: normal respiratory effort and able to speak in complete sentences Auscultation: clear to auscultation bilaterally Cardio Rate: regular rate Rhythm: regular rhythm Heart sounds: S1 normal heart sound present and S2 normal heart sound present GI Palpation (GI): Soft to palpation and nontender Auscultation: normoactive bowel sounds General: Yes no CVA tenderness Back/Spine/Pelvis Back: no CVA tenderness Skin General skin exam: elasticity normal and turgor normal Neuro General: oriented to person, oriented to place, oriented to time, patient oriented x3, moves all extremities, no focal motor deficits and CN's II-XI intact bilaterally Cranial nerves: Yes Equal, round and reactive pupils present Cognition (Neuro): normal cognition Extrem General: Yes full ROM, Yes no pedal edema and Yes no calf tenderness Psych Mental Status: mental status grossly normal Affect: normal affect Thought process: Normal thought process present Course Course Course Narrative: This is a rapid medical exam performed by Grazyna Ibarra NP: Additional HPI, ROS, PE not included below will be deferred to primary provider. Patient is a 39-year-old female pmhx of GERD, s/p lap sleeve gastrectomy, liver fibrosis and steatosis, fibromyalgia, HTN, Arnold-Chiari malformation presenting with complaint of fever and headache, bodyaches since Wednesday. Daughter sick with similar symptoms, other child recently tested positive for RSV. Plan: strep and viral serology Medical Decision Making Medical Decision Making [facility] Narrative: Patient is a 39-year-old female pmhx of GERD, s/p lap sleeve gastrectomy, liver fibrosis and steatosis, fibromyalgia, HTN, Arnold-Chiari malformation presenting with complaint of fever and headache, bodyaches since Wednesday. On exam patient is awake, A+Ox3, VS WNL, afebrile, normal neurological exam without focal deficits, physical exam findings as above. Given reported symptoms and physical exam findings, initial differential includes but is not limited to viral illness, COVID, flu, RSV, strep pharyngitis. Viral serology positive for COVID. Patient updated on results. Discussed with patient that this is a viral illness which will resolve on its own over time. Advised to use Tylenol and ibuprofen as needed for fever or discomfort. Advised patient to ensure adequate rest, adequate fluid intake. Follow up with PCP. Return precautions discussed. Patient verbalized understanding of and agreement with plan. Differential Diagnosis Differential Diagnoses: The differential diagnosis associated with the presentation includes As per [facility] Lab Data [facility] Lab Attestation statement: I reviewed the patient's lab results. As per [facility] Labs: Lab Results 03/02/24 03/02/24 Range/Units 15:52 15:53 Influenza Type A (PCR) NEGATIVE (Negative) Influenza Type B (PCR) NEGATIVE (Negative) RSV RNA Qual (PCR) NEGATIVE (Negative) SARS-CoV-2 RNA (RT-PCR) POSITIVE A (Negative) S. pyogenes GrpA KEILA Negative (Negative) External Record Review External record reviewed: Inpatient record, Office record and Outpatient record Discharge Plan Discharge Clinical Impression: COVID-19 Patient Disposition: Home, Self-Care Instructions: COVID-19 (Coronavirus Disease 2019) (ED) Additional Instructions: You were evaluated in the emergency department today for cough, fever. Your COVID test was resulted as positive. You should continue to isolate at home for another 4 days. You should continue to wear mask for 5 days after that. This is a viral infection which will resolve on its own over time. Be sure to get adequate rest and adequate fluid intake. Return to the emergency department with worsening shortness of breath, chest pain, fever that does not improve with Tylenol or ibuprofen, persistent vomiting, or any other concerning symptoms. You should follow-up with your primary care provider. Prescriptions: No Action (DME) Brace,wrist Misc See Rx Instructions .Route Qty: 2 0RF Rx Instructions: Use at nighttime only for both wrists clonazepam 1 mg tablet 1 mg PO BID PRN (Reason: Anxiety) amitriptyline 100 mg tablet 100 mg PO BEDTIME Stand Alone Forms: Work/School Release Print Language: Slovak
[2024-03-02 15:42] VITALS: BP 102/67; PULSE 78; RESP 18; TEMP 36.9; O2SAT 98; BMI 31.6
[2024-03-02 16:14] LABS: IDNOW Serial# 08D9AD1C; Strep A Nucleic Acid Negative (Negative)
[2024-03-02 16:50] LABS: Influenza A PCR NEGATIVE (Negative); Influenza B PCR NEGATIVE (Negative); Resp Syncy Virus RNA Qual PCR NEGATIVE (Negative); SARS COV2 PCR INHOUSE POSITIVE (Negative)
[2024-03-02 18:07] VITALS: BP 102/67; PULSE 78; RESP 18; TEMP 36.9; O2SAT 98
== END 2024-03-02 18:08 | disposition home or self-care (01) ==
PROVIDERS: Registered Nurse Emergency; Emergency Provider Emergency Medicine; PCP Internal Medicine
DX: U07.1 COVID-19 (principal); R50.9 Fever, unspecified; R51.9 Headache, unspecified; I10 Essential (primary) hypertension; Z79.899 Other long term (current) drug therapy
CPT/HCPCS: 0241U; 87651; 99282; 99283

== ENCOUNTER 2024-03-29 08:19 | Outpatient (REF) | payer OTHER, SELFPAY ==
--- OUTSIDE RECORDS SUMMARY | 2024-03-29 08:23 | XMS_ITS | Encounter Summary ---
Author Organization [facility] Address [address] [place] [address] Care Team Providers Care Video Journalist Name Role Phone Unavailable Primary Care Provider Unavailabl e Encounter Details Date Type Department Care Team (Late st Contact Info) Description 02/12/2022 Abstract [facility] [address], [place] [id number] Dalton Soares DDS [address], [place] [phone] Social History Tobacco Use Types Packs/Day Years Used Date Smoking Tobacco: Never Assessed Comments Unknown Sex and Gender Information Value Date Recorded Sex Assigned at Female 12/22/2021 10:29 AM EDT Legal Sex Female 10:29 AM EDT Gender Identity Female 12/22/2021 10:29 AM EDT Sexual Orientation Straight 12/22/2021 10 :29 AM EDT documented as of this encounter Plan of Treatment Not on file documented as of this encounter Visit Diagnoses Not on filedocumented in this encounter
--- OUTSIDE RECORDS SUMMARY | 2024-03-29 08:23 | XMS_ITS | Clinical Summary ---
Author Organization [employer] Address [address] [place] [address] Care Team Providers Care Cannery Worker Name Role Phone Unavailable Primary Care Provider Unavailabl e Social History Tobacco Use Types Packs/Day Years Used Date Smoking Tobacco: Never Assessed Comments Unknown Sex and Gender Information Value Date Recorded Sex Assigned at Female 12/22/2021 10:29 AM EDT Legal Sex Female 10:29 AM EDT Gender Identity Female 12/22/2021 10:29 AM EDT Sexual Orientation Straight 12/22/2021 10 :29 AM EDT Plan of Treatment Health Maintenance Due Date Last Done Comments Depression Screening 1984 HIV Screening 1984 SDOH Screening 1984 Alcohol/Substance Use Screening 1996 Tobacco Screening 1996 Family Planning (PISQ) 01/13/1999 Hepatitis C Screening 01/13/2002 Hepatitis B Vaccines (1 of 3 - 19+ 3-dose series) 01/13/2003 Pap Smear 01/13/2005 Cervical Cancer Screening 01/13/2014 HPV/Cotest 01/13/2014 Dental Oral Exam 07/03/2022 01/02/2022, 04/23/2016, 05/10/2015 Dental Prophylaxis 07/03/2022 01/02/2022, 09/01/2017, 04/23/2016 Dental X-Ray: Bitewings 01/03/2023 01/03/20 22, 04/23/2016, 05/10/2015 COVID-19 Vaccine (4 - 2023-2 5 season) 2023 08/04/2021, 07/10/2020, 06/12/2020 Influenza Vaccine (#1) 2023 01/15/2020 Mammogram 2024 Dental X-Ray: Full Mouth 01/03/2025 022, 05/10/2015 DTaP/Tdap/Td Vaccines (2 - T d or Tdap) 07/08/2031 07/07/2021 Zoster Vaccines (1 of 2) 01/13/2034 RSV Patients and Patients Aged 60 years or older (1 - 1-dose 75+ series) 01/13/2059 Pneumococcal Vaccine: Pediatrics (0 to 5 Years) and At-Risk Patients (6 to 49) Years) Aged Out 12/16/2015 No longer eligible b ased on patient's age to complete this topic HIB Vaccines Aged Out No longer eligi ble based on patient's age to complete this topic HPV Vaccines Aged Out No longer eligi ble based on patient's age to complete this topic Hepatitis A Vaccines Aged Out No long er eligible based on patient's age to complete this topic IPV Vaccines Aged Out No longer eligi ble based on patient's age to complete this topic Meningococcal Vaccine Aged Out No slime vicente eligible based on patient's age to complete this topic RSV under 20 months Aged Out No longe r eligible based on patient's age to complete this topic Rotavirus Vaccines Aged Out No longer eligible based on patient's age to complete this topic Procedures Procedure Name Priority Date/Time Associated Diagnosis Comments PROPHYLAXIS - ADULT Routine 01/02/2022 1 2:00 AM EST DIAGNOSTIC - DIAGNOSTIC IMAGING - INTRAORAL - COMPREHENSIVE SERIES OF RADIOGRAPHIC IMAGES Routine 01/02/2022 12:00 AM EST PERIODIC ORAL EVALUATION - ESTABLISHED PATIENT Routine 01/02/2022 12:00 AM EST from Last 3 Months or Most Recently Relevant to Health Maintenance Insurance [facility] MEDICAID STAND ADULT * Guarantor: Beth Morelos Account Type Relation to Patient Date of Phone Billing Address Personal/Family Self [facility] [place] [address]
--- OUTSIDE RECORDS SUMMARY | 2024-03-29 08:23 | XMS_ITS | Clinical Summary ---
Author Organization [facility] it Address [address] [place] [address] Care Team Providers Care Tool Crib Supervisor Name Role Phone Mague Irby MD Primary Care Provider [phone] Surgical History Surgery Date Site/Laterality Comments SECTION 2003 PROCEDURE: [place] DELIVERY ONLY CHOLECYSTECTOMY 2012 PROCEDURE: [place] CHOLECYSTECTOMY Medical History Medical History Date Comments Anxiety state DX:Anxiety state Essential hypertension DX:Essent ial hypertension Migraine without status migr ainosus, not intractable DX:Migraine without status m igrainosus, not intractable Generalized anxiety disorder DX: Generalized anxiety disorder HTN (hypertension) DX:HTN (hyper tension) Chiari malformation type I (CMS/HCC) 2017 DX:Chiari malformation type I (HCC) Family History Medical History Relation Name Comments Breast cancer Aunt Diabetes Father Hypertension Father Hypertension Mother Colon cancer Neg Hx Ovarian cancer Neg Hx Prostate cancer Neg Hx Relation Name Status Comments Aunt Alive Father Alive Mother Social History Tobacco Use Types Packs/Day Years Used Date Smoking Tobacco: Never Smokeless Tobacco: Never Alcohol Use Standard Drinks/Week Comments No 0 (1 standard drink = 0.6 oz pur e alcohol) Sex and Gender Information Value Date Recorded Sex Assigned at Not on file Gender Identity Not on file Sexual Orientation Not on file Obstetrics History Plan of Treatment Health Maintenance Due Date Last Done Comments Breast Cancer Screening 1984 DTaP,Tdap,and Td Vaccines (1 - Tdap) 01/13/2003 Hepatitis B Vaccines (1 of 3 - 19+ 3-dose series) 01/13/2003 Cervical Cancer Screening: P ap Smear 06/17/2020 06/17/2017, 06/17/2017 COVID-19 Vaccine (2023-2 5 season) 2023 Influenza Vaccine (#1) 2023 HIB Vaccines Aged Out No longer eligi [...] on patient's age to complete this topic MMR Vaccines Aged Out No longer eligi ble based on patient's age to complete this topic Meningococcal ACWY Vaccine Aged Out N o longer eligible based on patient's age to complete this topic Pneumococcal Vaccine: Pediatrics (0 to 5 Years) and At-Risk Patients (6 to 64 Years) Aged Out No longer eligible b ased on patient's age to complete this topic RSV Immunization Patients Under 20 months Aged Out No longer eligible b ased on patient's age to complete this topic Varicella Vaccines Aged Out No longer eligible based on patient's age to complete this topic Procedures Procedure Name Priority Date/Time Associated Diagnosis Comments PAP SMEAR Routine 06/17/2017 from Last 3 Months or Most Recently Relevant to Health Maintenance Results * Pap smear (06/17/2017) 06/17/2017 Narrative HISTORICAL TESTING LAB RESULTING AGENCY - 06/22/2017 10:01 AM EDT [id number] RESULTS OF GEN-PROBE APTIMA COMBO 2 ASSAY CHLAMYDIA: ?NEGATIVE N. GONORRHOEAE: ? NEGATIVE HE LÓPEZ M.D., PATHOLOGIST (CASE ELECTRONICALLY SIGNED 06 22 2017) CLINICAL INFORMATION: Z12.4, Z01.419 Z11.3 ENCOUNTER FOR SCREENING FOR INFECTIONS WITH A PREDOMINANTLY SEXUAL MODE OF TRANSMISSION SOURCE: THINPREP PAP FOR CT/GC GROSS DESCRIPTION: THINPREP VIAL RECEIVED. PHYSICIANS MARY ELLEN MUÑOZ/# /[id number] Mary Ellen Muñoz CNMichael LAB CYTOLOGY ORDERAB LES HISTORICAL TESTING LAB RESULTING AGENCY from Last 3 Months or Most Recently Relevant to Health Maintenance Care Teams Tool Crib Supervisor Relationship Specialty Start Date End Date Mague Irby MD [address] [place] [address] Dr[address] [facility] Physician Associ D/B/A: [facility] UZMA Godinez PCP - General Internal Medicine 05/05/17
--- OUTSIDE RECORDS SUMMARY | 2024-03-29 08:23 | XMS_ITS | Encounter Summary ---
Author Organization [employer] [facility] Address [address] [place] [id number] Care Team Providers Care Executive Assistant Name Role Phone Unavailable Primary Care Provider Unavailabl e Encounter Details Date Type Department Care Team (Latest Contact Info) Description 01/02/2022 Abstract C CONVERSIONS Dental, Provider, DDS Social History Tobacco Use Types Packs/Day Years [...]
[2024-03-29 08:35] LABS: MANUAL DIFF FLAG NO
[2024-03-29 08:58] LABS: Basophils Percent Auto 0.2 % (0-2); Eosinophils Absolute Auto 0.1 X10*3/uL (0.0-0.4); Eosinophils Percent Auto 1.6 % (0-4); Hematocrit 38.3 % (37.0-47.0); Hemoglobin 12.8 g/dl (12.0-16.0); Imm Gran Abs Auto 0.01 X10*3/uL (0.00-0.03); Imm Gran Pct Auto 0.2 % (0.0-0.4); Lymphocytes Absolute Auto 1.3 X10*3/uL (1.2-4.9); Lymphocytes Percent Auto 28.8 % (20-40); Mean Corpuscular HGB Conc 33.4 g/dl (31.0-35.0); Mean Corpuscular Hemoglobin 29.8 pg (27.0-33.0); Mean Corpuscular Volume 89.3 fL (80.0-98.0); Mean Platelet Volume 9.6 fL (9.4-12.3); Monocytes Absolute Auto 0.4 X10*3/uL (0.1-1.2); Monocytes Percent Auto 7.9 % (2-11); Neutrophils Absolute Auto 2.7 x10*3/uL (2.0-8.3); Neutrophils Percent Auto 61.3 % (45-73); Platelet Count 221 X10*3/uL (160-400); Red Blood Count 4.29 X10*6/uL (4.20-5.50); Red Cell Distribution Width 13.4 % (11.0-16.0); White Blood Count 4.4 X10*3/uL (4.8-10.8)
[2024-03-29 09:07] LABS: Estimated Average Glucose 97 mg/dL; Hemoglobin A1C 106.6147 umol/L
[2024-03-29 09:39] LABS: Alanine Aminotransferase 12 U/L (0-31); Albumin Level 3.8 g/dL (3.5-5.0); Alkaline Phosphatase 52 U/L (39-117); Anion Gap 8 (12-20); Aspartate Amino Transferase 14 U/L (5-31); Bilirubin Total 0.5 mg/dL (0.0-1.0); Blood Urea Nitrogen 14 mg/dL (9-16); C Reactive Protein 0.22 mg/dL (< or = 0.50); Calcium 8.9 mg/dL (8.4-10.2); Carbon Dioxide 26 mmol/L (22-29); Chloride 109 mmol/L (96-108); Cholesterol 159 mg/dL (<200); Estimated Glomerular Filt Rate > 60; Glucose Random 76 mg/dL (60-115); HDL Cholesterol 44 mg/dL (>40); Iron 73 mcg/dL (30-160); LDL Cholesterol Calculated 105 mg/dL (<100); Percent Iron Saturation 31 % (15-50); Potassium 4.4 mmol/L (3.3-5.1); Sodium 139 mmol/L (135-145); Total Iron Binding Capacity 237 mcg/dL (228-428); Total Protein 6.9 g/dL (6.5-8.0); Triglycerides 50 mg/dL (<150); Unsaturated Iron Binding 164 ug/dL
[2024-03-29 10:04] LABS: Ferritin 100 ng/mL (10-250); TSH reflex Free T4 0.94 uIU/mL (0.32-4.0); Vitamin D 25-OH Total 27.5 ng/mL (>30)
[2024-03-29 10:11] LABS: Folate 16.9 ng/mL (> or = 4.0); Vitamin B12 366 pg/mL (200-900)
[2024-03-29 11:05] LABS: Insulin 4 uU/mL (2-29)
[2024-04-02 17:43] LABS: Zinc 64 mcg/dL (60-130)
[2024-04-03 11:53] LABS: Vitamin A 45 mcg/dL (38-98)
[2024-04-06 06:18] LABS: Vitamin B1 9 nmol/L (8-30)
== END 2024-03-29 08:20 | disposition home or self-care (01) ==
LOC: HO.LAB 08:19
PROVIDERS: PCP Internal Medicine; Visit Provider Physician Assistant Surgical
DX: Z98.84 Bariatric surgery status (principal); K74.00 Hepatic fibrosis, unspecified; E53.8 Deficiency of other specified B group vitamins; I10 Essential (primary) hypertension
CPT/HCPCS: 36415; 80053; 80061; 82306; 82607; 82728; 82746; 83036; 83525; 83540; 84425; 84443; 84590; 84630; 85025; 86140

== ENCOUNTER 2024-04-12 08:51 | Outpatient (AMB) | payer OTHER, SELFPAY ==
--- OUTSIDE RECORDS SUMMARY | 2024-04-12 08:56 | XMS_ITS | Encounter Summary ---
Author Organization [employer] [facility] Address [address] [place] [address] Care Team Providers Care Food Cooking Machine Operator Name Role Phone Unavailable Primary Care Provider Unavailabl e Encounter Details Date Type Department Care Team (Late st Contact Info) Description 02/12/2022 Abstract [facility] ADULT D[facility] [address] [place], [place] [phone] Dalton Soares DDS [address], [place] [phone] Social History Tobacco Use Types Packs/Day Years [...]
--- OUTSIDE RECORDS SUMMARY | 2024-04-12 08:56 | XMS_ITS | Clinical Summary ---
Author Organization [employer] Address [address] [place] [address] Care Team Providers Care Claims Service Representative Name Role Phone Unavailable Primary Care Provider [...] 01/03/20 22, 04/23/2016, 05/10/2015 COVID-19 Vaccine (4 2023-2 5 season) 2023 08/04/2021, 07/10/2020, 06/12/2020 [...] ADULT Routine 01/02/2022 1 2:00 AM EST INTRAORAL - COMPLETE SERIES OF RADIOGRAPHIC IMAGES Routine 01/02/2022 12:00 AM EST PERIODIC ORAL EVALUATION - ESTABLISHED PATIENT Routine 01/02/2022 12:00 AM EST from Last 3 Months or Most Recently Relevant to Health Maintenance Insurance [facility] MEDICAID STAND ADULT
--- OUTSIDE RECORDS SUMMARY | 2024-04-12 08:56 | XMS_ITS | Clinical Summary ---
Author Organization [facility] Address [address] [place] [address] Care Team Providers Care Credit Risk Modeler Name Role Phone Mague Irby MD Primary Care Provider [phone] Surgical History Surgery Date Site/Laterality Comments SECTION 2003 PROCEDURE: [place] DELIVERY ONLY CHOLECYSTECTOMY 2012 PROCEDURE: MS CHOLECYSTECTOMY Medical History Medical History Date Comments [...] drink = 0.6 oz pur e alcohol) Comments Unknown Sex and Gender Information Value Date Recorded Sex Assigned at Not on file Legal Sex Female 4:31 AM EST Gender Identity Not on file Sexual Orientation Not on file Obstetrics History Plan of Treatment Health Maintenance Due Date Last Done Comments Breast Cancer Screening 1984 DTaP,Tdap,and Td Vaccines (1 - Tdap) 01/13/2003 Hepatitis B Vaccines (1 of 3 - 19+ 3-dose series) 01/13/2003 Cervical Cancer Screening: P ap Smear 06/17/2020 06/17/2017, 06/17/2017 COVID-19 Vaccine ( - 2023-2 5 season) 2023 Influenza Vaccine (#1) 2023 [...] patient's age to complete this topic Meningococcal B Vacine Aged Out No lo nger eligible based on patient's age to complete [...] RESULTING AGENCY - 06/22/2017 10:01 AM EDT [id number] RESULTS OF GEN-PROBE APTIMA COMBO 2 ASSAY CHLAMYDIA: ?NEGATIVE N. GONORRHOEAE: ? NEGATIVE HE LÓPEZ M.D., PATHOLOGIST (CASE ELECTRONICALLY SIGNED 06 22 2017) CLINICAL INFORMATION: Z12.4, Z01.419 Z11.3 ENCOUNTER FOR SCREENING FOR INFECTIONS WITH A PREDOMINANTLY SEXUAL MODE OF TRANSMISSION SOURCE: THINPREP PAP FOR CT/GC GROSS DESCRIPTION: THINPREP VIAL RECEIVED. PHYSICIANS MARY ELLEN MUÑOZ/# /[id number] Mary Ellen Muñoz [facility] LAB CYTOLOGY ORDERABLES Final Result HISTORICAL TESTING LAB RESULTING AGENCY from Last 3 Months or Most Recently Relevant to Health Maintenance Care Teams Credit Risk Modeler Relationship Specialty Start Date End Date Mague Irby MD [address] [facility] , [address] Physician Associ D/B/A: [facility] UZMA Godinez PCP - General Internal Medicine 05/05/17
--- OUTSIDE RECORDS SUMMARY | 2024-04-12 08:56 | XMS_ITS | Encounter Summary ---
Author Organization [facility] [facility] Address [address] [place] [id number] Care Team Providers Care Cat Wagon Operator Name Role Phone Unavailable Primary Care [...]
--- NOTE | 2024-04-12 08:57 | A.OFFPC_ITS ---
Vital Signs 04/12/24 09:02 Height 5 ft 3 in Weight 169 lb BMI 29.9 BP 118/80 Blood Pressure Location Lt brachial Position Sitting Intake Visit Reasons: bp Intake Note: Patient here for a follow up BP Data Warehouse Manager Required: Yes Data Warehouse Manager Language: Rn [employer] Name: Mague Irby MD Information Interpreted: non-clinical & clinical Accompanied by: Self / Same As Patient Allergies aspirin [ASPIRIN] Allergy (Intermediate, Verified 04/12/24 09:10) SWELLING latex [LATEX] Allergy (Intermediate, Verified 04/12/24 09:10) Rash prednisone [PREDNISONE] Allergy (Intermediate, Verified 04/12/24 09:10) swelling and hives, swelling tramadol Allergy (Intermediate, Verified 04/12/24 09:10) loopiness Medication List - Last Reconciled 04/12/24 by Mague Irby MD amitriptyline 100 mg PO BEDTIME Brace,wrist Use at nighttime only for both wrists clonazepam 1 mg PO BID PRN Tobacco use date assessed: 04/12/24 Dental Screening Dental Screen Date: 04/12/24 Did you have a dental visit in the last 12 months?: Yes Did you have a dental problem in the last 6 months where you did not have access to dental care?: No Was dental information given to patient?: Patient has dentist HPI HPI Comments History of Present Illness Details The patient is a 39-year-old female presenting with episodes of dizziness. These episodes have been occurring intermittently and have been noted approximately three times recently at her workplace. She describes these episodes as periods of lightheadedness associated with cold sweating and weakness lasting for approximately 5 to 6 minutes, after which normalcy is restored. She denies related auditory symptoms. Her laboratory workup revealed improved leukocyte levels from 11.4 previously to 4.4 currently, though vitamin D was low at 27.5 (normal > 30), potentially contributing to fatigue. The sugar level was noted at 76, and all other tests including electrolytes, renal function, hemoglobin, and thyroid function fall within normal limits. The patient has previously been diagnosed with Arnold Chiari Malformation and continues follow-up with neurosurgery, though has not had an MRI in over a year. She has also undergone significant weight loss from 313 to 169 pounds in 7 months and reports heartburn recently exacerbated, unrelated to dietary changes. She is currently managed for GERD. [facility] Medical History (Updated 04/12/24 @ 12:09 by Mague Irby MD) Insomnia Liver fibrosis Steatosis, liver DJD (degenerative joint disease) Panic disorder Lumbar pain with radiation down both legs Shoulder pain, bilateral Bilateral shoulder tendinopathy Gestational diabetes mellitus Moderate recurrent major depression Morbid obesity due to excess calories Chronic thoracic spine pain Carpal tunnel syndrome Neck pain Fibromyalgia B12 deficiency Anxiety Right sided sciatica Neuropathy Essential hypertension Arnold-Chiari malformation Surgical History S/P laparoscopic sleeve gastrectomy History of D&C History of cholecystectomy History of section Family History Father Hypertension CVD (cardiovascular disease) Diabetes Mother Hypertension Chronic mental illness Depression Mental health disorder Paternal Aunt Breast cancer Brother Colon cancer Stomach cancer Social History Household Members: Family Housing: House Are you a primary companion caregiver to a significant other at home: Yes Do you presently have visiting nurse or other home services: No Alcohol intake: never Patient Tobacco Use Status: Never used Tobacco e-Cigarette/Vaping Use: Never Used Second Hand Smoke Exposure: No service: No Current occupational status: unemployed Cognitive needs: No Hearing needs: No Vision needs: No Questionnaire PHQ-9 Over the last 2 weeks, how often have you been bothered by any of the following problems? 1. Little interest or pleasure in doing things: not at all 2. Feeling down, depressed, or hopeless: not at all 3. Trouble falling or staying asleep, or sleeping too much: not at all 4. Feeling tired or having little energy: not at all 5. Poor appetite or overeating: not at all 6. Feeling bad about yourself - or that you are a failure or have let yourself or your family down: not at all 7. Trouble concentrating on things, such as reading the newspaper or watching television: not at all 8. Moving or speaking so slowly that other people could have noticed. Or the opposite - being so fidgety or restless that you have been moving around a lot more than usual: not at all 9. Thoughts that you would be better off or of hurting yourself in some way: not at all Total score: 0 Depression Screening Interpretation: Negative Depression Screening Done: Yes 25396 - PHQ-9 Billing: Yes Source: Developed by Drs. Mateo Riojas, Gale Patel, Zac Quintero and colleagues, with an educational mireya from [employer]. Thrive Questionnaire Date Thrive assessed: 04/12/24 I am a: Patient What is your living situation today?: I have a steady place to live Within the past 12 months, did the food you bought not last and you didn't have the money to get more?: Never true Within the past 12 months, did you worry whether your food would run out before you got money to buy more?: Never true Do you have trouble paying for medicines?: No Do you have trouble getting transportation to medical appointments?: No Do you have trouble paying your heating and electricity bill?: No Do you have trouble taking care of your child, family member or friend?: No Do you have trouble with day-to-day activities such as bathing, preparing meals, shopping, managing finances, etc.?: No Are you currently unemployed and looking for a job?: No Are you interested in more education?: No Please select the resources that you would like help with: None Currently or been in a relationship where the following occur: No concerns reported THRIVE Score: 0 AUDIT C Alcohol Use Questionnaire (AUDIT-C) 1. How often do you have a drink containing alcohol?: Never Total Score: 0 Score Reviewed/Action Taken: No PAULETTE-7 AMB Questionnaire PAULETTE-7 Date PAULETTE - 7 assessed: 04/12/24 Feeling nervous, anxious, or on edge: 0 = Not at all Not being able to stop or control worryin = Not at all Worrying too much about different things: 0 = Not at all Trouble relaxin = Not at all Being so restless that it is hard to sit still: 0 = Not at all Becoming easily annoyed or irritable: 0 = Not at all Feeling afraid as if something awful might happen: 0 = Not at all Total PAULETTE-7 score (0-4 normal; 5-9 mild; 10-14 moderate; 15-21 severe): 0 Source: Developed by Gale Estrada Kurt Kroenke and colleagues, with an educational mireya from [employer]. PAULETTE-7 Assessment Billing PAULETTE-7 Assessment Tool: PAULETTE-7 Assessment 94206 Review of Systems Const All systems reviewed & are unremarkable except as noted in HPI and below Card Denies chest pain at rest, Denies chest pain with activity, Denies edema, Denies irregular heart rhythm, Denies claudication, Denies dyspnea, Denies dyspnea on exertion, Denies orthopnea, Denies paroxysmal nocturnal dyspnea and Denies slow heart rate Resp Denies cough, Denies dyspnea and Denies dyspnea on exertion GI Denies abdominal pain, Denies change in bowel habits, Denies excessive flatus, Denies nausea and Denies vomiting Denies urinary incontinence, Denies urinary hesitancy and Denies urinary urgency Musc Denies atrophy, Denies deformity and Denies limited range of motion Skin/Breast Denies bleeding lesions, Denies changing lesions and Denies rash Physical exam (Primary Care) Vital Signs: Last Vital Signs BP 118/80 04/12/24 09:02 BMI result Body Mass Index 29.9 Tobacco/Smoking Status: Tobacco use Status Tobacco use date assessed 04/12/24 04/12/24 09:05 Patient Tobacco Use Status Never used Tobacco 04/12/24 09:05 e-Cigarette/Vaping Use Never Used 04/12/24 09:05 PHQ-9: PHQ-9 Score PHQ-9: Total score 0 04/12/24 12:06 Depression Screening Interpretation: Negative Thrive Assessment: Date of Thrive Assessment Date Thrive assessed 04/12/24 04/12/24 09:05 Currently or been in a relationship where the following occur: No concerns reported Resp Effort & Inspection: normal respiratory effort Auscultation: clear to auscultation bilaterally Cardio Jugular venous distension: no JVD Rate: regular rate Rhythm: regular rhythm Heart sounds: S1 normal heart sound present and S2 normal heart sound present Extrem General: Yes full ROM Office Procedures Flu Questionnaire Does the patient have a severe egg allergy?: No Immunizations Fluarix Triv [id number] (PF) 45 mcg (15 mcg x 3)/0.5 mL IM syringe Performing Provider: Mague Irby MD [facility] Documented (not given) by: SWATHI Kennedy on 04/12/24 09:31 Reason Not Given: Not Given Coding Level of Care Code Est Pt Level 4 (67139) Complex EM visit Add On G2211 Diagnoses Tachycardia R00.0 Chronic GERD K21.9 Moderate recurrent major depression F33.1 Arnold-Chiari malformation Q07.00 Anxiety F41.9 Additional Codes PAULETTE-7 Assessment Billing - PAULETTE-7 Assessment Tool: PAULETTE-7 Assessment 94315 ([id number]) PHQ-9 - 98490 - PHQ-9 Billing: Yes ([id number]) Time Spent (min) 22 Assessment & Plan Assessment & Plan (1) Tachycardia: Code(s): R00.0 - Tachycardia, unspecified Category: Medical (2) Chronic GERD: Code(s): K21.9 - Gastro-esophageal reflux disease without esophagitis Category: Medical (3) Moderate recurrent major depression: Code(s): F33.1 - Major depressive disorder, recurrent, moderate Category: Medical (4) Arnold-Chiari malformation: Comment: surgery not required per patient Code(s): Q07.00 - Arnold-Chiari syndrome without spina bifida or hydrocephalus Category: Medical (5) Anxiety: Code(s): F41.9 - Anxiety disorder, unspecified Category: Medical Plan - Conduct electrocardiogram to evaluate for potential arrhythmia due to amitriptyline usage. - Recommend vitamin D supplementation to address current deficiency. - Prescribe medication for the management of GERD symptoms. - Front Office Secretary on arranging an MRI for further evaluation of Arnold Chiari Malformation. - Encourage follow-up with neurosurgery to discuss dizziness in relation to Arnold Chiari Malformation. - Schedule mammography as part of routine health maintenance. Patient was informed and verbally consented to the use of an ambient scribe for clinic note documentation during this visit. During this visit, I discussed with the patient the likely correlation between her vertiginous episodes and her existing diagnosis of Arnold Chiari Malformation. I emphasized the importance of an updated MRI to assess any changes since her last evaluation and strongly encouraged follow-up with neurosurgery. The potential for prolonged QT interval due to amitriptyline was explained, justifying the need for an electrocardiogram. Management of her marco min D deficiency was addressed with a recommendation for supplementation, and options for controlling GERD symptoms were discussed including dietary modifications and prescription medications. I assured her that her recent weight loss is beneficial in the management of her health conditions and encouraged monitoring her weight. We agreed on the necessity for a routine mammogram, and she was advised to be vigilant regarding any changes in her symptoms. Orders: Orders MM tomosynthesis screening BI Today Z12.31 - Encounter for screening mammogram for malignant neoplasm of breast ECG 12 lead EKG Today R00.0 - Tachycardia, unspecified Influenza [id number] Immunization Today Z23 - Encounter for immunization Medications: New omeprazole 20 mg PO DAILY 90 caps 1RF 90 days Patient Instructions: - Attend an electrocardiogram appointment as scheduled. - Begin vitamin D supplementation as recommended. - Take prescribed medications for heartburn as directed. - Arrange an appointment for an MRI with neurosurgery. - Schedule and complete a mammography. - Maintain a healthy diet and monitor weight regularly. - Contact medical services if experiencing any concerning symptoms or changes.
[2024-04-12 09:02] VITALS: BP 118/80; BMI 29.9
== END 2024-04-12 09:20 | disposition home or self-care (01) ==
PROVIDERS: PCP Internal Medicine; Visit Provider Internal Medicine
DX: R00.0 Tachycardia, unspecified (principal); K21.9 Gastro-esophageal reflux disease without esophagitis; F33.1 Major depressive disorder, recurrent, moderate; Q07.00 Arnold-Chiari syndrome without spina bifida or hydrocephalus; F41.9 Anxiety disorder, unspecified; Z23 Encounter for immunization

== ENCOUNTER → 2024-04-12 08:51 | Outpatient (BNVA) | payer OTHER, SELFPAY | PROVIDERS: PCP Internal Medicine; Visit Provider Internal Medicine | DX: R00.0 Tachycardia, unspecified (principal); K21.9 Gastro-esophageal reflux disease without esophagitis; F33.1 Major depressive disorder, recurrent, moderate; F41.9 Anxiety disorder, unspecified; Q07.00 Arnold-Chiari syndrome without spina bifida or hydrocephalus | CPT/HCPCS: 90471; 96127; 99212 ==

== ENCOUNTER 2024-05-10 11:39 | Outpatient (AMB) | payer OTHER, SELFPAY ==
[2024-05-10 12:08] VITALS: BP 130/68; PULSE 73; TEMP 36.8; O2SAT 96; BMI 30.5
--- NOTE | 2024-05-10 12:08 | MHC.OFFWIV ---
Intake Vital Signs 05/10/24 12:08 Height 5 ft 3 in Weight 172 lb BMI 30.5 BP 130/68 Blood Pressure Location Rt brachial Position Sitting Pulse 73 Pulse Source Pulse Oximeter Temp 98.2 F Temp Source Oral Pulse Oximetry (%) 96 Oxygen Delivery Method Room Air Intake Visit Reasons: EP-lower back pain Intake Note: Pt presents to the office today for c/o lower back pain that started yesterday after she was bending over at work. Pt denies any urinary symptoms at this time. Patient Tobacco Use Status: Never used Tobacco Allergies aspirin [ASPIRIN] Allergy (Intermediate, Verified 05/10/24 12:08) SWELLING latex [LATEX] Allergy (Intermediate, Verified 05/10/24 12:08) Rash prednisone [PREDNISONE] Allergy (Intermediate, Verified 05/10/24 12:08) swelling and hives, swelling tramadol Allergy (Intermediate, Verified 05/10/24 12:08) loopiness HPI HPI Comments History of Present Illness Details Portuguese video interpretor used for this visit. History of Present Illness - The patient is a 39-year-old female presenting with lower back pain. - Pain originated yesterday after lifting a sheet at work, initially mild, now severe. - Described as a pinching, acute pain radiating from the lower back to the right buttock and leg. - Exacerbated by sitting and bending; did not improve with ibuprofen. - No loss of bladder or bowel control noted. - Known prednisone allergy previously caused arm swelling. - Past medical history includes fibromyalgia. Physical Exam General: Cooperative, healthy appearing, comfortable, no acute distress and well developed Orientation: Patient oriented x3 Limitations: Pain in the lower back, radiating down the right buttock and leg Head: Normal to inspection Ears: Hearing grossly normal bilaterally Nose: Normal external nose present Face and sinus: Normal facial exam Eyes: Appearance normal, both eyes and all related structures Neck: Normal visual inspection and Yes full ROM Respiratory: Normal respiratory effort and able to speak in complete sentences. Skin: No rashes or lesions noted Neuro: Patient oriented x3 Extremities: Normal to inspection, positive straight leg test right side [facility] Medical History (Updated 05/10/24 @ 12:45 by Rose Mary Tavarez PA-C) Insomnia Liver fibrosis Steatosis, liver DJD (degenerative joint disease) Panic disorder Lumbar pain with radiation down both legs Shoulder pain, bilateral Bilateral shoulder tendinopathy Gestational diabetes mellitus Moderate recurrent major depression Morbid obesity due to excess calories Chronic thoracic spine pain Carpal tunnel syndrome Neck pain Fibromyalgia B12 deficiency Anxiety Right sided sciatica Neuropathy Essential hypertension Arnold-Chiari malformation Surgical History S/P laparoscopic sleeve gastrectomy History of D&C History of cholecystectomy History of section Family History Father Hypertension CVD (cardiovascular disease) Diabetes Mother Hypertension Chronic mental illness Depression Mental health disorder Paternal Aunt Breast cancer Brother Colon cancer Stomach cancer Social History Household Members: Family Housing: House Are you a primary veterinarian laboratory animal care to a significant other at home: Yes Do you presently have visiting nurse or other home services: No Alcohol intake: never Patient Tobacco Use Status: Never used Tobacco e-Cigarette/Vaping Use: Never Used Second Hand Smoke Exposure: No service: No Current occupational status: unemployed Cognitive needs: No Hearing needs: No Vision needs: No Review of Systems Const All systems reviewed & are unremarkable except as noted in HPI and below Physical Exam Vital Signs: Last Vital Signs Temp 98.2 F 05/10/24 12:08 Pulse 73 05/10/24 12:08 BP 130/68 05/10/24 12:08 Pulse Ox 96 05/10/24 12:08 Oxygen Delivery Method Room Air 05/10/24 12:08 BMI result Body Mass Index 30.5 Assessment & Plan Assessment & Plan (1) Acute low back pain with right-sided sciatica: Code(s): M54.41 - Lumbago with sciatica, right side Qualifiers: Back pain laterality: right Qualified Code(s): M54.41 - Lumbago with sciatica, right side Plan: The patient has been diagnosed with sciatica without the use of prednisone due to an allergy. Instead, meloxicam 15 mg daily for five days is prescribed as an anti-inflammatory treatment, advising against any concurrent ibuprofen use. A Portuguese-language educational leaflet detailing sciatica, including recommended stretching exercises, has been provided, with guidance to begin exercises post-acute pain phase. Refraining from work is recommended to aid recovery, and a note is available upon request. Patient was informed and verbally consented to the use of an ambient scribe for clinic note documentation during this visit. Medications: New meloxicam 15 mg PO DAILY 15 tabs 0RF Coding Level of Care Code Est Pt Level 4 (75741) Diagnoses Acute right-sided low back pain with right-sided sciatica M54.41 Back pain laterality: right
--- OUTSIDE RECORDS SUMMARY | 2024-05-10 14:30 | XMS_ITS | Clinical Summary ---
Author Organization [facility] Address [id number] [place] [id number] Care Team Providers Care Citrix Architect Name Role Phone Mague Irby MD Primary Care Provider [phone] Surgical History Surgery Date Site/Laterality Comments SECTION 2003 PROCEDURE: [place] DEL[place] CHOLECYSTECTOMY 2012 PROCEDURE: [place] CHOLECYSTECTOMY Medical History Medical History Date Comments [...] RESULTING AGENCY - 06/22/2017 10:01 AM EDT [id number] RESULTS OF GEN-PROBE APTIMA COMBO 2 ASSAY CHLAMYDIA: ?NEGATIVE N. GONORRHOEAE: ? NEGATIVE HE LÓPEZ M.D., PATHOLOGIST (CASE ELECTRONICALLY SIGNED 06 22 2017) CLINICAL INFORMATION: Z12.4, Z01.419 Z11.3 ENCOUNTER FOR SCREENING FOR INFECTIONS WITH A PREDOMINANTLY SEXUAL MODE OF TRANSMISSION SOURCE: THINPREP PAP FOR CT/GC GROSS DESCRIPTION: THINPREP VIAL RECEIVED. PHYSICIANS MARY ELLEN MUÑOZ/# /[id number] Mary Ellen Muñoz [facility] LAB CYTOLOGY ORDERABLES Final Result HISTORICAL TESTING LAB RESULTING AGENCY from Last 3 Months or Most Recently Relevant to Health Maintenance Care Teams Citrix Architect Relationship Specialty Start Date End Date Mague Irby MD 2 [facility] , [address] Physician Associ D/B/A: [facility] Internal [facility] UZMA Godinez PCP - General Internal Medicine 05/05/17
--- OUTSIDE RECORDS SUMMARY | 2024-05-10 14:30 | XMS_ITS | Encounter Summary ---
Author Organization [facility] Address [address] [facility] [address] [place] [id number] Care Team Providers Care Technical Sales Specialist Name Role Phone Unavailable Primary Care Provider [...]
--- OUTSIDE RECORDS SUMMARY | 2024-05-10 14:30 | XMS_ITS | Clinical Summary ---
Author Organization [employer] Address [address] [facility] [address] [place] [address] Care Team Providers Care Clinical Documentation Clerk Name Role Phone Unavailable Primary Care Provider [...] Most Recently Relevant to Health Maintenance Insurance [facility]AL-[facility] MEDICAID STAND ADULT
--- OUTSIDE RECORDS SUMMARY | 2024-05-10 14:30 | XMS_ITS | Encounter Summary ---
Author Organization [employer] [facility] Address [address] [facility] [address] [place] [address] Care Team Providers Care Vehicle Maintenance Supervisor Name Role Phone Unavailable Primary Care Provider Unavailabl e Encounter Details Date Type Department Care Team (Late st Contact Info) Description 02/12/[address] [facility] [address] [place], [place] [id number] Dalton Soares DDS [address] [place], [place] [id number] Social History Tobacco Use Types Packs/Day Years [...]
== END 2024-05-10 13:28 | disposition home or self-care (01) ==
PROVIDERS: PCP Internal Medicine; Visit Provider Physician Assistant
DX: M54.41 Lumbago with sciatica, right side (principal)

== ENCOUNTER → 2024-05-10 11:39 | Outpatient (BNVA) | payer OTHER, SELFPAY | PROVIDERS: PCP Internal Medicine; Visit Provider Physician Assistant | DX: M54.41 Lumbago with sciatica, right side (principal) | CPT/HCPCS: 99212 ==

== ENCOUNTER 2024-05-21 09:22 | Emergency (ER) | payer OTHER, SELFPAY ==
--- NOTE | ~2024-05-21 | CT_ITS ---
CLINICAL HISTORY: head strike, syncope CT cervical spine without contrast Comparison: None Findings: There is straightening of the normal cervical lordosis which could be positional or due to muscle spasm. No significant degenerative change. No acute fractures or dislocations. Visualized intracranial contents are unremarkable. No cervical fluid collections or masses. No consolidation or effusion at the lung apices. IMPRESSION: There is straightening of the normal cervical lordosis which could be positional or due to muscle spasm. no acute bony abnormalities. This document has been electronically signed by: French Bonilla MD on 05/21/2024 12:43:24
--- NOTE | ~2024-05-21 | CT_ITS ---
CLINICAL HISTORY: abd pain CT abdomen and pelvis with contrast Comparison: CT - CT ABDOMEN PELVIS W IV CON - 05/21/24 11:20 EDT Findings: No consolidation or effusion. The patient is status post cholecystectomy. There is mild periportal edema. There is a tiny nonobstructing calculus in the lower pole of the left kidney. The solid organs are otherwise unremarkable. No bowel obstruction, pneumoperitoneum, or pneumatosis. The patient is status post gastric sleeve surgery Post colonic diverticulosis. There is no evidence of diverticulitis. The appendix is normal. There is a 2 cm left ovarian cyst. Small left ovarian cyst. Trace free fluid is seen in the pelvis. The bones are intact. IMPRESSION: 1. Evidence of mild periportal edema. This can be seen with rapid hydration, failure and hepatitis. 2. Postoperative changes as above. 3. colonic diverticulosis. This document has been electronically signed by: French Bonilla MD on 05/21/2024 12:53:18
--- NOTE | ~2024-05-21 | CT_ITS ---
CLINICAL HISTORY: head strike, syncope CT head without contrast Comparison: None Findings: No intra-axial mass, midline shift, hydrocephalus, or acute hemorrhage. No significant atrophy-like change or white matter disease. The visualized paranasal sinuses and mastoid air cells are normal. The orbits are unremarkable. No skull fracture. IMPRESSION: 1. No acute intracranial findings. This document has been electronically signed by: French Bonilla MD on 05/21/2024 12:43:05
[2024-05-21 09:32] VITALS: BP 106/64; PULSE 59; O2SAT 97
[2024-05-21 09:33] VITALS: BP 94/55; PULSE 62; RESP 19; TEMP 36.6; O2SAT 100; BMI 30.5
--- NOTE | 2024-05-21 09:37 | ED_ITS ---
HPI - General Adult General Chief complaint: Abdominal Pain Stated complaint: LOST VISION, DIZZY, VOMITING PER EMS Time Seen by Provider: 05/21/24 09:37 Source: patient, EMS and senior project engineer (all interactions with this patient were facilitated with an [facility] pony roll finisher) Mode of arrival: EMS Limitations: language barrier (all interactions with this patient were facilitated with an [facility] pony roll finisher) History of Present Illness ED Provider: Zee Louis PA-C HPI narrative: Patient is a 39 year old assigned female at with a history of GERD, s/p lap sleeve gastrectomy, liver fibrosis + steatosis, fibromyalgia, HTN, and arnold-chiari malformation, presenting to the emergency department today with nausea, vomiting, diarrhea, abdominal pain, and syncope. Patient states that she woke up from sleep with sharp abdominal pain and immediately went to the bathroom where she had an episode of diarrhea. Patient states that she made it back to her couch, sat down, then went to get back up to go to the bathroom again when she syncopized. Patient states that she is unsure if she hit her head or not with the incident. Patient denies any dizziness, lightheadedness, fever, chills, blurry vision, double vision, loss of vision, chest pain, difficulty breathing, shortness of breath, back pain, night sweats, pain with urination, increased urinary frequency, increased urinary urgency, blood in her urine or stool, bowel incontinence, bladder incontinence, or any other complaints at this time. Relieving factors: none Exacerbating factors: none Associated symptoms: nausea/vomiting and syncope Treatments prior to arrival: none Related Data Home Medications ?Medication ?Instructions ?Recorded ?Confirmed clonazepam 1 mg tablet 1 mg PO BID PRN Anxiety 01/15/20 04/12/24 amitriptyline 100 mg tablet 100 mg PO BEDTIME 01/11/23 04/12/24 Previous Rx's ?Medication ?Instructions ?Recorded Brace,wrist #2 ea 10/15/22 omeprazole 20 mg capsule,delayed 20 mg PO DAILY 90 days #90 caps 04/12/24 release meloxicam 15 mg tablet 15 mg PO DAILY #15 tabs 05/10/24 Allergies Allergy/AdvReac Type Severity Reaction Status Date / Time aspirin [ASPIRIN] Allergy Intermediate SWELLING Verified 05/21/24 09:36 latex [LATEX] Allergy Intermediate Rash Verified 05/21/24 09:36 prednisone [PREDNISONE] Allergy Intermediate swelling Verified 05/21/24 09:36 and hives, swelling tramadol Allergy Intermediate loopiness Verified 05/21/24 09:36 Review of Systems 2 Constitutional: Constitutional: Reports no additional constitutional complaints, Denies chills, Denies fever(s) and Denies night sweats Eyes: Eyes: Reports no additional eye complaints, Denies blurry vision, Denies change in vision, Denies diplopia, Denies eye discharge, Denies loss of vision and Denies eye pain ENT: Denies dizziness Cardiovascular: Cardiovascular: Reports no additional cardiovascular complaints, Denies chest pain, Reports syncope, Denies lightheadedness, Denies Loss of Consciousness and Denies dyspnea Respiratory: Respiratory: Reports no additional respiratory complaints and Denies dyspnea Gastrointestinal: Gastrointestinal: Reports no additional gastrointestinal complaints, Reports abdominal pain, Denies melena, Denies hematochezia, Denies change in bowel habits, Reports change in stool character, Reports diarrhea, Reports nausea and Reports vomiting Genitourinary: Genitourinary: Denies hematuria, Denies urinary frequency, Denies dysuria, Denies urinary incontinence, Denies urinary hesitancy and Denies urinary urgency Musculoskeletal: Musculoskeletal: Reports no additional musculoskeletal complaints, Denies numbness and Denies tingling Neurologic: Denies dizziness, Reports syncope, Denies loss of vision, Denies numbness and Denies tingling Psychiatric: Psychiatric: Reports no additional psychiatric complaints Endocrine: Endocrine: Reports no additional endocrine complaints Hematologic/Lymphatic: Hematologic/Lymphatic: Reports no additional hematologic/lymphatic complaints Allergic/Immunologic: Allergic/Immunologic: Reports no additional allergic/immunologic complaints [facility] Past Medical History Attestation statement: The following information was validated with the patient. Source: old records reviewed and nursing notes reviewed Medical History Insomnia Liver fibrosis Steatosis, liver DJD (degenerative joint disease) Panic disorder Lumbar pain with radiation down both legs Shoulder pain, bilateral Bilateral shoulder tendinopathy Gestational diabetes mellitus Moderate recurrent major depression Morbid obesity due to excess calories Chronic thoracic spine pain Carpal tunnel syndrome Neck pain Fibromyalgia B12 deficiency Anxiety Right sided sciatica Neuropathy Essential hypertension Arnold-Chiari malformation Surgical History S/P laparoscopic sleeve gastrectomy History of D&C History of cholecystectomy History of section Family History Family History Father Hypertension CVD (cardiovascular disease) Diabetes Mother Hypertension Chronic mental illness Depression Mental health disorder Paternal Aunt Breast cancer Brother Colon cancer Stomach cancer Social History Social History Household Members: Family Housing: House Are you a primary assisted living care manager to a significant other at home: Yes Do you presently have visiting nurse or other home services: No Alcohol intake: never Patient Tobacco Use Status: Never used Tobacco e-Cigarette/Vaping Use: Never Used Second Hand Smoke Exposure: No service: No Current occupational status: unemployed Cognitive needs: No Hearing needs: No Vision needs: No Physical Exam ED Vital Signs: Vital Signs - 24 hr 05/21/24 09:33 05/21/24 13:30 Temperature 97.8 F 98 F Pulse Rate 62 73 Respiratory Rate 19 16 Blood Pressure 94/55 L 102/71 Pulse Oximetry 100 100 Oxygen Delivery Method Room Air BMI result Body Mass Index 30.5 Const General: cooperative, no acute distress, alert and awake Nutritional Appearance: well nourished Orientation/consciousness: patient oriented x3 Limitations: no limitations HENMT Head: Yes normal to inspection and Yes atraumatic Ears: hearing grossly normal bilaterally and external ears normal General nose exam: Normal external nose present, no nasal discharge noted and no epistaxis Face and sinus: Yes normal facial exam, No abrasion and No laceration Mouth: Normal oral and palatal mucosa present, no drooling and no muffled voice Eyes General: appearance normal, both eyes and all related structures Periorbital: periorbital findings normal Eyelids: Yes eyelids normal Conjunctivae: conjunctivae normal Pupils: Equal, round and reactive pupils present EOM: EOMs intact bilaterally Neck Neck: Yes normal visual inspection, Yes full ROM and Yes no lymphadenopathy Chest Chest palpation & inspection: normal inspection of the chest Resp Effort & Inspection: normal respiratory effort and able to speak in complete sentences GI Inspection: Yes normal to inspection Neuro General: patient oriented x3, moves all extremities and CN's II-XI intact bilaterally Cranial nerves: Yes Equal, round and reactive pupils present Cognition (Neuro): normal cognition Extrem General: Yes normal to inspection, Yes full ROM and Yes capillary refill normal Psych Appearance: grossly normal Mental Status: mental status grossly normal Affect: normal affect Attitude: cooperative Thought process: Normal thought process present Thought content: Normal thought content present Insight: Good insight present (Psych) Medications Administered Discontinued Medications Generic Name Dose Route Start Last Admin Trade Name Parul PRN Reason Stop Dose Admin Sodium Chloride 1,000 mls @ 999 mls/hr 05/21/24 09:45 05/21/24 11:22 Ns IV 05/21/24 10:45 Infused .Q1H1M TAO Infusion Iohexol 100 ml 05/21/24 11:46 05/21/24 11:46 Iohexol 350 Mg/Ml 100 Ml Infus..Btl IV 05/21/24 11:47 85 ml ONCE ONE Administration Ondansetron HCl 4 mg 05/21/24 09:39 05/21/24 09:52 Ondansetron Hcl 4 Mg/2 Ml Vial IVPUSH 05/21/24 09:40 4 mg ONCE ONE Administration Medical Decision Making Medical Decision Making MDM Narrative: Patient is a 39 year old assigned female at with a history of GERD, s/p lap sleeve gastrectomy, liver fibrosis + steatosis, fibromyalgia, HTN, and arnold-chiari malformation, presenting to the emergency department today with nausea, vomiting, diarrhea, abdominal pain, and syncope. Patient's physical exam was unremarkable. Patient's blood work was unremarkable. Patient's urine showed no acute process. Patient's EKG was unremarkable. Patient's CT head, c-spine, and abdomen/pelvis showed no acute process. Patient's clinical presentation is most consistent with gastroenteritis and vasovagal syncope secondary to vomiting / diarrhea. I explained my physical exam findings as well as all test results to the patient. I answered all questions asked by the patient. Patient received IV fluids and zofran which, upon re-evaluation, she stated it helped her symptoms significantly. I stressed the importance of the patient taking her medication as directed (either prescribed or as the over the counter packaging recommends). I stressed the importance of the patient following up with her primary care provider. I stressed the importance of the patient returning to the emergency department immediately if her symptoms were to worsen or if she were to develop any dizziness, shortness of breath, difficulty breathing, chest pain, blurry vision, loss of vision, nausea, vomiting, abdominal pain, fever, chills, back pain, or any other complaints. Patient verbalized agreement and understanding with this treatment plan and discharge. Differential Diagnosis Differential Diagnoses: The differential diagnosis associated with the presentation includes Gastroenteritis Vasovagal syncope Nausea vomiting Admission/Observation Consideration of admission/observation: Escalation of care including admission/observation considered Patient would have been admitted to the hospital had her work up had any findings where hospital admission was appropriate and her clinical presentation warranted hospital admission. Lab Data [facility] Lab Attestation statement: I reviewed the patient's lab results. My interpretation of these results are in the [facility] Rationale portion of this note. 05/21/24 09:48 05/21/24 10:28 Labs: Lab Results 05/21/24 05/21/24 05/21/24 Range/Units 09:48 10:28 13:17 WBC 5.9 (4.8-10.8) X10*3/uL RBC 4.20 (4.20-5.50) X10*6/uL Hgb 12.7 (12.0-16.0) g/dl Hct 38.1 (37.0-47.0) % MCV 90.7 (80.0-98.0) fL MCH 30.2 (27.0-33.0) pg MCHC 33.3 (31.0-35.0) g/dl RDW 13.1 (11.0-16.0) % Plt Count 209 (160-400) X10*3/uL MPV 9.4 (9.4-12.3) fL Immature Gran % (Auto) 0.2 (0.0-0.4) % Neut % (Auto) 69.5 (45-73) % Lymph % (Auto) 24.7 (20-40) % Waller % (Auto) 4.4 (2-11) % Eos % (Auto) 1.0 (0-4) % Baso % (Auto) 0.2 (0-2) % Lymph # (Auto) 1.5 (1.2-4.9) X10*3/uL Waller # (Auto) 0.3 (0.1-1.2) X10*3/uL Eos # (Auto) 0.1 (0.0-0.4) X10*3/uL Baso # (Auto) 0.0 (0.0-0.2) X10*3/uL Abs Immat Gran (auto) 0.01 (0.00-0.03) X10*3/uL Absolute Neuts (auto) 4.1 (2.0-8.3) x10*3/uL Absolute Nucleated RBC 0.000 (0.0-0.012) X10*3/uL Nucleated RBC % (auto) 0.0 (0.0-0.2) /100WBC Sodium Cancelled 143 Potassium Cancelled 4.6 Chloride Cancelled 114 H Carbon Dioxide Cancelled 27 Anion Gap Cancelled 7 L BUN Cancelled 14 Creatinine Cancelled 0.62 Estim Creat Clear Calc Cancelled 119.3 Estimated GFR Cancelled > 60 Random Glucose Cancelled 90 Calcium Cancelled 8.5 Magnesium Cancelled Total Bilirubin Cancelled 0.3 Direct Bilirubin 0.1 (0.0-0.5) mg/dL AST Cancelled 15 ALT Cancelled 11 Alkaline Phosphatase Cancelled 41 Total Protein Cancelled 5.6 L Albumin Cancelled 3.1 L Lipase 20 (8-78) U/L Urine Color Yellow Urine Appearance Clear Urine pH 5.5 (5.0-9.0) Ur Specific [place] >= 1.030 H (1.005-1.025) Urine Protein Negative (Neg-Trace) mg/dL Urine Glucose (UA) Negative (Negative) mg/dL Urine Ketones Negative (Negative) mg/dL Urine Blood Negative (Negative) Urine Nitrite Negative (Negative) Ur Leukocyte Esterase Negative (Negative) Influenza Type A (PCR) NEGATIVE (Negative) Influenza Type B (PCR) NEGATIVE (Negative) RSV RNA Qual (PCR) NEGATIVE (Negative) SARS-CoV-2 RNA (RT-PCR) NEGATIVE (Negative) Independent Interpretation I performed an independent interpretation of an: EKG and CT Scan Interpretation: My interpretation is in agreement with the radiologist's impression of these imaging studies. L Report Number: [id number]: Total DLP = 1676.00 mGy-cm CLINICAL HISTORY: abd pain CT abdomen and pelvis with contrast Comparison: CT - CT ABDOMEN PELVIS W IV CON - 05/21/24 11:20 EDT Findings: No consolidation or effusion. The patient is status post cholecystectomy. There is mild periportal edema. There is a tiny nonobstructing calculus in the lower pole of the left kidney. The solid organs are otherwise unremarkable. No bowel obstruction, pneumoperitoneum, or pneumatosis. The patient is status post gastric sleeve surgery Post colonic diverticulosis. There is no evidence of diverticulitis. The appendix is normal. There is a 2 cm left ovarian cyst. Small left ovarian cyst. Trace free fluid is seen in the pelvis. The bones are intact. IMPRESSION: 1. Evidence of mild periportal edema. This can be seen with rapid hydration, failure and hepatitis. 2. Postoperative changes as above. 3. colonic diverticulosis. This document has been electronically signed by: French Bonilla MD on 05/21/2024 12:53:18 Dictated By: French Bonilla MD Signed By: Electronically signed by French Bonilla MD 05/21/24 1254 Report Number: [id number]: Total DLP = 0.00 mGy-cm CLINICAL HISTORY: head strike, syncope CT head without contrast Comparison: None Findings: No intra-axial mass, midline shift, hydrocephalus, or acute hemorrhage. No significant atrophy-like change or white matter disease. The visualized paranasal sinuses and mastoid air cells are normal. The orbits are unremarkable. No skull fracture. IMPRESSION: 1. No acute intracranial findings. This document has been electronically signed by: French Bonilla MD on 05/21/2024 12:43:05 Dictated By: French Bonilla MD Signed By: Electronically signed by French Bonilla MD 05/21/24 1243 Report Number: [id number]: Total DLP = 0.00 mGy-cm CLINICAL HISTORY: head strike, syncope CT cervical spine without contrast Comparison: None Findings: There is straightening of the normal cervical lordosis which could be positional or due to muscle spasm. No significant degenerative change. No acute fractures or dislocations. Visualized intracranial contents are unremarkable. No cervical fluid collections or masses. No consolidation or effusion at the lung apices. IMPRESSION: There is straightening of the normal cervical lordosis which could be positional or due to muscle spasm. no acute bony abnormalities. This document has been electronically signed by: French Bonilla MD on 05/21/2024 12:43:24 Dictated By: French Bonilla MD Signed By: Electronically signed by French Bonilla MD 05/21/24 1243 I independently interpreted this EKG and am in agreement with the below findings: Vent. Rate: 62 BPM Atrial Rate: 62 BPM P-R Int: 174 ms QRS Dur: 86 ms QT Int: 428 ms P-R-T Axes: -1 55 36 degrees QTcB Int: 434 ms Normal sinus rhythm When compared with ECG of 28-Dec-2022 14:16, Vent. rate has decreased by 35 bpm Referred By: Zee Louis Electronically Signed By: JONE OBANDO MD Dictated By: Jone Obando MD Signed By: Electronically signed by Jone Obando MD 05/21/24 1025 Radiology Impression Discussion of test interpretation with radiology: I have reviewed the radiologist's reading. Independent Historian Clinical information obtained from an independent historian. History obtained from or confirmed by: EMS (EMS provided additional history and confirmed the history provided by the patient.) Discharge Plan Discharge Clinical Impression: Gastroenteritis, Syncope, vasovagal Patient Disposition: Home, Self-Care Instructions: Syncope (DC), Gastroenteritis (DC) Additional Instructions: Follow up with your primary care provider. Return to the emergency department immediately if your symptoms worsen or if you develop any dizziness, shortness of breath, difficulty breathing, chest pain, blurry vision, loss of vision, nausea, vomiting, abdominal pain, fever, chills, back pain, or any other complaints. Rashida?seguimiento?con espinal m?dico de atenci?n primaria. Acuda inmediatamente al servicio de urgencias si praneeth s?ntomas empeoran o si presenta falta de aliento, dificultad para respirar, dolor tor?cico, mareos, aturdimiento, dolor de espalda, dolor abdominal, fiebre, escalofr?os o cualquier otro s?ntoma. Please see the information below about our Patient Portal. If you are not yet enrolled in the [facility] Patient Portal, you will receive an enrollment email invitation following your visit to any [facility] setting. You may also self-enroll in the Patient Portal by visiting our website: [email or web address] The following information is required to access the Patient Portal: - Your [facility] Medical Record Number - Your personal home email address (must match what is in your electronic medical record, Registration staff can assist with this) - Name - Date of Capabilities of the Patient Portal: - Message some providers - View upcoming appointments - Access your health summary, medical history, and visit history - View current conditions and allergies - View procedure and lab results - View your medications, including guidelines, side effects, and precautions - Complete pre-appointment questionnaires requested by your provider - Ready summary reports of your office visits and procedures To access the Patient Portal Mobile Nathaniel, follow these directions: - Search [employer] in the Nathaniel Store or [employer] Store - Download the Nathaniel - Search for [facility] - Enter your login/password Portal del paciente Si usted no esta inscrito en el portal de pacientes de [facility], recibira eyad invitacion de inscripcion despues de espinal visita al [facility] o al [facility] via correo electronico. Tambien puede inscribirse voluntariamente en el portal de pacientes visitando nuestra pagina web: erin [email or web address] [email or web address] La siguiente informacion sera requerida para acceder al portal: - Espinal ashley de historia medica de [facility] - Espinal direccion de correo electronico personal - Nombre - Fecha de nacimiento Capacidades: Las siguientes capacidades estan disponibles en el portal de pacientes: - Enviar mensajes a algunos doctores - Verificar proximas citas - Acceso a espinal historial de son, registro medico e historial de visitas - Jerald las condiciones actuales y alergias jerald procedimientos y resultados del laboratorio - Jerald praneeth medicamentos, incluyendo las pautas - Efectos secundarios y precauciones - Completar o llenar formularios / cuestionarios de - Citas solicitadas por espinal doctor - Leer los resumenes de reportes medicos de praneeth visitas y procedimientos Annamaria acceder a la aplicacion movil: - [employer]ealth en la Nathaniel Store o [employer] Store - Descargue la aplicacion - [facility] - Ingrese espinal nombre de usuario / Contrasena Prescriptions: No Action (DME) Brace,wrist Misc See Rx Instructions .Route Qty: 2 0RF Rx Instructions: Use at nighttime only for both wrists clonazepam 1 mg tablet 1 mg PO BID PRN (Reason: Anxiety) amitriptyline 100 mg tablet 100 mg PO BEDTIME omeprazole 20 mg capsule,delayed release(DR/EC) 20 mg PO DAILY 90 Days Qty: 90 1RF meloxicam 15 mg tablet 15 mg PO DAILY Qty: 15 0RF Referrals: Mague Brantley MD [Primary Care Provider] - Stand Alone Forms: Work/School Release Interventions: ED Discharge Assessment Last Done: 05/21/24 13:30 Discharge Date/Time: 05/21/24 13:40 Print Language: Peruvian
--- NOTE | 2024-05-21 09:39 | ECG_ITS ---
Test Reason : DIZZINESS,NAUSEA Blood Pressure : */* mmHG Vent. Rate : 62 BPM Atrial Rate : 62 BPM P-R Int : 174 ms QRS Dur : 86 ms QT Int : 428 ms P-R-T Axes : -1 55 36 degrees QTcB Int : 434 ms Normal sinus rhythm Cannot rule out Anterior infarct , age undetermined Abnormal ECG When compared with ECG of 28-Dec-2022 14:16, Vent. rate has decreased by 35 bpm Referred By: Zee Louis Electronically Signed By: BLANCA OBANDO MD
[2024-05-21] MEDS: 0.9 % Sodium Chloride 1,000 ML 999 ML IV (09:50)
[2024-05-21] MEDS: ondansetron HCL 4 MG/2 ML VIAL IVPUSH (09:52)
--- OUTSIDE RECORDS SUMMARY | 2024-05-21 09:53 | XMS_ITS | Encounter Summary ---
Author Organization [employer] [facility] Address [address] [place] [address] Care Team Providers Care Management Associate Name Role Phone Unavailable Primary Care Provider Unavailabl e Encounter Details Date Type Department Care Team (Late st Contact Info) Description 02/12/2022 Abstract [facility] [address], [place] [id number] Dalton Soares DDS [address], [place] [phone] Social History Tobacco Use Types Packs/Day Years [...]
--- OUTSIDE RECORDS SUMMARY | 2024-05-21 09:53 | XMS_ITS | Encounter Summary ---
Author Organization [employer] [facility] Address [address] [place] [id number] Care Team Providers Care Vehicle Insurance Agent Name Role Phone Unavailable Primary Care Provider [...]
--- OUTSIDE RECORDS SUMMARY | 2024-05-21 09:53 | XMS_ITS | Clinical Summary ---
Author Organization [employer] Address [address] [place] [address] Care Team Providers Care Valet Cashier Name Role Phone Unavailable Primary Care Provider [...] Most Recently Relevant to Health Maintenance Insurance [facility] MEDICAID STAND ADULT
[2024-05-21 09:54] LABS: MANUAL DIFF FLAG NO
[2024-05-21 09:55] LABS: Basophils Percent Auto 0.2 % (0-2); Eosinophils Absolute Auto 0.1 X10*3/uL (0.0-0.4); Hematocrit 38.1 % (37.0-47.0); Hemoglobin 12.7 g/dl (12.0-16.0); Imm Gran Abs Auto 0.01 X10*3/uL (0.00-0.03); Imm Gran Pct Auto 0.2 % (0.0-0.4); Lymphocytes Absolute Auto 1.5 X10*3/uL (1.2-4.9); Lymphocytes Percent Auto 24.7 % (20-40); Mean Corpuscular HGB Conc 33.3 g/dl (31.0-35.0); Mean Corpuscular Hemoglobin 30.2 pg (27.0-33.0); Mean Corpuscular Volume 90.7 fL (80.0-98.0); Mean Platelet Volume 9.4 fL (9.4-12.3); Monocytes Absolute Auto 0.3 X10*3/uL (0.1-1.2); Monocytes Percent Auto 4.4 % (2-11); Neutrophils Absolute Auto 4.1 x10*3/uL (2.0-8.3); Neutrophils Percent Auto 69.5 % (45-73); Platelet Count 209 X10*3/uL (160-400); Red Cell Distribution Width 13.1 % (11.0-16.0); White Blood Count 5.9 X10*3/uL (4.8-10.8)
[2024-05-21 10:35] LABS: Influenza A PCR NEGATIVE (Negative); Influenza B PCR NEGATIVE (Negative); Resp Syncy Virus RNA Qual PCR NEGATIVE (Negative); SARS COV2 PCR INHOUSE NEGATIVE (Negative)
[2024-05-21 10:59] LABS: Alanine Aminotransferase 11 U/L (0-31); Albumin Level 3.1 g/dL (3.5-5.0); Alkaline Phosphatase 41 U/L (39-117); Anion Gap 7 (12-20); Aspartate Amino Transferase 15 U/L (5-31); Bilirubin Direct 0.1 mg/dL (0.0-0.5); Bilirubin Total 0.3 mg/dL (0.0-1.0); Blood Urea Nitrogen 14 mg/dL (9-16); Calcium 8.5 mg/dL (8.4-10.2); Carbon Dioxide 27 mmol/L (22-29); Chloride 114 mmol/L (96-108); Creatinine Clr Calc Pharmacy 119.3; Estimated Glomerular Filt Rate > 60; Glucose Random 90 mg/dL (60-115); Lipase 20 U/L (8-78); Potassium 4.6 mmol/L (3.3-5.1); Sodium 143 mmol/L (135-145); Total Protein 5.6 g/dL (6.5-8.0)
[2024-05-21] MEDS: iohexoL 350 MG/ML 100 ML INFUS..BTL IV (11:46)
[2024-05-21 13:23] LABS: Appearance Urine Clear; Color Urine Yellow; Glucose Urine UA Negative (Negative); Leukocyte Esterase Urine Negative (Negative); Nitrite Urine Negative (Negative); PH 5.5 (5.0-9.0); Specific Gravity - Urine >= 1.030 (1.005-1.025); Urine Blood Negative (Negative); Urine Ketones Negative (Negative); Urine Protein Negative (Neg-Trace)
[2024-05-21 13:30] VITALS: BP 102/71; PULSE 73; RESP 16; TEMP 36.6; O2SAT 100
== END 2024-05-21 13:40 | disposition home or self-care (01) ==
PROVIDERS: Physician Assistant Medical; Emergency Provider Internal Medicine; PCP Internal Medicine
DX: K52.9 Noninfective gastroenteritis and colitis, unspecified (principal); R11.2 Nausea with vomiting, unspecified; R10.9 Unspecified abdominal pain; R55 Syncope and collapse; Z79.899 Other long term (current) drug therapy; Z03.818 Encounter for observation for suspected exposure to other biological agents ruled out
CPT/HCPCS: 0241U; 36415; 70450; 72125; 74177; 80048; 80053; 80076; 81003; 83690; 83735; 85025; 93005; 96361; 96374; 99284; J2405; Q9967

== ENCOUNTER → 2024-05-21 09:39 | Outpatient (BNV) | payer OTHER, SELFPAY | PROVIDERS: Emergency Provider Internal Medicine; PCP Internal Medicine; Visit Provider Internal Medicine Cardiovascular Disease | DX: R94.31 Abnormal electrocardiogram [ECG] [EKG] (principal); R42 Dizziness and giddiness; R11.0 Nausea | CPT/HCPCS: 93010 ==

== ENCOUNTER → 2024-05-21 10:03 | Outpatient (BNV) | payer OTHER, SELFPAY | PROVIDERS: Emergency Provider Internal Medicine; PCP Internal Medicine; Visit Provider Radiology Diagnostic Radiology | DX: R10.9 Unspecified abdominal pain (principal); R55 Syncope and collapse | CPT/HCPCS: 70450; 72125; 74177 ==

== ENCOUNTER 2024-05-26 14:34 | Outpatient (AMB) | payer OTHER, SELFPAY ==
[2024-05-26 14:39] VITALS: BP 137/76; PULSE 95; TEMP 36.5; O2SAT 98; BMI 28.6
--- NOTE | 2024-05-26 14:39 | A.OFFVIS_ITS ---
VS Expanded 05/26/24 14:39 BP 137/76 Blood Pressure Location Rt brachial Blood Pressure Position Sitting Pulse 95 Pulse Source Pulse Oximeter Temp 97.7 F Temperature Source Temporal Artery Scan Pulse Oximetry 98 Oxygen Delivery Method Room Air Height 5 ft 3 in Weight 161 lb 9.6 oz BMI 28.6 Body Fat % 29.9 Body Fat Mass 48.2 Fat Free Mass 113.4 Visceral Fat Rating 5.0 Body Water % 50.1 Body Water Mass 81.0 Muscle Mass/Score 107.6 Basal Metabolic Rate/Score 1,528 Intake Visit Reasons: (OV) PO LSG 08/25/23 Piping Design Specialist Required: Yes Piping Design Specialist Services: Piping Design Specialist Present Piping Design Specialist Name: hospital cmi Allergies aspirin [ASPIRIN] Allergy (Intermediate, Verified 05/26/24 14:39) SWELLING latex [LATEX] Allergy (Intermediate, Verified 05/26/24 14:39) Rash prednisone [PREDNISONE] Allergy (Intermediate, Verified 05/26/24 14:39) swelling and hives, swelling tramadol Allergy (Intermediate, Verified 05/26/24 14:39) loopiness Medication List - Last Reconciled 05/26/24 by JOSE CARLOS Elam amitriptyline 100 mg PO BEDTIME Brace,wrist Use at nighttime only for both wrists clonazepam 1 mg PO BID PRN HPI Comments Details: This?a?38?yo female who is s/p LSG without hiatal hernia repair on?08/25/2023. Presents for 9 month post op visit. Weight today is 161.6 pounds, with a BMI of 28.6. There has been a 133.4 pound weight loss,(initial weight 295 pounds) since starting the program on 11/05/2022 reflecting a 45.2 % total body weight loss and a weight loss of 100.2 pounds since surgery (operative weight 261.8 pounds) reflecting a 38.2 % TBWL since surgery. No complaints of nausea, emesis, abdominal pain or reflux. Reports infrequent but normal bowel movements every 1-2 days and uses stool softeners regularly. She states she was seen in the emergency room over the weekend due to syncopal event. She had not been drinking very much fluids, she had been under a significant amount of stress from work. She has since increase her hours at work, is going to be on vacation and has increased her p.o. intake and all symptoms have resolved. Taking celebrate mvi and juan+ D Present meal plan includes: Premier protein rtd shake x 1 1 pure protein bars. or romanian yogurt meal with 6 forks protein and 6 forks veg Drinking 32 oz water 20 oz gatorade zero ? Exercise routine includes: treadmill at home, 45 min 3 x per week, stationary bike 30 min 3 x per week, approx 800 juan per day using treadmill and stationary bike 2 x per day 3 days per week. youtube videos [facility] Medical History Insomnia Liver fibrosis Steatosis, liver DJD (degenerative joint disease) Panic disorder Lumbar pain with radiation down both legs Shoulder pain, bilateral Bilateral shoulder tendinopathy Gestational diabetes mellitus Moderate recurrent major depression Morbid obesity due to excess calories Chronic thoracic spine pain Carpal tunnel syndrome Neck pain Fibromyalgia B12 deficiency Anxiety Right sided sciatica Neuropathy Essential hypertension Arnold-Chiari malformation Surgical History S/P laparoscopic sleeve gastrectomy History of D&C History of cholecystectomy History of section Family History Father Hypertension CVD (cardiovascular disease) Diabetes Mother Hypertension Chronic mental illness Depression Mental health disorder Paternal Aunt Breast cancer Brother Colon cancer Stomach cancer Social History Household Members: Family Housing: House Are you a primary acute care assistant to a significant other at home: Yes Do you presently have visiting nurse or other home services: No Alcohol intake: never Patient Tobacco Use Status: Never used Tobacco e-Cigarette/Vaping Use: Never Used Second Hand Smoke Exposure: No service: No Current occupational status: unemployed Cognitive needs: No Hearing needs: No Vision needs: No Physical Exam Vital Signs: Last Vital Signs Temp 97.7 F 05/26/24 14:39 Pulse 95 05/26/24 14:39 BP 137/76 05/26/24 14:39 Pulse Ox 98 05/26/24 14:39 Oxygen Delivery Method Room Air 05/26/24 14:39 BMI result Body Mass Index 28.6 Const General: healthy appearing and no acute distress Resp Effort & Inspection: normal respiratory effort Auscultation: clear to auscultation bilaterally Cardio Rate: regular rate Rhythm: regular rhythm GI Auscultation: normal bowel sounds Extrem General: Yes normal to inspection Assessment & Plan Assessment & Plan (1) S/P laparoscopic sleeve gastrectomy: Code(s): Z98.84 - Bariatric surgery status Category: Surgical Plan: Patient is doing well very well and has made tremendous progress. She will continue her current meal plan, exercise plan. Encouraged to increase her fluid intake as she is now doing. She is now not working as much and is less stressed. We will have her return to the office in August for her 1 year follow- up appointment
--- OUTSIDE RECORDS SUMMARY | 2024-05-26 16:08 | XMS_ITS | Clinical Summary ---
Author Organization [facility] Address [id number] [place] [id number] Care Team Providers Care Jackspooler Name Role Phone Mague Irby MD Primary Care Provider [phone] Surgical History Surgery Date Site/Laterality Comments SECTION 2003 PROCEDURE: [place] DELIVERY ONLY CHOLECYSTECTOMY 2012 PROCEDURE: [place] CHOLECYSTECTOMY Medical History Medical History Date Comments [...] RESULTING AGENCY - 06/22/2017 10:01 AM EDT [id number] RESULTS OF GEN-PROBE APTIMA COMBO 2 ASSAY CHLAMYDIA: ?NEGATIVE N. GONORRHOEAE: ? NEGATIVE HE LÓPEZ M.D., PATHOLOGIST (CASE ELECTRONICALLY SIGNED 06 22 2017) CLINICAL INFORMATION: Z12.4, Z01.419 Z11.3 ENCOUNTER FOR SCREENING FOR INFECTIONS WITH A PREDOMINANTLY SEXUAL MODE OF TRANSMISSION SOURCE: THINPREP PAP FOR CT/GC GROSS DESCRIPTION: THINPREP VIAL RECEIVED. PHYSICIANS MARY ELLEN MUÑOZ/# /[phone] Mary Ellen Muñoz [facility] LAB CYTOLOGY ORDERABLES Final Result HISTORICAL TESTING LAB RESULTING AGENCY from Last 3 Months or Most Recently Relevant to Health Maintenance Care Teams Jackspooler Relationship Specialty Start Date End Date Mague Irby MD 2 [facility] , [address] Physician Associ D/B/A: [facility] UZMA Godinez PCP - General Internal Medicine 05/05/17
--- OUTSIDE RECORDS SUMMARY | 2024-05-26 16:08 | XMS_ITS | Clinical Summary ---
Author Organization [facility] Address [address] [place] [address] Care Team Providers Care Subsystems Engineer Name Role Phone Unavailable Primary Care Provider [...] Most Recently Relevant to Health Maintenance Insurance [facility] MEDICAID STAND ADULT
--- OUTSIDE RECORDS SUMMARY | 2024-05-26 16:08 | XMS_ITS | Encounter Summary ---
Author Organization [email or web address] [facility] Address [address] [place] [address] Care Team Providers Care Hospice Plan Administrator Name Role Phone Unavailable Primary Care Provider Unavailabl e Encounter Details Date Type Department Care Team (Late st Contact Info) Description 02/12/2022 Abstract [facility] ADULT DENTAL [address] [place], [place] [id number] Dalton Soares DDS [address], [place] [id number] Social History Tobacco Use Types Packs/Day Years [...]
--- OUTSIDE RECORDS SUMMARY | 2024-05-26 16:08 | XMS_ITS | Encounter Summary ---
Author Organization [facility] Address [address] [place] [id number] Care Team Providers Care Chief Design Drafter Name Role Phone Unavailable Primary Care Provider [...]
== END 2024-05-26 15:48 | disposition home or self-care (01) ==
LOC: HO.HBS 14:35
PROVIDERS: PCP Internal Medicine; Visit Provider Physician Assistant Surgical
DX: E66.3 Overweight (principal); Z68.28 Body mass index [BMI] 28.0-28.9, adult; Z90.3 Acquired absence of stomach [part of]; Z98.84 Bariatric surgery status
CPT/HCPCS: 99213

== ENCOUNTER → 2024-05-26 14:34 | Outpatient (BNVA) | payer OTHER, SELFPAY | PROVIDERS: PCP Internal Medicine; Visit Provider Physician Assistant Surgical | DX: Z98.84 Bariatric surgery status (principal) | CPT/HCPCS: 99212 ==

== ENCOUNTER 2024-09-01 14:27 | Outpatient (AMB) | payer OTHER, SELFPAY ==
--- NOTE | 2024-09-01 14:31 | A.OFFVIS_ITS ---
VS Expanded 09/01/24 14:41 BP 130/91 H Blood Pressure Location Rt brachial Blood Pressure Position Sitting Pulse 79 Pulse Source Pulse Oximeter Temp 97.8 F Temperature Source Temporal Artery Scan Pulse Oximetry 98 Oxygen Delivery Method Room Air Height 5 ft 3 in Weight 155 lb 6.4 oz BMI 27.5 Body Fat % 27.4 Body Fat Mass 42.6 Fat Free Mass 112.6 Visceral Fat Rating 5.0 Body Water % 51.8 Body Water Mass 80.4 Muscle Mass/Score 107.0 Basal Metabolic Rate/Score 1,510 Intake Visit Reasons: (OV) PO LSG 08/25/23 Poultry Pathologist Required: Yes Poultry Pathologist Services: Poultry Pathologist Present Poultry Pathologist Name: hospital cmi Allergies aspirin (ASPIRIN) Allergy (Intermediate, Verified 09/01/24 14:43) SWELLING latex (LATEX) Allergy (Intermediate, Verified 09/01/24 14:43) Rash prednisone (PREDNISONE) Allergy (Intermediate, Verified 09/01/24 14:43) swelling and hives, swelling tramadol Allergy (Intermediate, Verified 09/01/24 14:43) loopiness Medication List - Last Reconciled 09/01/24 by JOSE CARLOS Elam amitriptyline 100 mg PO BEDTIME Brace,wrist Use at nighttime only for both wrists clonazepam 1 mg PO BID PRN HPI Comments Details: This?a?39?yo female who is s/p LSG without hiatal hernia repair on?08/25/2023. Presents for 1 year post op visit. Weight today is 155.4 pounds, with a BMI of 27.5. There has been a 139.6 pound weight loss,(initial weight 295 pounds) since starting the program on 11/05/2022 reflecting a 47.3 % total body weight loss and a weight loss of 106.4 pounds since surgery (operative weight 261.8 pounds) reflecting a 40.6 % TBWL since surgery. No complaints of nausea, emesis, abdominal pain or reflux. Reports infrequent but normal bowel movements every 1-2 days and uses stool softeners regularly. Taking celebrate mvi and juan+ D Given patient's excessive weight loss, 139.6 lb since starting the program representing 47.3% total body weight loss and 106.4 lb loss since surgery, she has developed excess skin of the abdomen and arms. This excess skin has caused problems with her activities of daily living including increased need for hygiene, pain, itching, ill fitting clothes. She has tried [id number] powder without success. She would have rash 1-2 times per week over the last 2 months. We will prescribe antifungal cream and monitor Present meal plan includes: Premier protein rtd shake x 1 turkish yogurt meal with 6 forks protein and 6 forks veg Drinking 64 oz water ? Exercise routine includes: treadmill at home, 45 min 3-4 x per week, stationary bike 25-30 min 3-4 x per week, approx 450-500 juan per day using treadmill and stationary bike 2 x per day 3 days per week. Any post op complications: none FABIAN: never DM: never HTN: resolved Hyperlipidemia: never GERD:?0-5 scale ??0 = no symptoms ??1 = symptoms noticeable but not bothersome 2 =symptoms bothersome but not daily ? 3 = symptoms bothersome and daily 4 = symptoms affect daily activities 5 = symptoms are incapacitating, unable to do daily activities ? How bad is the heartburn: 0 ? Heartburn while lying down: 0 ? Heartburn when standing up: 0 ? Heartburn after meals: 0 ? Does heartburn change your diet: 0 ? Does heartburn wake you up from sleep: 0 ? Do you have difficulty swallowin ? Do you have pain with swallowin ? If you take medicine for your reflux, does this affect your daily life: 0 Satisfaction with present condition - satisfied or not satisfied: satisfied [facility] Medical History Insomnia Liver fibrosis Steatosis, liver DJD (degenerative joint disease) Panic disorder Lumbar pain with radiation down both legs Shoulder pain, bilateral Bilateral shoulder tendinopathy Gestational diabetes mellitus Moderate recurrent major depression Morbid obesity due to excess calories Chronic thoracic spine pain Carpal tunnel syndrome Neck pain Fibromyalgia B12 deficiency Anxiety Right sided sciatica Neuropathy Essential hypertension Arnold-Chiari malformation Surgical History S/P laparoscopic sleeve gastrectomy History of D&C History of cholecystectomy History of section Family History Father Hypertension CVD (cardiovascular disease) Diabetes Mother Hypertension Chronic mental illness Depression Mental health disorder Paternal Aunt Breast cancer Brother Colon cancer Stomach cancer Social History Household Members: Family Housing: House Are you a primary medicare insurance specialist to a significant other at home: Yes Do you presently have visiting nurse or other home services: No Alcohol intake: never Patient Tobacco Use Status: Never used Tobacco e-Cigarette/Vaping Use: Never Used Second Hand Smoke Exposure: No service: No Current occupational status: unemployed Cognitive needs: No Hearing needs: No Vision needs: No Physical Exam Const General: cooperative and no acute distress Orientation/consciousness: patient oriented x3 Resp Effort & Inspection: normal respiratory effort Auscultation: clear to auscultation bilaterally Cardio Rate: regular rate Rhythm: regular rhythm GI Inspection: Yes normal to inspection and Yes incision (well healed) Palpation (GI): Soft to palpation and no masses Skin Other: Grade 2 pannus without active rash of the abdomen. Excess skin of the arms as well Neuro General: patient oriented x3 Assessment & Plan Assessment & Plan (1) S/P laparoscopic sleeve gastrectomy: Code(s): Z98.84 - Bariatric surgery status Category: Surgical Plan: Patient is doing well with her meal plan. She is exercising although encouraged to maintain consistency of 4 days per week, 500 calories burned per day. She has been having excess skin as a result of her significant weight loss causing dermatitis. We will prescribe antifungal cream and monitor for recurrence. Should she have recurrence, she likely would be a candidate for medically necessary skin removal surgery. Additionally, we will check 1 year postop labs. Continue with bariatric multivitamin as well as calcium plus D. Return to clinic 2 months Orders: Orders Hemoglobin A1c Today E53.8 - Deficiency of other specified B group vitamins, E55.9 - Vitamin D deficiency, unspecified, Z98.84 - Bariatric surgery status Lipid Panel Today E53.8 - Deficiency of other specified B group vitamins, E55.9 - Vitamin D deficiency, unspecified, Z98.84 - Bariatric surgery status Zinc Today E53.8 - Deficiency of other specified B group vitamins, E55.9 - Vit berg D deficiency, unspecified, Z98.84 - Bariatric surgery status C Reactive Protein Today E53.8 - Deficiency of other specified B group vitamins, E55.9 - Vitamin D deficiency, unspecified, Z98.84 - Bariatric surgery status Vitamin A Today E53.8 - Deficiency of other specified B group vitamins, E55.9 - Vitamin D deficiency, unspecified, Z98.84 - Bariatric surgery status TSH reflex Free T4 Today E53.8 - Deficiency of other specified B group vitamins, E55.9 - Vitamin D deficiency, unspecified, Z98.84 - Bariatric surgery status Insulin Today E53.8 - Deficiency of other specified B group vitamins, E55.9 - Vitamin D deficiency, unspecified, Z98.84 - Bariatric surgery status Complete Blood Count Auto Diff Today E53.8 - Deficiency of other specified B group vitamins, E55.9 - Vitamin D deficiency, unspecified, Z98.84 - Bariatric surgery status IRON PROFILE Today E53.8 - Deficiency of other specified B group vitamins, E55.9 - Vitamin D deficiency, unspecified, Z98.84 - Bariatric surgery status Comprehensive Met. Panel Today E53.8 - Deficiency of other specified B group vitamins, E55.9 - Vitamin D deficiency, unspecified, Z98.84 - Bariatric surgery status Vitamin B12 and Folate Today E53.8 - Deficiency of other specified B group vitamins, E55.9 - Vitamin D deficiency, unspecified, Z98.84 - Bariatric surgery status Vitamin B1 Today E53.8 - Deficiency of other specified B group vitamins, E55.9 - Vitamin D deficiency, unspecified, Z98.84 - Bariatric surgery status Ferritin Today E53.8 - Deficiency of other specified B group vitamins, E55.9 - Vitamin D deficiency, unspecified, Z98.84 - Bariatric surgery status Vitamin D 25-OH Total Today E53.8 - Deficiency of other specified B group vitam ins, E55.9 - Vitamin D deficiency, unspecified, Z98.84 - Bariatric surgery status Medications: New clotrimazole 1% (Antifungal (clotrimazole)) 1 appl topical BID 45 grams 3RF
--- OUTSIDE RECORDS SUMMARY | 2024-09-01 14:31 | XMS_ITS | Encounter Summary ---
Author Organization [employer] [facility] Address [address] [place] [address] Care Team Providers Care Direct Support Worker Name Role Phone Unavailable Primary Care Provider Unavailabl e Encounter Details Date Type Department Care Team (Latest Contact Info) Description 01/02/2022 Abstract [facility] CONVERSIONS Dental, Provider, DDS Social History Tobacco [...]
--- OUTSIDE RECORDS SUMMARY | 2024-09-01 14:31 | XMS_ITS | Clinical Summary ---
Author Organization [facility] Address [address] [place] [address] Care Team Providers Care Sea Air Land Officer Name Role Phone Mague Irby MD Primary Care Provider [phone] Surgical History Surgery Date Site/Laterality Comments SECTION 2003 PROCEDURE: [place] DELIVERY ONLY CHOLECYSTECTOMY 2012 PROCEDURE: PA CHOLECYSTECTOMY Medical History Medical History Date Comments Anxiety state DX:Anxiety state Essential hypertension DX:Essent ial hypertension Migraine without status migr ainosus, not intractable DX:Migraine without status m igrainosus, not intractable Generalized anxiety disorder DX: Generalized anxiety disorder HTN (hypertension) DX:HTN (hyper tension) Chiari malformation type I ( CMS/HCC V24, CMS/HCC V28) 2017 DX:Chiari malformation type I (HCC) Family [...] (2023-2 5 season) 2023 Influenza Vaccine (#1) 2024 HIB Vaccines Aged Out No longer eligi [...] age to complete this topic Meningococcal B Vaccine Aged Out No l onger eligible based on patient's age to complete this topic Pneumococcal Vaccine: Pediatrics (0 to 5 Years) and At-Risk Patients (6 to 49 Years) Aged Out No longer eligible b [...] RESULTING AGENCY - 06/22/2017 10:01 AM EDT [id number] RESULTS OF GEN-PROBE APTIMA COMBO 2 ASSAY CHLAMYDIA: NEGATIVE N. GONORRHOEAE: NEGATIVE HE LÓPEZ M.D., PATHOLOGIST (CASE ELECTRONICALLY SIGNED 06 22 2017) CLINICAL INFORMATION: Z12.4, Z01.419 Z11.3 ENCOUNTER FOR SCREENING FOR INFECTIONS WITH A PREDOMINANTLY SEXUAL MODE OF TRANSMISSION SOURCE: THINPREP PAP FOR CT/GC GROSS DESCRIPTION: THINPREP VIAL RECEIVED. PHYSICIANS MARY ELLEN MUÑOZ/# /[phone] Mary Ellen Muñoz CNM LAB CYTOLOGY ORDERABLES Final Result HISTORICAL TESTING LAB RESULTING AGENCY from Last 3 Months or Most Recently Relevant to Health Maintenance Care Teams Sea Air Land Officer Relationship Specialty Start Date End Date Mague Irby MD [address] [place] [address] , [address] [facility] Physician Associ D/B/A: [facility] UZMA Godinez PCP - General Internal Medicine 05/05/17
[2024-09-01 14:41] VITALS: BP 130/91; PULSE 79; TEMP 36.6; O2SAT 98; BMI 27.5
== END 2024-09-01 14:58 | disposition home or self-care (01) ==
LOC: HO.HBS 14:28
PROVIDERS: PCP Internal Medicine; Visit Provider Physician Assistant Surgical
DX: E66.3 Overweight (principal); Z68.27 Body mass index [BMI] 27.0-27.9, adult; Z90.3 Acquired absence of stomach [part of]; Z98.84 Bariatric surgery status
CPT/HCPCS: 99214; G2211

== ENCOUNTER → 2024-09-01 14:27 | Outpatient (BNVA) | payer OTHER, SELFPAY | PROVIDERS: PCP Internal Medicine; Visit Provider Physician Assistant Surgical | DX: Z98.84 Bariatric surgery status (principal); K74.00 Hepatic fibrosis, unspecified; E53.8 Deficiency of other specified B group vitamins; I10 Essential (primary) hypertension | CPT/HCPCS: 99212 ==

== ENCOUNTER 2024-10-02 11:02 | Outpatient (REF) | payer OTHER, SELFPAY ==
[2024-10-02 14:21] LABS: Resp Syncy Virus RNA Qual PCR NEGATIVE (Negative); SARS COV2 PCR INHOUSE NEGATIVE (Negative)
== END 2024-10-02 11:03 | disposition home or self-care (01) ==
LOC: HO.LAB 11:02
PROVIDERS: PCP Internal Medicine; Visit Provider Nurse Practitioner Family
DX: J06.9 Acute upper respiratory infection, unspecified (principal)
CPT/HCPCS: 87637; 99212

== ENCOUNTER 2024-10-02 11:02 | Outpatient (AMB) | payer OTHER, SELFPAY ==
[2024-10-02 11:18] VITALS: BP 139/99; PULSE 79; RESP 15; O2SAT 97
--- NOTE | 2024-10-02 11:18 | AM.OFFWIN_ITS ---
Intake Vital Signs 10/02/24 11:18 10/02/24 11:19 10/02/24 11:26 Height 5 ft 3 in Weight 159 lb BMI 28.2 BP 139/99 H 139/99 H 116/80 Blood Pressure Location Lt brachial Lt brachial Lt brachial Position Sitting Standing Sitting Respiration 15 Pulse 79 89 80 Pulse Source Pulse Oximeter Pulse Oximeter Pulse Oximeter Temp 98.1 F Temp Source Oral Pulse Oximetry (%) 97 96 Oxygen Delivery Method Room Air Room Air Intake Visit Reasons: EP-low BP /80 over 50-headaches, blurred vision Intake Note: nestor Castano RN: Pt came in c/o head pain, right sided neck pain. chills, dizziness and vision disturbance x last night. Pt is a/o x 3 no sob/garland noted speaks in full sentences. No slurred speech noted. Ana (JERROD) and Sara (UZMA) aware. Pt further c/o diarrhea in the mornings Patient Tobacco Use Status: Never used Tobacco Allergies aspirin (ASPIRIN) Allergy (Intermediate, Verified 10/02/24 11:28) SWELLING latex (LATEX) Allergy (Intermediate, Verified 10/02/24 11:28) Rash prednisone (PREDNISONE) Allergy (Intermediate, Verified 10/02/24 11:28) swelling and hives, swelling tramadol Allergy (Intermediate, Verified 10/02/24 11:28) loopiness Do you need a note to return to daycare/school/sports/work: Yes HPI HPI Comments History of Present Illness Details 39 y/o Female patient who presents to [facility] walk in clinic with c/o URI symptoms since this morning. Pt c/o Neck pain, Dizziness, diarrhea, fatigue and blurry vision. Denies fevers but reports body chills. Denies nausea or vomiting. Denies any recent sick contact. [facility] Medical History (Updated 10/02/24 @ 12:[address]ata NP) Acute respiratory disease Insomnia Liver fibrosis Steatosis, liver DJD (degenerative joint disease) Panic disorder Lumbar pain with radiation down both legs Shoulder pain, bilateral Bilateral shoulder tendinopathy Gestational diabetes mellitus Moderate recurrent major depression Morbid obesity due to excess calories Chronic thoracic spine pain Carpal tunnel syndrome Neck pain Fibromyalgia B12 deficiency Anxiety Right sided sciatica Neuropathy Essential hypertension Arnold-Chiari malformation Surgical History S/P laparoscopic sleeve gastrectomy History of D&C History of cholecystectomy History of section Family History Father Hypertension CVD (cardiovascular disease) Diabetes Mother Hypertension Chronic mental illness Depression Mental health disorder Paternal Aunt Breast cancer Brother Colon cancer Stomach cancer Social History Household Members: Family Housing: House Are you a primary respiratory care instructor to a significant other at home: Yes Do you presently have visiting nurse or other home services: No Alcohol intake: never Patient Tobacco Use Status: Never used Tobacco e-Cigarette/Vaping Use: Never Used Second Hand Smoke Exposure: No service: No Current occupational status: unemployed Cognitive needs: No Hearing needs: No Vision needs: No Review of Systems Const All systems reviewed & are unremarkable except as noted in HPI and below Physical Exam Vital Signs: Last Vital Signs Temp 98.1 F 10/02/24 11:26 Pulse 80 10/02/24 11:26 Resp 15 10/02/24 11:18 BP 116/80 10/02/24 11:26 Pulse Ox 96 10/02/24 11:26 Oxygen Delivery Method Room Air 10/02/24 11:26 BMI result Body Mass Index 28.2 Const General: no acute distress Nutritional Appearance: overweight Orientation/consciousness: patient oriented x3 HEENT Head: Yes normocephalic Ears: external ears normal and TM abnormal with fluid behind the TM bilateral General nose exam: Nasal discharge present Face and sinus: Yes sinuses nontender Mouth: moist mucous membranes Throat: Yes uvula midline Neuro General: patient oriented x3, gait normal and moves all extremities Psych Speech and movement: Normal speech and movement present Assessment & Plan Assessment & Plan (1) Acute respiratory disease: Code(s): J06.9 - Acute upper respiratory infection, unspecified Plan: Ordered SARs Acetaminophen for pain and fever relief. Rest and hydrate well. Orders: Orders SARS-CoV2/FLU/RSV Today J06.9 - Acute upper respiratory infection, unspecified Coding Level of Care Code Est Pt Level 4 (88765) Diagnoses Acute respiratory disease J06.9 Time Spent (min) 20
[2024-10-02 11:19] VITALS: BP 139/99; PULSE 89
[2024-10-02 11:26] VITALS: BP 116/80; PULSE 80; TEMP 36.7; O2SAT 96; BMI 28.2
--- OUTSIDE RECORDS SUMMARY | 2024-10-02 11:44 | XMS_ITS | Clinical Summary ---
Author Organization [facility] Address [address] [place] [address] Phone Care Team Providers Care Perinatal Coordinator Name Role Phone Tegan Quevedo DO Primary Care Provider [phone] Medications Medication-Free Text Reglan Active NAPROXEN ORAL Active CYCLOBENZAPRINE HCL (FLEXERIL ORAL) Active HYDROCODONE-RYAN TAMINOPHEN ORAL Acti ve Medication-Free Text Methergine Active MISOPROSTOL (CYTOTEC ORAL) Activ e Medication-Free Text Ondansetron Active Medication-Free Text Labetalol HCl Active Family History Medical History Relation Comments Diabetes mellitus Father 2 Hypertension Mother 2 Relation Status Comments Father 1 Alive Father 2 Mother 1 Alive Mother 2 Social History Tobacco Use Types Packs/Day Years Used Date Smoking Tobacco: Never Assessed Education Answer Date Recorded Are you interested in more education? Not on martha e 06/19/2022 Are you concerned about learning? Not on file 06/19/2022 No 06/19/2022 No 06/19/2022 Digital Access Answer Date Recorded No 07/18/2022 No 07/18/2022 Reliable internet access at home? Not on file 07/18/2022 Device with a working camera? Not on file Comments Unknown Sex and Gender Information Value Date Recorded Sex Assigned at Not on file Legal Sex Female 10:28 PM EDT Gender Identity Not on file Sexual Orientation Not on file Last Filed Vital Signs Vital Sign Reading Time Taken Comments Blood Pressure - - Pulse - - Temperature - - Respiratory Rate - - Oxygen Saturation - - Inhaled Oxygen Concentration - - Weight 115.7 kg (255 lb) 10/01/2015 3:44 AM EDT Height 165.1 cm (5' 5 ) 10/01/2015 3:44 AM EDT Body Mass Index 42.43 10/01/2015 3:44 AM EDT Plan of Treatment Health Maintenance Due Date Last Done Comments Adult Td,Tdap Booster 1984 DEPRESSION SCREENING 1996 SMOKING Hx and SMOKELESS TOB ACCO SCREENING 01/13/1997 HEPATITIS C SCREENING 01/13/2002 HIV ONE-TIME SCREENING (18-6 5 YEARS) 01/13/2002 PAP SMEAR 01/13/2005 COVID-19 VACCINE (2023-2 5 season) 2023 MAMMOGRAM 2024 HEPATITIS A VACCINES Aged Out No long er eligible based on patient's age to complete this topic HIB VACCINES Aged Out No longer eligi ble based on patient's age to complete this topic MENINGOCOCCAL VACCINES (ACWY) Aged Out No longer eligible based on patient's age to complete this topic MENINGOCOCCAL VACCINES (B) Aged Out N o longer eligible based on patient's age to complete this topic PNEUMOCOCCAL VACCINES (0-49 years) Aged Out No longer eligible based on patient's age to complete this topic Medical Devices Not on file [facility] [place] [facility] [place] [address] Care Teams Perinatal Coordinator Relationship Specialty Start Date End Date Tegan Quevedo DO PCP - General 02/11/17 Additional Source Comments The information contained in this document represents components of the legal health record. It is not the complete legal health record.[facility]
--- OUTSIDE RECORDS SUMMARY | 2024-10-02 11:44 | XMS_ITS | Encounter Summary ---
Author Organization [facility] Technology [facility] Address [address] 7[address] [place] [address] Care Team Providers Care Lather Apprentice Name Role Phone Unavailable Primary Care Provider [...]
--- OUTSIDE RECORDS SUMMARY | 2024-10-02 11:44 | XMS_ITS | Clinical Summary ---
Author Organization [facility] Address [id number] [place] [id number] Care Team Providers Care Motor Boss Name Role Phone Mague Irby MD Primary Care Provider [phone] Surgical History Surgery Date Site/Laterality Comments SECTION 2003 PROCEDURE: [place] DELIVERY ONLY CHOLECYSTECTOMY 2012 PROCEDURE: [place] CHOLECYSTECTOMY Medical History Medical History Date Comments [...] 06/17/2017 COVID-19 Vaccine (2023-2 5 season) 2023 Depression Screening 02/23/2024 Influenza Vaccine (#1) 2024 HIB Vaccines Aged [...] RESULTING AGENCY - 06/22/2017 10:01 AM EDT [id number] RESULTS OF GEN-PROBE APTIMA COMBO 2 ASSAY CHLAMYDIA: NEGATIVE N. GONORRHOEAE: NEGATIVE HE LÓPEZ M.D., PATHOLOGIST (CASE ELECTRONICALLY SIGNED 06 22 2017) CLINICAL INFORMATION: Z12.4, Z01.419 Z11.3 ENCOUNTER FOR SCREENING FOR INFECTIONS WITH A PREDOMINANTLY SEXUAL MODE OF TRANSMISSION SOURCE: THINPREP PAP FOR CT/GC GROSS DESCRIPTION: THINPREP VIAL RECEIVED. PHYSICIANS MARY ELLEN MUÑOZ/# /[id number] Mary Ellen Muñoz Michael LAB CYTOLOGY ORDERABLES Final Result HISTORICAL TESTING LAB RESULTING AGENCY from Last 3 Months or Most Recently Relevant to Health Maintenance Care Teams Motor Boss Relationship Specialty Start Date End Date Mague Irby MD [address] [place] [address] , [address] [facility] D/B/A: [facility] UZMA Godinez PCP - General Internal Medicine 05/05/17
== END 2024-10-02 12:53 | disposition home or self-care (01) ==
PROVIDERS: PCP Internal Medicine; Visit Provider Nurse Practitioner Family
DX: J06.9 Acute upper respiratory infection, unspecified (principal)

== ENCOUNTER 2024-10-11 08:49 | Outpatient (AMB) | payer OTHER, SELFPAY ==
--- NOTE | 2024-10-11 08:54 | A.OFFPC_ITS ---
Vital Signs 10/11/24 08:56 Height 5 ft 3 in Weight 158 lb 2 oz BMI 28.0 BP 104/72 Blood Pressure Location Lt brachial Position Sitting Respiration 16 Pulse 85 Pulse Source Pulse Oximeter Temp 97.1 F Temp Source Temporal Artery Scan Pulse Oximetry (%) 98 Oxygen Delivery Method Room Air Intake Visit Reasons: Annual Exam Subway Train Driver Required: No Accompanied by: Self / Same As Patient Allergies aspirin (ASPIRIN) Allergy (Intermediate, Verified 10/11/24 09:22) SWELLING latex (LATEX) Allergy (Intermediate, Verified 10/11/24 09:22) Rash prednisone (PREDNISONE) Allergy (Intermediate, Verified 10/11/24 09:22) swelling and hives, swelling tramadol Allergy (Intermediate, Verified 10/11/24 09:22) loopiness Medication List - Last Reconciled 10/11/24 by Mague Irby MD amitriptyline 100 mg PO BEDTIME Brace,wrist Use at nighttime only for both wrists clonazepam 1 mg PO BID PRN clotrimazole 1% (Antifungal (clotrimazole)) 1 appl topical BID Tobacco use date assessed: 10/11/24 Dental Screening Dental Screen Date: 10/11/24 Did you have a dental visit in the last 12 months?: No Did you have a dental problem in the last 6 months where you did not have access to dental care?: No Was dental information given to patient?: No HPI HPI Comments History of Present Illness Details The patient is a 39-year-old female presenting with a wellness examination and management of chronic conditions. The patient reports episodes of dizziness and cold sweats, which have been occurring intermittently. These episodes were associated with elevated blood pressure readings, with a noted measurement of 139/99 mmHg in September. The patient was evaluated for COVID-19, but the results were negative. The patient has a history of hypertension, with recent episodes of elevated blood pressure. She is currently taking amitriptyline and clonazepam, prescribed by her psychiatrist, for depression, which is mild with a PHQ-9 score of 5. The patient has a history of gastric sleeve surgery, cholecystectomy, and two sections. Family history includes diabetes and hypertension in her father, and hypertension and depression in her mother. The patient denies smoking and alcohol consumption. Previous laboratory results indicated well-controlled cholesterol levels at 159 mg/dL and excellent renal function. [facility] Medical History (Updated 10/11/24 @ 11:59 by Mague Irby MD) Acute respiratory disease Insomnia Liver fibrosis Steatosis, liver DJD (degenerative joint disease) Panic disorder Lumbar pain with radiation down both legs Shoulder pain, bilateral Bilateral shoulder tendinopathy Gestational diabetes mellitus Moderate recurrent major depression Morbid obesity due to excess calories Chronic thoracic spine pain Carpal tunnel syndrome Neck pain Fibromyalgia B12 deficiency Anxiety Right sided sciatica Neuropathy Essential hypertension Arnold-Chiari malformation Surgical History S/P laparoscopic sleeve gastrectomy History of D&C History of cholecystectomy History of section Family History Father Hypertension CVD (cardiovascular disease) Diabetes Mother Hypertension Chronic mental illness Depression Mental health disorder Paternal Aunt Breast cancer Brother Colon cancer Stomach cancer Social History Household Members: Family Housing: House Are you a primary senior care provider to a significant other at home: Yes Do you presently have visiting nurse or other home services: No Alcohol intake: never Patient Tobacco Use Status: Never used Tobacco e-Cigarette/Vaping Use: Never Used Second Hand Smoke Exposure: No service: No Current occupational status: unemployed Cognitive needs: No Hearing needs: No Vision needs: No Questionnaire PHQ-9 Over the last 2 weeks, how often have you been bothered by any of the following problems? 1. Little interest or pleasure in doing things: several days 2. Feeling down, depressed, or hopeless: several days 3. Trouble falling or staying asleep, or sleeping too much: several days 4. Feeling tired or having little energy: several days 5. Poor appetite or overeating: several days 6. Feeling bad about yourself - or that you are a failure or have let yourself or your family down: not at all 7. Trouble concentrating on things, such as reading the newspaper or watching television: not at all 8. Moving or speaking so slowly that other people could have noticed. Or the opposite - being so fidgety or restless that you have been moving around a lot more than usual: not at all 9. Thoughts that you would be better off or of hurting yourself in some way: not at all Total score: 5 Depression Screening Interpretation: Positive Depression Screening Follow-up: Existing condition, In treatment, Community Mental Health Worker F/U and Follow- up Visit Requested Depression Screening Done: Yes 20341 - PHQ-9 Billing: Yes Source: Developed by Drs. Mateo Riojas, Gale Patel, Zac Quintero and colleagues, with an educational mireya from [employer]. Thrive Questionnaire Date Thrive assessed: 10/11/24 I am a: Patient What is your living situation today?: I have a steady place to live Within the past 12 months, did the food you bought not last and you didn't have the money to get more?: Never true Within the past 12 months, did you worry whether your food would run out before you got money to buy more?: Never true Do you have trouble paying for medicines?: No Do you have trouble getting transportation to medical appointments?: No Do you have trouble paying your heating and electricity bill?: No Do you have trouble taking care of your child, family member or friend?: No Do you have trouble with day-to-day activities such as bathing, preparing meals, shopping, managing finances, etc.?: No Are you currently unemployed and looking for a job?: No Are you interested in more education?: No Please select the resources that you would like help with: None Currently or been in a relationship where the following occur: No concerns reported THRIVE Score: 0 AUDIT C Alcohol Use Questionnaire (AUDIT-C) 1. How often do you have a drink containing alcohol?: Never 3. How often do you have six or more drinks on one occasion?: Never Total Score: 0 Score Reviewed/Action Taken: No PAULETTE-7 AMB Questionnaire PAULETTE-7 Date PAULETTE - 7 assessed: 10/11/24 Feeling nervous, anxious, or on edge: 0 = Not at all Not being able to stop or control worryin = Several days Worrying too much about different things: 1 = Several days Trouble relaxin = Several days Being so restless that it is hard to sit still: 0 = Not at all Becoming easily annoyed or irritable: 0 = Not at all Feeling afraid as if something awful might happen: 1 = Several days Total PAULETTE-7 score (0-4 normal; 5-9 mild; 10-14 moderate; 15-21 severe): 4 Source: Developed by Drs. Mateo Riojas, Gale Patel, Zac Quintero and colleagues, with an educational mireya from [employer]. PAULETTE-7 Assessment Billing PAULETTE-7 Assessment Tool: PAULETTE-7 Assessment 11567 Review of Systems Const All systems reviewed & are unremarkable except as noted in HPI and below Card Denies chest pain at rest, Denies chest pain with activity, Denies edema, Denies irregular heart rhythm, Denies claudication, Denies dyspnea, Denies dyspnea on exertion, Denies orthopnea, Denies paroxysmal nocturnal dyspnea and Denies slow heart rate Resp Denies cough, Denies dyspnea and Denies dyspnea on exertion GI Denies abdominal pain, Denies change in bowel habits, Denies excessive flatus, Denies nausea and Denies vomiting Denies urinary incontinence, Denies urinary hesitancy and Denies urinary urgency Musc Denies abnormal gait, Denies atrophy, Denies deformity and Denies limited range of motion Skin/Breast Denies bleeding lesions, Denies changing lesions and Denies rash Neuro Denies abnormal gait, Denies behavioral changes and Denies lack of coordination Psych Denies behavioral changes Physical exam (Primary Care) Vital Signs: Last Vital Signs Temp 97.1 F 10/11/24 08:56 Pulse 85 10/11/24 08:56 Resp 16 10/11/24 08:56 BP 104/72 10/11/24 08:56 Pulse Ox 98 10/11/24 08:56 Oxygen Delivery Method Room Air 10/11/24 08:56 BMI result Body Mass Index 28.0 Tobacco/Smoking Status: Tobacco use Status Tobacco use date assessed 10/11/24 10/11/24 08:56 Patient Tobacco Use Status Never used Tobacco 10/11/24 08:56 e-Cigarette/Vaping Use Never Used 10/11/24 08:56 PHQ-9: PHQ-9 Score PHQ-9: Total score 5 10/11/24 09:27 Depression Screening Interpretation: Positive Depression Screening Follow-up: Existing condition, In treatment, Community Mental Health Worker F/U and Follow- up Visit Requested Thrive Assessment: Date of Thrive Assessment Date Thrive assessed 10/11/24 10/11/24 08:56 Currently or been in a relationship where the following occur: No concerns reported [facility] Head: Yes normal to inspection, Yes normocephalic and Yes atraumatic Ears: external ears normal Eyes General: appearance normal, both eyes and all related structures Eyelids: Yes eyelids normal Conjunctivae: conjunctivae normal Neck Neck: Yes normal visual inspection and Yes supple Resp Effort & Inspection: normal respiratory effort Auscultation: clear to auscultation bilaterally Cardio Jugular venous distension: no JVD Rate: regular rate Rhythm: regular rhythm Heart sounds: S1 normal heart sound present and S2 normal heart sound present GI Inspection: Yes normal to inspection Palpation (GI): Soft to palpation and nontender Auscultation: normal bowel sounds Skin General skin exam: no rashes or lesions noted Neuro General: no focal motor deficits Extrem General: Yes full ROM Psych Appearance: grossly normal Coding Level of Care Code Est Pt Level 3 (58932) Est Pt Prev Care 40-64y(55274) Diagnoses Physical exam Z00.00 Mild major depression F32.0 Vertigo R42 Additional Codes PAULETTE-7 Assessment Billing - PAULETTE-7 Assessment Tool: PAULETTE-7 Assessment 47615 ([id number]) PHQ-9 - 63740 - PHQ-9 Billing: Yes ([id number]) Time Spent (min) 33 Assessment & Plan Assessment & Plan (1) Physical exam: Code(s): Z00.00 - Encounter for general adult medical examination without abnormal findings Category: Medical (2) Mild major depression: Code(s): F32.0 - Major depressive disorder, single episode, mild Category: Medical (3) Vertigo: Code(s): R42 - Dizziness and giddiness Category: Medical Plan The patient will undergo a mammogram and Pap smear as part of her preventative care measures. Blood pressure management will be addressed, considering the recent episodes of elevated readings. The patient is advised to continue her current medications for depression, with a follow-up to monitor her mental health status. Further laboratory tests will be conducted to evaluate the cause of dizziness and cold sweats. Patient was informed and verbally consented to the use of an ambient scribe for clinic note documentation during this visit. Orders: Orders Vitamin D 25-OH Total Today E55.9 - Vitamin D deficiency, unspecified IRON PROFILE Today D64.9 - Anemia, unspecified MM tomosynthesis screening BI Today Z12.31 - Encounter for screening mammogram for malignant neoplasm of breast Vitamin B12 and Folate Today E53.8 - Deficiency of other specified B group vitamins Complete Blood Count Auto Diff Today D64.9 - Anemia, unspecified Comprehensive Palmer. Panel Fast Today R42 - Dizziness and giddiness PT Evaluation and Treatment Today R42 - Dizziness and giddiness Medications: New 2 meclizine (Dramamine (meclizine)) 25 mg PO DAILY PRN 7 tabs 0RF motion sickness 7 days
[2024-10-11 08:56] VITALS: BP 104/72; PULSE 85; RESP 16; TEMP 36.2; O2SAT 98; BMI 28.0
--- OUTSIDE RECORDS SUMMARY | 2024-10-11 09:30 | XMS_ITS | Clinical Summary ---
Author Organization [facility] Address [address] [place] [id number] Care Team Providers Care Radio Intelligence Operator Name Role Phone Mague Irby MD Primary Care Provider [phone] Surgical History Surgery Date Site/Laterality Comments SECTION 2003 PROCEDURE: ID DELIVERY ONLY CHOLECYSTECTOMY 2012 PROCEDURE: ID CHOLECYSTECTOMY Medical History Medical History Date Comments [...] RESULTING AGENCY - 06/22/2017 10:01 AM EDT [id number] RESULTS OF GEN-PROBE APTIMA COMBO 2 ASSAY CHLAMYDIA: NEGATIVE N. GONORRHOEAE: NEGATIVE HE LÓPEZ M.D., PATHOLOGIST (CASE ELECTRONICALLY SIGNED 06 22 2017) CLINICAL INFORMATION: Z12.4, Z01.419 Z11.3 ENCOUNTER FOR SCREENING FOR INFECTIONS WITH A PREDOMINANTLY SEXUAL MODE OF TRANSMISSION SOURCE: THINPREP PAP FOR CT/GC GROSS DESCRIPTION: THINPREP VIAL RECEIVED. PHYSICIANS MARY ELLEN MUÑOZ/# /[id number] Mary Ellen Muñoz Michael LAB CYTOLOGY ORDERABLES Final Result HISTORICAL TESTING LAB RESULTING AGENCY from Last 3 Months or Most Recently Relevant to Health Maintenance Care Teams Radio Intelligence Operator Relationship Specialty Start Date End Date Mague Irby MD [address] [place] [address] , [address] [facility] D/B/A: [facility] Internal [facility] UZMA Godinez PCP - General Internal Medicine 05/05/17
--- OUTSIDE RECORDS SUMMARY | 2024-10-11 09:30 | XMS_ITS | Clinical Summary ---
Author Organization [facility] Address [address] [place] [address] Phone Care Team Providers Care Manager Resort Name Role Phone Tegan Quevedo DO Primary Care Provider [phone] Medications Medication-Free Text Reglan Active NAPROXEN ORAL [...] topic Medical Devices Not on file [facility] [place] [facility] [address] [place] [address] Care Teams Manager Resort Relationship Specialty Start Date End Date Tegan Quevedo DO PCP - General 02/11/17 Additional Source Comments The information contained in this document represents components of the legal health record. It is not the complete legal health record.[facility]
--- OUTSIDE RECORDS SUMMARY | 2024-10-11 09:30 | XMS_ITS | Encounter Summary ---
Author Organization [facility] Technology [facility] Address [address] [place] [address] Care Team Providers Care Database Administration Project Manager Name Role Phone Unavailable Primary Care Provider [...]
== END 2024-10-11 09:36 | disposition home or self-care (01) ==
LOC: HO.HMCH 08:50
PROVIDERS: PCP Internal Medicine; Visit Provider Internal Medicine
DX: Z00.00 Encounter for general adult medical examination without abnormal findings (principal); F32.0 Major depressive disorder, single episode, mild; R42 Dizziness and giddiness

== ENCOUNTER → 2024-10-11 08:49 | Outpatient (BNVA) | payer OTHER, SELFPAY | PROVIDERS: PCP Internal Medicine; Visit Provider Internal Medicine | DX: Z00.00 Encounter for general adult medical examination without abnormal findings (principal); R42 Dizziness and giddiness; I10 Essential (primary) hypertension; E11.9 Type 2 diabetes mellitus without complications; F32.0 Major depressive disorder, single episode, mild | CPT/HCPCS: 96127; 99212; 99396 ==

== ENCOUNTER 2024-11-29 08:47 | Outpatient (REF) | payer OTHER, SELFPAY ==
[2024-11-29 09:07] LABS: MANUAL DIFF FLAG NO
[2024-11-29 09:47] LABS: Hematocrit 38.5 % (37.0-47.0); Hemoglobin 12.4 g/dl (12.0-16.0); Imm Gran Abs Auto 0.01 X10*3/uL (0.00-0.03); Imm Gran Pct Auto 0.2 % (0.0-0.4); Lymphocytes Absolute Auto 1.5 X10*3/uL (1.2-4.9); Mean Corpuscular HGB Conc 32.2 g/dl (31.0-35.0); Mean Corpuscular Hemoglobin 29.5 pg (27.0-33.0); Mean Corpuscular Volume 91.4 fL (80.0-98.0); NRBC Abs Auto 0.000 X10*3/uL (0.0-0.012); NRBC Pct Auto 0.0 /100WBC (0.0-0.2); Platelet Count 224 X10*3/uL (160-400); Red Blood Count 4.21 X10*6/uL (4.20-5.50); White Blood Count 4.0 X10*3/uL (4.8-10.8)
[2024-11-29 10:29] LABS: Alanine Aminotransferase 11 U/L (0-31); Albumin Level 4.1 g/dL (3.5-5.0); Alkaline Phosphatase 46 U/L (39-117); Anion Gap 9 (12-20); Aspartate Amino Transferase 14 U/L (5-31); Blood Urea Nitrogen 16 mg/dL (9-16); Calcium 9.6 mg/dL (8.4-10.2); Carbon Dioxide 30 mmol/L (22-29); Chloride 110 mmol/L (96-108); Estimated Glomerular Filt Rate > 60; Iron 68 mcg/dL (30-160); Percent Iron Saturation 27 % (15-50); Potassium 4.5 mmol/L (3.3-5.1); Sodium 144 mmol/L (135-145); Total Iron Binding Capacity 249 mcg/dL (228-428); Total Protein 6.7 g/dL (6.5-8.0); Unsaturated Iron Binding 181 ug/dL
[2024-11-29 10:55] LABS: Folate 11.2 ng/mL (> or = 4.0); Vitamin B12 414 pg/mL (200-900)
== END 2024-11-29 08:48 | disposition home or self-care (01) ==
LOC: HO.LAB 08:47
PROVIDERS: Absent Provider Internal Medicine; PCP Internal Medicine; Visit Provider Physician Assistant Surgical
DX: R42 Dizziness and giddiness (principal); E55.9 Vitamin D deficiency, unspecified; D64.9 Anemia, unspecified; E53.8 Deficiency of other specified B group vitamins
CPT/HCPCS: 36415; 80053; 82306; 82607; 82746; 83540; 85025

== ENCOUNTER 2024-12-18 14:22 | Outpatient (AMB) | payer OTHER, SELFPAY ==
--- NOTE | 2024-12-18 15:05 | MHC.OFFVISWM ---
VS Expanded 12/18/24 15:15 BP 133/84 Blood Pressure Location Rt brachial Blood Pressure Position Sitting Pulse 84 Pulse Source Pulse Oximeter Temp 98.5 F Temperature Source Temporal Artery Scan Pulse Oximetry 100 Oxygen Delivery Method Room Air Height 5 ft 3 in Weight 160 lb BMI 28.3 Body Fat % 29 Body Fat Mass 46.2 Fat Free Mass 113.6 Visceral Fat Rating 5.0 Body Water % 50.8 Body Water Mass 81.2 Muscle Mass/Score 107.8 Basal Metabolic Rate/Score 1,527 Intake Visit Reasons: (OV) PO LSG 08/25/23 Allergies aspirin (ASPIRIN) Allergy (Intermediate, Verified 12/18/24 15:13) SWELLING latex (LATEX) Allergy (Intermediate, Verified 12/18/24 15:13) Rash prednisone (PREDNISONE) Allergy (Intermediate, Verified 12/18/24 15:13) swelling and hives, swelling tramadol Allergy (Intermediate, Verified 12/18/24 15:13) loopiness Medication List - Last Reconciled 12/18/24 by JOSE CARLOS Melvin amitriptyline 100 mg PO BEDTIME Brace,wrist Use at nighttime only for both wrists clonazepam 1 mg PO BID PRN clotrimazole 1% (Antifungal (clotrimazole)) 1 appl topical BID meclizine (Dramamine (meclizine)) 25 mg PO DAILY PRN 7 days HPI Comments Details: This a 39 yo female who is s/p LSG without hiatal hernia repair on 08/25/2023. Presents for 1 year 3 mo post op visit. Weight today is 160 pounds, with a BMI of 28. Weight gain of 5.6lb since last OV. Initial weight 295 pounds starting the program on 11/05/2022 and operative weight 261.8 pounds. No complaints of nausea, emesis, abdominal pain or reflux. Reports infrequent but normal bowel movements every 1-2 days and uses stool softeners regularly. Taking celebrate mvi and juan+ D Given patient's excessive weight loss, she has developed excess skin of the abdomen and arms. This excess skin has caused problems with her activities of daily living including increased need for hygiene, pain, itching, ill fitting clothes. She has to wear compressive shapewear to hold excess skin of abdomen in place to prevent discomfort with movement. She reports the excess skin of arms rubs together against the torso and chafes a lot, especially in summer; she has to wear longer sleeves even in summer to protect this. She has tried [id number] powder without success. She would have rash 1-2 times per week over the last 2 months. She was prescribed antifungal cream for this. Present meal plan includes: Premier protein rtd shake x 1 algerian yogurt meal with 6 forks protein and 6 forks veg Drinking 64 oz water - she reports nausea occasionally with the shakes Exercise routine includes: treadmill at home, 45 min 3-4 x per week stationary bike 25-30 min 3-4 x per week approx 450-500 juan per day using treadmill and stationary bike 2 x per day 3 days per week [facility] Medical History Acute respiratory disease Insomnia Liver fibrosis Steatosis, liver DJD (degenerative joint disease) Panic disorder Lumbar pain with radiation down both legs Shoulder pain, bilateral Bilateral shoulder tendinopathy Gestational diabetes mellitus Moderate recurrent major depression Morbid obesity due to excess calories Chronic thoracic spine pain Carpal tunnel syndrome Neck pain Fibromyalgia B12 deficiency Anxiety Right sided sciatica Neuropathy Essential hypertension Arnold-Chiari malformation Surgical History S/P laparoscopic sleeve gastrectomy History of D&C History of cholecystectomy History of section Family History Father Hypertension CVD (cardiovascular disease) Diabetes Mother Hypertension Chronic mental illness Depression Mental health disorder Paternal Aunt Breast cancer Brother Colon cancer Stomach cancer Social History Household Members: Family Housing: House 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 at home: Yes Do you presently have visiting nurse or other home services: No Alcohol intake: never Patient Tobacco Use Status: Never used Tobacco e-Cigarette/Vaping Use: Never Used Second Hand Smoke Exposure: No service: No Current occupational status: unemployed Cognitive needs: No Hearing needs: No Vision needs: No Physical Exam Vital Signs: Last Vital Signs Temp 98.5 F 12/18/24 15:15 Pulse 84 12/18/24 15:15 BP 133/84 12/18/24 15:15 Pulse Ox 100 12/18/24 15:15 Oxygen Delivery Method Room Air 12/18/24 15:15 BMI result Body Mass Index 28.3 Const General: cooperative, comfortable and no acute distress Orientation/consciousness: patient oriented x3 GI Other: soft, nontender, nondistended, incisions well healed, no hernia, no masses Grade II pannus Skin Other: excess skin of arms with maximum length L=8cm, R=9cm Neuro General: patient oriented x3 Assessment & Plan Assessment & Plan (1) S/P laparoscopic sleeve gastrectomy: Code(s): Z98.84 - Bariatric surgery status Category: Surgical (2) Overweight: Code(s): E66.3 - Overweight Category: Medical (3) Excess skin: Code(s): L98.7 - Excessive and redundant skin and subcutaneous tissue Category: Medical Plan Pt agreeable to changing meal plan to include 2 Fitcrunch bars, 1 algerian yogurt, and 1 meal 6f/6f. She is experiencing issues of excess skin of abdomen resulting in frequent painful, itchy, malodorous rashes which are unrelieved by topical antifungals. In addition she is experiencing limitations/discomfort in activities of daily living and requires the use of special clothing at all times to try to prevent discomfort. However her issues have not been completely relieved by conservative measures. She would benefit from definitive treatment of panniculectomy. Additionally, pt is experiencing issues of excess skin of arms resulting in frequent painful chafing of skin, unrelieved by topical treatments. In addition she is experiencing limitations/discomfort in activities of daily living and requires the use of special clothing at all times to try to prevent discomfort. However her issues have not been completely relieved by conservative measures. She would benefit from definitive treatment of brachioplasty. Discussed BMI goal of less than 27 which for pt is 152 lbs. Photos taken today. Pt will text me if she reaches goal weight prior to next appt. RTC 3mo TV.
[2024-12-18 15:15] VITALS: BP 133/84; PULSE 84; TEMP 36.9; O2SAT 100; BMI 28.3
--- OUTSIDE RECORDS SUMMARY | 2024-12-18 18:02 | XMS_ITS | Clinical Summary ---
Author Organization [employer] Address [address] [facility] [address] [place] [address] Care Team Providers Care Manager Software Development Name Role Phone Unavailable Primary Care Provider [...] 1984 HIV Screening 1984 SDOH Screening 1984 Disability Screening 1984 Alcohol/Substance Use Screening 1996 Tobacco Screening 1996 Family Planning (PISQ) 01/13/1999 HPV Vaccines (1 - 3-dose series) 01/13/1999 Hepatitis C Screening 01/13/2002 Hepatitis B Vaccines (1 of 3 - 19+ 3-dose series) 01/13/2003 Pap Smear 01/13/2005 Cervical Cancer Screening 01/13/2014 HPV/Cotest 01/13/2014 Dental Oral Exam 07/03/2022 01/02/2022, 04/23/2016, 05/10/2015 Dental Prophylaxis 07/03/2022 01/02/2022, 09/01/2017, 04/23/2016 Dental X-Ray: Bitewings 01/03/2023 01/03/20, 04/23/2016, 05/10/2015 Mammogram 2024 COVID-19 Vaccine (2024-03 6 season) 2024 08/04/2021, 07/10/2020, 06/12/2020 Influenza Vaccine (#1) 2024 01/15/2020 Dental X-Ray: Full Mouth 01/03/2025 022, 05/10/2015 DTaP/Tdap/Td Vaccines (2 - T d or Tdap) 07/08/2031 07/07/2021 Zoster Vaccines (1 of 2) 01/13/2034 RSV Patients and Patients Aged 60 years or older (1 - 1-dose 75+ series) 01/13/2059 Pneumococcal Vaccine: Pediatrics (0 to 5 Years) and At-Risk Patients (6 to 49) Years Aged Out 12/16/2015 No longer eligible b [...] Maintenance Insurance [facility] MEDICAID STAND ADULT
--- OUTSIDE RECORDS SUMMARY | 2024-12-18 18:02 | XMS_ITS | Clinical Summary ---
Author Organization [facility] Address [address] [facility] [address] [place] [phone] Phone Care Team Providers Care Lending Consultant Name Role Phone Tegan Quevedo DO Primary Care Provider +1- [phone] Medications Medication-Free Text Reglan Active NAPROXEN ORAL [...] (18-6 5 YEARS) 01/13/2002 PAP SMEAR 01/13/2005 MAMMOGRAM 2024 INFLUENZA VACCINE (#1) 2024 01/15/2020 COVID-19 VACCINE (2024-2 6 season) 2024 HEPATITIS A VACCINES Aged Out No [...] topic Medical Devices Not on file [facility] [place] [address] Care Teams Lending Consultant Relationship Specialty Start Date End Date Tegan Quevedo DO PCP - General 02/11/17 Additional Source Comments The information contained in this document represents components of the legal health record. It is not the complete legal health record.[facility]
--- OUTSIDE RECORDS SUMMARY | 2024-12-18 18:02 | XMS_ITS | Encounter Summary ---
Author Organization [facility] Address [address] [facility] [address] [place] [address] Phone Care Team Providers Care Business Management Intern Name Role Phone Tegan Quevedo DO Primary Care Provider +1- [phone] Encounter Details Date Type Department Care Team (Latest Contact Info) Description 02/11/2017 Transcribe Orders [facility] Laboratory [address] [place] [id number] Lei Pinto MD [address] [place] [address], [address] [place] [address] [email or web address] Nonintractable headache, unspecified chronicity pattern, unspecified headache type (Primary Dx) Social History Tobacco Use Types Packs/Day Years Used Date Smoking Tobacco: Never Assessed Comments Unknown Sex and Gender Information Value Date Recorded Sex Assigned at Not on file Legal Sex Female 10:28 PM EDT Gender Identity Not on file Sexual Orientation Not on file documented as of this encounter Plan of Treatment Not on file documented as of this encounter Results * Vitamin B12 (02/11/2017 3:14 PM EST) VITAMIN B12 272 243 - 894 pg/mL [facility] Blood 02/11/2017 3:14 PM EST 02/11/2017 3:22 PM EST us Lei Pinto MD LAB BLOOD ORDERABLES Final R esult [facility] [address] [place] [address] * Sedimentation rate (ESR) (02/11/2017 3:14 PM EST) ESR 7 0 - 20 mm/h [facility] Blood 02/11/2017 3:14 PM EST 02/11/2017 3:22 PM EST us Lei Pinto MD LAB BLOOD ORDERABLES Final R esult Performing Organization Address City/[facility]/ZIP Co de Phone Number [address] [address] * CBC (02/11/2017 3:14 PM EST) WBC 10.07 3.40 - 11.20 K/uL [facility] RBC 4.53 3.80 - 4.80 M/uL [facility] HGB 12.5 12.0 - 15.0 g/dL [facility] HCT 37.7 36.0 - 46.0 % [facility] PLT 286 130 - 400 K/uL [facility] MCV 83.2 79.0 - 98.0 fL [facility] MCH 27.6 27.0 - 34.8 pg [facility] MCHC 33.2 31.5 - 36.0 g/dL [facility] RDW 13.2 10.8 - 14.6 % [facility] MPV 10.2 9.4 - 12.4 fl [facility] NRBC 0.00 /100 WBCs [facility] ABSOLUTE NRBC 0.00 K/uL [facility] Blood 02/11/2017 3:14 PM EST 02/11/2017 3:22 PM EST us Lei Pinto MD LAB BLOOD ORDERABLES Final R esult Performing Organization Address City/State/[facility] Co de Phone Number [address] [address] * (ABNORMAL) LFTs (hepatic panel) (02/11/2017 3:14 PM EST) ALKALINE PHOSPHATASE 90 39 - 117 U/L [facility] TOTAL BILIRUBIN 0.2 0 - 1.2 mg/dL [facility] DIRECT BILIRUBIN <0.2 0 - 0.3 mg/dL [facility] Bilirubin (Indirect) NOT CALCULATED 0 - 1.5 mg/dL [facility] AST 12 0 - 37 U/L [facility] ALT 11 0 - 40 U/L [facility] TOTAL PROTEIN 7.4 6.5 - 8.0 g/dL [facility] ALBUMIN 3.8(L) 3.9 - 4.8 g/dL [facility] GLOBULIN 3.6 1 - 4.8 g/dL [facility] A/G Ratio 1.06 1.00 - 4.80 RATIO [facility] Blood 02/11/2017 3:14 PM EST 02/11/2017 3:22 PM EST us Lei Pinto MD LAB BLOOD ORDERABLES Final R esult Performing Organization Address City/State/[facility] Co de Phone Number [address] [address] documented in this encounter Visit Diagnoses Diagnosis Nonintractable headache, unspecified chronicity pattern, unspecified headache type- Primary documented in this encounter Care Teams Business Management Intern Relationship Specialty Start Date End Date Tegan Quevedo DO PCP - General 02/11/17 documented as of this encounter Additional Source Comments The information contained in this document represents components of the legal health record. It is not the complete legal health record.[facility]
--- OUTSIDE RECORDS SUMMARY | 2024-12-18 18:02 | XMS_ITS | Clinical Summary ---
Author Organization [facility] Address [id number] [place] [id number] Care Team Providers Care Industrial Ecologist Name Role Phone Mague Irby MD Primary Care Provider [phone] Surgical History Surgery Date Site/Laterality Comments SECTION 2003 PROCEDURE: HI DELIVERY ONLY CHOLECYSTECTOMY 2012 PROCEDURE: HI CHOLECYSTECTOMY Medical History Medical History Date Comments [...] of 3 - 19+ 3-dose series) 01/13/2003 HPV Vaccines (1 - 3-dose SCD M series) 01/13/2011 Cervical Cancer Screening: P ap Smear 06/17/2020 06/17/2017, 06/17/2017 Depression Screening 02/23/2024 COVID-19 Vaccine ( - 2023-2 5 season) 2024 Influenza Vaccine (#1) 2024 RSV Immunization Adult Patients (1 - 1-dose 75+ series) 01/13/2059 HIB Vaccines Aged Out No longer eligi [...] RESULTING AGENCY - 06/22/2017 10:01 AM EDT [id number] RESULTS OF GEN-PROBE APTIMA COMBO 2 ASSAY CHLAMYDIA: NEGATIVE N. GONORRHOEAE: NEGATIVE HE LÓPEZ M.D., PATHOLOGIST (CASE ELECTRONICALLY SIGNED 06 22 2017) CLINICAL INFORMATION: Z12.4, Z01.419 Z11.3 ENCOUNTER FOR SCREENING FOR INFECTIONS WITH A PREDOMINANTLY SEXUAL MODE OF TRANSMISSION SOURCE: THINPREP PAP FOR CT/GC GROSS DESCRIPTION: THINPREP VIAL RECEIVED. PHYSICIANS MARY ELLEN MUÑOZ/# /[id number] Mary Ellen Muñoz [facility] LAB CYTOLOGY ORDERABLES Final Result HISTORICAL TESTING LAB RESULTING AGENCY from Last 3 Months or Most Recently Relevant to Health Maintenance Care Teams Industrial Ecologist Relationship Specialty Start Date End Date Mague Irby MD [address] [facility] [address], [address] [facility] D/B/A: [facility] UZMA Godinez PCP - General Internal Medicine 05/05/17
--- OUTSIDE RECORDS SUMMARY | 2024-12-18 18:02 | XMS_ITS | Encounter Summary ---
Author Organization [employer] Address [address] [facility] [address] [place] [address] Care Team Providers Care Arc Cutter Plasma Arc Name Role Phone Unavailable Primary Care Provider Unavailabl e Encounter Details Date Type Department Care Team (Late st Contact Info) Description 02/12/2022 Abstract [facility] [address], [place] [phone] Dalton Soares DDS [address], [place] [phone] Social History Tobacco Use Types Packs/Day Years [...]
--- OUTSIDE RECORDS SUMMARY | 2024-12-18 18:02 | XMS_ITS | Encounter Summary ---
Author Organization [facility] Address [address] [facility] [address] [place] [address] Care Team Providers Care Vocational Psychologist Name Role Phone Unavailable Primary Care Provider [...]
== END 2024-12-18 15:44 | disposition home or self-care (01) ==
LOC: HO.HBS 14:23
PROVIDERS: PCP Internal Medicine; Visit Provider Physician Assistant Surgical
DX: E66.3 Overweight (principal); Z68.28 Body mass index [BMI] 28.0-28.9, adult; L98.7 Excessive and redundant skin and subcutaneous tissue; Z90.3 Acquired absence of stomach [part of]; Z98.84 Bariatric surgery status
CPT/HCPCS: 99213

== ENCOUNTER → 2024-12-18 14:22 | Outpatient (BNVA) | payer OTHER, SELFPAY | PROVIDERS: PCP Internal Medicine; Visit Provider Physician Assistant Surgical | DX: Z98.84 Bariatric surgery status (principal); K74.00 Hepatic fibrosis, unspecified; E53.8 Deficiency of other specified B group vitamins; I10 Essential (primary) hypertension; E55.9 Vitamin D deficiency, unspecified | CPT/HCPCS: 99212 ==

== ENCOUNTER 2024-12-29 15:21 | Emergency (ER) | payer OTHER, SELFPAY ==
--- NOTE | ~2024-12-29 | CT_ITS ---
CLINICAL HISTORY: abd pain n v d CT abdomen and pelvis with contrast Comparison: CT/SR - CT ABDOMEN PELVIS W IV CON - 05/21/24 11:27 EDT Findings: Lung bases: Clear. Liver: Subcentimeter hypodensities are too small to characterize. Fatty infiltration of the falciform ligament.. No biliary ductal dilatation. Patent portal vein. Gallbladder: Cholecystectomy. Spleen: Normal Pancreas: No solid mass or main duct dilation. Adrenal glands: No nodules. Kidneys: Mild heterogeneous enhancement of bilateral renal cortices. No hydronephrosis. No stones. No solid mass. Pelvic organs: Calcified fibroid in the uterus. Bilateral physiological cysts. Peritoneum and Gastrointestinal: Status post sleeve gastrectomy. Colonic diverticulosis without acute diverticulitis. No bowel obstruction, pneumoperitoneum, or ascites. Noninflamed appendix. Lymph nodes: No lymphadenopathy. Vessels: Atherosclerosis. Bones and soft tissues: Unremarkable. IMPRESSION: Mild heterogeneous enhancement of bilateral renal cortices which may be secondary to the phase of contrast. Correlate with urinalysis and symptoms to exclude pyelonephritis. This document has been electronically signed by: Gabbie Bridges MD on 12/29/2024 20:24:28
[2024-12-29 15:45] VITALS: BP 101/63; PULSE 95; RESP 18; TEMP 36.6; O2SAT 97; BMI 25.8
--- NOTE | 2024-12-29 15:46 | ED_ITS ---
HPI - Nausea/Vomiting/Diarrhea General Chief complaint: Nausea/Vomiting/Diarrhea Stated complaint: n/v/d Time Seen by Provider: 12/29/24 16:12 History of Present Illness HPI Narrative: Patient is a 39-year-old female presents today with having nausea vomiting diarrhea that started last night. Diffuse abdominal pain. History of gastric bypass. No history of diabetes. Patient claims she is unable to keep down any food. Patient has gastric bypass was done about a year and a half ago. Child also had similar symptoms. No fever. Patient is from home. Related Data Home Medications ?Medication ?Instructions ?Recorded ?Confirmed clonazepam 1 mg tablet 1 mg PO BID PRN Anxiety 12/2412/18/24 amitriptyline 100 mg tablet 100 mg PO BEDTIME 01/11/23 12/18/24 Previous Rx's ?Medication ?Instructions ?Recorded Brace,wrist #2 ea 10/15/22 clotrimazole 1 % topical cream 1 appl topical BID #45 grams 09/01/24 (Antifungal (clotrimazole)) meclizine 25 mg tablet (Dramamine 25 mg PO DAILY PRN m otion sickness 10/11/24 (meclizine)) 7 days #7 tabs cephalexin 500 mg capsule 500 mg PO Q8H 7 days #21 cap s 12/29/24 ondansetron 4 mg disintegrating 4 mg PO TID PRN nausea and 12/29/24 tablet vomiting 5 days #10 tabs Allergies Allergy/AdvReac Type Severity Reaction Status Date / Time aspirin (ASPIRIN) Allergy Intermediate SWELLING Verified 12/29/24 15:47 latex (LATEX) Allergy Intermediate Rash Verified 12/29/24 15:47 prednisone (PREDNISONE) Allergy Intermediate swelling Verified 12/29/24 15:47 and hives, swelling tramadol Allergy Intermediate loopiness Verified 12/29/24 15:47 Review of Systems 2 Review of Systems: Positive abdominal pain Yes all other systems are reviewed and are negative PMFSH Past Medical History Attestation statement: The following information was validated with the patient. Medical History Acute respiratory disease Insomnia Liver fibrosis Steatosis, liver DJD (degenerative joint disease) Panic disorder Lumbar pain with radiation down both legs Shoulder pain, bilateral Bilateral shoulder tendinopathy Gestational diabetes mellitus Moderate recurrent major depression Morbid obesity due to excess calories Chronic thoracic spine pain Carpal tunnel syndrome Neck pain Fibromyalgia B12 deficiency Anxiety Right sided sciatica Neuropathy Essential hypertension Arnold-Chiari malformation Surgical History S/P laparoscopic sleeve gastrectomy History of D&C History of cholecystectomy History of section Family History Family History Father Hypertension CVD (cardiovascular disease) Diabetes Mother Hypertension Chronic mental illness Depression Mental health disorder Paternal Aunt Breast cancer Brother Colon cancer Stomach cancer Social History Social History Household Members: Family Housing: House Are you a primary nurse care manager to a significant other at home: Yes Do you presently have visiting nurse or other home services: No Alcohol intake: never Patient Tobacco Use Status: Never used Tobacco Smoked in Last 30 Days: No e-Cigarette/Vaping Use: Never Used Second Hand Smoke Exposure: No Use of substances other than those prescribed or required for medical reasons: No Advance Directives: No Advance Directives Information Provided: No service: No Current occupational status: unemployed Cognitive needs: No Hearing needs: No Vision needs: No Physical Exam 2 Exam: Exam: Appearance: Alert. Oriented X3. No acute distress. Eyes: Pupils equal, round and reactive to light. ENT: Pharynx normal. Neck: Normal inspection. Neck supple. No lymph nodes noted. No crepitus CVS: Normal heart rate and rhythm. Pulses normal. Normal S1 and S2 Respiratory: No respiratory distress. Breath sounds normal. No Wheezing. No rales Abdomen: Soft and nontender. No rigidity. No distention. good BS x4 Skin: Skin warm and dry. Normal skin color. Normal skin turgor. Extremities: No lower extremity edema. Neurovascular intact to all extremities. No Lacerations. No Rash Neuro: Oriented X 3. No motor deficit. No sensory deficit. Moving all extermities. No slurred speech Vital Signs: Vital Signs: Last Vital Signs Temp 98.5 F 12/29/24 19:30 Pulse 82 12/29/24 19:30 Resp 16 12/29/24 19:30 BP 107/56 L 12/29/24 19:30 Pulse Ox 99 12/29/24 19:30 O2 Del Method Room Air 12/29/24 19:30 BMI result Body Mass Index 25.8 Course Course Course Narrative: This is an RME: Additional HPI, ROS, PE not included below will be deferred to primary provider. RME assessment and note performed by: Ana Welch PA-C This is a 39-year-old female, with a past medical history of hypertension, who presents emergency department with concerns of nausea, vomiting, and diarrhea which started last night. Patient took Mylanta which has not alleviated her symptoms. Plan: Labs, further ER evaluation needed. Medications Administered Discontinued Medications Generic Name Dose Route Start Last Admin Trade Name Freq PRN Reason Stop Dose Admin Sodium Chloride 1,000 mls @ 999 mls/hr 12/29/24 17:00 12/29/24 18:08 Ns IV 12/29/24 18:00 Infused .Q1H1M TAO Infusion Iohexol 100 ml 12/29/24 18:22 12/29/24 18:22 Iohexol 350 Mg/Ml 100 Ml Infus..Btl IV 12/29/24 18:23 85 ml ONCE ONE Administration Ondansetron HCl 4 mg 12/29/24 15:50 12/29/24 15:51 Ondansetron Odt 4 Mg Tab.Rapdis TRANSLINGU 12/29/24 15:51 4 mg ONCE ONE Administration Medical Decision Making Medical Decision Making [facility] Narrative: CT scan of the abdomen pelvis was negative for obstruction no abscess no perforation. Unfortunately patient was unable to give us a urine and the CT scan showed question enhancement of bilateral renal cortices. They question if patient has pyelonephritis. Patient has no flank pain. Does not have any urinary symptoms. The nausea vomiting has improved after IV fluids and Zofran. Patient's lab looks normal. Dudley the risk of pyelonephritis to be low. Patient also wants to go home does not want to stay for additional fluids and urine sample. We will give her a prescription for Keflex. Will have patient closely follow-up on an outpatient basis. test was negative. COVID flu RSV are negative. More likely GI symptoms as patient's daughter also has similar symptoms. In stable condition will discharge home. Patient does not want to wait. Will elect to give patient a dose of Rocephin. A script for Keflex question UTI. Follow-up outpatient. Differential Diagnosis Differential Diagnoses: The differential diagnosis associated with the presentation includes Obstruction abscess perforation COVID flu RSV stomach virus dehydration Admission/Observation Consideration of admission/observation: Escalation of care including admission/observation considered Lab Data [facility] Lab Attestation statement: I reviewed the patient's lab results. 12/29/24 16:35 12/29/24 16:35 Labs: Lab Results 12/29/24 Range/Units 16:35 WBC 8.8 (4.8-10.8) X10*3/uL RBC 4.58 (4.20-5.50) X10*6/uL Hgb 13.2 (12.0-16.0) g/dl Hct 41.2 (37.0-47.0) % MCV 90.0 (80.0-98.0) fL MCH 28.8 (27.0-33.0) pg MCHC 32.0 (31.0-35.0) g/dl RDW 12.4 (11.0-16.0) % Plt Count 244 (160-400) X10*3/uL MPV 8.9 L (9.4-12.3) fL Immature Gran % (Auto) 0.2 (0.0-0.4) % Neut % (Auto) 90.1 H (45-73) % Lymph % (Auto) 5.6 L (20-40) % [place] % (Auto) 3.4 (2-11) % Eos % (Auto) 0.6 (0-4) % Baso % (Auto) 0.1 (0-2) % Lymph # (Auto) 0.5 L (1.2-4.9) X10*3/uL [place] # (Auto) 0.3 (0.1-1.2) X10*3/uL Eos # (Auto) 0.1 (0.0-0.4) X10*3/uL Baso # (Auto) 0.0 (0.0-0.2) X10*3/uL Abs Immat Gran (auto) 0.02 (0.00-0.03) X10*3/uL Absolute Neuts (auto) 7.9 (2.0-8.3) x10*3/uL Absolute Nucleated RBC 0.000 (0.0-0.012) X10*3/uL Nucleated RBC % (auto) 0.0 (0.0-0.2) /100WBC Smear Tech's Comments VERIFIED Sodium 142 (135-145) mmol/L Potassium 4.2 (3.3-5.1) mmol/L Chloride 108 (96-108) mmol/L Carbon Dioxide 26 (22-29) mmol/L Anion Gap 12 (12-20) BUN 19 H (9-16) mg/dL Creatinine 0.56 (0.5-1.4) mg/dL Estim Creat Clear Calc 131.3 Estimated GFR > 60 Random Glucose 117 H (60-115) mg/dL Calcium 8.8 D (8.4-10.2) mg/dL Total Bilirubin 0.5 (0.0-1.0) mg/dL Direct Bilirubin 0.1 (0.0-0.5) mg/dL AST 14 (5-31) U/L ALT 12 (0-31) U/L Alkaline Phosphatase 52 (39-117) U/L Troponin I High Sens < 2.7 (<3.5-17.0) ng/L Total Protein 6.9 (6.5-8.0) g/dL Albumin 4.1 (3.5-5.0) g/dL Beta HCG, Quant < 2 mIU/mL Influenza Type A (PCR) NEGATIVE (Negative) Influenza Type B (PCR) NEGATIVE (Negative) RSV RNA Qual (PCR) NEGATIVE (Negative) SARS-CoV-2 RNA (RT-PCR) NEGATIVE (Negative) Independent Interpretation I performed an independent interpretation of an: CT Scan (CT scan showed no obstruction no abscess no perforation) Radiology Impression Discussion of test interpretation with radiology: I have reviewed the radiologist's reading. External Record Review External record reviewed: Office record Prescription Management I considered prescription management with: Pain Medication Chronic Conditions Status post gastric sleeve surgery Social Determinants Patient?s care significantly limited by Social Determinants of Health including: Problems related to primary support group Discharge Plan Discharge Clinical Impression: Nausea & vomiting Patient Disposition: Home, Self-Care Instructions: Acute Nausea and Vomiting (DC) Prescriptions: New cephalexin 500 mg capsule 500 mg PO Q8H 7 Days Qty: 21 0RF ondansetron 4 mg tablet,disintegrating 4 mg PO TID PRN (Reason: nausea and vomiting) 5 Days Qty: 10 0RF No Action (DME) Brace,wrist Misc See Rx Instructions .Route Qty: 2 0RF Rx Instructions: Use at nighttime only for both wrists clonazepam 1 mg tablet 1 mg PO BID PRN (Reason: Anxiety) amitriptyline 100 mg tablet 100 mg PO BEDTIME meclizine [Dramamine (meclizine)] 25 mg tablet 25 mg PO DAILY PRN (Reason: motion sickness) 7 Days Qty: 7 0RF clotrimazole [Antifungal (clotrimazole)] 1 % cream 1 appl topical BID Qty: 45 3RF Referrals: Mague Brantley MD [Primary Care Provider, Internal Medicine] - 01/01/25 Print Language: Vietnamese
[2024-12-29 16:46] LABS: Hematocrit 41.2 % (37.0-47.0); Hemoglobin 13.2 g/dl (12.0-16.0); Imm Gran Abs Auto 0.02 X10*3/uL (0.00-0.03); Imm Gran Pct Auto 0.2 % (0.0-0.4); Lymphocytes Absolute Auto 0.5 X10*3/uL (1.2-4.9); MANUAL DIFF FLAG SCAN; Mean Corpuscular HGB Conc 32.0 g/dl (31.0-35.0); Mean Corpuscular Hemoglobin 28.8 pg (27.0-33.0); Mean Corpuscular Volume 90.0 fL (80.0-98.0); NRBC Abs Auto 0.000 X10*3/uL (0.0-0.012); NRBC Pct Auto 0.0 /100WBC (0.0-0.2); Platelet Count 244 X10*3/uL (160-400); Red Blood Count 4.58 X10*6/uL (4.20-5.50); SCAN SMEAR FLAG 1; White Blood Count 8.8 X10*3/uL (4.8-10.8)
--- OUTSIDE RECORDS SUMMARY | 2024-12-29 16:52 | XMS_ITS | Encounter Summary ---
Author Organization [facility] Address [address] [facility] [address] [place] [phone] Phone Care Team Providers Care Substation Operator Automatic Name Role Phone Tegan Quevedo DO Primary Care Provider [phone] Encounter Details Date Type Department Care Team (Latest Contact Info) Description 02/11/2017 Transcribe Orders [facility] Phleb Main [address] [place] [id number] Lei Pinto MD [address] [place] [address], [address] [place] [address] [email or web address] Nonintractable headache, unspecified chronicity pattern, unspecified [...] VITAMIN B12 272 243 - 894 pg/mL [facility] Blood 02/11/2017 3:14 PM EST 02/11/2017 3:22 PM EST us Lei Pinto MD LAB BLOOD BKR ORDERABLES Fin al Result [facility] [address] [place] [address] * Sedimentation rate (ESR) (02/11/2017 3:14 PM EST) ESR 7 0 - 20 mm/h [facility] Blood 02/11/2017 3:14 PM EST 02/11/2017 3:22 PM EST us Lei Pinto MD LAB BLOOD BKR ORDERABLES Fin al Result [address] [address] * CBC (02/11/2017 3:14 PM EST) WBC 10.07 3.40 - 11.20 K/uL [facility] RBC 4.53 3.80 - 4.80 M/uL [facility] HGB 12.5 12.0 - 15.0 g/dL [facility] HCT 37.7 36.0 - 46.0 % [facility] PLT 286 130 - 400 K/uL [facility] MCV 83.2 79.0 - 98.0 fL [facility] MCH 27.6 27.0 - 34.8 pg [facility] MCHC 33.2 31.5 - 36.0 g/dL [facility] RDW 13.2 10.8 - 14.6 % [facility] MPV 10.2 9.4 - 12.4 fl [facility] NRBC 0.00 /100 WBCs [facility] ABSOLUTE NRBC 0.00 K/uL [facility] Blood 02/11/2017 3:14 PM EST 02/11/2017 3:22 PM EST us Lei Pinto MD LAB BLOOD BKR ORDERABLES Fin al Result Performing Organization Address City/[facility]/ZIP Co de Phone Number [address] [address] * (ABNORMAL) LFTs (hepatic panel) (02/11/2017 3:14 PM EST) ALKALINE PHOSPHATASE 90 39 - 117 U/L [facility] TOTAL BILIRUBIN 0.2 0 - 1.2 mg/dL [facility] DIRECT BILIRUBIN <0.2 0 - 0.3 mg/dL [facility] Bilirubin (Indirect) NOT CALCULATED 0 - 1.5 mg/dL [facility] AST 12 0 - 37 U/L [facility] ALT 11 0 - 40 U/L [facility] TOTAL PROTEIN 7.4 6.5 - 8.0 g/dL [facility] ALBUMIN 3.8(L) 3.9 - 4.8 g/dL [facility] GLOBULIN 3.6 1 - 4.8 g/dL [facility] A/G Ratio 1.06 1.00 - 4.80 RATIO [facility] Blood 02/11/2017 3:14 PM EST 02/11/2017 3:22 PM EST us Lei Pinto MD LAB BLOOD BKR ORDERABLES Fin al Result Performing Organization Address City/State/[facility] Co de Phone Number [address] [address] documented in this encounter Visit Diagnoses Diagnosis Nonintractable headache, unspecified chronicity pattern, unspecified headache type- Primary documented in this encounter Care Teams Substation Operator Automatic Relationship Specialty Start Date End Date Tegan Quevedo DO PCP - General 02/11/17 documented as of this encounter Additional Source Comments The information contained in this document represents components of the legal health record. It is not the complete legal health record.[facility]
--- OUTSIDE RECORDS SUMMARY | 2024-12-29 16:52 | XMS_ITS | Clinical Summary ---
Author Organization [facility] Address [address] [place] [address] Phone Care Team Providers Care Commissioning Specialist Name Role Phone Tegan Quevedo DO Primary Care Provider [phone]- [phone] Medications Medication-Free Text Reglan Active NAPROXEN ORAL [...] topic Medical Devices Not on file Insurance [facility] [place] [address] Care Teams Commissioning Specialist Relationship Specialty Start Date End Date Tegan Quevedo DO PCP - General 02/11/17 Additional Source Comments The information contained in this document represents components of the legal health record. It is not the complete legal health record.[facility]
--- OUTSIDE RECORDS SUMMARY | 2024-12-29 16:52 | XMS_ITS | Encounter Summary ---
Author Organization [employer] Address [address] [facility] [address] [place] [address] Care Team Providers Care Swat Team Member Name Role Phone Unavailable Primary Care Provider Unavailabl e Encounter Details Date Type Department Care Team (Late st Contact Info) Description 02/12/2022 Abstract [facility] [address] [place], [place] [id number] Dalton Soares DDS [address], [place] [id number] Social History Tobacco Use Types Packs/Day Years [...]
--- OUTSIDE RECORDS SUMMARY | 2024-12-29 16:52 | XMS_ITS | Clinical Summary ---
Author Organization [facility] Address [address] [place] [id number] Care Team Providers Care Plate Molder Name Role Phone Mague Irby MD Primary Care Provider [phone] Surgical History Surgery Date Site/Laterality Comments SECTION 2003 PROCEDURE: [place] DELIVERY ONLY CHOLECYSTECTOMY 2012 PROCEDURE: VT CHOLECYSTECTOMY Medical History Medical History Date Comments [...] RESULTING AGENCY - 06/22/2017 10:01 AM EDT [id number] RESULTS OF GEN-PROBE APTIMA COMBO 2 ASSAY CHLAMYDIA: NEGATIVE N. GONORRHOEAE: NEGATIVE HE LÓPEZ M.D., PATHOLOGIST (CASE ELECTRONICALLY SIGNED 06 22 2017) CLINICAL INFORMATION: Z12.4, Z01.419 Z11.3 ENCOUNTER FOR SCREENING FOR INFECTIONS WITH A PREDOMINANTLY SEXUAL MODE OF TRANSMISSION SOURCE: THINPREP PAP FOR CT/GC GROSS DESCRIPTION: THINPREP VIAL RECEIVED. PHYSICIANS MARY ELLEN MUÑOZ/# /[phone] Mary Ellen Muñoz [facility] LAB CYTOLOGY ORDERABLES Final Result HISTORICAL TESTING LAB RESULTING AGENCY from Last 3 Months or Most Recently Relevant to Health Maintenance Care Teams Plate Molder Relationship Specialty Start Date End Date Mague Irby MD [address] [facility] [address], [address] [facility] D/B/A: [facility] UZMA Godinez PCP - General Internal Medicine 05/05/17
--- OUTSIDE RECORDS SUMMARY | 2024-12-29 16:53 | XMS_ITS | Encounter Summary ---
Author Organization [facility] [employer] [facility] Address [address] [facility] [address] [place] [address] Care Team Providers Care Silver Brazer Name Role Phone Unavailable Primary Care Provider [...]
--- OUTSIDE RECORDS SUMMARY | 2024-12-29 16:53 | XMS_ITS | Clinical Summary ---
Author Organization [employer] Address [address] [facility] [address] [place] [address] Care Team Providers Care Heading Repairer Name Role Phone Unavailable Primary Care Provider [...] Most Recently Relevant to Health Maintenance Insurance [facility] MEDICAID STAND ADULT
[2024-12-29 16:56] LABS: Alanine Aminotransferase 12 U/L (0-31); Albumin Level 4.1 g/dL (3.5-5.0); Alkaline Phosphatase 52 U/L (39-117); Anion Gap 12 (12-20); Aspartate Amino Transferase 14 U/L (5-31); Blood Urea Nitrogen 19 mg/dL (9-16); Calcium 8.8 mg/dL (8.4-10.2); Carbon Dioxide 26 mmol/L (22-29); Chloride 108 mmol/L (96-108); Creatinine Clr Calc Pharmacy 131.3; Estimated Glomerular Filt Rate > 60; Potassium 4.2 mmol/L (3.3-5.1); Sodium 142 mmol/L (135-145); Total Protein 6.9 g/dL (6.5-8.0)
[2024-12-29 17:06] LABS: Troponin-I High Sensitivity < 2.7 ng/L (<3.5-17.0)
[2024-12-29 17:20] LABS: Resp Syncy Virus RNA Qual PCR NEGATIVE (Negative); SARS COV2 PCR INHOUSE NEGATIVE (Negative)
[2024-12-29] MEDS: iohexoL 350 MG/ML 100 ML INFUS..BTL IV (18:22)
[2024-12-29 19:30] VITALS: BP 107/56; PULSE 82; RESP 16; TEMP 36.9; O2SAT 99
[2024-12-29 21:38] VITALS: BP 121/79; PULSE 93; RESP 16; TEMP 36.9; O2SAT 98
[2024-12-29 21:44] VITALS: BP 121/79; PULSE 93; RESP 16; TEMP 36.9; O2SAT 98
== END 2024-12-29 21:46 | disposition home or self-care (01) ==
PROVIDERS: Physician Assistant Medical; Emergency Provider Emergency Medicine Emergency Medical Services; PCP Internal Medicine
DX: R11.2 Nausea with vomiting, unspecified (principal); R19.7 Diarrhea, unspecified; Z98.84 Bariatric surgery status; Z79.899 Other long term (current) drug therapy; Z03.818 Encounter for observation for suspected exposure to other biological agents ruled out
CPT/HCPCS: 74177; 80048; 80076; 84484; 84702; 85025; 87637; 96361; 96365; 99284; J0696; Q9967

== ENCOUNTER 2025-01-22 14:31 | Outpatient (AMB) | payer OTHER, SELFPAY ==
[2025-01-22 14:39] VITALS: BP 106/70; PULSE 79; RESP 16; TEMP 36.9; O2SAT 97; BMI 27.0
--- NOTE | 2025-01-22 14:39 | MHC.OFFWIV ---
Intake Vital Signs 01/22/25 14:39 Height 5 ft 5 in Weight 162 lb BMI 27.0 BP 106/70 Blood Pressure Location Rt brachial Position Sitting Respiration 16 Pulse 79 Pulse Source Pulse Oximeter Temp 98.4 F Temp Source Oral Pulse Oximetry (%) 97 Oxygen Delivery Method Room Air Intake Visit Reasons: EP-headaches, sore throat, earache Intake Note: pt presents with headaches, sore throat, bilateral ear pain x3 days Patient Tobacco Use Status: Never used Tobacco Allergies aspirin (ASPIRIN) Allergy (Intermediate, Verified 01/22/25 14:43) SWELLING latex (LATEX) Allergy (Intermediate, Verified 01/22/25 14:43) Rash prednisone (PREDNISONE) Allergy (Intermediate, Verified 01/22/25 14:43) swelling and hives, swelling tramadol Allergy (Intermediate, Verified 01/22/25 14:43) loopiness Medication List - Last Reconciled 01/22/[address]ata, JOB COACH amitriptyline 100 mg PO BEDTIME Brace,wrist Use at nighttime only for both wrists clonazepam 1 mg PO BID PRN meclizine (Dramamine (meclizine)) 25 mg PO DAILY PRN 7 days ondansetron 4 mg PO TID PRN 5 days Do you need a note to return to daycare/school/sports/work: Yes HPI HPI Comments History of Present Illness Details 40 y/o female presents with complaints of subjective fevers, headache, sore throat, and bilateral ear pain since last night. Symptoms began abruptly. Denies use of any OTC remedies. 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 Denies nausea, vomiting, chest pain, shortness of breath, or cough at this time. No recent travel. [facility] Medical History Acute respiratory disease Insomnia Liver fibrosis Steatosis, liver DJD (degenerative joint disease) Panic disorder Lumbar pain with radiation down both legs Shoulder pain, bilateral Bilateral shoulder tendinopathy Gestational diabetes mellitus Moderate recurrent major depression Morbid obesity due to excess calories Chronic thoracic spine pain Carpal tunnel syndrome Neck pain Fibromyalgia B12 deficiency Anxiety Right sided sciatica Neuropathy Essential hypertension Arnold-Chiari malformation Surgical History S/P laparoscopic sleeve gastrectomy History of D&C History of cholecystectomy History of section Family History Father Hypertension CVD (cardiovascular disease) Diabetes Mother Hypertension Chronic mental illness Depression Mental health disorder Paternal Aunt Breast cancer Brother Colon cancer Stomach cancer Social History Household Members: Family Housing: House Are you a primary career development specialist to a significant other at home: Yes Do you presently have visiting nurse or other home services: No Alcohol intake: never Patient Tobacco Use Status: Never used Tobacco e-Cigarette/Vaping Use: Never Used Second Hand Smoke Exposure: No service: No Current occupational status: unemployed Cognitive needs: No Hearing needs: No Vision needs: No Review of Systems Const All systems reviewed & are unremarkable except as noted in HPI and below Physical Exam Vital Signs: Last Vital Signs Temp 98.4 F 01/22/25 14:39 Pulse 79 01/22/25 14:39 Resp 16 01/22/25 14:39 BP 106/70 01/22/25 14:39 Pulse Ox 97 01/22/25 14:39 Oxygen Delivery Method Room Air 01/22/25 14:39 BMI result Body Mass Index 27.0 Const General: no acute distress Nutritional Appearance: well nourished Orientation/consciousness: patient oriented x3 HEENT Head: Yes normocephalic Ears: external ears normal and TM abnormal bulging bilateral and with fluid behind the TM bilateral General nose exam: Nasal discharge present Face and sinus: Yes sinuses nontender Mouth: moist mucous membranes and Abnormal oral and palatal mucosa present erythematous Throat: Yes uvula midline and Yes abnormal tonsil (Enlarged Tonsils +2) Resp Effort & Inspection: normal respiratory effort Auscultation: clear to auscultation bilaterally, no crackles, no rales, no rhonchi and no wheezes Cardio Heart sounds: S1 normal heart sound present and S2 normal heart sound present Neuro General: patient oriented x3 Results AMB Rapid Strep AMB Rapid Strep Negative Last Edit by Brianna Montenegro CMA on 01/22/25 15:00 Results Reviewed Results Reviewed: Laboratory Last Values Strep Scn Rapid Clinic Negative 01/22/25 14:59 Assessment & Plan Assessment & Plan (1) Acute respiratory disease: Code(s): J06.9 - Acute upper respiratory infection, unspecified Plan: Acute Pharyngitis ? Viral vs bacterial; symptoms <24 hrs. Rapid Strep Negative. Ordered SARs. Supportive care: Acetaminophen or ibuprofen for fever/pain. Hydration, rest, warm saltwater gargles. Rest - gave a work Note for few days off. RTC if worsening throat pain, high fevers, drooling, difficulty breathing, ear discharge. Orders: Orders AMB Rapid Strep Screen Today Z13.9 - Encounter for screening, unspecified SARS-CoV2/FLU/RSV Today R09.89 - Other specified symptoms and signs involving the circulatory and respiratory systems Medications: New dextromethorphan-benzocaine 5-7.5 mg (Cepacol Sore Throat-Cough) 1 benji PO Q4H PRN 16 ea 0RF sore throat J06.9 - Acute upper respiratory infection, unspecified acetaminophen 1,000 mg (2 x 500 mg) PO Q6H PRN 30 caps 0RF pain J06.9 - Acute upper respiratory infection, unspecified Coding Level of Care Code Est Pt Level 4 (17644) Diagnoses Acute respiratory disease J06.9 Time Spent (min) 20
--- OUTSIDE RECORDS SUMMARY | 2025-01-22 17:49 | XMS_ITS | Clinical Summary ---
Author Organization [employer] Address [address] [facility] [address] [place] [address] Care Team Providers Care Counterintelligence Agent Name Role Phone Unavailable Primary Care [...] Most Recently Relevant to Health Maintenance Insurance [facility] MEDICAID STAND ADULT
--- OUTSIDE RECORDS SUMMARY | 2025-01-22 17:49 | XMS_ITS | Clinical Summary ---
Author Organization [facility] Address [address] [place] [phone] Phone Care Team Providers Care Cardiac Monitor Name Role Phone Tegan Quevedo DO Primary Care Provider [phone] Medications Medication-Free Text Reglan Active NAPROXEN ORAL [...] topic Medical Devices Not on file Insurance [facility] [place] [address] Care Teams Cardiac Monitor Relationship Specialty Start Date End Date Tegan Quevedo DO PCP - General 02/11/17 Additional Source Comments The information contained in this document represents components of the legal health record. It is not the complete legal health record.[facility]
--- OUTSIDE RECORDS SUMMARY | 2025-01-22 17:49 | XMS_ITS | Encounter Summary ---
Author Organization [facility] [employer] [facility] Address [address] [place] [address] Care Team Providers Care Manager Heavy Equipment Name Role Phone Unavailable Primary Care Provider [...]
--- OUTSIDE RECORDS SUMMARY | 2025-01-22 17:49 | XMS_ITS | Encounter Summary ---
Author Organization [employer] [facility] Address [address] [place] [address] Care Team Providers Care Wire Weaving Loom Setter Name Role Phone Unavailable Primary Care Provider Unavailabl e Encounter Details Date Type Department Care Team (Late st Contact Info) Description 02/12/2022 Abstract [facility] [address] [place], [place] [id number] Dalton Soares DDS [address] [place], [place] [phone] Social History Tobacco Use Types Packs/Day Years [...]
--- OUTSIDE RECORDS SUMMARY | 2025-01-22 17:49 | XMS_ITS | Clinical Summary ---
Author Organization [facility] Address [address] [place] [id number] Care Team Providers Care Forge Operator Helper Name Role Phone Mague Irby MD Primary Care Provider [phone] Surgical History Surgery Date Site/Laterality Comments SECTION 2003 PROCEDURE: [place] DELIVERY ONLY CHOLECYSTECTOMY 2012 PROCEDURE: [place] CHOLECYSTECTOMY Medical History Medical History Date Comments [...] 06/17/2017, 06/17/2017 Depression Screening 02/23/2024 COVID-19 Vaccine (1 - 2024-2 6 season) 2024 Influenza Vaccine (#1) 2024 RSV [...] RESULTING AGENCY - 06/22/2017 10:01 AM EDT [id number] RESULTS OF GEN-PROBE APTIMA COMBO 2 ASSAY CHLAMYDIA: NEGATIVE N. GONORRHOEAE: NEGATIVE HE LÓPEZ M.D., PATHOLOGIST (CASE ELECTRONICALLY SIGNED 06 22 2017) CLINICAL INFORMATION: Z12.4, Z01.419 Z11.3 ENCOUNTER FOR SCREENING FOR INFECTIONS WITH A PREDOMINANTLY SEXUAL MODE OF TRANSMISSION SOURCE: THINPREP PAP FOR CT/GC GROSS DESCRIPTION: THINPREP VIAL RECEIVED. PHYSICIANS MARY ELLEN MUÑOZ/# /[id number] Mary Ellen Muñoz [facility] CYTOLOGY ORDERABLES Final Result HISTORICAL TESTING LAB RESULTING AGENCY from Last 3 Months or Most Recently Relevant to Health Maintenance Care Teams Forge Operator Helper Relationship Specialty Start Date End Date Mague Irby MD [address], [address] [facility] D/B/A: [facility] Internal [facility] UZMA Godinez PCP - General Internal Medicine 05/05/17
--- OUTSIDE RECORDS SUMMARY | 2025-01-22 17:49 | XMS_ITS | Encounter Summary ---
Author Organization [facility] Address [address] [place] [phone] Phone Care Team Providers Care Airport Guide Name Role Phone Tegan Quevedo DO Primary Care Provider [phone] Encounter Details Date Type Department Care Team (Latest Contact Info) Description 02/11/2017 Transcribe Orders [facility]le[facility] Main [address] [place] [id number] Lei Pinto MD [address] [place] [address], [address] [place] [address] [email or web address] Nonintractable headache, unspecified chronicity pattern, unspecified [...] VITAMIN B12 272 243 - 894 pg/mL [facility] Blood 02/11/2017 3:14 PM EST 02/11/2017 3:22 PM EST us Lei Pinto MD LAB BLOOD BKR ORDERABLES Fin al Result [facility] [address] [place] [address] * Sedimentation rate (ESR) (02/11/2017 3:14 PM EST) ESR 7 0 - 20 mm/h [facility] Blood 02/11/2017 3:14 PM EST 02/11/2017 3:22 PM EST us Lei Pinto MD LAB BLOOD BKR ORDERABLES Fin al Result [address] [address] * CBC (02/11/2017 3:14 PM EST) WBC 10.07 3.40 - 11.20 K/uL [facility] RBC 4.53 3.80 - 4.80 M/uL [facility] HGB 12.5 12.0 - 15.0 g/dL [facility] HCT 37.7 36.0 - 46.0 % [facility] PLT 286 130 - 400 K/uL [facility] MCV 83.2 79.0 - 98.0 fL [facility] MCH 27.6 27.0 - 34.8 pg [facility] MCHC 33.2 31.5 - 36.0 g/dL [facility] RDW 13.2 10.8 - 14.6 % [facility] MPV 10.2 9.4 - 12.4 fl [facility] NRBC 0.00 /100 WBCs [facility] ABSOLUTE NRBC 0.00 K/uL [facility] Blood 02/11/2017 3:14 PM EST 02/11/2017 3:22 PM EST us Lei Pinto MD LAB BLOOD BKR ORDERABLES Fin al Result Performing Organization Address City/[facility]/ZIP Co de Phone Number [address] [address] * (ABNORMAL) LFTs (hepatic panel) (02/11/2017 3:14 PM EST) ALKALINE PHOSPHATASE 90 39 - 117 U/L [facility] TOTAL BILIRUBIN 0.2 0 - 1.2 mg/dL [facility] DIRECT BILIRUBIN <0.2 0 - 0.3 mg/dL [facility] Bilirubin (Indirect) NOT CALCULATED 0 - 1.5 mg/dL [facility] AST 12 0 - 37 U/L [facility] ALT 11 0 - 40 U/L [facility] TOTAL PROTEIN 7.4 6.5 - 8.0 g/dL [facility] ALBUMIN 3.8(L) 3.9 - 4.8 g/dL [facility] GLOBULIN 3.6 1 - 4.8 g/dL [facility] A/G Ratio 1.06 1.00 - 4.80 RATIO [facility] Blood 02/11/2017 3:14 PM EST 02/11/2017 3:22 PM EST us Lei Pinto MD LAB BLOOD BKR ORDERABLES Fin al Result Performing Organization Address City/State/[facility] Co de Phone Number [address] [address] documented in this encounter Visit Diagnoses Diagnosis Nonintractable headache, unspecified chronicity pattern, unspecified headache type- Primary documented in this encounter Care Teams Airport Guide Relationship Specialty Start Date End Date Tegan Quevedo DO PCP - General 02/11/17 documented as of this encounter Additional Source Comments The information contained in this document represents components of the legal health record. It is not the complete legal health record.[facility]
== END 2025-01-22 15:57 | disposition home or self-care (01) ==
PROVIDERS: PCP Internal Medicine; Visit Provider Nurse Practitioner Family
DX: Z13.9 Encounter for screening, unspecified (principal); J06.9 Acute upper respiratory infection, unspecified

== ENCOUNTER 2025-01-22 14:31 | Outpatient (REF) | payer OTHER, SELFPAY ==
[2025-01-22 19:49] LABS: Resp Syncy Virus RNA Qual PCR NEGATIVE (Negative); SARS COV2 PCR INHOUSE NEGATIVE (Negative)
== END 2025-01-22 14:32 | disposition home or self-care (01) ==
LOC: HO.LAB 14:31
PROVIDERS: PCP Internal Medicine; Visit Provider Nurse Practitioner Family
DX: J06.9 Acute upper respiratory infection, unspecified (principal); R09.89 Other specified symptoms and signs involving the circulatory and respiratory systems; Z13.89 Encounter for screening for other disorder
CPT/HCPCS: 87637; 87880; 99212